=== PATIENT | male | born 1975 | race Caucasian/White ===

== ENCOUNTER 2019-12-22 14:35 | Emergency (ER) | payer OTHER, SELFPAY ==
--- NOTE | ~2019-12-22 | CT_ITS ---
EXAMINATION: CT soft tissue neck w con DATE: 12/22/2019 15:49 INDICATION: Neck pain and swelling. TECHNIQUE: Computed tomography (CT) of the neck was performed with 75 mL Omnipaque-350 intravenous co ntrast. Automated exposure control and iterative reconstruction technique were employed. The dose-tino gth product was 633.90 mGy-cm. COMPARISON: None FINDINGS: The orbits are normal. There is fat stranding in the right submandibular space and overlyin g subcutaneous fat. There is edema of the right submandibular gland. There is mild right high interna l jugular chain lymphadenopathy. There is a carious lesion of tooth 31 with periapical lucencies and breech of the lingual cortex of the alveolar ridge. There is edema of the right floor of mouth. No ab scess. There is moderate cervical spondylosis. IMPRESSION: 1. Carious lesion and periapical lucencies involving tooth #31 with right neck cellulitis. No abscess . 2. Mild high right internal jugular chain lymphadenopathy, likely reactive. Reviewed, dictated and finalized at location A. S REVIEW CLERK IMPRESSION: 1. Carious lesion and periapical lucencies involving tooth #31 with right neck cellulitis. No abscess. 2. Mild high right internal jugular chain lymphadenopathy, likely reactive.
[2019-12-22 14:40] VITALS: BP 170/100; PULSE 105; RESP 20; TEMP 36.6; O2SAT 98
[2019-12-22 15:12] LABS: Basophils Percent Auto 0.1 % (0.2-1.2); Eosinophils Absolute Auto 0.3 K/mm3 (0-0.3); Eosinophils Percent Auto 1.7 % (0-4.4); Hematocrit 50.4 % (42.0-52.0); Hemoglobin 17.1 g/dL (14.0-18.0); Immature Granulocyte Absolute 0.07 K/mm3 (0.00-0.031); Immature Granulocyte Percent A 0.5 % (0-0.5); Lymphocytes Absolute Auto 1.61 K/mm3 (0.9-3.2); Lymphocytes Percent Auto 10.7 % (18.3-44.2); Mean Corpuscular HGB Conc 33.9 g/dl (32-36); Mean Corpuscular Hemoglobin 30.1 pg (26-34); Mean Corpuscular Volume 88.7 fl (80-100); Monocytes Absolute Auto 1.1 K/mm3 (0.1-0.6); Monocytes Percent Auto 7.2 % (2.6-8.5); Neutrophils Absolute Auto 12.1 K/mm3 (1.3-6.7); Neutrophils Percent Auto 79.8 % (45.5-73.1); Platelet Count Result 212 k/mm3 (150-375); Red Blood Count 5.68 M/mm3 (4.6-6.20); Red Cell Distribution Width 13.2 % (11.5-14.5); White Blood Count 15.1 K/mm3 (4.5-10.0)
[2019-12-22 15:16] LABS: Blood Urea Nitrogen 6 mg/dL (9-20); Calcium 9.3 mg/dL (8.4-10.2); Carbon Dioxide 27 mmol/L (22-30); Chloride 105 mmol/L (98-107); Estimated CRCL calculation 125 ml/min; Estimated Glomerular Filt Rate > 60; Glucose 99 mg/dL (75-110); Potassium 3.2 mmol/L (3.4-5.0); Sodium 139 mmol/L (137-145)
[2019-12-22] MEDS: CLINDAMYCIN 900 MG/NS 50 ML 900 MG/50 ML PIGGYBACK 50 MG IVPB (15:16)
[2019-12-22] MEDS: KETOROLAC 30 MG/ML VIAL (*BKC) IV PUSH (15:16)
[2019-12-22] MEDS: SODIUM CHLORIDE 0.9% IV 1,000 ML 999 ML IV CONT (15:16)
--- NOTE | 2019-12-22 15:29 | ED.GENADULT ---
HPI - General Adult General Chief complaint: Dental/Oral <MARCUS Carpenter Last Filed: 12/22/19 17:01> Stated complaint: Facial Swelling/Abscess Tooth <MARCUS Carpenter Last Filed: 12/22/19 17:01> Time Seen by Provider: 12/22/19 14:37 <MARCUS Carpenter Last Filed: 12/22/19 17:01> Source: patient <MARCUS Carpenter Last Filed: 12/22/19 17:01> Mode of arrival: ambulatory <MARCUS Carpenter Last Filed: 12/22/19 17:01> Limitations: no limitations <MARCUS Carpenter Last Filed: 12/22/19 17:01> History of Present Illness HPI narrative: Patient is a 44-year-old male who presents to emergency department for evaluation of pain and swelling to the right side of the face was seen by dentistry today sent to emergency department notes history of decay notes for the last 2 days he has been having dental pain on arrival to emergency department patient is in the room in no distress resting comfortably patient denies any fever vomiting diarrhea or immunocompromise <MARCUS Carpenter Last Filed: 12/22/19 17:01> Related Data Home medications: Home Medications Medication Instructions Recorded Confirmed Brilinta 90 mg PO DAILY 11/09/19 11/09/19 Enbrel 50 mg SUBCUT DAILY 11/09/19 11/09/19 bupropion HCl 150 mg PO DAILY 11/09/19 11/09/19 cyanocobalamin (vitamin B-12) 2,500 mcg PO DAILY 11/09/19 11/09/19 escitalopram oxalate 10 mg PO DAILY 11/09/19 11/09/19 hydrocodone-acetaminophen 1 tablet PO Q6H PRN 11/09/19 11/09/19 lisinopril 40 mg PO DAILY 11/09/19 11/09/19 metoprolol succinate 25 mg PO DAILY 11/09/19 11/09/19 ranolazine 500 mg PO BID 11/09/19 11/09/19 sucralfate [Carafate] 10 ml PO QID 11/09/19 11/09/19 <MARCUS Carpenter Last Filed: 12/22/19 17:01> Allergies/adverse reactions: Allergies Allergy/AdvReac Type Severity Reaction Status Date / Time colchicine AdvReac Unknown nausea and Verified 12/22/19 14:43 abdominal pain with one dose <Armando Duke PA-C - Last Filed: 12/22/19 17:01> Review of Systems Review of Systems: All systems reviewed & are unremarkable except as noted in HPI and below <Armando Duke PA-C - Last Filed: 12/22/19 17:01> PMFSH Past Medical History Medical History: Medical History Anxiety Arthritis Behcets syndrome CAD (coronary artery disease) Dental cavities Gout History of angina HLD (hyperlipidemia) HTN (hypertension) Kidney stone Left wrist fracture Myocardial infarction x2, with stent Psoriasis Wrist fracture <Armando Duke PA-C - Last Filed: 12/22/19 17:01> Surgical History Surgical History: Surgical History H/O arthroscopy of left knee History of renal stent History of surgery on arm left forearm <Armando Duke PA-C - Last Filed: 12/22/19 17:01> Family History Family History: Family History Other Family history of malignant neoplasm Family history of psoriasis Hypertension <Armando Duke PA-C - Last Filed: 12/22/19 17:01> Social History Social History: Social History 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 Smoking cigarettes per day: 40.0 Years smoked: 30 Smoking pack-years: 60.00 Smoking status: Current every day smoker Tobacco type: cigarettes Second hand tobacco smoke exposure: Yes Smoking end date: 10/21/12 Alcohol intake: current Drinks per week: 1 Substance use: never Gender identity (if verbalized by the patient): Male Spiritual care concerns: No Agree to blood products: Yes <Armando Duke PA-C - Last Filed: 12/22/19 17:01> Exam Narrative: Exam Narrative: GENERAL: Well-appearing, well-nourished, and in no acute distress. HEAD: Normocephalic, atraumatic.
[2019-12-22 16:07] VITALS: BP 159/89; PULSE 89; RESP 18; O2SAT 100
[2019-12-22 17:19] VITALS: BP 168/89; PULSE 89; RESP 16; TEMP 37.3; O2SAT 98
== END 2019-12-22 17:19 | disposition home or self-care (01) ==
PROVIDERS: Emergency Medicine Emergency Medical Services; Emergency Provider Emergency Medicine; PCP Chiropractor
DX: K04.7 Periapical abscess without sinus (principal); L03.221 Cellulitis of neck; F41.9 Anxiety disorder, unspecified; M19.90 Unspecified osteoarthritis, unspecified site; I25.10 Atherosclerotic heart disease of native coronary artery without angina pectoris; M10.9 Gout, unspecified; E78.5 Hyperlipidemia, unspecified; I10 Essential (primary) hypertension; Z87.442 Personal history of urinary calculi; I25.2 Old myocardial infarction; Z95.5 Presence of coronary angioplasty implant and graft; M35.2 Behcet's disease; F17.210 Nicotine dependence, cigarettes, uncomplicated
CPT/HCPCS: 36415; 70491; 80048; 85025; 96365; 96367; 96375; 99284; J0131; J1100; J1885; J7030; Q9967

== ENCOUNTER 2019-12-24 07:04 | Emergency (ER) | payer OTHER, SELFPAY ==
--- NOTE | ~2019-12-24 | CT_ITS ---
EXAMINATION: CT soft tissue neck w con DATE: 12/24/2019 09:24 INDICATION: Face and neck pain and swelling. TECHNIQUE: Computed tomography (CT) of the neck was performed with 75 mL Omnipaque-350 intravenous co ntrast. Automated exposure control and iterative reconstruction technique were employed. The dose-tino gth product was 609.28 mGy-cm. COMPARISON: CT neck 12/22/2019 FINDINGS: The lung apices demonstrate mild atelectasis. The orbits are normal. There is fat stranding in the right submandibular space and overlying subcutaneous fat. There is edema of the right submand ibular gland. There is mild right high internal jugular chain lymphadenopathy. There is a carious les ion of tooth 31 with periapical lucencies and breech of the lingual cortex of the alveolar ridge. The re is edema of the right floor of mouth. No abscess. There is moderate cervical spondylosis. IMPRESSION: 1. Carious lesion and periapical lucencies involving tooth #31 with stable right neck cellulitis. No abscess. 2. Mild high right internal jugular chain lymphadenopathy, likely reactive. Reviewed, dictated and finalized at location A. OLO MECHANIC IMPRESSION: 1. Carious lesion and periapical lucencies involving tooth #31 with stable righ t neck cellulitis. No abscess. 2. Mild high right internal jugular chain lymphadenopathy, likely reactive.
[2019-12-24 07:27] VITALS: BP 156/90; PULSE 87; RESP 18; TEMP 37.1; O2SAT 97
--- NOTE | 2019-12-24 07:49 | ED.DENTAL ---
HPI - Dental/Oral General Chief complaint: Dental/Oral Stated complaint: right lower dental issue; bodyaches Time Seen by Provider: 12/24/19 07:33 Source: patient Mode of arrival: ambulatory Limitations: no limitations History of Present Illness HPI Narrative: Patient is a 44-year-old male presents to the emergency department with complaints of dental pain with jaw and neck pain and swelling. Patient reports onset of symptoms a few days ago. Patient saw a dentist 3 days ago and was seen in the emergency department 2 days ago for evaluation. Patient had soft tissue CT of the neck completed which showed evidence of carious lesion and periapical lucencies involving tooth #31 with right neck cellulitis. No abscess was noted. Patient was given IV clindamycin and Decadron. Patient was prescribed clindamycin to take at home. Patient reports worsening swelling which is now involving the floor of the mouth and he reports some increased swelling in the neck and difficulty swallowing this morning. MD Complaint: tooth pain Location: Tooth # (31 decay, tender) Onset (ago): day(s) Duration: constant Context: history of dental caries Associated symptoms: pain with swallowing Related Data Home Medications Medication Instructions Recorded Confirmed Brilinta 90 mg PO DAILY 11/09/19 11/09/19 Enbrel 50 mg SUBCUT DAILY 11/09/19 11/09/19 bupropion HCl 150 mg PO DAILY 11/09/19 11/09/19 cyanocobalamin (vitamin B-12) 2,500 mcg PO DAILY 11/09/19 11/09/19 escitalopram oxalate 10 mg PO DAILY 11/09/19 11/09/19 hydrocodone-acetaminophen 1 tablet PO Q6H PRN 11/09/19 11/09/19 lisinopril 40 mg PO DAILY 11/09/19 11/09/19 metoprolol succinate 25 mg PO DAILY 11/09/19 11/09/19 ranolazine 500 mg PO BID 11/09/19 11/09/19 sucralfate [Carafate] 10 ml PO QID 11/09/19 11/09/19 Allergies Allergy/AdvReac Type Severity Reaction Status Date / Time colchicine AdvReac Unknown nausea and Verified 12/24/19 07:31 abdominal pain with one dose Review of Systems Review of Systems: All systems reviewed & are unremarkable except as noted in HPI and below Constitutional: Constitutional: Reports fever(s) (subjective) ENT: Reports dental pain and Reports dysphagia PMFSH Past Medical History Medical History Anxiety Arthritis Behcets syndrome CAD (coronary artery disease) Dental cavities Gout History of angina HLD (hyperlipidemia) HTN (hypertension) Kidney stone Left wrist fracture Myocardial infarction x2, with stent Psoriasis Wrist fracture Surgical History Surgical History H/O arthroscopy of left knee History of renal stent History of surgery on arm left forearm Social History Social History 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 Smoking cigarettes per day: 40.0 Years smoked: 30 Smoking pack-years: 60.00 Smoking status: Current every day smoker Tobacco type: cigarettes Second hand tobacco smoke exposure: Yes Smoking end date: 10/21/12 Alcohol intake: current Drinks per week: 1 Substance use: never Gender identity (if verbalized by the patient): Male Spiritual care concerns: No Agree to blood products: Yes Exam Const: General: cooperative, no acute distress and alert Nutritional Appearance: well nourished Orientation/consciousness: patient oriented x3 Limitations: no limitations HENMT: Mouth: Yes lip normal, Yes moist mucous membranes, Yes Abnormal oral and palatal mucosa present, Yes tongue abnormal and Yes other (Swelling to the right floor of mouth, no tongue elevation) Teeth and gingiva: caries (#31), gingiva abnormal edematous, diffusely erythematous and tender and other (No fluctuance to suggest abscess) Throat: posterior oropharynx normal Resp: Effort & Inspection: normal respiratory effort Auscultation: clear to auscultation bilateral
[2019-12-24] MEDS: CLINDAMYCIN 900 MG/NS 50 ML 900 MG/50 ML PIGGYBACK 50 MG IVPB (08:33)
[2019-12-24] MEDS: KETOROLAC 30 MG/ML VIAL (*BKC) IV PUSH (08:35)
[2019-12-24 08:46] LABS: Basophils Percent Auto 0.1 % (0.2-1.2); Eosinophils Absolute Auto 0.1 K/mm3 (0-0.3); Eosinophils Percent Auto 0.6 % (0-4.4); Hematocrit 50.1 % (42.0-52.0); Hemoglobin 16.8 g/dL (14.0-18.0); Immature Granulocyte Absolute 0.05 K/mm3 (0.00-0.031); Immature Granulocyte Percent A 0.4 % (0-0.5); Lymphocytes Absolute Auto 1.58 K/mm3 (0.9-3.2); Lymphocytes Percent Auto 11.4 % (18.3-44.2); Mean Corpuscular HGB Conc 33.5 g/dl (32-36); Mean Corpuscular Hemoglobin 29.9 pg (26-34); Mean Corpuscular Volume 89.3 fl (80-100); Mean Platelet Volume 10.4 fl (7.4-10.4); Neutrophils Absolute Auto 11.2 K/mm3 (1.3-6.7); Neutrophils Percent Auto 80.5 % (45.5-73.1); Platelet Count Result 220 k/mm3 (150-375); Red Blood Count 5.61 M/mm3 (4.6-6.20); Red Cell Distribution Width 13.3 % (11.5-14.5); White Blood Count 13.9 K/mm3 (4.5-10.0)
[2019-12-24 08:58] LABS: Alanine Aminotransferase 21 U/L (4-50); Albumin Level 4.2 g/dL (3.5-5.1); Alkaline Phosphatase 52 U/L (38-126); Aspartate Amino Transferase 24 U/L (17-59); Bilirubin,Total 0.9 mg/dL (0.2-1.3); Blood Urea Nitrogen 6 mg/dL (9-20); Calcium 9.1 mg/dL (8.4-10.2); Carbon Dioxide 29 mmol/L (22-30); Chloride 106 mmol/L (98-107); Estimated Glomerular Filt Rate > 60; Glucose 105 mg/dL (75-110); Potassium 3.1 mmol/L (3.4-5.0); Sodium 139 mmol/L (137-145)
[2019-12-24] MEDS: AMPICILLIN SULB 3 GM/NS 100 ML 3 GM/100 ML VIAL IVPB (10:54)
[2019-12-24] MEDS: LACTATED RINGERS 1,000 ML 999 ML IV CONT (10:54)
[2019-12-24 11:03] VITALS: BP 149/85; PULSE 81; RESP 18; O2SAT 95
== END 2019-12-24 11:26 | disposition short-term general hospital (02) ==
PROVIDERS: Emergency Provider Emergency Medicine; PCP Chiropractor
DX: K12.2 Cellulitis and abscess of mouth (principal); F41.9 Anxiety disorder, unspecified; M19.90 Unspecified osteoarthritis, unspecified site; M35.2 Behcet's disease; I25.10 Atherosclerotic heart disease of native coronary artery without angina pectoris; M10.9 Gout, unspecified; E78.5 Hyperlipidemia, unspecified; I10 Essential (primary) hypertension; Z87.442 Personal history of urinary calculi; I25.2 Old myocardial infarction; F17.210 Nicotine dependence, cigarettes, uncomplicated
CPT/HCPCS: 36415; 70491; 80053; 85025; 96365; 96367; 96375; 96376; 99285; J0131; J0295; J1100; J1885; J3010; J7120; Q9967

== ENCOUNTER 2020-04-25 13:34 | Observation (INO) | payer OTHER, SELFPAY ==
[2020-04-25] VITALS (13 sets, daily range): BP systolic 129–158; BP diastolic 74–95; PULSE 65–95; RESP 15–20; TEMP 36.2–36.8; O2SAT 95–99; BMI 32.5; BMI 31.9
--- NOTE | ~2020-04-25 | XR_ITS ---
EXAMINATION: XR chest 1V portable DATE: 04/25/2020 14:22 INDICATION: Shortness of breath. Chest pain. TECHNIQUE: A single frontal view of the chest was obtained. COMPARISON: Chest 2 views 11/09/2019, chest CT 07/29/2017 FINDINGS: The chest demonstrates clear lungs without pneumonia, pleural effusion, or pneumothorax. Th e heart size is normal. IMPRESSION: 1. No acute cardiopulmonary disease. Reviewed, dictated and finalized at location A.
--- NOTE | ~2020-04-25 | US_ITS ---
EXAMINATION: US right upper quadrant DATE: 04/26/2020 09:34 INDICATION: Right upper quadrant abdominal pain. TECHNIQUE: Multiple grayscale and Doppler ultrasound images of the abdomen were obtained. COMPARISON: CT abdomen and pelvis 08/25/2014 FINDINGS: The visualized portions of the head, body, and tail of the pancreas are normal. The liver i s normal without focal lesion. There is normal flow in main portal vein. The gallbladder is normal in size and contains 2 polyps with the larger measuring 6 mm, likely benign cholesterol polyps that nee d no follow-up. No gallstones or gallbladder wall thickening. There was no sonographic Boyer sign. T he common duct is normal and measures 4 mm. IMPRESSION: 1. No etiology for the patient's symptoms. Reviewed, dictated and finalized at location A.
--- NOTE | 2020-04-25 14:00 | ECG_ITS ---
Measurements Intervals [place] Rate: 83 P: 17 SC: 150 QRS: -37 QRSD: 95 T: 0 QT: 365 QTc: 429 Interpretive Statements SINUS RHYTHM WITH SINUS ARRHYTHMIA LEFT AXIS DEVIATION DELAYED PRECORDIAL R/S TRANSITION LEFT VENTRICULAR HYPERTROPHY AND ST-T CHANGE BORDERLINE T WAVE ABNORMALITY- INF/LAT LEADS BORDERLINE ECG Electronically Signed On 04-25-2020 15:09:40 CDT by Ethan Gutierrez D.O.
[2020-04-25] MEDS: ASPIRIN 81 MG CHEWABLE TABLET 324 MG PO (14:08)
--- NOTE | 2020-04-25 14:08 | ED.CHESTPAIN ---
HPI - Chest Pain General Chief Complaint: Chest Pain Stated Complaint: CP, SOB, BODY ACHES Time Seen by Provider: 04/25/20 13:59 History of Present Illness HPI narrative: Patient presents with chest pain 8 out of 10. It started an hour and a half ago. Associated with sweats but not shortness of breath or nausea. He points to his left lower chest, says it radiates to the right neck. He has recently had a cath and stents. He has had non-STEMI's. He is followed by Dr. Pace. He started smoking in September when he got the divorce. He does drink some beer. He has a little bit of a cough. He also had some diarrhea today His appetite is fine. He denies depression. MD complaint: chest pain Pertinent past history: coronary artery disease and prior AL Onset (ago): hour(s) Timing of current episode: episodic Prior episodes: Yes Onset: during rest Pain location: left chest Pain radiation: neck Severity: moderate Related Data Home Medications Medication Instructions Recorded Confirmed Brilinta 90 mg PO DAILY 11/09/19 11/09/19 Enbrel 50 mg SUBCUT DAILY 11/09/19 11/09/19 bupropion HCl 150 mg PO DAILY 11/09/19 11/09/19 cyanocobalamin (vitamin B-12) 2,500 mcg PO DAILY 11/09/19 11/09/19 escitalopram oxalate 10 mg PO DAILY 11/09/19 11/09/19 hydrocodone-acetaminophen 1 tablet PO Q6H PRN 11/09/19 11/09/19 lisinopril 40 mg PO DAILY 11/09/19 11/09/19 metoprolol succinate 25 mg PO DAILY 11/09/19 11/09/19 ranolazine 500 mg PO BID 11/09/19 11/09/19 sucralfate [Carafate] 10 ml PO QID 11/09/19 11/09/19 Allergies Allergy/AdvReac Type Severity Reaction Status Date / Time colchicine AdvReac Unknown nausea and Verified 04/25/20 13:36 abdominal pain with one dose Review of Systems Review of Systems: Narrative: CONSTITUTIONAL: Denies fever, chills, or sweats. EYES: Denies visual changes, redness, or discharge. ENT: Denies rhinorrhea, congestion, sore throat, or otalgia. CARDIOVASCULAR: He has chest pain, but not palpitations, or edema. RESPIRATORY: Denies cough or dyspnea. GASTROINTESTINAL: Denies abdominal pain, nausea, vomiting, but has had some diarrhea. GENITOURINARY: Denies dysuria or hematuria. SKIN: Denies rash or itching. MUSCULOSKELETAL: Denies back pain, joint pain, or myalgia. NEUROLOGIC: Denies headache, numbness, or weakness. PSYCHIATRIC: Denies anxiety or depression. [facility] Past Medical History Medical History Anxiety Arthritis Behcets syndrome CAD (coronary artery disease) Dental cavities Gout History of angina HLD (hyperlipidemia) HTN (hypertension) Kidney stone Left wrist fracture Myocardial infarction x2, with stent Psoriasis Wrist fracture Surgical History Surgical History H/O arthroscopy of left knee History of renal stent History of surgery on arm left forearm Social History Social History 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 Smoking cigarettes per day: 40.0 Years smoked: 30 Smoking pack-years: 60.00 Smoking status: Current every day smoker Tobacco type: cigarettes Second hand tobacco smoke exposure: Yes Smoking end date: 10/21/12 Alcohol intake: current Drinks per week: 1 Substance use: never Gender identity (if verbalized by the patient): Male Spiritual care concerns: No Agree to blood products: Yes Exam Narrative: Exam Narrative: GENERAL: Well-appearing, well-nourished, and in no acute distress. Very suntanned. HEAD: Normocephalic, atraumatic. EYES: PERRLA and EOMI. ENT: Nares clear, no rhinorrhea or epistaxis. Mucous membranes moist. NECK: Supple. CHEST: Clear to auscultation. No respiratory distress. HEART: Regular rate and rhythm. No murmur heard. Normal peripheral pulses. ABDOMEN: Soft, nontender, nondistended, normal active bowel sounds. EXTREMITIES: Normal range of motion. No edema. SKIN: Warm
[2020-04-25] MEDS: NITROGLYCERIN OINTMENT 1 INCH DOSE TRANSDERM (14:16)
[2020-04-25] MEDS: MORPHINE SULFATE 4 MG/ML INJ IV PUSH ×4 (14:16→23:55)
[2020-04-25 14:19] LABS: Basophils Percent Auto 0.2 % (0.2-1.2); Eosinophils Absolute Auto 0.3 K/mm3 (0-0.3); Hematocrit 49.1 % (42.0-52.0); Hemoglobin 16.6 g/dL (14.0-18.0); Immature Granulocyte Absolute 0.03 K/mm3 (0.00-0.031); Immature Granulocyte Percent A 0.3 % (0-0.5); Lymphocytes Absolute Auto 1.48 K/mm3 (0.9-3.2); Lymphocytes Percent Auto 14.1 % (18.3-44.2); Mean Corpuscular HGB Conc 33.8 g/dl (32-36); Mean Corpuscular Hemoglobin 31.4 pg (26-34); Mean Corpuscular Volume 92.8 fl (80-100); Mean Platelet Volume 10.2 fl (7.4-10.4); Monocytes Absolute Auto 0.7 K/mm3 (0.1-0.6); Monocytes Percent Auto 6.9 % (2.6-8.5); Neutrophils Absolute Auto 7.9 K/mm3 (1.3-6.7); Neutrophils Percent Auto 75.5 % (45.5-73.1); Platelet Count Result 210 k/mm3 (150-375); Red Blood Count 5.29 M/mm3 (4.6-6.20); White Blood Count 10.5 K/mm3 (4.5-10.0)
[2020-04-25 14:34] LABS: INR 0.9; Prothrombin Time 12.3 Seconds (11.1-14.7)
[2020-04-25 14:37] LABS: Blood Urea Nitrogen 8 mg/dL (9-20); Carbon Dioxide 28 mmol/L (22-30); Chloride 104 mmol/L (98-107); Estimated CRCL calculation 140 ml/min; Estimated Glomerular Filt Rate > 60; Glucose 104 mg/dL (75-110); Potassium 3.3 mmol/L (3.4-5.0); Sodium 140 mmol/L (137-145)
[2020-04-25 14:48] LABS: Troponin I 0.014 ng/mL (0.000-0.034)
--- NOTE | 2020-04-25 14:48 | PC.NURSE ---
Pt called out and stated that his pain was dull but not gone . Informed Dr. Restrepo of this and she states ok, I am looking at him tropin now .
[2020-04-25] MEDS: ONDANSETRON INJ 4 MG/2 ML VIAL IV PUSH (17:17)
[2020-04-25 17:36] LABS: Troponin I 0.019 ng/mL (0.000-0.034)
--- NOTE | 2020-04-25 18:12 | ADMGEN ---
This patient, Zander Cain, was admitted to IMU Room 207-01 at 1812. Patient/family oriented to hospital policies and general routines including ID bracelet, bed and alarms, visiting hours, pain management, procedures, bathroom and other care routines, personal items, smoking policy, room service/diet, and visiting hours. Valuables list has been completed. Information on how to activate the Rapid Response Team has been discussed. Patient/Family are encouraged to report perceived risks to care and to ask questions if they do not understand what they are told or what they should do.
--- NOTE | 2020-04-25 19:16 | PM.IMHP ---
H&P: HPI History of Present Illness Chief complaint: unstable angina Narrative: Zander Cain is a 44 year old male who has a history of coronary artery disease. The patient has 2 cardiac stents. His last cardiac catheterization was on 11/09/2019 The patient had 1 stent to the RCA that was totally occluded. The patient was to continue with aspirin Brilinta lisinopril metoprolol. Patient admits that he is not always taking his medications as prescribed. The patient continues to smoke up to 3 packs of cigarettes a day. The patient is complaining of midsternal discomfort. Radiates the right side of his neck. The patient stated that he does occasionally cough and is nonproductive. He is having some rib pain from coughing. Cardiology has been called and agreed to consult. He is followed by Dr. womack. The patient stated that his discomfort came an hour and half prior to coming to the emergency room. Nothing makes it worse and nothing makes it better. Resting does not make him feel any better. Has no fever chills. Does not radiate down his arm but does radiate up the right side of his neck. Patient was given multiple doses of morphine for total of 16 mg. The patient continues to complain chest wall discomfort. He was also given nitropaste. EKG was read as sinus rhythm with sinus arrhythmia. Left ventricular hypertrophy in ST T-wave changes. Date of service 04/25/2020. Review of Systems Review of Systems: All systems reviewed & are unremarkable except as noted in HPI and below Constitutional: Constitutional: Reports as per HPI and Reports no additional constitutional complaints Eyes: Eyes: Reports as per HPI and Reports no additional eye complaints ENT: Reports system reviewed and no additional complaints, except as documented and Reports Normal hearing present Cardiovascular: Cardiovascular: Reports no additional cardiovascular complaints Respiratory: Respiratory: Reports no additional respiratory complaints and Reports no additional respiratory complaints Gastrointestinal: Gastrointestinal: Reports as per HPI and Reports no additional gastrointestinal complaints Musculoskeletal: Musculoskeletal: Reports no additional musculoskeletal complaints Integumentary/Breasts: Skin/Breast: Reports system reviewed and no additional complaints, except as docu and Reports as per HPI Neurologic: Reports system reviewed and no additional complaints, except as documented, Reports as per HPI and Reports Normal hearing present Psychiatric: Psychiatric: Reports no additional psychiatric complaints and Reports as per HPI Endocrine: Endocrine: Reports no additional endocrine complaints Hematologic/Lymphatic: Hematologic/Lymphatic: Reports no additional hematologic/lymphatic complaints Allergic/Immunologic: Allergic/Immunologic: Reports no additional allergic/immunologic complaints [facility] Past Medical History Medical History (Updated 04/25/20 @ 19:37 by Dana Cee NP) Anxiety Arthritis Behcets syndrome CAD (coronary artery disease) Chronic back pain Dental cavities Gout History of angina HLD (hyperlipidemia) HTN (hypertension) Kidney stone Left wrist fracture Myocardial infarction x2, with stent Psoriasis Wrist fracture Surgical History Surgical History (Updated 04/25/20 @ 19:27 by Dana Cee NP) H/O arthroscopy of left knee H/O cardiac catheterization History of heart artery stent X2 History of renal stent History of surgery on arm left forearm Family History Family History Daughter Cancer Father Hypertension Other Family history of malignant neoplasm Family history of psoriasis Social History Social History (Updated 04/25/20 @ 19:32 by Dana Cee NP) Social History: The patient tells me that he now smokes 3 packs of cigarettes a day. He is in the middle of the worse. He has 3 children. He drinks 3-4 beers every other day.
[2020-04-25 20:15] LABS: Troponin I 0.015 ng/mL (0.000-0.034)
[2020-04-25] MEDS: BELLADONNA ALK/PHENOB ELIX 10 ML, MAG HYDROX/ALUMINUM HYD/SIMETH 30 ML, LIDOCAINE HCL 2... PO (20:28)
[2020-04-25] MEDS: METOPROLOL SUCCINATE EXT REL 25 MG TABCR PO (20:29)
[2020-04-25] MEDS: TICAGRELOR 90 MG TABLET PO (21:23)
[2020-04-25] MEDS: FAMOTIDINE 20 MG/2 ML VIAL IV PUSH (21:23)
[2020-04-26] VITALS (8 sets, daily range): BP systolic 117–125; BP diastolic 57–75; PULSE 58–76; RESP 18–20; TEMP 36.3–36.4; O2SAT 96–97
--- NOTE | 2020-04-26 00:26 | ECG_ITS ---
Measurements Intervals [place] Rate: 58 P: 3 MT: 144 QRS: -23 QRSD: 127 T: 0 QT: 421 QTc: 415 Interpretive Statements SINUS BRADYCARDIA DELAYED PRECORDIAL R/S TRANSITION LEFT VENTRICULAR HYPERTROPHY AND ST-T CHANGE BORDERLINE T WAVE ABNORMALITY- INF/LAT LEADS BASELINE ARTIFACT- II, III, AVF BORDERLINE ECG Electronically Signed On 04-26-2020 7:07:24 CDT by Ethan Gutierrez D.O.
[2020-04-26] MEDS: KETOROLAC 30 MG/ML VIAL (*BKC) IV PUSH (03:24)
[2020-04-26 04:43] LABS: Basophils Percent Auto 0.3 % (0.2-1.2); Eosinophils Absolute Auto 0.2 K/mm3 (0-0.3); Eosinophils Percent Auto 2.4 % (0-4.4); Hematocrit 44.5 % (42.0-52.0); Hemoglobin 14.8 g/dL (14.0-18.0); Immature Granulocyte Absolute 0.04 K/mm3 (0.00-0.031); Immature Granulocyte Percent A 0.4 % (0-0.5); Lymphocytes Absolute Auto 1.23 K/mm3 (0.9-3.2); Lymphocytes Percent Auto 12.7 % (18.3-44.2); Mean Corpuscular HGB Conc 33.3 g/dl (32-36); Mean Corpuscular Hemoglobin 30.8 pg (26-34); Mean Corpuscular Volume 92.7 fl (80-100); Mean Platelet Volume 10.1 fl (7.4-10.4); Monocytes Absolute Auto 0.8 K/mm3 (0.1-0.6); Monocytes Percent Auto 8.5 % (2.6-8.5); Neutrophils Absolute Auto 7.3 K/mm3 (1.3-6.7); Neutrophils Percent Auto 75.7 % (45.5-73.1); Platelet Count Result 191 k/mm3 (150-375); Red Cell Distribution Width 13.9 % (11.5-14.5); White Blood Count 9.7 K/mm3 (4.5-10.0)
[2020-04-26 05:06] LABS: Alanine Aminotransferase 25 U/L (4-50); Alkaline Phosphatase 58 U/L (38-126); Aspartate Amino Transferase 26 U/L (17-59); Bilirubin,Total 0.7 mg/dL (0.2-1.3); Blood Urea Nitrogen 12 mg/dL (9-20); CRP 1.7 mg/dL (<1.0); Calcium 8.7 mg/dL (8.4-10.2); Carbon Dioxide 29 mmol/L (22-30); Chloride 103 mmol/L (98-107); Estimated CRCL calculation 99 ml/min; Estimated Glomerular Filt Rate > 60; Glucose 95 mg/dL (75-110); Magnesium 2.1 mg/dL (1.6-2.3); Potassium 3.8 mmol/L (3.4-5.0); Sodium 138 mmol/L (137-145)
--- NOTE | 2020-04-26 08:45 | PC.NURSE ---
Patient to ultrasound via wheelchair.
--- NOTE | 2020-04-26 08:45 | PM.CNCAR ---
Assessment and Plan Assessment and plan (1) CAD (coronary artery disease): Code(s): I25.10 - Atherosclerotic heart disease of [place] coronary artery without angina pectoris Status: Chronic Assessment and Plan: Patient ruled out for MD. Advised to be compliant with meds including DAPT with ASA and Ticagrelor. Pt advised to follow up with Cardiology after discharge. Any additional cardiac testing as an out patient. Patient left AMA based on the review of the nursing notes. History of Present Illness History of Present Illness Consult date/time: 04/26/20 08:45 Date of consult-04/26/2020 Reason for consult: Chest pain Requesting physician:Re Restrepo MD Chief complaint: Chest pain HPI: 44-year-old male with known CAD; history of stenting of OM branch in 2013; recent inferior MD status post PTCA/3.0 x 23 mm drug-eluting stent placement of proximal RCA on 11/09/2019; hypertension, dyslipidemia, tobacco abuse, noncompliance. Patient was admitted to [facility] on 04/25/2020 with complaints of chest discomfort. He recently had PCI/stenting of proximal RCA on 11/09/2019 in the setting of inferior MD. Apparently, patient has not been compliant with his medical regimen including dual antiplatelet therapy. EKG on presentation which I personally evaluated shows sinus arrhythmia, LVH, nonspecific T-wave abnormalities. Serial troponins are negative. Chest x-ray is unremarkable. Reason For Visit: unstable angina Review of Systems Constitutional: Constitutional: Denies chills, Denies fatigue, Denies fever(s) and Denies headache(s) Eyes: Eyes: Reports as per HPI, Denies change in vision, Denies loss of vision and Denies eye pain ENT: Reports as per HPI, Reports Normal hearing present, Denies headache(s), Denies lip swelling, Denies epistaxis and Denies sore throat Cardiovascular: Cardiovascular: Reports as per HPI, Reports chest pain, Denies syncope, Denies irregular heart rhythm, Denies lightheadedness and Denies dyspnea Respiratory: Respiratory: Reports as per HPI, Denies cough, Denies dyspnea and Denies wheezing Gastrointestinal: Gastrointestinal: Reports as per HPI, Denies abdominal pain, Denies melena, Denies nausea and Denies vomiting Genitourinary: Genitourinary: Reports as per HPI Musculoskeletal: Musculoskeletal: Reports as per HPI, Denies myalgias, Denies muscle cramps and Denies muscle weakness Integumentary/Breasts: Skin/Breast: Reports as per HPI, Denies pruritus and Denies rash Neurologic: Reports as per HPI, Reports Normal hearing present, Denies behavioral changes, Denies syncope, Denies headache(s) and Denies loss of vision Psychiatric: Psychiatric: Reports as per HPI, Denies anxiety, Denies behavioral changes and Denies depression Endocrine: Endocrine: Reports as per HPI, Denies fatigue, Denies polydipsia and Denies polyuria Hematologic/Lymphatic: Hematologic/Lymphatic: Reports as per HPI, Denies easy bleeding and Denies easy bruising Allergic/Immunologic: Allergic/Immunologic: Reports as per HPI, Denies lip swelling and Denies wheezing PMFSH Past Medical History Medical History Anxiety Arthritis Behcets syndrome CAD (coronary artery disease) Chronic back pain Dental cavities Gout History of angina HLD (hyperlipidemia) HTN (hypertension) Kidney stone Left wrist fracture Myocardial infarction x2, with stent Psoriasis Wrist fracture Surgical History Surgical History H/O arthroscopy of left knee H/O cardiac catheterization History of heart artery stent X2 History of renal stent History of surgery on arm left forearm Family History Family History Daughter Cancer Father Hypertension Other Family history of malignant neoplasm Family history of psoriasis Social History Social History (Reviewed 04/26/20 @ 08:46 by Prabhjot
--- NOTE | 2020-04-26 09:27 | PC.NURSE ---
Patient returned to room following ultrasound.
[2020-04-26] MEDS: ESCITALOPRAM OXALATE 10 MG TABLET PO (09:34)
[2020-04-26] MEDS: ATORVASTATIN 40 MG TABLET PO (09:34)
[2020-04-26] MEDS: ASPIRIN 81 MG ENTERIC TABLET PO (09:34)
[2020-04-26] MEDS: TICAGRELOR 90 MG TABLET PO (09:34)
[2020-04-26] MEDS: FAMOTIDINE 20 MG/2 ML VIAL IV PUSH (09:35)
[2020-04-26] MEDS: lisinopriL 20 MG TABLET 40 MG PO (09:35)
[2020-04-26] MEDS: buPROPion HCL XL (24 HR) 150 MG TABCR PO (09:36)
[2020-04-26] MEDS: METOPROLOL SUCCINATE EXT REL 25 MG TABCR PO (09:36)
--- NOTE | 2020-04-26 11:23 | PC.NURSE ---
Patient stated, I'm tired of waiting and ready to go. Get this IV out. Patient signed AMA paper. Dr. Elder and Sanjuanita Corrales made aware of AMA.
--- NOTE | 2020-05-18 15:23 | P.DS_ITS ---
DS: Admitting Diagnosis Admitting Diagnosis Admitting Diagnosis: Chest pain, unspecified Paient left AMA and was not seen by me. DS: Summary Time Spent with Patient Time attestation: Total time spent providing and/or coordinating discharge services: Discharge Plan Discharge Consulting providers: Dana Cee ; Ethan Gutierrez ; Prabhjot Coffman ; Lamberto Brandt V. Patient Disposition: Left Against Medical Advice Patient Instructions: How to Stop Smoking (DC) Discharge Medications: No Action lisinopril 40 mg tablet 40 mg PO DAILY RF: 0 escitalopram oxalate 10 mg tablet 10 mg PO DAILY RF: 0 bupropion HCl 150 mg tablet extended release 24 hr 150 mg PO DAILY RF: 0 Brilinta 90 mg tablet 90 mg PO DAILY RF: 0 aspirin 81 mg tablet,delayed release (DR/EC) 81 mg PO DAILY Qty: 30 RF: 11 atorvastatin 40 mg tablet 40 mg PO DAILY Qty: 30 RF: 3 nitroglycerin 0.4 mg tablet, sublingual 0.4 mg SUBLINGUAL DIRECTED PRN (Reason: chest pain) Qty: 25 RF: 3 hydrocodone-acetaminophen 7.5-325 mg tablet 1 tablet PO BID PRN (Reason: Pain) RF: 0 Date of admission: 04/25/20 16:45 Primary Care Provider: Alex,Isauro Palma Admitting Provider: Teofilo Elder Discharge Date/Time: 04/26/20 11:23 Attending physician on admission: Teofilo Elder Condition: Improved Quality VTE Prophylaxis VTE prophylaxis: pharmacologic ordered
== END 2020-04-26 11:23 | disposition left against medical advice (07) ==
LOC: ANHED 16:01 → ANHIMU 17:11
PROVIDERS: Nurse Practitioner; Admitting Provider Family Medicine; Emergency Provider Emergency Medicine; PCP Chiropractor; Visit Provider Family Medicine
DX: I25.110 Atherosclerotic heart disease of native coronary artery with unstable angina pectoris (principal); R07.9 Chest pain, unspecified; R06.02 Shortness of breath; I25.2 Old myocardial infarction; I10 Essential (primary) hypertension; M10.9 Gout, unspecified; F41.9 Anxiety disorder, unspecified; L40.9 Psoriasis, unspecified; M54.9 Dorsalgia, unspecified; G89.29 Other chronic pain; Z79.82 Long term (current) use of aspirin; Z95.5 Presence of coronary angioplasty implant and graft; Z79.01 Long term (current) use of anticoagulants; F17.210 Nicotine dependence, cigarettes, uncomplicated; Z91.14 Patient's other noncompliance with medication regimen
CPT/HCPCS: 36415; 71045; 76705; 80048; 80053; 83605; 83735; 84443; 84484; 85025; 85610; 85730; 86140; 93005; 96374; 96375; 96376; 99285; A9270; G0378; J1885; J2060; J2270; J2405

== ENCOUNTER 2020-06-09 22:10 | Observation (INO) | payer SELFPAY ==
--- NOTE | ~2020-06-09 | XR_ITS ---
EXAMINATION: XR chest 2V DATE: 06/09/2020 22:43 INDICATION: Shortness of breath and left-sided chest pain. TECHNIQUE: PA and lateral views of the chest were obtained. COMPARISON: Chest radiograph dated 04/25/2020 FINDINGS: The lungs remain clear with no focal airspace opacities, pulmonary edema, pleural effusion or pneumot horax. The cardiomediastinal silhouette is normal. Visualized bones and soft tissues are unremarkable . IMPRESSION: 1. Normal chest radiograph. Reviewed, dictated and finalized at location A. IMPRESSION: 1. Normal chest radiograph.
[2020-06-09 22:13] VITALS: BP 173/105; PULSE 87; RESP 19; TEMP 36.8; O2SAT 94
[2020-06-09 22:16] VITALS: PULSE 93
--- NOTE | 2020-06-09 22:17 | ECG_ITS ---
Measurements Intervals [place] Rate: 87 P: 16 [place]: 149 QRS: -33 QRSD: 100 T: -26 QT: 371 QTc: 448 Interpretive Statements SINUS RHYTHM LEFT AXIS DEVIATION INCOMPLETE RIGHT BUNDLE BRANCH BLOCK BORDERLINE R WAVE PROGRESSION, ANTERIOR LEADS BORDERLINE T WAVE ABNORMALITY- INFERIOR LEADS BASELINE ARTIFACT- I, II, III BORDERLINE ECG Electronically Signed On 06-10-2020 6:57:13 CDT by Ethan Gutierrez D.O.
[2020-06-09] MEDS: ASPIRIN 81 MG CHEWABLE TABLET 324 MG PO (22:21)
[2020-06-09 22:28] LABS: Basophils Percent Auto 0.3 % (0.2-1.2); Eosinophils Absolute Auto 0.5 K/mm3 (0-0.3); Eosinophils Percent Auto 3.6 % (0-4.4); Hematocrit 49.3 % (42.0-52.0); Hemoglobin 17.3 g/dL (14.0-18.0); Immature Granulocyte Absolute 0.06 K/mm3 (0.00-0.031); Immature Granulocyte Percent A 0.4 % (0-0.5); Lymphocytes Percent Auto 16.6 % (18.3-44.2); Mean Corpuscular HGB Conc 35.1 g/dl (32-36); Mean Corpuscular Hemoglobin 32.2 pg (26-34); Mean Corpuscular Volume 91.6 fl (80-100); Mean Platelet Volume 9.9 fl (7.4-10.4); Monocytes Absolute Auto 0.6 K/mm3 (0.1-0.6); Monocytes Percent Auto 4.5 % (2.6-8.5); Neutrophils Absolute Auto 10.4 K/mm3 (1.3-6.7); Neutrophils Percent Auto 74.6 % (45.5-73.1); Platelet Count Result 254 k/mm3 (150-375); Red Blood Count 5.38 M/mm3 (4.6-6.20); White Blood Count 13.9 K/mm3 (4.5-10.0)
--- NOTE | 2020-06-09 22:30 | ED.CHESTPAIN ---
HPI - Chest Pain General Chief Complaint: Chest Pain Stated Complaint: im having a heart attack Time Seen by Provider: 06/09/20 22:12 Source: RN notes reviewed History of Present Illness HPI narrative: Patient presents emergency department from home for chest pain. Patient states symptoms began 2 hours ago. Pain over the left side of the chest radiates into the back. Associated with shortness of breath. Patient states he has a previous history of stent placed earlier this year. He denies any fevers or chills abdominal pain nausea vomiting diarrhea or any other symptoms. States he took no previous medication for symptoms. Related Data Home Medications Medication Instructions Recorded Confirmed Brilinta 90 mg PO DAILY 11/09/19 04/25/20 bupropion HCl 150 mg PO DAILY 11/09/19 04/25/20 escitalopram oxalate 10 mg PO DAILY 11/09/19 04/25/20 lisinopril 40 mg PO DAILY 11/09/19 04/25/20 hydrocodone-acetaminophen 1 tablet PO BID PRN 04/25/20 04/25/20 Allergies Allergy/AdvReac Type Severity Reaction Status Date / Time colchicine AdvReac Unknown nausea and Verified 04/25/20 13:36 abdominal pain with one dose Review of Systems Review of Systems: Narrative: Gen.: Denies fevers or chills ENT: Denies congestion Respiratory: Denies shortness of breath or cough CV: See HPI GI: Denies abdominal pain nausea, emesis or diarrhea Musculoskeletal: Denies back pain or muscle pain Neuro: Denies numbness, tingling, weakness or focal weakness Skin: Denies rash Except as documented, all other systems reviewed and negative PMF Past Medical History Medical History Anxiety Arthritis Behcets syndrome CAD (coronary artery disease) Chronic back pain Dental cavities Gout History of angina HLD (hyperlipidemia) HTN (hypertension) Kidney stone Left wrist fracture Myocardial infarction x2, with stent Psoriasis Wrist fracture Social History Social History Social History: The patient tells me that he now smokes 3 packs of cigarettes a day. He is in the middle of the worse. He has 3 children. He drinks 3-4 beers every other day. He does not have any durable power assistant city attorney for healthcare he is a full code. 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 Smoking cigarettes per day: 40.0 Years smoked: 30 Smoking pack-years: 60.00 Smoking status: Current every day smoker Tobacco type: cigarettes Second hand tobacco smoke exposure: Yes Smoking end date: 10/21/12 Alcohol intake: unknown Drinks per week: 1 Substance use: unknown Gender identity (if verbalized by the patient): Male Spiritual care concerns: No Agree to blood products: Yes Exam Narrative: Exam Narrative: APPEARANCE: No acute distress, nontoxic, resting in bed EYES: EOMI HEENT: Normocephalic, atraumatic, OMM RESPIRATORY: No respiratory distress Clear to auscultation bilaterally with no rhonchi wheezing or rales. CARDIOVASCULAR: Regular rate and rhythm without murmurs rubs or gallops. ABDOMINAL: Soft, nontender, nondistended, no rebound or guarding MUSCULOSKELETAl: Moves all extremities. No clubbing, cyanosis or edema. NEURO: Awake and alert. Following commands, speech normal, no focal deficits SKIN:: Warm, dry. No rashes lesions or abrasions PSYCHIATRIC: Normal affect/mood, Course Course Emergency Course: Reviewed old records Called discussed Dr. Armenta presentation work-up. Agrees with consult this time. Request patient receive 1 dose of Lovenox at this time Discussed with Dr. Mason presentation work-up. Agrees with admission at this time Discussed with patient and family results of workup and diagnosis. Discussed need for admission. Patient and family understand and agree to current treatment plan Vital Signs Vital signs: Vital Signs Temperature 98.2 F 06/09/20 22:13 Pulse Rate 87 06/09/20 22
[2020-06-09] MEDS: NITROGLYCERIN OINTMENT 1 INCH DOSE TRANSDERM (22:35)
[2020-06-09 22:36] LABS: INR 0.9; Prothrombin Time 12.3 Seconds (11.1-14.7)
[2020-06-09 22:37] LABS: Partial Thromboplastin Time 26.4 SECONDS (22.3-36.8)
[2020-06-09 22:38] LABS: Anion Gap 8 mmol/L (8-16); Blood Urea Nitrogen 11 mg/dL (9-20); Calcium 9.1 mg/dL (8.4-10.2); Carbon Dioxide 29 mmol/L (22-30); Chloride 103 mmol/L (98-107); Estimated CRCL calculation 85 ml/min; Estimated Glomerular Filt Rate > 60; Glucose 146 mg/dL (75-110); Potassium 3.2 mmol/L (3.4-5.0); Sodium 140 mmol/L (137-145)
[2020-06-09 22:50] LABS: Troponin I 0.026 ng/mL (0.000-0.034)
--- NOTE | 2020-06-09 23:04 | ECG_ITS ---
Measurements Intervals [place] Rate: 73 P: 23 SD: 134 QRS: -37 QRSD: 104 T: -37 QT: 379 QTc: 419 Interpretive Statements SINUS RHYTHM LEFT AXIS DEVIATION VOLTAGE CRITERIA FOR LVH NONSPECIFIC T-WAVE ABNORMALITY- INFERIOR LEADS BASELINE ARTIFACT- I, II, AVR, V1 BORDERLINE ECG Electronically Signed On 06-10-2020 6:58:40 CDT by Ethan Gutierrez D.O.
[2020-06-09] MEDS: MORPHINE SULFATE 4 MG/ML INJ IV PUSH (23:09)
--- NOTE | 2020-06-09 23:10 | PC.NURSE ---
pt states pain is persistent after Nitro paste. Morphine ordered and administered as stated per MAR. pt remains hooked up to monitor, will continue to monitor pt for baseline status changes. call light in reach-encouraged to use.
[2020-06-09 23:28] VITALS: BP 156/104; PULSE 86; RESP 17; O2SAT 94
[2020-06-10] VITALS (11 sets, daily range): BP systolic 145–158; BP diastolic 79–95; PULSE 58–89; RESP 12–18; TEMP 35.8–36.3; O2SAT 96–99; BMI 31.8
--- NOTE | 2020-06-10 00:59 | ADMGEN ---
This patient, Zander Cain, was admitted to IMU Room 210-01. Patient/family oriented to hospital policies and general routines including ID bracelet, bed and alarms, visiting hours, pain management, procedures, bathroom and other care routines, personal items, smoking policy, room service/diet, and visiting hours. Valuables list has been completed. Information on how to activate the Rapid Response Team has been discussed. Patient/Family are encouraged to report perceived risks to care and to ask questions if they do not understand what they are told or what they should do.
[2020-06-10] MEDS: POTASSIUM CHLORIDE 20 MEQ TABLET PO (01:17)
[2020-06-10] MEDS: ENOXAPARIN 80 MG/0.8 ML SYRINGE SUB-Q (01:17)
[2020-06-10] MEDS: MORPHINE SULFATE 4 MG/ML INJ IV PUSH ×3 (01:18→08:15)
[2020-06-10] MEDS: ACETAMINOPHEN 325 MG TABLET 650 MG PO (01:51)
[2020-06-10 02:18] LABS: Troponin I 0.023 ng/mL (0.000-0.034)
[2020-06-10 04:50] LABS: Troponin I 0.025 ng/mL (0.000-0.034)
--- NOTE | 2020-06-10 09:34 | PM.CNCAR ---
Assessment and Plan Assessment and plan (1) Chest pain: Code(s): R07.9 - Chest pain, unspecified Status: Acute Assessment and Plan: constant, no change with activity somewhat atypical ruled out for myocardial infarction with negative serial cardiac enzymes. However, while symptoms are similar to prior anginal symptoms much less severe without radiation or aggravating or relieving factors. No improvement with nitroglycerin. Twelve lead EKG T-wave abnormality inferiorly concerning for ischemic change although improved compared to prior ECG October 2019 slightly more prominent compared to April 2020. Fundamentally, given persistence of chest pain, patient's admission of noncompliance of medications, and recent stent implantation coronary angiography would be recommended to delineate coronary anatomy and stent patency. However, given his noncompliance is not a good candidate for further intervention. Furthermore, patient as he is uninsured does not agree to further workup including cardiac catheterization or stress test. He admits he feels much better when he is compliant with his medications and would like to resume them observe how he feels. Wishes to be discharged home today. I explained the risk for myocardial infarction, and her progressive symptoms as I believe his symptoms are cardiac in nature. 0 patient verbalizes understanding he states his chest discomfort is quite mild, is undergoing a great deal of stress with the divorce, noncompliance of medications smoking and drinking alcohol. He knows he needs to make several changes in states he has dedicated to do so and will be compliant with medications. He cannot tolerate nitrates due to severe headache. - Toprol XL 12.5 mg daily for antianginal benefit. As he is uninsured Ranexa is not a good option. - Resume lisinopril, aspirin, Brilinta 90 mg twice daily, atorvastatin 40 mg daily, and lisinopril 40 mg daily. - Provided patient is improving and symptoms abated he wishes to be discharged home to follow-up with Dr. Armenta as an outpatient. (2) CAD (coronary artery disease): Code(s): I25.10 - Atherosclerotic heart disease of [place] coronary artery without angina pectoris Status: Chronic Assessment and Plan: As above. He is noncompliant medications having undergone drug-eluting stent to proximal RCA in setting of an NSTEMI October 2019. The enzymes negative thus far. (3) Noncompliance: Code(s): Z91.19 - Patient's noncompliance with other medical treatment and regimen Status: Acute Assessment and Plan: Extensively discussed this issue in the fact he has placed himself at risk for further complications myocardial infarction, , stroke, and hospitalization. Patient is keenly aware of this and agrees that he must remain compliant and admits he feels much better on his medications. He knows what he needs to do in states he is now dedicated in doing so. (4) HTN (hypertension): Code(s): I10 - Essential (primary) hypertension Status: Acute Assessment and Plan: Uncontrolled on presentation. Resume home medical therapy. Observe response. (5) HLD (hyperlipidemia): Code(s): E78.5 - Hyperlipidemia, unspecified Status: Chronic Assessment and Plan: Resume atorvastatin 40 mg at bedtime. LDL goal less than 70. (6) Tobacco abuse: Code(s): Z72.0 - Tobacco use Status: Acute Assessment and Plan: discussed at length. Smoking cessation counseled performed. Patient verbalized understanding and knows he needs to quit and did so previously successful until recently during his divorce. He is not smoking 3 packs daily unfortunately. (7) Alcohol abuse: Code(s): F10.10 - Alcohol abuse, uncomplicated Status: Acute Assessment and Plan: As above, he understands the risks this poses to him in general health and has been advised to avoid alcohol. History of Pr
[2020-06-10 09:56] LABS: Hematocrit 46.4 % (42.0-52.0); Hemoglobin 15.9 g/dL (14.0-18.0); Mean Corpuscular HGB Conc 34.3 g/dl (32-36); Mean Corpuscular Hemoglobin 31.2 pg (26-34); Platelet Count Result 211 k/mm3 (150-375); White Blood Count 9.6 K/mm3 (4.5-10.0)
[2020-06-10 10:13] LABS: Anion Gap 7 mmol/L (8-16); Blood Urea Nitrogen 10 mg/dL (9-20); Calcium 8.9 mg/dL (8.4-10.2); Carbon Dioxide 28 mmol/L (22-30); Chloride 105 mmol/L (98-107); Estimated CRCL calculation 124 ml/min; Estimated Glomerular Filt Rate > 60; Glucose 92 mg/dL (75-110); Magnesium 2.1 mg/dL (1.6-2.3); Potassium 3.7 mmol/L (3.4-5.0); Sodium 140 mmol/L (137-145)
[2020-06-10] MEDS: METOPROLOL SUCCINATE EXT REL 12.5 MG TABCR PO (10:59)
[2020-06-10] MEDS: TICAGRELOR 90 MG TABLET PO (10:59)
[2020-06-10] MEDS: lisinopriL 20 MG TABLET 40 MG PO (10:59)
[2020-06-10] MEDS: ATORVASTATIN 40 MG TABLET PO (10:59)
--- NOTE | 2020-06-10 12:17 | PM.SD ---
Same Day Admit/Disch: HPI History of Present Illness Chief complaint: chest pain Narrative: Zander Cain is a 44 year old male with history of coronary artery disease presented emergency department with a complaint of chest radiating to the back 2 hours prior to coming to emergency, patient states is in the under stress due to divorce and working too many hours and not taking his medications, patient was evaluated in emergency depart and admitted for further workup, patient had EKG which did not show any acute change, 3 sets of cardiac enzymes are negative, he seen by arbor press operator, patient does not want stress test or cardiac catheterization as he does not have a medical insurance, he states that he will take his medication and monitor his health, he wants to be discharged home does not want to remain in the hospital for any workup, currently patient is clinically stable and denies any chest pain, patient and Cardiology have agreed with plan and will discharge the patient home today. [facility] Past Medical History Medical History Anxiety Arthritis Behcets syndrome CAD (coronary artery disease) Chronic back pain Dental cavities Gout History of angina HLD (hyperlipidemia) HTN (hypertension) Kidney stone Left wrist fracture Myocardial infarction x2, with stent Psoriasis Wrist fracture Surgical History Surgical History H/O arthroscopy of left knee H/O cardiac catheterization History of heart artery stent X2 History of renal stent History of surgery on arm left forearm Family History Family History Daughter Cancer Father Hypertension Other Family history of malignant neoplasm Family history of psoriasis Social History Social History Social History: The patient tells me that he now smokes 3 packs of cigarettes a day. He is in the middle of the worse. He has 3 children. He drinks 3-4 beers every other day. He does not have any durable power stripper and opaquer apprentice for healthcare he is a full code. 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 Smoking cigarettes per day: 40.0 Years smoked: 30 Smoking pack-years: 60.00 Smoking status: Current every day smoker Tobacco type: cigarettes Second hand tobacco smoke exposure: Yes Smoking end date: 10/21/12 Alcohol intake: current Drinks per week: 28 Substance use: never Gender identity (if verbalized by the patient): Male Spiritual care concerns: No Agree to blood products: Yes Same Day Admit/Disch: Med Pre-admit Medications Home Medications Medication Instructions Recorded Confirmed Type Brilinta 90 mg PO BID 11/09/19 06/10/20 History bupropion HCl 150 mg PO DAILY 11/09/19 06/10/20 History escitalopram oxalate 10 mg PO DAILY 11/09/19 06/10/20 History lisinopril 40 mg PO DAILY 11/09/19 06/10/20 History aspirin 81 mg PO DAILY #30 tablet 11/10/19 06/10/20 Rx atorvastatin 40 mg PO DAILY #30 tablet 11/10/19 06/10/20 Rx nitroglycerin 0.4 mg SUBLINGUAL DIRECTED PRN 11/10/19 06/10/20 Rx #25 tablet hydrocodone-acetaminophen 1 tablet PO QID PRN 04/25/20 06/10/20 History metoprolol succinate 12.5 mg PO QAM #30 tablet 06/10/20 Rx Exam Narrative: Exam Narrative: moderately obese Const: General: comfortable and no acute distress HENMT: General nose exam: Normal nares present Eyes: General: appearance normal, both eyes and all related structures Sclera: sclerae normal Neck: Neck: supple Resp: Effort & Inspection: normal respiratory effort Auscultation: clear to auscultation bilaterally Cardio: Rate: regular rate Rhythm: regular rhythm GI: Auscultation: normal bowel sounds Skin: General skin exam: normal color Neuro: Speech: normal speech Sensory Exam: normal sensation Extrem: General: normal
== END 2020-06-10 13:15 | disposition home or self-care (01) ==
LOC: ANHED 23:56 → ANHIMU 06-10 00:38
PROVIDERS: Admitting Provider Internal Medicine; Emergency Provider Emergency Medicine; PCP Chiropractor; Visit Provider Family Medicine
DX: R07.89 Other chest pain (principal); I25.10 Atherosclerotic heart disease of native coronary artery without angina pectoris; I25.2 Old myocardial infarction; I10 Essential (primary) hypertension; E78.5 Hyperlipidemia, unspecified; F10.10 Alcohol abuse, uncomplicated; F17.210 Nicotine dependence, cigarettes, uncomplicated; Z91.19 Patient's noncompliance with other medical treatment and regimen; Z95.5 Presence of coronary angioplasty implant and graft
CPT/HCPCS: 36415; 71046; 80048; 83735; 84484; 85025; 85027; 85610; 85730; 93005; 96372; 96374; 96376; 99285; A9270; G0378; G0379; J1650; J2270

== ENCOUNTER 2020-11-28 00:13 | Emergency (ER) | payer SELFPAY ==
[2020-11-28] VITALS (29 sets, daily range): BP systolic 146–188; BP diastolic 86–115; PULSE 59–84; RESP 14–24; TEMP 36.7; O2SAT 96–100
--- NOTE | ~2020-11-28 | XR_ITS ---
EXAMINATION: XR chest 2V DATE: 11/28/2020 00:39 INDICATION: Left chest pain. Shortness of breath. TECHNIQUE: Frontal and lateral views of the chest were obtained. COMPARISON: Chest 2 views 06/09/2020, chest CT 07/29/2017 FINDINGS: The chest demonstrates clear lungs without pneumonia, pleural effusion, or pneumothorax. Th e heart size is normal. IMPRESSION: 1. No acute cardiopulmonary disease. Reviewed, dictated and finalized at location A. LOPER SUPPORT ENGINEER
--- NOTE | 2020-11-28 00:24 | ECG_ITS ---
Measurements Intervals [place] Rate: 67 P: 23 [place]: 164 QRS: -35 QRSD: 109 T: -17 QT: 380 QTc: 404 Interpretive Statements SINUS RHYTHM WITH SINUS ARRHYTHMIA LEFT AXIS DEVIATION DELAYED PRECORDIAL R/S TRANSITION BORDERLINE ST-T WAVE ABNORMALITY- INFERIOR LEADS BORDERLINE ECG Electronically Signed On 11-28-2020 7:05:03 SPINNING FRAME TENDER by Ethan Gutierrez D.O.
--- NOTE | 2020-11-28 00:34 | PC.NURSE ---
Patient taken to xray.
[2020-11-28] MEDS: ASPIRIN 81 MG CHEWABLE TABLET 324 MG PO (00:44)
[2020-11-28 00:54] LABS: Basophils Percent Auto 0.3 % (0.2-1.2); Eosinophils Absolute Auto 0.4 K/mm3 (0-0.3); Eosinophils Percent Auto 3.7 % (0-4.4); Hematocrit 45.9 % (42.0-52.0); Immature Granulocyte Absolute 0.04 K/mm3 (0.00-0.031); Immature Granulocyte Percent A 0.3 % (0-0.5); Lymphocytes Absolute Auto 2.92 K/mm3 (0.9-3.2); Lymphocytes Percent Auto 24.8 % (18.3-44.2); Mean Corpuscular HGB Conc 34.9 g/dl (32-36); Mean Corpuscular Hemoglobin 31.3 pg (26-34); Mean Corpuscular Volume 89.8 fl (80-100); Mean Platelet Volume 9.8 fl (7.4-10.4); Monocytes Absolute Auto 0.8 K/mm3 (0.1-0.6); Monocytes Percent Auto 6.8 % (2.6-8.5); Neutrophils Absolute Auto 7.5 K/mm3 (1.3-6.7); Neutrophils Percent Auto 64.1 % (45.5-73.1); Platelet Count Result 269 k/mm3 (150-375); Red Blood Count 5.11 M/mm3 (4.6-6.20); Red Cell Distribution Width 12.4 % (11.5-14.5); White Blood Count 11.8 K/mm3 (4.5-10.0)
[2020-11-28 01:07] LABS: Anion Gap 8 mmol/L (8-16); Blood Urea Nitrogen 16 mg/dL (9-20); Carbon Dioxide 25 mmol/L (22-30); Chloride 106 mmol/L (98-107); Estimated CRCL calculation 118 ml/min; Estimated Glomerular Filt Rate > 60; Glucose 92 mg/dL (75-110); Potassium 3.9 mmol/L (3.4-5.0); Sodium 139 mmol/L (137-145)
[2020-11-28 01:14] LABS: INR 0.9; Prothrombin Time 12.2 Seconds (11.1-14.7)
[2020-11-28 01:15] LABS: Partial Thromboplastin Time 27.6 SECONDS (22.3-36.8)
[2020-11-28 01:18] LABS: Troponin I < 0.012 ng/mL (0.000-0.034)
[2020-11-28] MEDS: MORPHINE SULFATE (*CRX) 4 MG/ML INJ IV PUSH (01:42)
[2020-11-28] MEDS: KETOROLAC 15 MG/ML VIAL (*BKC) IV PUSH (03:32)
[2020-11-28 04:04] LABS: Troponin I < 0.012 ng/mL (0.000-0.034)
--- NOTE | 2020-11-28 04:24 | ED.CHESTPAIN ---
HPI - Chest Pain General Chief Complaint: Chest Pain Stated Complaint: chest pain Time Seen by Provider: 11/28/20 00:15 History of Present Illness HPI narrative: Patient is a 45-year-old male with history of previous IA and stenting who presents ER with left-sided chest pain. Pressure in the upper chest. Had some radiation towards the neck. Reports earlier today he had some mild numbness in his arm. Cannot describe any aggravating alleviating factors. Reports compliance with his lisinopril and Brilinta. Denies taking any other antihypertensives. Blood pressure is elevated here. Declining nitroglycerin due to headache that typically causes. No shortness of breath/cough. Related Data Home Medications Medication Instructions Recorded Confirmed Brilinta 90 mg PO BID 11/09/19 06/10/20 bupropion HCl 150 mg PO DAILY 11/09/19 06/10/20 escitalopram oxalate 10 mg PO DAILY 11/09/19 06/10/20 lisinopril 40 mg PO DAILY 11/09/19 06/10/20 hydrocodone-acetaminophen 1 tablet PO QID PRN 04/25/20 06/10/20 Allergies Allergy/AdvReac Type Severity Reaction Status Date / Time colchicine AdvReac Unknown nausea and Verified 11/28/20 00:24 abdominal pain with one dose Review of Systems Review of Systems: All systems reviewed & are unremarkable except as noted in HPI and below Constitutional: Constitutional: Denies chills, Denies fever(s) and Denies weakness ENT: Denies nasal congestion and Denies sore throat Cardiovascular: Cardiovascular: Reports chest pain, Denies rapid heart rate and Reports radiating jaw, neck or arm pain Respiratory: Respiratory: Denies cough, Denies dyspnea and Denies wheezing Gastrointestinal: Gastrointestinal: Denies abdominal pain, Denies nausea and Denies vomiting Musculoskeletal: Musculoskeletal: Denies back pain and Denies muscle cramps PMFSH Past Medical History Medical History (Updated 11/28/20 @ 04:31 by Quincy Pisano MD) Anxiety Arthritis Behcets syndrome CAD (coronary artery disease) Chronic back pain Dental cavities Gout History of angina HLD (hyperlipidemia) HTN (hypertension) Kidney stone Left wrist fracture Myocardial infarction x2, with stent Psoriasis Wrist fracture Surgical History Surgical History H/O arthroscopy of left knee H/O cardiac catheterization History of heart artery stent X2 History of renal stent History of surgery on arm left forearm Family History Family History Daughter Cancer Father Hypertension Other Family history of malignant neoplasm Family history of psoriasis Social History Social History Social History: The patient tells me that he now smokes 3 packs of cigarettes a day. He is in the middle of the worse. He has 3 children. He drinks 3-4 beers every other day. He does not have any durable power criminal attorney for healthcare he is a full code. 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 HEAD: Normocephalic, atraumatic. CHEST: Clear to auscultation. No respiratory distress. HEART: Regular rate and rhythm. Normal peripheral pulses. ABDOMEN: Soft, nontender, nondistended. EXTREMITIES: Normal range of motion. No edema. SKIN: Warm, dry, no rash. NEURO: Alert and oriented x3. PSYCH: Normal mood and affect. Course Course Emergency
== END 2020-11-28 04:42 | disposition home or self-care (01) ==
PROVIDERS: Emergency Provider Emergency Medicine; PCP Chiropractor
DX: R07.9 Chest pain, unspecified (principal); I25.2 Old myocardial infarction; I25.10 Atherosclerotic heart disease of native coronary artery without angina pectoris; M35.2 Behcet's disease; E78.5 Hyperlipidemia, unspecified; I10 Essential (primary) hypertension; M10.9 Gout, unspecified; M19.90 Unspecified osteoarthritis, unspecified site; F41.9 Anxiety disorder, unspecified; Z95.5 Presence of coronary angioplasty implant and graft; Z87.442 Personal history of urinary calculi; F17.210 Nicotine dependence, cigarettes, uncomplicated; R94.31 Abnormal electrocardiogram [ECG] [EKG]
CPT/HCPCS: 36415; 71046; 80048; 84484; 85025; 85610; 85730; 93005; 96374; 96375; 99284; A9270; J1885; J2270

== ENCOUNTER 2020-12-17 02:22 | Emergency (ER) | payer SELFPAY ==
--- NOTE | ~2020-12-17 | CT_ITS ---
EXAMINATION: CT facial bones wo con DATE: 12/17/2020 03:18 INDICATION: Facial pain TECHNIQUE: Computed tomography (CT) of the facial bones and maxillofacial region was performed withou t intravenous contrast. Automated exposure control and iterative reconstruction technique were employ ed. Exam dose: 459.05 mGy-cm total exam DLP. COMPARISON: None. FINDINGS: There is skin thickening of the face. No abscess or subcutaneous emphysema is identified. There is a periapical abscess with bone destruction involving upper right tooth #6. No facial fracture or bone destruction is detected. The paranasal sinuses and included paranasal sinu ses are normally developed and aerated. No fracture or bone destruction of the mandible is noted othe rwise. Normal alignment at the temporomandibular joints. IMPRESSION: . Focal abscess at right upper tooth #6 Nonspecific facial soft tissue thickening Reviewed, dictated and finalized at [facility]. Reviewed, dictated and finalized at [facility]. ERY ANALYST
[2020-12-17 02:24] VITALS: BP 152/96; PULSE 89; RESP 18; TEMP 36.2; O2SAT 98
[2020-12-17] MEDS: HYDROcodone/acetaminophen (*CRX) 5-325 MG TABLET 1 TAB PO (02:48)
[2020-12-17 03:20] LABS: Basophils Percent Auto 0.3 % (0.2-1.2); Eosinophils Absolute Auto 0.3 K/mm3 (0-0.3); Eosinophils Percent Auto 3.2 % (0-4.4); Hemoglobin 14.7 g/dL (14.0-18.0); Immature Granulocyte Absolute 0.04 K/mm3 (0.00-0.031); Immature Granulocyte Percent A 0.4 % (0-0.5); Lymphocytes Absolute Auto 2.09 K/mm3 (0.9-3.2); Lymphocytes Percent Auto 19.4 % (18.3-44.2); Mean Corpuscular Hemoglobin 31.9 pg (26-34); Mean Corpuscular Volume 91.1 fl (80-100); Mean Platelet Volume 9.5 fl (7.4-10.4); Monocytes Absolute Auto 0.8 K/mm3 (0.1-0.6); Monocytes Percent Auto 7.4 % (2.6-8.5); Neutrophils Absolute Auto 7.5 K/mm3 (1.3-6.7); Neutrophils Percent Auto 69.3 % (45.5-73.1); Platelet Count Result 226 k/mm3 (150-375); Red Blood Count 4.61 M/mm3 (4.6-6.20); White Blood Count 10.8 K/mm3 (4.5-10.0)
[2020-12-17 03:41] LABS: Alanine Aminotransferase 32 U/L (4-50); Albumin Level 4.1 g/dL (3.5-5.1); Alkaline Phosphatase 59 U/L (38-126); Anion Gap 5 mmol/L (8-16); Aspartate Amino Transferase 26 U/L (17-59); Bilirubin,Total 0.5 mg/dL (0.2-1.3); Blood Urea Nitrogen 12 mg/dL (9-20); Calcium 8.9 mg/dL (8.4-10.2); Carbon Dioxide 28 mmol/L (22-30); Chloride 106 mmol/L (98-107); Estimated CRCL calculation 139 ml/min; Estimated Glomerular Filt Rate > 60; Glucose 94 mg/dL (75-110); Potassium 3.4 mmol/L (3.4-5.0); Sodium 139 mmol/L (137-145)
--- NOTE | 2020-12-17 03:58 | ED.SKABFB ---
HPI - Skin/Abscess/Foreign Bdy General Chief complaint: Skin/Abscess/Foreign Body Stated complaint: facial infection - md told me to come here Time Seen by Provider: 12/17/20 02:30 Source: RN notes reviewed History of Present Illness HPI narrative: Patient presents emergency department from home for redness of his right cheek. Patient states that he began to notice some redness and mild swelling of his right cheek yesterday that got worse today. States that he has a history of having previous cellulitis and June 2020 when she was admitted to the hospital for IV antibiotics for 7 days. He states that he has been on clindamycin there is primary care physician has prescribed a week ago for the symptoms he denies any fevers or chills sore throat painful swallowing inability to swallow shortness of breath or any other symptoms he states that he does have dental pain in this area but that these are all fake teeth that have been pulled in her implants Related Data Home Medications Medication Instructions Recorded Confirmed Brilinta 90 mg PO BID 11/09/19 06/10/20 bupropion HCl 150 mg PO DAILY 11/09/19 06/10/20 escitalopram oxalate 10 mg PO DAILY 11/09/19 06/10/20 lisinopril 40 mg PO DAILY 11/09/19 06/10/20 hydrocodone-acetaminophen 1 tablet PO QID PRN 04/25/20 06/10/20 Allergies Allergy/AdvReac Type Severity Reaction Status Date / Time colchicine AdvReac Unknown nausea and Verified 12/17/20 02:28 abdominal pain with one dose Review of Systems Review of Systems: Narrative: Gen.: Denies fevers or chills Eyes: Denies eye pain or visual change ENT: Reports facial pain Respiratory: Denies shortness of breath or cough CV: Denies chest pain or palpitations GI: Denies abdominal pain nausea, emesis or diarrhea Musculoskeletal: Denies back pain or muscle pain Neuro: Denies numbness, tingling, weakness or focal weakness Skin: Reports facial erythema Except as documented, all other systems reviewed and negative [facility] Past Medical History Medical History (Updated 12/17/20 @ 04:53 by Ronaldo Marsh DO) Anxiety Arthritis Behcets syndrome CAD (coronary artery disease) Chronic back pain Dental cavities Gout History of angina HLD (hyperlipidemia) HTN (hypertension) Kidney stone Left wrist fracture Myocardial infarction x2, with stent Psoriasis Wrist fracture Surgical History Surgical History H/O arthroscopy of left knee H/O cardiac catheterization History of heart artery stent X2 History of renal stent History of surgery on arm left forearm Family History Family History Daughter Cancer Father Hypertension Other Family history of malignant neoplasm Family history of psoriasis Social History Social History Social History: The patient tells me that he now smokes 3 packs of cigarettes a day. He is in the middle of the worse. He has 3 children. He drinks 3-4 beers every other day. He does not have any durable power bi consultant for healthcare he is a full code. 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 Smoking cigarettes per day: 40.0 Years smoked: 30 Smoking pack-years: 60.00 Smoking status: Current every day smoker Tobacco type: cigarettes Second hand tobacco smoke exposure: Yes Smoking end date: 10/21/12 Alcohol intake: current Drinks per week: 28 Substance use: never Gender identity (if verbalized by the patient): Male Sexual Orientation (if Verbalized by the Patient): Straight or Heterosexual Spiritual care concerns: No Agree to blood products: Yes Exam Narrative: Exam Narrative: APPEARANCE: No acute distress, nontoxic, resting in bed EYES: EOMI HEENT: Normocephalic, atraumatic, nares patent right cheek has mild erythema with minimal swelling no fluctuance, the airways
[2020-12-17] MEDS: AMPICILLIN SULB 3 GM/NS 100 ML 3 GM/100 ML VIAL IVPB (04:39)
[2020-12-17] MEDS: MORPHINE SULFATE (*CRX) 2 MG/ML INJ 1 MG IV PUSH (05:08)
[2020-12-17 05:14] VITALS: BP 131/79; PULSE 80; RESP 18; O2SAT 99
== END 2020-12-17 05:14 | disposition home or self-care (01) ==
PROVIDERS: Emergency Provider Emergency Medicine; PCP Chiropractor
DX: L03.211 Cellulitis of face (principal); M19.90 Unspecified osteoarthritis, unspecified site; M35.2 Behcet's disease; I25.10 Atherosclerotic heart disease of native coronary artery without angina pectoris; M10.9 Gout, unspecified; E78.5 Hyperlipidemia, unspecified; I10 Essential (primary) hypertension; F41.9 Anxiety disorder, unspecified; Z87.442 Personal history of urinary calculi; I25.2 Old myocardial infarction; Z95.5 Presence of coronary angioplasty implant and graft; F17.210 Nicotine dependence, cigarettes, uncomplicated
CPT/HCPCS: 36415; 70486; 80053; 85025; 96365; 96375; 99284; A9270; J0295; J2270

== ENCOUNTER 2021-04-03 06:49 | Emergency (ER) | payer SELFPAY ==
[2021-04-03] VITALS (25 sets, daily range): BP systolic 150–178; BP diastolic 78–101; PULSE 57–78; RESP 12–22; TEMP 36.2; O2SAT 97–100
--- NOTE | ~2021-04-03 | CT_ITS ---
EXAMINATION: CTA chest PE protocol DATE: 04/03/2021 08:00 CDT INDICATION: Chest pain and shortness of breath TECHNIQUE: Computed tomographic angiography (CTA) of the chest was performed with 100 mL Omnipaque-35 0 intravenous contrast. The dose-length product was 546.87 mGy-cm. Maximum intensity projection 3D-re constructions of the aorta and other arteries were constructed by the technologist on a separate work station. Automated exposure control and iterative reconstruction technique were employed. COMPARISON: CT dated 07/29/2017. FINDINGS: Study is technically adequate without evidence for pulmonary embolism. No thoracic lymphade nopathy. There is atherosclerosis of the coronary arteries. Cardiomegaly. No evidence for aortic aneu rysm or dissection. Small hiatal hernia. There is thickening of the distal esophagus. No endobronchia l lesions. No focal airspace consolidation. The upper abdomen is unremarkable. IMPRESSION: 1. No acute cardiopulmonary disease. No evidence for pulmonary embolism. Reviewed, dictated and finalized at location [facility].
--- NOTE | 2021-04-03 06:57 | ECG_ITS ---
Measurements Intervals [place] Rate: 69 P: 8 DC: 157 QRS: -34 QRSD: 113 T: -35 QT: 398 QTc: 428 Interpretive Statements SINUS RHYTHM LEFT AXIS DEVIATION INTRAVENTRICULAR CONDUCTION DELAY VOLTAGE CRITERIA FOR LVH DELAYED PRECORDIAL R/S TRANSITION NONSPECIFIC ST & T-WAVE ABNORMALITY- INFERIOR LEADS BASELINE ARTIFACT- II, III, AVF, V3-V6 BORDERLINE ECG Electronically Signed On 04-03-2021 9:58:25 CDT by Ethan Gutierrez D.O.
[2021-04-03 07:19] LABS: Eosinophils Absolute Auto 0.1 K/mm3 (0-0.3); Eosinophils Percent Auto 0.8 % (0-4.4); Hematocrit 47.9 % (42.0-52.0); Hemoglobin 16.2 g/dL (14.0-18.0); Immature Granulocyte Absolute 0.04 K/mm3 (0.00-0.031); Immature Granulocyte Percent A 0.5 % (0-0.5); Lymphocytes Absolute Auto 2.13 K/mm3 (0.9-3.2); Lymphocytes Percent Auto 25.2 % (18.3-44.2); Mean Corpuscular HGB Conc 33.8 g/dl (32-36); Mean Corpuscular Hemoglobin 31.1 pg (26-34); Mean Corpuscular Volume 91.9 fl (80-100); Mean Platelet Volume 9.9 fl (7.4-10.4); Monocytes Absolute Auto 0.6 K/mm3 (0.1-0.6); Monocytes Percent Auto 7.2 % (2.6-8.5); Neutrophils Absolute Auto 5.6 K/mm3 (1.3-6.7); Neutrophils Percent Auto 66.3 % (45.5-73.1); Platelet Count Result 210 k/mm3 (150-375); Red Blood Count 5.21 M/mm3 (4.6-6.20); Red Cell Distribution Width 12.7 % (11.5-14.5); White Blood Count 8.4 K/mm3 (4.5-10.0)
[2021-04-03] MEDS: ASPIRIN 81 MG CHEWABLE TABLET 324 MG PO (07:20)
--- NOTE | 2021-04-03 07:21 | PC.NURSE ---
pt given 234 mg baby asa because pt took home dose of 81 mg prior to arrival
[2021-04-03 07:28] LABS: INR 0.9; Prothrombin Time 12.9 Seconds (11.1-14.7)
[2021-04-03 07:29] LABS: Anion Gap 10 mmol/L (8-16); Blood Urea Nitrogen 12 mg/dL (9-20); Calcium 9.2 mg/dL (8.4-10.2); Carbon Dioxide 25 mmol/L (22-30); Chloride 105 mmol/L (98-107); Estimated CRCL calculation 143 ml/min; Estimated Glomerular Filt Rate > 60; Glucose 125 mg/dL (75-110); Potassium 3.7 mmol/L (3.4-5.0); Sodium 140 mmol/L (137-145)
[2021-04-03 07:29] LABS: Partial Thromboplastin Time 25.6 SECONDS (22.3-36.8)
[2021-04-03 07:41] LABS: Troponin I < 0.012 ng/mL (0.000-0.034)
[2021-04-03] MEDS: KETOROLAC 30 MG/ML VIAL (*BKC) IV PUSH (08:18)
--- NOTE | 2021-04-03 08:39 | ED.CHESTPAIN ---
HPI - Chest Pain General Chief Complaint: Chest Pain Stated Complaint: covid +, chest pain Time Seen by Provider: 04/03/21 07:02 History of Present Illness HPI narrative: Patient is a 45-year-old male who presents ER with central chest pain. Began today. Associate with coughing. Patient began feeling ill about 1 week ago and was diagnosed with Covid about 4 days ago. Still having fatigue and body aches along with this. No hemoptysis. Patient does have history of coronary disease. He is tried no pain medications outside of Vicodin to help with his discomfort. Does not have exertional chest pain. No radiation down the arm or up the neck. Pain is worse with deep breath. Related Data Home Medications Medication Instructions Recorded Confirmed Brilinta 90 mg PO BID 11/09/19 06/10/20 bupropion HCl 150 mg PO DAILY 11/09/19 06/10/20 escitalopram oxalate 10 mg PO DAILY 11/09/19 06/10/20 lisinopril 40 mg PO DAILY 11/09/19 06/10/20 hydrocodone-acetaminophen 1 tablet PO QID PRN 04/25/20 06/10/20 Allergies Allergy/AdvReac Type Severity Reaction Status Date / Time colchicine AdvReac Unknown nausea and Verified 04/03/21 07:01 abdominal pain with one dose Review of Systems Review of Systems: All systems reviewed & are unremarkable except as noted in HPI and below Constitutional: Constitutional: Reports chills, Reports fatigue and Reports fever(s) ENT: Denies nasal congestion and Denies sore throat Cardiovascular: Cardiovascular: Reports chest pain, Denies rapid heart rate and Denies radiating jaw, neck or arm pain Respiratory: Respiratory: Reports cough, Denies dyspnea and Denies wheezing Gastrointestinal: Gastrointestinal: Denies abdominal pain, Denies nausea and Denies vomiting [facility] Past Medical History Medical History (Updated 04/03/21 @ 10:49 by Quincy Pisano MD) Anxiety Arthritis Behcets syndrome CAD (coronary artery disease) Chronic back pain Dental cavities Gout History of angina HLD (hyperlipidemia) HTN (hypertension) Kidney stone Left wrist fracture Myocardial infarction x2, with stent Psoriasis Wrist fracture Surgical History Surgical History H/O arthroscopy of left knee H/O cardiac catheterization History of heart artery stent X2 History of renal stent History of surgery on arm left forearm Family History Family History Daughter Cancer Father Hypertension Other Family history of malignant neoplasm Family history of psoriasis Social History Social History Social History: The patient tells me that he now smokes 3 packs of cigarettes a day. He is in the middle of the worse. He has 3 children. He drinks 3-4 beers every other day. 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 HEAD: Normocephalic, atraumatic. CHEST: Clear to auscultation. No respiratory distress. HEART: Regular rate and rhythm. Normal peripheral pulses. ABDOMEN: Soft, nontender, nondistended. EXTREMITIES: Normal range of motion. No edema. SKIN: Warm, dry, no rash. NEURO: Alert and oriented x3. PSYCH: Normal mood and affect. Course Course Emergency Course: Chest pain-free at after Toradol. Troponin negative x2. No PE or pne
[2021-04-03 10:45] LABS: Troponin I < 0.012 ng/mL (0.000-0.034)
== END 2021-04-03 11:28 | disposition home or self-care (01) ==
PROVIDERS: Emergency Medicine; Emergency Provider Emergency Medicine; PCP Chiropractor
DX: R09.1 Pleurisy (principal); F17.210 Nicotine dependence, cigarettes, uncomplicated; F41.9 Anxiety disorder, unspecified; M19.90 Unspecified osteoarthritis, unspecified site; I25.10 Atherosclerotic heart disease of native coronary artery without angina pectoris; I10 Essential (primary) hypertension; E78.5 Hyperlipidemia, unspecified
CPT/HCPCS: 36415; 71275; 80048; 84484; 85025; 85610; 85730; 93005; 96374; 99284; A9270; J1885; Q9967

== ENCOUNTER 2021-05-27 03:41 | Emergency (ER) | payer SELFPAY ==
--- NOTE | ~2021-05-27 | XR_ITS ---
EXAMINATION: XR chest 2V 05/27/2021 04:18 INDICATION: Chest pain PROCEDURE: PA and lateral views of the chest COMPARISON: Comparison to multiple prior studies sequentially, with oldest reviewed study dated 11/09. FINDINGS: The lungs are clear. The cardiomediastinal silhouette is within normal limits. There are no pleural effusions. There is no pneumothorax suspected. IMPRESSION: 1: NO ACUTE CARDIOPULMONARY DISEASE. Reviewed, dictated and finalized at [facility].
[2021-05-27 03:45] VITALS: BP 180/91; PULSE 73; RESP 20; O2SAT 98
[2021-05-27 03:55] VITALS: PULSE 71
--- NOTE | 2021-05-27 03:55 | ECG_ITS ---
Measurements Intervals [place] Rate: 79 P: 32 [place]: 127 QRS: -36 QRSD: 110 T: -9 QT: 385 QTc: 442 Interpretive Statements SINUS RHYTHM LEFT AXIS DEVIATION INCOMPLETE RIGHT BUNDLE BRANCH BLOCK NONSPECIFIC T-WAVE ABNORMALITY- INF/LAT LEADS BORDERLINE ECG Electronically Signed On 05-27-2021 8:07:48 CDT by Ethan Gutierrez D.O.
--- NOTE | 2021-05-27 04:02 | ED.CHESTPAIN ---
HPI - Chest Pain General Chief Complaint: Chest Pain <Darren Dumont MD - Last Filed: 05/27/21 16:46> Stated Complaint: CP <Darren Dumont MD - Last Filed: 05/27/21 16:46> Time Seen by Provider: 05/27/21 03:47 <Darren Dumont MD - Last Filed: 05/27/21 16:46> History of Present Illness HPI narrative: 45 yo male w/ h/o htn, CAD, [place] presents to the ED for chest pain. Left sided sharp stabbing chest pain since about 1 hour before arrival.Severe. Associated with SOB. Feels similar to heart attack. He has not taken his BP medications for the past week. <Darren Dumont MD - Last Filed: 05/27/21 16:46> Related Data Home Medications: Home Medications Medication Instructions Recorded Confirmed Brilinta 90 mg PO BID 11/09/19 06/10/20 bupropion HCl 150 mg PO DAILY 11/09/19 06/10/20 escitalopram oxalate 10 mg PO DAILY 11/09/19 06/10/20 lisinopril 40 mg PO DAILY 11/09/19 06/10/20 hydrocodone-acetaminophen 1 tablet PO QID PRN 04/25/20 06/10/20 <Darren Dumont MD - Last Filed: 05/27/21 16:46> Allergies/Adverse Reactions: Allergies Allergy/AdvReac Type Severity Reaction Status Date / Time colchicine AdvReac Unknown nausea and Verified 05/27/21 06:45 abdominal pain with one dose <Darren Dumont MD - Last Filed: 05/27/21 16:46> Review of Systems Review of Systems: All systems reviewed & are unremarkable except as noted in HPI and below <Darren Dumont MD - Last Filed: 05/27/21 16:46> Constitutional: Constitutional: Denies fever(s) <Darren Dumont MD - Last Filed: 05/27/21 16:46> ENT: Denies dizziness <Darren Dumont MD - Last Filed: 05/27/21 16:46> Cardiovascular: Cardiovascular: Reports as per HPI <Darren Dumont MD - Last Filed: 05/27/21 16:46> Respiratory: Respiratory: Reports as per HPI <Darren Dumont MD - Last Filed: 05/27/21 16:46> Gastrointestinal: Gastrointestinal: Denies abdominal pain, Denies nausea and Denies vomiting <Darren Dumont MD - Last Filed: 05/27/21 16:46> Musculoskeletal: Musculoskeletal: Denies back pain <Darren Dumont MD - Last Filed: 05/27/21 16:46> Neurologic: Denies numbness and Denies weakness <Darren Dumont MD - Last Filed: 05/27/21 16:46> [facility] Past Medical History Medical History: Medical History Anxiety Arthritis Behcets syndrome CAD (coronary artery disease) Chronic back pain Dental cavities Gout History of angina HLD (hyperlipidemia) HTN (hypertension) Kidney stone Left wrist fracture Myocardial infarction x2, with stent Psoriasis Wrist fracture <Darren Dumont MD - Last Filed: 05/27/21 16:46> Surgical History Surgical History: Surgical History H/O arthroscopy of left knee H/O cardiac catheterization History of heart artery stent X2 History of renal stent History of surgery on arm left forearm <Darren Dumont MD - Last Filed: 05/27/21 16:46> Family History Family History: Family History Daughter Cancer Father Hypertension Other Family history of malignant neoplasm Family history of psoriasis <Darren Dumont MD - Last Filed: 05/27/21 16:46> Social History Social History: Social History Social History: The patient tells me that he now smokes 3 packs of cigarettes a day. He is in the middle of the worse. He has 3 children. He drinks 3-4 beers every other day. He does not have any durable power research attorney for healthcare he is a full code. 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 Smoking cigarettes per day: 40.0 Years smoked: 30 Smoking pack-years: 60.00 Smoking status: Current every day smoker Tobacco type: cigarettes Second hand tobacco s
[2021-05-27 04:05] LABS: Basophils Percent Auto 0.2 % (0.2-1.2); Eosinophils Absolute Auto 0.4 K/mm3 (0-0.3); Eosinophils Percent Auto 3.9 % (0-4.4); Hematocrit 43.8 % (42.0-52.0); Hemoglobin 15.1 g/dL (14.0-18.0); Immature Granulocyte Absolute 0.03 K/mm3 (0.00-0.031); Immature Granulocyte Percent A 0.3 % (0-0.5); Lymphocytes Absolute Auto 2.46 K/mm3 (0.9-3.2); Lymphocytes Percent Auto 27.4 % (18.3-44.2); Mean Corpuscular HGB Conc 34.5 g/dl (32-36); Mean Corpuscular Hemoglobin 31.8 pg (26-34); Mean Corpuscular Volume 92.2 fl (80-100); Mean Platelet Volume 9.7 fl (7.4-10.4); Monocytes Absolute Auto 0.5 K/mm3 (0.1-0.6); Monocytes Percent Auto 5.6 % (2.6-8.5); Neutrophils Absolute Auto 5.6 K/mm3 (1.3-6.7); Neutrophils Percent Auto 62.6 % (45.5-73.1); Platelet Count Result 229 k/mm3 (150-375); Red Blood Count 4.75 M/mm3 (4.6-6.20); Red Cell Distribution Width 12.7 % (11.5-14.5)
[2021-05-27] MEDS: ASPIRIN 81 MG CHEWABLE TABLET 324 MG PO (04:11)
--- NOTE | 2021-05-27 04:12 | PC.NURSE ---
pt already took 1 baby asa 81mg tug captain.
[2021-05-27 04:22] LABS: INR 0.8; Partial Thromboplastin Time 25.8 SECONDS (22.3-36.8); Prothrombin Time 11.4 Seconds (11.1-14.7)
[2021-05-27 04:24] LABS: Anion Gap 7 mmol/L (8-16); Blood Urea Nitrogen 11 mg/dL (9-20); Calcium 9.4 mg/dL (8.4-10.2); Carbon Dioxide 25 mmol/L (22-30); Chloride 108 mmol/L (98-107); Estimated CRCL calculation 139 ml/min; Estimated Glomerular Filt Rate > 60; Glucose 144 mg/dL (65-110); Potassium 3.5 mmol/L (3.4-5.0); Sodium 140 mmol/L (137-145)
[2021-05-27] MEDS: LABETALOL HCL INJ 100 MG/20 ML VIAL 20 MG IV PUSH (04:25)
--- NOTE | 2021-05-27 04:33 | PC.NURSE ---
Pt refused nitroglycerin for chest pain. stated I would rather than take that. I'm about ready to rip all of this shit off me and walk out. no new orders. will continue to monitor.
[2021-05-27 04:36] LABS: Troponin I < 0.012 ng/mL (0.000-0.034)
[2021-05-27 05:21] VITALS: BP 155/95; PULSE 70; RESP 20; O2SAT 96
[2021-05-27 06:43] VITALS: BP 163/89; PULSE 66; RESP 16; O2SAT 97
[2021-05-27 07:26] VITALS: BP 166/102; PULSE 64; RESP 16; O2SAT 98
[2021-05-27 07:44] LABS: Troponin I < 0.012 ng/mL (0.000-0.034)
[2021-05-27 08:51] VITALS: BP 166/95; PULSE 67; RESP 16; O2SAT 97
== END 2021-05-27 09:27 | disposition home or self-care (01) ==
PROVIDERS: Emergency Provider Emergency Medicine; PCP Chiropractor
DX: R07.9 Chest pain, unspecified (principal); I10 Essential (primary) hypertension; I25.10 Atherosclerotic heart disease of native coronary artery without angina pectoris; I25.2 Old myocardial infarction; M35.2 Behcet's disease; M10.9 Gout, unspecified; M19.90 Unspecified osteoarthritis, unspecified site; E78.5 Hyperlipidemia, unspecified; F41.9 Anxiety disorder, unspecified; Z87.442 Personal history of urinary calculi; Z95.5 Presence of coronary angioplasty implant and graft; F17.210 Nicotine dependence, cigarettes, uncomplicated; I45.10 Unspecified right bundle-branch block; R94.31 Abnormal electrocardiogram [ECG] [EKG]
CPT/HCPCS: 36415; 71046; 80048; 84484; 85025; 85610; 85730; 93005; 96374; 99284; A9270

== ENCOUNTER 2022-10-25 20:06 | Emergency (ER) | payer OTHER, SELFPAY ==
--- NOTE | ~2022-10-25 | XR_ITS ---
EXAMINATION: XR chest 2V 10/25/2022 20:32 INDICATION: Chest pain PROCEDURE: 2 view chest COMPARISON: 05/27/2021 FINDINGS: The lungs are clear. The cardiomediastinal silhouette is within normal limits. There are no pleural effusions. There is no pneumothorax suspected. IMPRESSION: 1: NO ACUTE CARDIOPULMONARY DISEASE. Reviewed, dictated and finalized at location [facility]. ET SETTER
--- NOTE | 2022-10-25 20:09 | ECG_ITS ---
Measurements Intervals [place] Rate: 91 P: 30 [place]: 129 QRS: -26 QRSD: 97 T: -2 QT: 343 QTc: 424 Interpretive Statements SINUS RHYTHM DELAYED PRECORDIAL R/S TRANSITION NONSPECIFIC T-WAVE ABNORMALITY- INFERIOR LEADS BORDERLINE ECG COMPARED TO ECG 05/27/2021 03:46:17 NO SIGNIFICANT CHANGES Electronically Signed On 10-26-2022 7:56:15 SPECIAL EDUCATION SECRETARY by Ethan Gutierrez D.O.
[2022-10-25 20:21] VITALS: BP 164/89; PULSE 86; RESP 18; TEMP 36.9; O2SAT 96
[2022-10-25 20:33] LABS: Basophils Percent Auto 0.3 % (0.2-1.2); Eosinophils Absolute Auto 0.3 K/mm3 (0-0.3); Eosinophils Percent Auto 2.3 % (0-4.4); Hematocrit 44.9 % (42.0-52.0); Hemoglobin 15.4 g/dL (14.0-18.0); Immature Granulocyte Absolute 0.05 K/mm3 (0.00-0.031); Immature Granulocyte Percent A 0.4 % (0-0.5); Lymphocytes Percent Auto 21.7 % (18.3-44.2); Mean Corpuscular HGB Conc 34.3 g/dl (32-36); Mean Corpuscular Volume 90.5 fl (80-100); Mean Platelet Volume 9.7 fl (7.4-10.4); Monocytes Absolute Auto 0.7 K/mm3 (0.1-0.6); Monocytes Percent Auto 5.7 % (2.6-8.5); Neutrophils Absolute Auto 8.4 K/mm3 (1.3-6.7); Neutrophils Percent Auto 69.6 % (45.5-73.1); Platelet Count Result 266 k/mm3 (150-375); Red Blood Count 4.96 M/mm3 (4.6-6.20); Red Cell Distribution Width 12.6 % (11.5-14.5)
[2022-10-25] MEDS: ASPIRIN 81 MG CHEWABLE TABLET 324 MG PO (20:34)
[2022-10-25 20:44] LABS: Alanine Aminotransferase 25 U/L (6-50); Albumin Level 4.7 g/dL (3.5-5.1); Alkaline Phosphatase 67 U/L (38-126); Anion Gap 8 mmol/L (8-16); Aspartate Amino Transferase 29 U/L (17-59); Bilirubin,Total 0.3 mg/dL (0.2-1.3); Blood Urea Nitrogen 10 mg/dL (9-20); Calcium 8.9 mg/dL (8.4-10.2); Carbon Dioxide 27 mmol/L (22-30); Chloride 103 mmol/L (98-107); Estimated CRCL calculation 103 ml/min; Estimated Glomerular Filt Rate > 60; Glucose 117 mg/dL (65-110); Lipase 109 U/L (23-300); Potassium 3.6 mmol/L (3.4-5.0); Prothrombin Time 12.6 Seconds (11.1-14.7); Sodium 138 mmol/L (137-145)
[2022-10-25 20:45] LABS: Partial Thromboplastin Time 27.4 SECONDS (22.3-36.8)
[2022-10-25 20:54] LABS: Troponin I < 0.012 ng/mL (0.000-0.034)
--- NOTE | 2022-10-25 21:24 | PC.NURSE ---
Pt reports chest pain relief after aspirin.
--- NOTE | 2022-10-26 00:33 | PC.NURSE ---
patient noted to be sleeping at this time
[2022-10-26 00:34] LABS: Troponin I < 0.012 ng/mL (0.000-0.034)
[2022-10-26 00:42] VITALS: O2SAT 96
[2022-10-26 00:43] VITALS: BP 150/104; PULSE 65; RESP 20; O2SAT 97
--- NOTE | 2022-10-26 01:10 | ED.CHESTPAIN ---
HPI - Chest Pain General Chief Complaint: Chest Pain Stated Complaint: chest pain Time Seen by Provider: 10/26/22 00:42 History of Present Illness HPI narrative: This 47 year old male patient with significant PMH of CAD s/p stenting x2, HTN, HLD, nicotine abuse, and anxiety who is managed by Systems Integration Manager Dr. Barney at [facility] who presents to the ER with complaints of developing chest pain today that is in the center of his chest and radiates to the back. He endorses pain and some tingling in the left arm and describes the pain as a pressure. He has no N/V/D, headache or dizziness associated with it. He stateshis pain was somewhat relieved by the ASA that he received upon arrival, and it has now ramped back up to a 6. He has not been taking his BP meds for the past week because he has been out of them. They are now at the pharmacy waiting on him to pick them up according to the patient. He did endorse dyspnea with his pain when it first started. He denies any now. He has not seen Dr. Reina in over a year. Risk Factors Coronary artery disease risk factors: smoking history, hyperlipidemia and hypertension Thoracic aortic dissection risk factors: none Related Data Home Medications Medication Instructions Recorded Confirmed bupropion HCl 150 mg 24 hr tablet, 150 mg PO DAILY 11/09/19 06/10/20 extended release escitalopram oxalate 10 mg tablet 10 mg PO DAILY 11/09/19 06/10/20 lisinopril 40 mg tablet 40 mg PO DAILY 11/09/19 06/10/20 ticagrelor 90 mg tablet (Brilinta) 90 mg PO BID 11/09/19 06/10/20 hydrocodone 7.5 mg-acetaminophen 1 tablet PO QID PRN Pain 04/25/20 06/10/20 325 mg tablet Allergies Allergy/AdvReac Type Severity Reaction Status Date / Time colchicine AdvReac Unknown nausea and Verified 05/27/21 06:45 abdominal pain with one dose Review of Systems Review of Systems: All systems reviewed & are unremarkable except as noted in HPI and below PMFSH Past Medical History Medical History (Updated 10/26/22 @ 02:04 by Paula Del Real, YOLY-Nichole) Anxiety Arthritis Behcets syndrome CAD (coronary artery disease) Chronic back pain Dental cavities Gout History of angina HLD (hyperlipidemia) HTN (hypertension) Kidney stone Left wrist fracture Myocardial infarction x2, with stent Psoriasis Wrist fracture Surgical History Surgical History H/O arthroscopy of left knee H/O cardiac catheterization History of heart artery stent X2 History of renal stent History of surgery on arm left forearm Family History Family History Daughter Cancer Father Hypertension Other Family history of malignant neoplasm Family history of psoriasis Social History Social History Social History: The patient tells me that he now smokes 3 packs of cigarettes a day. He is in the middle of the worse. He has 3 children. He drinks 3-4 beers every other day. He does not have any durable power flatwork tier for healthcare he is a full code. 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 Smoking cigarettes per day: 40.0 Years smoked: 30 Smoking pack-years: 60.00 Smoking status: Current every day smoker Tobacco type: cigarettes Second hand tobacco smoke exposure: Yes Smoking end date: 10/21/12 Alcohol intake: current Drinks per week: 28 Substance use: never Gender identity (if verbalized by the patient): Male Sexual Orientation (if Verbalized by the Patient): Straight or Heterosexual Spiritual care concerns: No Agree to blood products: Yes Exam Const: General: no acute distress and alert Nutritional Appearance: well nourished Orientation/consciousness: patient oriented x3 Limitations: no limitations HENMT: Head: normal to inspection Ears: external ears normal Face/Nose/Sinus: Normal exte
[2022-10-26] MEDS: hydrALAZINE HCL 20 MG/ML VIAL 10 MG IV PUSH (01:15)
[2022-10-26] MEDS: MORPHINE SULFATE (*CRX) 2 MG/ML INJ IV PUSH (01:22)
[2022-10-26 01:56] LABS: D Dimer < 0.27 ug/mL (<0.48)
[2022-10-26 02:31] LABS: Troponin I < 0.012 ng/mL (0.000-0.034)
[2022-10-26 02:46] LABS: Influenza A QL RT-PCR Negative (Negative); Influenza B QL RT-PCR Negative (Negative); RSV RNA, RT-PCR Negative (Negative); SARS-CoV-2 RNA PCR Negative
[2022-10-26 03:01] VITALS: BP 141/75; PULSE 71; RESP 14; O2SAT 96
== END 2022-10-26 03:04 | disposition home or self-care (01) ==
PROVIDERS: Emergency Medicine; Emergency Provider Nurse Practitioner Adult Health; PCP Chiropractor
DX: R07.9 Chest pain, unspecified (principal); I10 Essential (primary) hypertension; T46.5X6A Underdosing of other antihypertensive drugs, initial encounter; F17.210 Nicotine dependence, cigarettes, uncomplicated; Z20.822 Contact with and (suspected) exposure to COVID-19; I25.10 Atherosclerotic heart disease of native coronary artery without angina pectoris; E78.5 Hyperlipidemia, unspecified; M19.90 Unspecified osteoarthritis, unspecified site; M10.9 Gout, unspecified; M35.2 Behcet's disease; I25.2 Old myocardial infarction; F41.9 Anxiety disorder, unspecified; Z95.5 Presence of coronary angioplasty implant and graft; Z87.442 Personal history of urinary calculi
CPT/HCPCS: 36415; 71046; 80053; 83690; 84484; 85025; 85380; 85610; 85730; 87637; 93005; 96374; 96375; 99284; A9270; J0360; J2270

== ENCOUNTER 2022-12-30 00:50 | Observation (INO) | payer OTHER, SELFPAY ==
[2022-12-30] VITALS (22 sets, daily range): BP systolic 149–178; BP diastolic 84–107; PULSE 57–95; RESP 12–25; TEMP 36–36.6; O2SAT 95–99; BMI 29.9
--- NOTE | ~2022-12-30 | XR_ITS ---
EXAMINATION: XR chest 1V portable DATE: 12/30/2022 01:44 INDICATION: Mid chest pain radiating to the left back. TECHNIQUE: frontal view of the chest was obtained. COMPARISON: Chest radiograph dated 10/25/2022 FINDINGS: The lungs remain clear with no focal airspace opacities, pulmonary edema, pleural effusion or pneumot horax. The cardiomediastinal silhouette is normal. Visualized bones and soft tissues are unremarkable . IMPRESSION: 1. No acute cardiopulmonary disease. Reviewed, dictated and finalized at location A.
--- NOTE | 2022-12-30 01:01 | ECG_ITS ---
Measurements Intervals [place] Rate: 74 P: 16 [place]: 161 QRS: -32 QRSD: 105 T: -11 QT: 378 QTc: 420 Interpretive Statements SINUS RHYTHM LEFT AXIS DEVIATION DELAYED PRECORDIAL R/S TRANSITION BORDERLINE T WAVE ABNORMALITY- INFERIOR LEADS BASELINE ARTIFACT- III, V1 BORDERLINE ECG COMPARED TO ECG 10/25/2022 20:13:57 LEFT-AXIS DEVIATION NOW PRESENT Electronically Signed On 12-30-2022 7:57:42 CDT by Ethan Gutierrez D.O.
[2022-12-30] MEDS: ASPIRIN 81 MG CHEWABLE TABLET 324 MG PO (01:24)
--- NOTE | 2022-12-30 01:24 | ED.GENADULT ---
HPI - General Adult General Chief complaint: Neck Pain/Injury Stated complaint: L neck, arm, and back pain Time Seen by Provider: 12/30/22 01:14 History of Present Illness HPI narrative: Patient is a 47-year-old gentleman who presents the emergency department with chief complaint of chest discomfort. The patient reports that before noon today he started having pain in the central portion of his chest the patient reports it radiates to his left arm and his left arm gets tingly with this. Patient states that this has been ongoing throughout the day and has been getting worse the patient states this feels similar to whenever he had an [place] several years ago reports that he has been compliant with his antiplatelet therapy patient states that he has not gotten short of breath and denies diaphoresis. Related Data Home Medications Medication Instructions Recorded Confirmed bupropion HCl 150 mg 24 hr tablet, 150 mg PO DAILY 11/09/19 06/10/20 extended release escitalopram oxalate 10 mg tablet 10 mg PO DAILY 11/09/19 06/10/20 lisinopril 40 mg tablet 40 mg PO DAILY 11/09/19 06/10/20 ticagrelor 90 mg tablet (Brilinta) 90 mg PO BID 11/09/19 06/10/20 hydrocodone 7.5 mg-acetaminophen 1 tablet PO QID PRN Pain 04/25/20 06/10/20 325 mg tablet Allergies Allergy/AdvReac Type Severity Reaction Status Date / Time colchicine AdvReac Unknown nausea and Verified 12/30/22 01:35 abdominal pain with one dose Review of Systems Review of Systems: A 10 system review of systems was completed on the patient and is negative except for what is stated in the HPI. Nursing and ancillary documentation was reviewed. [facility] Past Medical History Medical History (Updated 12/30/22 @ 05:17 by Jewel Kahn MD) Anxiety Arthritis Behcets syndrome CAD (coronary artery disease) Chronic back pain Dental cavities Gout History of angina HLD (hyperlipidemia) HTN (hypertension) Kidney stone Left wrist fracture Myocardial infarction x2, with stent Psoriasis Wrist fracture Surgical History Surgical History H/O arthroscopy of left knee H/O cardiac catheterization History of heart artery stent X2 History of renal stent History of surgery on arm left forearm Family History Family History Daughter Cancer Father Hypertension Other Family history of malignant neoplasm Family history of psoriasis Social History Social History Social History: The patient tells me that he now smokes 3 packs of cigarettes a day. He is in the middle of the worse. He has 3 children. He drinks 3-4 beers every other day. 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 HEAD: Normocephalic, atraumatic. EYES: PERRLA and EOMI. ENT: Nares clear, no rhinorrhea or epistaxis. Mucous membranes moist. NECK: Supple. CHEST: Clear to auscultation. No respiratory distress. HEART: Regular rate and rhythm. No murmur heard. Normal peripheral pulses. ABDOMEN: Soft, nontender, nondistended, normal active bowel sounds. EXTREMITIES: Normal range of motion. No edema. SKIN: Warm, dry, no rash. NEURO: No focal deficits.
[2022-12-30] MEDS: ONDANSETRON INJ 4 MG/2 ML VIAL IV PUSH (01:25)
[2022-12-30] MEDS: NITROGLYCERIN SL 0.4 MG TABLET SUBLINGUAL ×2 (01:26→07:53)
--- NOTE | 2022-12-30 01:26 | PC.NURSE ---
0126 1st nitro tab given
[2022-12-30] MEDS: MORPHINE SULFATE (*CRX) 4 MG/ML INJ IV PUSH ×5 (01:30→08:18)
--- NOTE | 2022-12-30 01:32 | PC.NURSE ---
0131 2nd nitro tab given.
[2022-12-30 01:34] LABS: Basophils Percent Auto 0.3 % (0.2-1.2); Eosinophils Absolute Auto 0.3 K/mm3 (0-0.3); Eosinophils Percent Auto 2.8 % (0-4.4); Hematocrit 44.7 % (42.0-52.0); Hemoglobin 15.6 g/dL (14.0-18.0); Immature Granulocyte Absolute 0.03 K/mm3 (0.00-0.031); Immature Granulocyte Percent A 0.3 % (0-0.5); Lymphocytes Absolute Auto 2.58 K/mm3 (0.9-3.2); Lymphocytes Percent Auto 27.9 % (18.3-44.2); Mean Corpuscular HGB Conc 34.9 g/dl (32-36); Mean Corpuscular Hemoglobin 31.2 pg (26-34); Mean Corpuscular Volume 89.4 fl (80-100); Mean Platelet Volume 9.7 fl (7.4-10.4); Monocytes Absolute Auto 0.6 K/mm3 (0.1-0.6); Monocytes Percent Auto 6.8 % (2.6-8.5); Neutrophils Absolute Auto 5.7 K/mm3 (1.3-6.7); Neutrophils Percent Auto 61.9 % (45.5-73.1); Platelet Count Result 241 k/mm3 (150-375); White Blood Count 9.3 K/mm3 (4.5-10.0)
--- NOTE | 2022-12-30 01:38 | PC.NURSE ---
Patient states my eyes are going blurry again. ERP notified,no new orders.
--- NOTE | 2022-12-30 01:38 | PC.NURSE ---
Patient states his pain is starting to subside, states no more nitro.
[2022-12-30 01:47] LABS: Alanine Aminotransferase 25 U/L (6-50); Albumin Level 4.8 g/dL (3.5-5.1); Alkaline Phosphatase 63 U/L (38-126); Anion Gap 6 mmol/L (8-16); Aspartate Amino Transferase 24 U/L (17-59); Bilirubin,Total 0.6 mg/dL (0.2-1.3); Blood Urea Nitrogen 10 mg/dL (9-20); Calcium 9.2 mg/dL (8.4-10.2); Carbon Dioxide 27 mmol/L (22-30); Chloride 104 mmol/L (98-107); Estimated CRCL calculation 160 ml/min; Estimated Glomerular Filt Rate > 60; Glucose 100 mg/dL (65-110); Lipase 106 U/L (23-300); Magnesium 1.8 mg/dL (1.6-2.3); Potassium 3.7 mmol/L (3.4-5.0); Sodium 137 mmol/L (137-145)
[2022-12-30 01:48] LABS: Ethanol < 10 mg/dL (<10)
[2022-12-30 01:55] LABS: Partial Thromboplastin Time 29.7 SECONDS (22.3-36.8)
[2022-12-30 01:55] LABS: NT Pro B Type Natriuretic Pept 440 pg/mL (19.9-100)
[2022-12-30 01:59] LABS: Troponin I < 0.012 ng/mL (0.000-0.034)
--- NOTE | 2022-12-30 05:29 | PM.IMHP ---
H&P: HPI History of Present Illness Date/Time: 12/30/22 05:29 Chief Complaint: Retrosternal chest pain Narrative: This is a 47-year-old male with past medical history significant for coronary artery disease status post stent placement, hypertension, tobacco dependence, patient smokes 1 pack of cigarettes daily. Presents to the emergency room due to retrosternal chest pain with radiation to the back in between his shoulder blades is been present all day it got worst hours DN of the day which prompted him to present to the emergency room patient also felt lightheaded and had blurry vision, patient denies any nausea, vomiting, fevers, rigors, chills, cough, sputum production. In emergency room patient had a blood pressure systolic in the 170's diastolic blood pressure in the 90s to 100s. Rates his pain at 10/10 in intensity only relieved by pain medication. Preliminary workup has been essentially nonrevealing. Patient is been placed in observation for further evaluation management and treatment. Review of Systems Review of Systems: Retrosternal chest pain with radiation to the back in between shoulder blades, blurry vision, lightheadedness Constitutional: Constitutional: Denies chills, Denies fever(s), Denies malaise, Denies night sweats and Denies weakness Eyes: Eyes: Reports blurry vision ENT: Denies dysphagia and Denies odynophagia Cardiovascular: Cardiovascular: Reports chest pain, Denies leg edema, Reports lightheadedness, Denies radiating jaw, neck or arm pain and Denies palpitations Respiratory: Respiratory: Denies chest congestion, Denies cough, Denies excessive phlegm production, Denies pain on inspiration, Denies dyspnea, Denies dyspnea on exertion and Denies wheezing Gastrointestinal: Gastrointestinal: Denies abdominal pain, Denies dyspepsia, Denies heartburn, Denies diarrhea, Denies nausea and Denies vomiting Genitourinary: Genitourinary: Denies dysuria Musculoskeletal: Musculoskeletal: Denies back pain, Denies joint swelling, Denies muscle weakness and Denies neck pain Integumentary/Breasts: Skin/Breast: Denies rash Neurologic: Denies focal weakness and Denies Sensory deficit (Neuro) Psychiatric: Psychiatric: Reports no additional psychiatric complaints and Reports as per HPI Endocrine: Endocrine: Denies cold intolerance, Denies flushing, Denies heat intolerance, Denies polyphagia, Denies polydipsia and Denies palpitations Hematologic/Lymphatic: Hematologic/Lymphatic: Reports no additional hematologic/lymphatic complaints and Reports as per HPI Allergic/Immunologic: Allergic/Immunologic: Reports no additional allergic/immunologic complaints and Reports as per HPI PMF Past Medical History Medical History (Updated 12/30/22 @ 05:17 by Jewel Kahn MD) Anxiety Arthritis Behcets syndrome CAD (coronary artery disease) Chronic back pain Dental cavities Gout History of angina HLD (hyperlipidemia) HTN (hypertension) Kidney stone Left wrist fracture Myocardial infarction x2, with stent Psoriasis Wrist fracture Surgical History Surgical History H/O arthroscopy of left knee H/O cardiac catheterization History of heart artery stent X2 History of renal stent History of surgery on arm left forearm Family History Family History Daughter Cancer Father Hypertension Other Family history of malignant neoplasm Family history of psoriasis Social History Social History Social History: The patient tells me that he now smokes 3 packs of cigarettes a day. He is in the middle of the worse. He has 3 children. He drinks 3-4 beers every other day. He does not have any durable power employment law attorney for healthcare he is a full code. 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 Smoking cigarettes per day: 40.0 Y
[2022-12-30] MEDS: HYDROmorphone HCL INJ (*CRX) 1 MG/ML SYR IV PUSH (06:01)
--- NOTE | 2022-12-30 06:21 | ADMGEN ---
This patient, Zander Cain, was admitted to IMU Room 209-01. Patient/family oriented to hospital policies and general routines including ID bracelet, bed and alarms, visiting hours, pain management, procedures, bathroom and other care routines, personal items, smoking policy, room service/diet, and visiting hours. Information on how to activate the Rapid Response Team has been discussed. Patient/Family are encouraged to report perceived risks to care and to ask questions if they do not understand what they are told or what they should do.
[2022-12-30] MEDS: ASPIRIN 81 MG CHEWABLE TABLET PO (07:53)
[2022-12-30 08:56] LABS: Troponin I < 0.012 ng/mL (0.000-0.034)
--- NOTE | 2022-12-30 09:39 | PM.CNCAR ---
Assessment and Plan Assessment and plan (1) Chest pain: Code(s): R07.9 - Chest pain, unspecified Status: Acute Assessment and Plan: EKG without ischemic changes. Troponins negative x 3. Does have some chest wall reproducibility on exam. Given his history, I did offer inpatient stress testing, which would be done on Saturday, however patient states he prefers outpatient testing. Okay to discharge home with outpatient follow up. (2) CAD (coronary artery disease): Code(s): I25.10 - Atherosclerotic heart disease of [place] coronary artery without angina pectoris Status: Chronic Assessment and Plan: Continue ASA, Brilinta, statin. Has history of medication noncompliance. (3) HLD (hyperlipidemia): Code(s): E78.5 - Hyperlipidemia, unspecified Status: Chronic Assessment and Plan: Continue statin. (4) HTN (hypertension): Qualifiers: Hypertension type: primary hypertension Qualified Code(s): I10 - Essential (primary) hypertension Code(s): I10 - Essential (primary) hypertension Status: Acute Assessment and Plan: Blood pressure elevated. Continue home Lisinopril. Will need outpatient follow up for his blood pressure. (5) Tobacco abuse: Code(s): Z72.0 - Tobacco use Status: Acute Assessment and Plan: Encouraged cessation. History of Present Illness History of Present Illness Consult date/time: 12/30/22 09:39 Requesting physician: Jewel Kahn MD Consult reason: chest pain Reason For Visit: chest pain Narrative: We are consulted for chest pain. This is a 47-year-old male with a history of coronary artery disease s/p PCI, hypertension, ongoing tobacco dependence, history of alcohol abuse who presented to [place] [facility] with chest pain. Patient's last PCI was done in 10/2019 for NSTEMI. He has a history of SAIRA to OM1 in 2013. In 2019, he underwent PCI with 1 SAIRA to the proximal RCA. Cath at that time showed patent stent. Patient has been on ASA and Brilinta since then. He tells me that he thinks he has been compliant with his medications, and he cannot recall if he missed any doses or not. Patient reports chest pain that began yesterday morning and has been constant. In left upper chest that radiates to the back. Improved with Morphine. EKG without ischemic changes. Troponins negative x 3. Review of Systems Review of Systems: All systems reviewed & are unremarkable except as noted in HPI and below (HPI) [facility] Past Medical History Medical History Anxiety Arthritis Behcets syndrome CAD (coronary artery disease) Chronic back pain Dental cavities Gout History of angina HLD (hyperlipidemia) HTN (hypertension) Kidney stone Left wrist fracture Myocardial infarction x2, with stent Psoriasis Wrist fracture Surgical History Surgical History H/O arthroscopy of left knee H/O cardiac catheterization History of heart artery stent X2 History of renal stent History of surgery on arm left forearm Family History Family History Daughter Cancer Father Hypertension Other Family history of malignant neoplasm Family history of psoriasis Social History Social History Social History: The patient tells me that he now smokes 3 packs of cigarettes a day. He is in the middle of the worse. He has 3 children. He drinks 3-4 beers every other day. He does not have any durable power [place] attorney for healthcare he is a full code. 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.5 Smoking cigarettes per day: 50.0 Years smoked: 30 Smoking pack-years: 75.00 Smoking status: Current every day smoker Tobacco type: cigarettes Second hand tobacco smoke exposure: Yes Smoking end date: 10/21/12 Alcohol
--- NOTE | 2022-12-30 11:25 | PM.DS ---
DS: Admitting Diagnosis Discharge Date December 30, 2022 Admitting Diagnosis Chest pain DS: Discharge Diagnosis Discharge Diagnosis (1) Unstable angina: Code(s): I20.0 - Unstable angina Status: Acute Assessment and Plan: Admit to IMU Serial troponins Restart home meds Cardiology consult Supportive care Continue to monitor (2) Alcohol abuse: Code(s): F10.10 - Alcohol abuse, uncomplicated Status: Acute Assessment and Plan: CIWA as needed (3) Tobacco abuse: Code(s): Z72.0 - Tobacco use Status: Acute Assessment and Plan: Nicotine patch as needed (4) CAD (coronary artery disease): Code(s): I25.10 - Atherosclerotic heart disease of [place] coronary artery without angina pectoris Status: Chronic Assessment and Plan: Patient with angina Restart home meds Supportive care Cardiology consult (5) Anxiety: Code(s): F41.9 - Anxiety disorder, unspecified Status: Chronic Assessment and Plan: Continue Lexapro (6) Chronic back pain: Code(s): M54.9 - Dorsalgia, unspecified; G89.29 - Other chronic pain Status: Chronic Assessment and Plan: Tylenol as needed DS: Summary Hospital Course Hospital Course: Admitted for chest pain. Workup unrevealing. Follow up with his occupational health physician. Time Spent with Patient Time attestation: Total time spent providing and/or coordinating discharge services: Exam Narrative: Sitting by the edge of the stretcher Const: General: comfortable, no acute distress, well developed, alert, awake and average body habitus Nutritional Appearance: average body habitus Orientation/consciousness: patient oriented x3 HENMT: Head: normal to inspection, normocephalic and atraumatic Ears: hearing grossly normal bilaterally Face/Nose/Sinus: normal facial exam Face and sinus: normal facial exam Eyes: General: appearance normal, both eyes and all related structures Pupils: Equal, round and reactive pupils present EOM: EOMs intact bilaterally Neck: Neck: full ROM, no lymphadenopathy and no JVD Thyroid: thyroid normal Lymphatic: no lymphadenopathy noted Resp: Effort & Inspection: normal respiratory effort and able to speak in complete sentences Auscultation: clear to auscultation bilaterally Cardio: Jugular venous distension: no JVD Rate: regular rate Rhythm: regular rhythm Heart sounds: S1 normal heart sound present and S2 normal heart sound present : General: Yes deferred Skin: Rashes: no rashes Wounds: no wounds Neuro: General: patient oriented x3 and CN's II-XI intact bilaterally Cranial nerves: Yes CN's II-XII intact bilaterally and Yes Equal, round and reactive pupils present Cognition (Neuro): normal cognition Speech: normal speech Gait exam (Neuro): Normal gait present Motor exam (neuro): 5/5 motor strength present throughout Sensory Exam: No Sensory deficit (Neuro) Extrem: General: normal to inspection, full ROM, no joint enlargement and no pedal edema DS: Data Data Completed and Pending Labs on day of discharge: Labs from last 24 hours 12/30/22 12/30/22 12/30/22 08:25 04:36 01:28 WBC RBC Hgb Hct MCV MCH MCHC RDW Plt Count MPV Immature Gran % (Auto) Neut % (Auto) Lymph % (Auto) [place] % (Auto) Eos % (Auto) Baso % (Auto) Lymph # (Auto) [place] # (Auto) Eos # (Auto) Baso # (Auto) Abs Immat Gran (auto) Absolute Neuts (auto) Absolute Nucleated RBC Nucleated RBC % PT 13.0 INR 1.0 APTT Sodium Potassium Chloride Carbon Dioxide Anion Gap BUN Creatinine Estim Creat Clear Calc Estimated GFR Glucose Calcium Magnesium Total Bilirubin AST ALT Alkaline Phosphatase Troponin I < 0.012 D 0.020 D NT-Pro-B Natriuret Pep Total Protein Albumin Lipase Ethyl Alcohol 12/30/22 12/30/22 12/30/22 01:28 01:27 01
== END 2022-12-30 11:25 | disposition home or self-care (01) ==
LOC: ANHED 05:17 → ANHIMU 06:08
PROVIDERS: Admitting Provider Internal Medicine; Emergency Provider Emergency Medicine; PCP Chiropractor; Visit Provider Chiropractor
DX: I25.110 Atherosclerotic heart disease of native coronary artery with unstable angina pectoris (principal); Y90.0 Blood alcohol level of less than 20 mg/100 ml; F10.10 Alcohol abuse, uncomplicated; Z95.5 Presence of coronary angioplasty implant and graft; F41.9 Anxiety disorder, unspecified; G89.29 Other chronic pain; M54.9 Dorsalgia, unspecified; H53.8 Other visual disturbances; R42 Dizziness and giddiness; M19.90 Unspecified osteoarthritis, unspecified site; M35.2 Behcet's disease; I10 Essential (primary) hypertension; I25.2 Old myocardial infarction; M10.9 Gout, unspecified; E78.5 Hyperlipidemia, unspecified; F17.210 Nicotine dependence, cigarettes, uncomplicated; Z79.82 Long term (current) use of aspirin; Z79.02 Long term (current) use of antithrombotics/antiplatelets; Z79.891 Long term (current) use of opiate analgesic; Z79.899 Other long term (current) drug therapy; Z82.49 Family history of ischemic heart disease and other diseases of the circulatory system
CPT/HCPCS: 36415; 71045; 80053; 80307; 83690; 83735; 83880; 84484; 85025; 85610; 85730; 93005; 96374; 96375; 96376; 99285; A9270; G0378; G0379; J1170; J2270; J2405

== ENCOUNTER 2023-01-01 05:26 | Emergency (ER) | payer OTHER, SELFPAY ==
[2023-01-01] VITALS (14 sets, daily range): BP systolic 182–199; BP diastolic 96–111; PULSE 58–86; RESP 14–18; TEMP 36.6; O2SAT 95–100
--- NOTE | ~2023-01-01 | XR_ITS ---
Clinical Indication: Chest pain PA and lateral views of the chest: Comparison: 12/30/2022 Findings: The lungs are clear, without evidence of focal consolidation or pleural effusion. Cardiome diastinal silhouette is within normal limits. Bones and soft tissues are unremarkable. Impression: Normal chest. Reviewed, dictated and finalized at location . Impression: Normal chest.
--- NOTE | ~2023-01-01 | CT_ITS ---
Clinical Indication: Chest pain CT Scan of the Chest with Contrast: Technique: Contiguous sections were acquired throughout the chest after intravenous administration of 100 cc of Omnipaque 350. Dose reduction technique was used on this scan by utilizing automated expos ure control and iterative reconstruction technique. The dose-length product (DLP) was 657.55 mGy-cm. COMPARISON: 04/03/2021 Findings: There is no evidence of any significant mediastinal, hilar or axillary lymphadenopathy. There is no f illing defect in the pulmonary arterial tree to suggest pulmonary embolus. There is no evidence of ao rtic dissection or aneurysm. There is no evidence of pleural or pericardial effusion. There are several subtle, scattered, minimal groundglass opacities in the right lung. Left lung clear . Images through the upper abdomen reveal no abnormalities. Impression: No evidence of pulmonary embolus, aortic dissection, or aortic aneurysm. Several minimal subtle groundglass opacities in the right lung. Findings are compatible with mild inf ectious/inflammatory process. Reviewed, dictated and finalized at [facility]. Impression: No evidence of pulmonary embolus, aortic dissection, or aortic aneurysm. Several minimal subtle groundglass opacities in the right lung. Findings are co mpatible with mild infectious/inflammatory process.
--- NOTE | 2023-01-01 05:34 | ECG_ITS ---
Measurements Intervals [place] Rate: 72 P: 12 SD: 160 QRS: -36 QRSD: 98 T: -21 QT: 391 QTc: 429 Interpretive Statements SINUS RHYTHM LEFT AXIS DEVIATION DELAYED PRECORDIAL R/S TRANSITION VOLTAGE CRITERIA FOR LVH NONSPECIFIC T-WAVE ABNORMALITY- INFERIOR LEADS BORDERLINE ECG COMPARED TO ECG 12/30/2022 01:05:36 NO SIGNIFICANT CHANGES Electronically Signed On 01-01-2023 6:41:57 CDT by Ethan Gutierrez D.O.
--- NOTE | 2023-01-01 05:45 | PC.NURSE ---
pt c/o upper back pain and neck pain that radiates down l arm. states l hand is numb. states pain is worse with palpation and movement. states he was admitted yesterday for cp and discharged at 1100 because his cardiac workup was normal. denies any cp at this time. didn't take anything for pain.
[2023-01-01 06:08] LABS: Basophils Percent Auto 0.2 % (0.2-1.2); Eosinophils Absolute Auto 0.3 K/mm3 (0-0.3); Eosinophils Percent Auto 3.5 % (0-4.4); Hemoglobin 15.4 g/dL (14.0-18.0); Immature Granulocyte Absolute 0.02 K/mm3 (0.00-0.031); Immature Granulocyte Percent A 0.2 % (0-0.5); Lymphocytes Absolute Auto 2.53 K/mm3 (0.9-3.2); Lymphocytes Percent Auto 30.7 % (18.3-44.2); Mean Corpuscular Hemoglobin 30.6 pg (26-34); Mean Corpuscular Volume 87.5 fl (80-100); Mean Platelet Volume 9.8 fl (7.4-10.4); Monocytes Absolute Auto 0.6 K/mm3 (0.1-0.6); Monocytes Percent Auto 6.8 % (2.6-8.5); Neutrophils Absolute Auto 4.8 K/mm3 (1.3-6.7); Neutrophils Percent Auto 58.6 % (45.5-73.1); Platelet Count Result 249 k/mm3 (150-375); Red Blood Count 5.03 M/mm3 (4.6-6.20); Red Cell Distribution Width 12.6 % (11.5-14.5); White Blood Count 8.3 K/mm3 (4.5-10.0)
[2023-01-01 06:18] LABS: Alanine Aminotransferase 23 U/L (6-50); Albumin Level 4.5 g/dL (3.5-5.1); Alkaline Phosphatase 64 U/L (38-126); Anion Gap 6 mmol/L (8-16); Aspartate Amino Transferase 21 U/L (17-59); Bilirubin,Total 0.4 mg/dL (0.2-1.3); Blood Urea Nitrogen 9 mg/dL (9-20); Carbon Dioxide 27 mmol/L (22-30); Chloride 107 mmol/L (98-107); Estimated CRCL calculation 119 ml/min; Estimated Glomerular Filt Rate > 60; Glucose 117 mg/dL (65-110); Lipase 86 U/L (23-300); Potassium 3.5 mmol/L (3.4-5.0); Sodium 140 mmol/L (137-145)
[2023-01-01 06:23] LABS: INR 0.9; Prothrombin Time 12.2 Seconds (11.1-14.7)
[2023-01-01 06:24] LABS: Partial Thromboplastin Time 28.2 SECONDS (22.3-36.8)
[2023-01-01 06:28] LABS: Troponin I < 0.012 ng/mL (0.000-0.034)
--- NOTE | 2023-01-01 06:45 | ED.GENADULT ---
HPI - General Adult General Chief complaint: Chest Pain <Jewel Kahn MD - Last Filed: 01/01/23 06:49> Stated complaint: chest, back, and arm pain <Jewel Kahn MD - Last Filed: 01/01/23 06:49> Time Seen by Provider: 01/01/23 05:49 <Jewel Kahn MD - Last Filed: 01/01/23 06:49> History of Present Illness HPI narrative: Patient is a 47-year-old gentleman who presents the emergency department with chief complaint of backslash chest pain. The patient reports that he was seen in the emergency department yesterday kept in the hospital overnight and had serial cardiac markers that were negative. Patient states that he was seen by cardiology and then discharged home patient states that he went home was doing okay and then in the middle the night woke up and had pain just medial to his scapula on the left side the patient states the pain is a pressure and sharp pain patient states it is worse with movement and then radiates to the chest. The patient states that he is unable to get comfortable with the pain <Jewel Kahn MD - Last Filed: 01/01/23 06:49> Related Data Home medications: Home Medications Medication Instructions Recorded Confirmed bupropion HCl 150 mg 24 hr tablet, 150 mg PO DAILY 11/09/19 12/30/22 extended release lisinopril 40 mg tablet 40 mg PO DAILY 11/09/19 12/30/22 ticagrelor 90 mg tablet (Brilinta) 90 mg PO BID 11/09/19 12/30/22 hydrocodone 7.5 mg-acetaminophen 1 tablet PO QID PRN Pain 04/25/20 12/30/22 325 mg tablet <Jewel Kahn MD - Last Filed: 01/01/23 06:49> Allergies/adverse reactions: Allergies Allergy/AdvReac Type Severity Reaction Status Date / Time colchicine AdvReac Unknown nausea and Verified 01/01/23 05:26 abdominal pain with one dose <Jewel Kahn MD - Last Filed: 01/01/23 06:49> Review of Systems Review of Systems: A 10 system review of systems was completed on the patient and is negative except for what is stated in the HPI. Nursing and ancillary documentation was reviewed. <Jewel Kahn MD - Last Filed: 01/01/23 06:49> PENDING SALE TO [facility] Past Medical History Medical History: Medical History (Updated 01/01/23 @ 18:26 by Dong Rainey MD) Anxiety Arthritis Behcets syndrome CAD (coronary artery disease) Chronic back pain Dental cavities Gout History of angina HLD (hyperlipidemia) HTN (hypertension) Kidney stone Left wrist fracture Myocardial infarction x2, with stent Psoriasis Wrist fracture <Jewel Kahn MD - Last Filed: 01/01/23 06:49> Surgical History Surgical History: Surgical History H/O arthroscopy of left knee H/O cardiac catheterization History of heart artery stent X2 History of renal stent History of surgery on arm left forearm <Jewel Kahn MD - Last Filed: 01/01/23 06:49> Family History Family History: Family History Daughter Cancer Father Hypertension Other Family history of malignant neoplasm Family history of psoriasis <Jewel Kahn MD - Last Filed: 01/01/23 06:49> Social History Social History: Social History Social History: The patient tells me that he now smokes 3 packs of cigarettes a day. He is in the middle of the worse. He has 3 children. He drinks 3-4 beers every other day. He does not have any durable power divorce attorney for healthcare he is a full code. 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.5 Smoking cigarettes per day: 50.0 Years smoked: 30 Smoking pack-years: 75.00 Smoking status: Current every day smoker Tobacco type: cigarettes Second hand tobacco smoke exposure: Yes Smoking end date: 10/21/12 Alcohol intake: current Drink
--- NOTE | 2023-01-01 07:06 | PC.NURSE ---
pt. refusing ct until pain meds have been given.
[2023-01-01] MEDS: KETOROLAC 15 MG/ML VIAL (*BKC) IV PUSH (07:14)
[2023-01-01] MEDS: ORPHENADRINE CITRATE 100 MG TABLET.ER PO (07:14)
[2023-01-01 09:59] LABS: Troponin I < 0.012 ng/mL (0.000-0.034)
[2023-01-01] MEDS: AZITHROMYCIN 250 MG TABLET 500 MG PO (10:37)
[2023-01-01] MEDS: AMOXICILLIN/CLAVULANATE K 875-125 MG TAB 1 TABLET PO (10:37)
== END 2023-01-01 10:59 | disposition home or self-care (01) ==
PROVIDERS: Emergency Provider Emergency Medicine; PCP Chiropractor
DX: J18.9 Pneumonia, unspecified organism (principal); M54.6 Pain in thoracic spine; R07.89 Other chest pain; I25.10 Atherosclerotic heart disease of native coronary artery without angina pectoris; I10 Essential (primary) hypertension; E78.5 Hyperlipidemia, unspecified; I25.2 Old myocardial infarction; M35.2 Behcet's disease; M10.9 Gout, unspecified; M19.90 Unspecified osteoarthritis, unspecified site; F41.9 Anxiety disorder, unspecified; Z95.5 Presence of coronary angioplasty implant and graft; Z87.442 Personal history of urinary calculi; Z87.891 Personal history of nicotine dependence
CPT/HCPCS: 36415; 71046; 71275; 80053; 83690; 84484; 85025; 85610; 85730; 93005; 96365; 96375; 99284; A9270; J0131; J1885; Q9967

== ENCOUNTER 2023-04-30 18:39 | Observation (INO) | payer OTHER, SELFPAY ==
[2023-04-30] VITALS (7 sets, daily range): BP systolic 147–164; BP diastolic 62–87; PULSE 74–84; RESP 13–22; TEMP 36.4–37; O2SAT 96–100
--- NOTE | ~2023-04-30 | US_ITS ---
EXAMINATION: US renal BI DATE: 05/01/2023 09:20 INDICATION: Acute renal insufficiency TECHNIQUE: Multiple ultrasound grayscale images of the kidneys were obtained. COMPARISON: None. FINDINGS: The right kidney measures 13.0 x 6.1 x 6.2 cm. The left kidney measures 12.2 x 6.0 x 6.0 cm. The kidn eys demonstrate normal echogenicity. 1.6 cm shadowing stone at the upper pole of the left kidney. The re is no hydronephrosis in either kidney. No stones identified. The bladder is decompressed which li mits evaluation. IMPRESSION: 1. Nonobstructing left renal stone. Otherwise normal kidneys with no hydronephrosis. Reviewed, dictated and finalized at location A. IMPRESSION: 1. Nonobstructing left renal stone. Otherwise normal kidneys with no hydroneph rosis.
--- NOTE | ~2023-04-30 | XR_ITS ---
EXAMINATION: XR chest 2V DATE: 04/30/2023 19:12 INDICATION: Chest pain. Weakness. TECHNIQUE: Frontal and lateral views of the chest were obtained. COMPARISON: Chest 2 views 01/01/2023 FINDINGS: There is no pneumonia, pleural effusion, or pneumothorax. The heart size is normal. IMPRESSION: 1. No acute cardiopulmonary disease. Reviewed, dictated and finalized at location E.
--- NOTE | 2023-04-30 18:44 | ECG_ITS ---
Measurements Intervals [place] Rate: 95 P: 8 OR: 137 QRS: -29 QRSD: 102 T: 11 QT: 334 QTc: 421 Interpretive Statements SINUS RHYTHM POOR R WAVE PROGRESSION, ANTERIOR LEADS BORDERLINE T WAVE ABNORMALITY- INFERIOR LEADS BASELINE ARTIFACT- I, III, AVR, AVL, AVF BORDERLINE ECG COMPARED TO ECG 01/01/2023 05:38:52 NO SIGNIFICANT CHANGES Electronically Signed On 04-30-2023 20:24:12 CDT by Ethan Gutierrez D.O.
[2023-04-30 19:08] LABS: Basophils Percent Auto 0.2 % (0.2-1.2); Eosinophils Absolute Auto 0.2 K/mm3 (0-0.3); Eosinophils Percent Auto 1.1 % (0-4.4); Hematocrit 47.9 % (42.0-52.0); Hemoglobin 16.3 g/dL (14.0-18.0); Immature Granulocyte Absolute 0.13 K/mm3 (0.00-0.031); Immature Granulocyte Percent A 0.7 % (0-0.5); Lymphocytes Absolute Auto 2.21 K/mm3 (0.9-3.2); Lymphocytes Percent Auto 11.5 % (18.3-44.2); Mean Corpuscular Hemoglobin 30.9 pg (26-34); Mean Corpuscular Volume 90.7 fl (80-100); Monocytes Absolute Auto 1.9 K/mm3 (0.1-0.6); Monocytes Percent Auto 9.9 % (2.6-8.5); Neutrophils Absolute Auto 14.8 K/mm3 (1.3-6.7); Neutrophils Percent Auto 76.6 % (45.5-73.1); Platelet Count Result 321 k/mm3 (150-375); Red Blood Count 5.28 M/mm3 (4.6-6.20); Red Cell Distribution Width 12.6 % (11.5-14.5); White Blood Count 19.3 K/mm3 (4.5-10.0)
[2023-04-30 19:11] LABS: Alanine Aminotransferase 46 U/L (6-50); Albumin Level 5.4 g/dL (3.5-5.1); Alkaline Phosphatase 75 U/L (38-126); Anion Gap 10 mmol/L (8-16); Aspartate Amino Transferase 35 U/L (17-59); Blood Urea Nitrogen 18 mg/dL (9-20); Calcium 10.8 mg/dL (8.4-10.2); Carbon Dioxide 29 mmol/L (22-30); Chloride 102 mmol/L (98-107); Estimated CRCL calculation 36 ml/min; Estimated Glomerular Filt Rate 29; Glucose 88 mg/dL (65-110); Lipase 119 U/L (23-300); Potassium 4.4 mmol/L (3.4-5.0); Sodium 141 mmol/L (137-145)
[2023-04-30 19:21] LABS: Troponin I 0.018 ng/mL (0.000-0.034)
[2023-04-30 19:42] LABS: Partial Thromboplastin Time 26.3 SECONDS (22.3-36.8); Prothrombin Time 13.2 Seconds (11.1-14.7)
--- NOTE | 2023-04-30 20:02 | ED.GENADULT ---
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 It is around 95? with high humidity outside. Patient noticed around 545pm that he started to have cramps in his calves lower back. He also had some associated chest pain that he describes a sharp pain in center of his chest that radiates to his back. Chest pain is improving but he was concerned because he does have history of multiple heart attacks. Patient notes he has had several episodes of nausea and vomiting. Related Data Home Medications Medication Instructions Recorded Confirmed bupropion HCl 150 mg 24 hr tablet, 150 mg PO DAILY 11/09/19 12/30/22 extended release lisinopril 40 mg tablet 40 mg PO DAILY 11/09/19 12/30/22 ticagrelor 90 mg tablet (Brilinta) 90 mg PO BID 11/09/19 12/30/22 hydrocodone 7.5 mg-acetaminophen 1 tablet PO QID PRN Pain 04/25/20 12/30/22 325 mg tablet Allergies Allergy/AdvReac Type Severity Reaction Status Date / Time colchicine AdvReac Unknown nausea and Verified 01/01/23 05:26 abdominal pain with one dose PMFSH Past Medical History Medical History (Updated 04/30/23 @ 22:44 by Nitin Nguyen MD) Anxiety Arthritis Behcets syndrome CAD (coronary artery disease) Chronic back pain Dental cavities Gout History of angina HLD (hyperlipidemia) HTN (hypertension) Kidney stone Left wrist fracture Myocardial infarction x2, with stent Psoriasis Wrist fracture Surgical History Surgical History H/O arthroscopy of left knee H/O cardiac catheterization History of heart artery stent X2 History of renal stent History of surgery on arm left forearm Family History Family History Daughter Cancer Father Hypertension Other Family history of malignant neoplasm Family history of psoriasis Social History Social History Social History: The patient tells me that he now smokes 3 packs of cigarettes a day. He is in the middle of the worse. He has 3 children. He drinks 3-4 beers every other day. He does not have any durable power state attorney for healthcare he is a full code. 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.5 Smoking cigarettes per day: 50.0 Years smoked: 30 Smoking pack-years: 75.00 Smoking status: Current every day smoker Tobacco type: cigarettes Second hand tobacco smoke exposure: Yes Smoking end date: 10/21/12 Alcohol intake: current Drinks per week: 28 Substance use: never Lack of Transportation: No Lack of Food: Never True Current Housing: I Do Not Have Housing Concerned About Future Housing: No Difficulty Paying Gas/Electric Bills: No Difficulty Paying for Meds: No Currently Unemployed: YES Education: Don't Know Difficulty w/ Childcare or Family Care: No Gender identity (if verbalized by the patient): Male Sexual Orientation (if Verbalized by the Patient): Straight or Heterosexual Spiritual care concerns: No Agree to blood products: Yes Exam Narrative: APPEARANCE: No apparent distress. Head: atraumatic. dry mucous membranes EYES: EOMI, NOSE: Atraumatic NECK: Trachea midline RESPIRATORY: No increased rate of breathing CTAB CARDIOVASCULAR: RRR, no peripheral edema ABDOMINAL: Non-distended MUSCULOSKELETAl: tenderness to palpation of the calves bilaterally NEURO: Alert. Moving 4/4 extremities SKIN:: Warm, dry. Normal color PSYCHIATRIC: Normal affect Course Vital Signs Vital signs: Vital Signs Respiratory Rate 22 H 04/30/23 18:41 Blood Pressure 147/81 H 04/30/23 18:41 Pulse Oximetry 100 04/30/23 18:41 Oxygen De
[2023-04-30 20:19] LABS: Creatine Kinase 243 U/L (55-170)
[2023-04-30] MEDS: ACETAMINOPHEN 500 MG TABLET 1000 MG PO (20:23)
[2023-04-30] MEDS: SODIUM CHLORIDE 0.9% IV 2,000 ML 999 ML IV CONT (20:23)
[2023-04-30] MEDS: LORazepam INJ (*CRX) 2 MG/ML VIAL 1 MG IV PUSH (20:24)
[2023-04-30] MEDS: SODIUM CHLORIDE 0.9% IV 1,000 ML 999 ML IV CONT (21:48)
[2023-04-30 22:18] LABS: Troponin I < 0.012 ng/mL (0.000-0.034)
--- NOTE | 2023-04-30 22:41 | PM.IMHP ---
H&P: HPI History of Present Illness Date/Time: 04/30/23 22:41 Chief Complaint: Muscle aches Narrative: This is a 47-year-old male with past medical history significant for coronary artery disease, status post stent placement, hypertension, dyslipidemia, bed sheets syndrome, patient smokes 2 packs of cigarettes daily. comes to the emergency room due to muscle aches and pains patient had been out working all day today exposed to the elements, high temperatures. preliminary workup was significant for creatinine of 2.4, BUN 18 CBC with a WBC count of 19,000 a CPK 254. Patient has been in his usual state of health up until this moment. A chest x-ray was reported as: EXAMINATION: XR chest 2V DATE: 04/30/2023 19:12 INDICATION: Chest pain. Weakness. TECHNIQUE: Frontal and lateral views of the chest were obtained. COMPARISON: Chest 2 views 01/01/2023 FINDINGS: There is no pneumonia, pleural effusion, or pneumothorax. The heart size is normal. IMPRESSION: 1. No acute cardiopulmonary disease. patient has been placed in observation for further evaluation management and treatment Review of Systems Review of Systems: muscle aches and pains Constitutional: Constitutional: Reports fatigue and Reports weakness Eyes: Eyes: Denies change in vision ENT: Denies dysphagia and Denies odynophagia Cardiovascular: Cardiovascular: Denies chest pain, Denies radiating jaw, neck or arm pain and Denies palpitations Respiratory: Respiratory: Denies chest congestion, Denies cough and Denies excessive phlegm production Gastrointestinal: Gastrointestinal: Denies abdominal pain, Denies dyspepsia, Denies diarrhea, Denies nausea and Denies vomiting Genitourinary: Genitourinary: Reports no additional male genitourinary complaints and Reports as per HPI Musculoskeletal: Musculoskeletal: Reports myalgias and Reports muscle cramps Integumentary/Breasts: Skin/Breast: Denies rash Neurologic: Denies focal weakness and Denies Sensory deficit (Neuro) Psychiatric: Psychiatric: Reports no additional psychiatric complaints and Reports as per HPI Endocrine: Endocrine: Denies cold intolerance, Denies flushing, Denies heat intolerance, Denies polyphagia, Denies polydipsia and Denies palpitations Hematologic/Lymphatic: Hematologic/Lymphatic: Reports no additional hematologic/lymphatic complaints and Reports as per HPI Allergic/Immunologic: Allergic/Immunologic: Reports no additional allergic/immunologic complaints, Reports as per HPI and Denies wheezing [facility] Past Medical History Medical History (Updated 05/01/23 @ 04:35 by Igor Sarkar MD) Anxiety Arthritis Behcets syndrome CAD (coronary artery disease) Chronic back pain Dental cavities Gout History of angina HLD (hyperlipidemia) HTN (hypertension) Kidney stone Left wrist fracture Myocardial infarction x2, with stent Psoriasis Wrist fracture Surgical History Surgical History H/O arthroscopy of left knee H/O cardiac catheterization History of heart artery stent X2 History of renal stent History of surgery on arm left forearm Family History Family History Daughter Cancer Father Hypertension Other Family history of malignant neoplasm Family history of psoriasis Social History Social History Social History: The patient tells me that he now smokes 3 packs of cigarettes a day. He is in the middle of the worse. He has 3 children. He drinks 3-4 beers every other day. 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 Smoking cigarettes per day: 40.0 Years smoked: 30 Smoking pack-years: 60.00 Smoking status: Current every day smoker Tobacco type: cigarettes Second hand tobacco smoke exposure: Yes Smoking en
--- NOTE | 2023-05-01 00:03 | ADMGEN ---
This patient, Zander Cain, was admitted to 3 Med Surg Room 307-02. Patient/family oriented to hospital policies and general routines including ID bracelet, bed and alarms, visiting hours, pain management, procedures, bathroom and other care routines, personal items, smoking policy, room service/diet, and visiting hours. Information on how to activate the Rapid Response Team has been discussed. Patient/Family are encouraged to report perceived risks to care and to ask questions if they do not understand what they are told or what they should do.
[2023-05-01] MEDS: HYDROcodone/acetaminophen (*CRX) 7.5-325 MG TABLET 1 TAB PO ×2 (01:17→09:28)
[2023-05-01 01:38] LABS: Troponin I 0.012 ng/mL (0.000-0.034)
[2023-05-01] MEDS: SODIUM CHLORIDE 0.9% IV 2,000 ML 999 ML IV CONT (01:43)
[2023-05-01 04:19] VITALS: BMI 30.7
[2023-05-01 05:32] VITALS: BP 132/79; PULSE 68; RESP 16; TEMP 36.6; O2SAT 97
[2023-05-01 06:44] LABS: Anion Gap 5 mmol/L (8-16); Blood Urea Nitrogen 16 mg/dL (9-20); Calcium 8.2 mg/dL (8.4-10.2); Carbon Dioxide 23 mmol/L (22-30); Chloride 111 mmol/L (98-107); Creatine Kinase 327 U/L (55-170); Estimated CRCL calculation 94 ml/min; Estimated Glomerular Filt Rate > 60; Glucose 116 mg/dL (65-110); Potassium 3.8 mmol/L (3.4-5.0); Sodium 139 mmol/L (137-145)
[2023-05-01 07:55] LABS: Basophils Percent Auto 0.2 % (0.2-1.2); Eosinophils Absolute Auto 0.2 K/mm3 (0-0.3); Eosinophils Percent Auto 1.6 % (0-4.4); Hemoglobin 12.8 g/dL (14.0-18.0); Immature Granulocyte Absolute 0.02 K/mm3 (0.00-0.031); Immature Granulocyte Percent A 0.2 % (0-0.5); Lymphocytes Absolute Auto 2.02 K/mm3 (0.9-3.2); Lymphocytes Percent Auto 21.8 % (18.3-44.2); Mean Corpuscular HGB Conc 33.7 g/dl (32-36); Mean Corpuscular Hemoglobin 31.4 pg (26-34); Mean Corpuscular Volume 93.4 fl (80-100); Mean Platelet Volume 9.5 fl (7.4-10.4); Monocytes Absolute Auto 0.9 K/mm3 (0.1-0.6); Monocytes Percent Auto 9.5 % (2.6-8.5); Neutrophils Absolute Auto 6.2 K/mm3 (1.3-6.7); Neutrophils Percent Auto 66.7 % (45.5-73.1); Platelet Count Result 196 k/mm3 (150-375); Red Blood Count 4.07 M/mm3 (4.6-6.20); White Blood Count 9.3 K/mm3 (4.5-10.0)
--- NOTE | 2023-05-01 08:53 | PM.IMPN ---
Progress Note: A&P Assessment and Plan (1) Heat exhaustion: Code(s): T67.5XXA - Heat exhaustion, unspecified, initial encounter Status: Acute Assessment and Plan: place in observation IV fluids supportive care serial BMP (2) Acute dehydration: Code(s): E86.0 - Dehydration Status: Acute Assessment and Plan: fluid resuscitation encourage per orally (3) Cramp, heat: Code(s): T67.2XXA - Heat cramp, initial encounter Status: Acute Assessment and Plan: holding statin supportive care (4) Acute kidney injury: Code(s): N17.9 - Acute kidney failure, unspecified Status: Acute Assessment and Plan: renal ultrasound in a.m. no prior values for comparison will hold lisinopril (5) Chronic back pain: Code(s): M54.9 - Dorsalgia, unspecified; G89.29 - Other chronic pain Status: Chronic Assessment and Plan: Tylenol as needed (6) Tobacco dependence: Code(s): F17.200 - Nicotine dependence, unspecified, uncomplicated Status: Acute Assessment and Plan: nicotine patch as needed Subjective Date/time seen: 05/01/23 08:53 Objective Data Vital Signs Vital Signs: Vital Signs - 24 hr 04/30/23 18:41 04/30/23 20:28 04/30/23 20:30 Temperature 98.6 F Pulse Rate 82 82 Respiratory Rate 22 H 20 Blood Pressure 147/81 H 164/87 H Pulse Oximetry 100 96 Oxygen Delivery Room Air 04/30/23 22:56 04/30/23 23:32 04/30/23 23:51 Temperature 97.6 F Pulse Rate 84 80 74 Respiratory Rate 13 13 16 Blood Pressure 158/81 H 162/80 H 159/62 H Pulse Oximetry 97 100 99 Oxygen Delivery 05/01/23 05:32 04/30/23 23:56 Temperature 97.9 F 97.6 F Pulse Rate 68 74 Respiratory Rate 16 16 Blood Pressure 132/79 159/62 H Pulse Oximetry 97 99 Oxygen Delivery Intake/Output Intake/Output: Intake & Output 04/28/23 04/29/23 04/30/23 05/01/23 23:59 23:59 23:59 23:59 Intake Total 3000 2720 Output Total 350 Balance 3000 2370 Meds/Results Medications: Active Medications Generic Name Dose Route Start Last Admin Trade Name Freq PRN Reason Stop Dose Admin Hydrocodone Bitart/Acetaminophen 1 tab 05/01/23 01:00 05/01/23 01:17 Hydrocodone/Acetaminophen (*Crx) 7.5-325 Mg Tablet PO 1 tab QID PRN Administration Pain Albuterol 2.5 mg 05/01/23 01:03 Albuterol Sulfate Neb 2.5 Mg/3 Ml Inh INHALATION Q6HRT PRN Shortness Of Breath Aspirin 81 mg 05/01/23 09:00 Aspirin 81 Mg Enteric Tablet PO DAILY [facility] Bupropion HCl 150 mg 05/01/23 09:00 Bupropion Hcl Xl (24 Hr) 150 Mg Tabcr PO DAILY [facility] Nicotine 1 patch 05/01/23 09:00 Nicotine (*Pbkc) 21 Mg Patch TRANSDERM QAM [facility] Nitroglycerin 0.4 mg 05/01/23 01:00 Nitroglycerin Sl 0.4 Mg Tablet SUBLINGUAL DIRECTED PRN chest pain Ticagrelor 90 mg 05/01/23 09:00 Ticagrelor 90 Mg Tablet PO Q12HR [facility] Radiology Results: ITS Impressions Chest X-Ray 04/30/23 19:33 IMPRESSION: 1. No acute cardiopulmonary disease. Labs Labs: Laboratory Results - last 24 hr 04/30/23 04/30/23 05/01/23 18:51 21:47 01:04 WBC 19.3 H RBC 5.28 Hgb 16.3 Hct 47.9 MCV 90.7 MCH 30.9 MCHC 34.0 RDW 12.6 Plt Count 321 MPV 10.0 Immature Gran % (Auto) 0.7 H Neut % (Auto) 76.6 H Lymph % (Auto) 11.5 L [place] % (Auto) 9.9 H Eos % (Auto) 1.1 Baso % (Auto) 0.2 Lymph # (Auto) 2.21 [place] # (Auto) 1.9 H Eos # (Auto) 0.2 Baso # (Auto) 0.0 Abs Immat Gran (auto) 0.13 H Absolute Neuts (auto) 14.8 H Absolute Nucleated RBC 0.0 Nucleated RBC % 0.0 PT 13.2 INR 1.0 APTT 26.3 Sodium 141 Potassium 4.4 Chloride 102 Carbon Dioxide 29 Anion Gap 10 BUN 18 Creatinine 2.40 H Estim Creat Clear Calc 36 Estimated GFR 29 L Glucose 88 Calcium 10.8 H Total Bilirubin 1.0 AST
[2023-05-01] MEDS: buPROPion HCL XL (24 HR) 150 MG TABCR PO (09:20)
[2023-05-01] MEDS: NICOTINE (*PBKC) 21 MG PATCH 1 PATCH TRANSDERM (09:21)
[2023-05-01] MEDS: TICAGRELOR 90 MG TABLET PO (09:21)
[2023-05-01] MEDS: ASPIRIN 81 MG ENTERIC TABLET PO (09:21)
[2023-05-01] MEDS: ENOXAPARIN 40 MG/0.4 ML SYRINGE SUB-Q (09:30)
--- NOTE | 2023-05-01 12:28 | PM.DS ---
DS: Admitting Diagnosis Discharge Date SaturdayMay 01 Admitting Diagnosis Dehydration DS: Discharge Diagnosis Discharge Diagnosis (1) Heat exhaustion: Code(s): T67.5XXA - Heat exhaustion, unspecified, initial encounter Status: Acute (2) Acute kidney injury: Code(s): N17.9 - Acute kidney failure, unspecified Status: Acute Plan Assessment and plan (1) Heat exhaustion: ?Code(s): T67.5XXA - Heat exhaustion, unspecified, initial encounter ?Status:?Acute ?Assessment and Plan: ?place in observation ?IV fluids ?supportive care ?serial BMP (2) Acute dehydration: ?Code(s): E86.0 - Dehydration ?Status:?Acute ?Assessment and Plan: ?fluid resuscitation ?encourage per orally (3) Cramp, heat: ?Code(s): T67.2XXA - Heat cramp, initial encounter ?Status:?Acute ?Assessment and Plan: ?holding statin ?supportive care (4) Acute kidney injury: ?Code(s): N17.9 - Acute kidney failure, unspecified ?Status:?Acute ?Assessment and Plan: ?renal ultrasound in a.m. ?no prior values for comparison ?will hold lisinopril (5) Chronic back pain: ?Code(s): M54.9 - Dorsalgia, unspecified; G89.29 - Other chronic pain ?Status:?Chronic ?Assessment and Plan: ?Tylenol as needed (6) Tobacco dependence: ?Code(s): F17.200 - Nicotine dependence, unspecified, uncomplicated ?Status:?Acute ?Assessment and Plan: ?nicotine patch as needed DS: Summary Hospital Course Reason for hospitalization: Acute dehydration Hospital Course: Your admitted on 04/30 after presenting to the ER with signs and symptoms of severe dehydration after working in the heat all day. Your lab work showed that you were dehydrated, had an acute kidney injury, and your creatinine kinase was mildly elevated. We hydrated do with multiple L of IV fluids and your lab work has improved back to baseline, with the exception of your CK. It initially was 243 and today it is 327. This usually takes a couple of days to peak and then it will fall back to normal. Now they are able to tolerate oral fluids you should be fine to go home with the understanding that he will be drinking plenty of water and/or electrolyte solutions like Gatorade to keep herself hydrated. You need to stay out of the heat for the next few days. While your CK remains elevated I am going to have you hold your atorvastatin. I wanted to get lab work done in 5 days so we can assess your CK level. I will cc your primary care provider on this lab and I expect you to follow up with them within 1 week. They will then directed on when to restart your atorvastatin. We also did a renal ultrasound which just showed a nonobstructing left kidney stone. There is nothing we need to do for this unless it were obstructing and causing pain. Otherwise your kidneys appear normal. Discharge disposition: Take medications as prescribed Monitor blood pressures Return to the emergency department if he developed sudden shortness of breath, chest pain, nausea, vomiting, upset stomach or intractable diarrhea Return to the emergency department if you develop fever greater than 101.5 Follow-up with the primary care physician within 1-2 weeks Thank you for [facility] for your healthcare needs Status at Discharge Cognitive/behavioral status at discharge: Independent, functional Time Spent with Patient Time attestation: Total time spent providing and/or coordinating discharge services: 41 Exam Narrative: General: well-nou rished, well-appea ring 47-year-old m marty, sitting up i n bed, comfortable , NARD Neuro: awak e, alert and orien ramone x4, speech valdez ar, no focal neuro deficits noted HE ENMT: normocephal ic, atraumatic, EO [place], sclerae anicte marline, moist oral mu cosa Respiratory: Clear to ausculta tion bilaterally w ithout crackles, r honchi or wheezes, nonlabored breath ing Cardio: regula
[2023-05-01 13:59] VITALS: BP 177/86; PULSE 80; RESP 16; TEMP 37.5; O2SAT 98
== END 2023-05-01 14:09 | disposition home or self-care (01) ==
LOC: ANHED 22:44 → ANH3MEDSUR 05-01 00:11
PROVIDERS: Emergency Medicine; Admitting Provider Internal Medicine; Emergency Provider Emergency Medicine; PCP Chiropractor; Visit Provider Nurse Practitioner Acute Care
DX: T67.5XXA Heat exhaustion, unspecified, initial encounter (principal); N17.9 Acute kidney failure, unspecified; N20.0 Calculus of kidney; I25.2 Old myocardial infarction; F41.9 Anxiety disorder, unspecified; M19.90 Unspecified osteoarthritis, unspecified site; M35.2 Behcet's disease; I25.10 Atherosclerotic heart disease of native coronary artery without angina pectoris; Z95.5 Presence of coronary angioplasty implant and graft; I10 Essential (primary) hypertension; D72.829 Elevated white blood cell count, unspecified; R79.89 Other specified abnormal findings of blood chemistry; M10.9 Gout, unspecified; L40.9 Psoriasis, unspecified; E78.5 Hyperlipidemia, unspecified; Z86.79 Personal history of other diseases of the circulatory system; F17.210 Nicotine dependence, cigarettes, uncomplicated; F10.90 Alcohol use, unspecified, uncomplicated; Z79.891 Long term (current) use of opiate analgesic; Z79.899 Other long term (current) drug therapy; Z84.0 Family history of diseases of the skin and subcutaneous tissue
CPT/HCPCS: 36415; 71046; 76775; 80048; 80053; 82550; 83690; 84484; 85025; 85610; 85730; 93005; 96361; 96372; 96374; 99285; A9270; G0378; G0379; J1650; J2060; J7030

== ENCOUNTER 2023-10-07 14:00 | Emergency (ER) | payer OTHER, SELFPAY ==
--- NOTE | ~2023-10-07 | CT_ITS ---
EXAMINATION: CTA chest PE protocol DATE: 10/07/2023 23:46 NURSE RESEARCHER INDICATION: Chest pain radiating to the back. TECHNIQUE: Computed tomographic angiography (CTA) of the chest was performed with 100 mL Omnipaque-35 0 intravenous contrast. The dose-length product was 691.57 mGy-cm. Maximum intensity projection 3D-re constructions of the aorta and other arteries were constructed by the technologist on a separate work station. Automated exposure control and iterative reconstruction technique were employed. COMPARISON: CT dated 01/01/2023 FINDINGS: Study technically limited for evaluation of lower lobe subsegmental arteries on the left du e to motion artifact. No central pulmonary embolism. Heart size normal. No significant mediastinal ly mphadenopathy. No pleural or pericardial effusion. No evidence for aortic aneurysm or dissection. No endobronchial lesions. No pneumothorax. There is dependent atelectasis. No acute osseous abnormality. IMPRESSION: 1. No acute cardiopulmonary disease. No central pulmonary embolism. Reviewed, dictated and finalized at location A. E RESEARCHER
--- NOTE | ~2023-10-07 | XR_ITS ---
EXAMINATION: XR chest 2V DATE: 10/07/2023 14:51 INDICATION: Midsternal chest pain TECHNIQUE: PA and lateral views of the chest were obtained. COMPARISON: Chest radiograph dated 04/30/2023 FINDINGS: The lungs remain clear with no focal airspace opacities, pulmonary edema, pleural effusion or pneumot horax. The cardiomediastinal silhouette is normal. Visualized bones and soft tissues are unremarkable . IMPRESSION: 1. No acute cardiopulmonary disease. Reviewed, dictated and finalized at location A. Y JUMP MASTER
--- NOTE | ~2023-10-07 | XR_ITS ---
XR hand RT min 3V 10/07/2023 22:47 Indication: Right hand pain after fall Procedure: 3 views right hand Comparison: 05/27/2015 Findings: There is an oblique minimally displaced fracture proximal aspect of the fourth metacarpal. There is a healed fifth metacarpal neck fracture. Mild soft tissue swelling. No foreign bodies. Impression: 1: Oblique minimally displaced fracture proximal aspect of the right fourth metacarpal. Reviewed, dictated and finalized at location A. CTOR DECISION SUPPORT Impression: 1: Oblique minimally displaced fracture proximal aspect of the right fourth met acarpal.
--- NOTE | 2023-10-07 14:02 | ECG_ITS ---
Measurements Intervals [place] Rate: 89 P: 8 MD: 128 QRS: -40 QRSD: 91 T: 8 QT: 345 QTc: 420 Interpretive Statements SINUS RHYTHM POSSIBLE LEFT ATRIAL ENLARGEMENT [-0.1mV P WAVE IN V1/V2] MARKED LEFT AXIS DEVIATION [QRS AXIS < -30] NONSPECIFIC T-WAVE ABNORMALITY BORDERLINE ECG COMPARED TO ECG 04/30/2023 18:49:53 LEFT-AXIS DEVIATION NOW PRESENT T-WAVE ABNORMALITY NOW PRESENT Electronically Signed On 10-07-2023 17:23:[address] DESIGN ENGINEER by Nakul Pace M.D.
[2023-10-07 14:10] VITALS: BP 183/93; PULSE 95; RESP 18; TEMP 37.2; O2SAT 95
[2023-10-07 14:18] LABS: Basophils Percent Auto 0.2 % (0.2-1.2); Eosinophils Absolute Auto 0.1 K/mm3 (0-0.3); Eosinophils Percent Auto 0.6 % (0-4.4); Hematocrit 47.8 % (42.0-52.0); Hemoglobin 16.2 g/dL (14.0-18.0); Immature Granulocyte Absolute 0.03 K/mm3 (0.00-0.031); Immature Granulocyte Percent A 0.2 % (0-0.5); Lymphocytes Absolute Auto 1.93 K/mm3 (0.9-3.2); Lymphocytes Percent Auto 15.5 % (18.3-44.2); Mean Corpuscular HGB Conc 33.9 g/dl (32-36); Mean Corpuscular Volume 91.4 fl (80-100); Mean Platelet Volume 9.4 fl (7.4-10.4); Monocytes Absolute Auto 0.7 K/mm3 (0.1-0.6); Neutrophils Absolute Auto 9.6 K/mm3 (1.3-6.7); Neutrophils Percent Auto 77.5 % (45.5-73.1); Platelet Count Result 269 k/mm3 (150-375); Red Blood Count 5.23 M/mm3 (4.6-6.20); Red Cell Distribution Width 12.7 % (11.5-14.5); White Blood Count 12.4 K/mm3 (4.5-10.0)
[2023-10-07 14:27] LABS: INR 0.9; Partial Thromboplastin Time 26.5 SECONDS (22.3-36.8); Prothrombin Time 12.8 Seconds (11.1-14.7)
[2023-10-07 14:48] LABS: Alanine Aminotransferase 28 U/L (6-50); Albumin Level 4.7 g/dL (3.5-5.1); Alkaline Phosphatase 76 U/L (38-126); Anion Gap 8 mmol/L (8-16); Aspartate Amino Transferase 30 U/L (17-59); Bilirubin,Total 0.6 mg/dL (0.2-1.3); Blood Urea Nitrogen 8 mg/dL (9-20); Calcium 9.6 mg/dL (8.4-10.2); Carbon Dioxide 25 mmol/L (22-30); Chloride 106 mmol/L (98-107); Estimated CRCL calculation 160 ml/min; Estimated Glomerular Filt Rate > 60; Glucose 99 mg/dL (65-110); Lipase 219 U/L (23-300); Potassium 3.5 mmol/L (3.4-5.0); Sodium 139 mmol/L (137-145)
[2023-10-07 15:00] LABS: Troponin I < 0.012 ng/mL (0.000-0.034)
[2023-10-07 15:23] VITALS: BP 195/89; PULSE 78; RESP 18; TEMP 36.9; O2SAT 97
[2023-10-07 16:37] VITALS: BP 174/97; PULSE 85; RESP 17; TEMP 36.7; O2SAT 98
--- NOTE | 2023-10-07 16:40 | ED.CHESTPAIN ---
HPI - Chest Pain General Chief Complaint: Chest Pain <MARCUS Greene Last Filed: 10/07/23 16:52> Stated Complaint: CP <MARCUS Greene Last Filed: 10/07/23 16:52> Time Seen by Provider: 10/07/23 21:53 <MARCUS Greene Last Filed: 10/07/23 16:52> Source: patient <MARCUS Greene Last Filed: 10/07/23 16:52> Mode of arrival: ambulatory <MARCUS Greene Last Filed: 10/07/23 16:52> Limitations: no limitations <MARCUS Greene Last Filed: 10/07/23 16:52> History of Present Illness HPI narrative: Patient is a 47 y/o male, with PMH of CAD s/p 2 coronary stents, who presents to the ED with c/o CP. Patient reports pain in his left sided chest, radiating down his LLE, that began 1 hour prior to arrival. States it was a pressure at first, like someone standing on his chest. He tried laying down and states pain began to radiate through to back, which prompted him to come to the ED. He states pain felt similar to his previous heart attacks. He had nausea and 1 episode of emesis associated with the CP. Denied SOB. Denies recent fevers, cough, cold sx's. He does not currently have a demi chef, states his previous demi chef recently. States last stress test 2-3 years ago. He mentions he has not been taking his medications, including his Brilinta, atorvastatin, lisinopril, for the past 3 weeks. <MARCUS Greene Last Filed: 10/07/23 16:52> Related Data Home Medications: Home Medications Medication Instructions Recorded Confirmed bupropion HCl 150 mg 24 hr tablet, 150 mg PO DAILY 11/09/19 04/30/23 extended release lisinopril 40 mg tablet 40 mg PO DAILY 11/09/19 04/30/23 ticagrelor 90 mg tablet (Brilinta) 90 mg PO BID 11/09/19 04/30/23 hydrocodone 7.5 mg-acetaminophen 1 tablet PO QID PRN Pain 04/25/20 04/30/23 325 mg tablet <Patricia Abbasi PA-C - Last Filed: 10/07/23 16:52> Allergies/Adverse Reactions: Allergies Allergy/AdvReac Type Severity Reaction Status Date / Time colchicine AdvReac Unknown nausea and Verified 01/01/23 05:26 abdominal pain with one dose <Patricia Abbasi PA-C - Last Filed: 10/07/23 16:52> Review of Systems Review of Systems: CONSTITUTIONAL: Denies fever, chills, or sweats. ENT: Denies rhinorrhea, congestion, sore throat. CARDIOVASCULAR: See HPI. RESPIRATORY: Denies cough or dyspnea. GASTROINTESTINAL: Denies abdominal pain, nausea, vomiting, or diarrhea. <Patricia Abbasi PA-C - Last Filed: 10/07/23 16:52> All systems reviewed & are unremarkable except as noted in HPI and below <Patricia Abbasi PA-C - Last Filed: 10/07/23 16:52> [facility] Past Medical History Medical History: Medical History (Updated 10/08/23 @ 00:12 by Ashley Norton PA-C) Anxiety Arthritis Behcets syndrome CAD (coronary artery disease) Chronic back pain Dental cavities Gout History of angina HLD (hyperlipidemia) HTN (hypertension) Kidney stone Left wrist fracture Myocardial infarction x2, with stent Psoriasis Wrist fracture <Patricia Abbasi PA-C - Last Filed: 10/07/23 16:52> Surgical History Surgical History: Surgical History H/O arthroscopy of left knee H/O cardiac catheterization History of heart artery stent X2 History of renal stent History of surgery on arm left forearm <Patricia Abbasi PA-C - Last Filed: 10/07/23 16:52> Family History Family History: Family History Daughter Cancer Father Hypertension Other Family history of malignant neoplasm Family history of psoriasis <Patricia Abbasi PA-C - Last Filed: 10/07/23 16:52> Social History Social History: Social History Social History:
--- NOTE | 2023-10-07 17:10 | ECG_ITS ---
Measurements Intervals [place] Rate: 72 P: 12 [place]: 154 QRS: -38 QRSD: 93 T: -5 QT: 375 QTc: 412 Interpretive Statements SINUS RHYTHM MARKED LEFT AXIS DEVIATION [QRS AXIS < -30] MINIMAL VOLTAGE CRITERIA FOR LVH, CONSIDER NORMAL VARIANT [MEETS CRITERIA IN ONE OF: R(aVL), S(V1), R(V5), R(V5/V6)+S(V1)] COMPARED TO ECG 10/07/2023 14:07:13 NO SIGNIFICANT CHANGES Electronically Signed On 10-08-2023 13:27:12 TEACHER ASSISTANT by Floridalma Grider M.D.
[2023-10-07 19:43] VITALS: BP 200/99; PULSE 79; RESP 16; O2SAT 98
[2023-10-07 19:51] LABS: Troponin I < 0.012 ng/mL (0.000-0.034)
[2023-10-07 22:03] VITALS: BP 189/94; PULSE 67; PULSE 71; RESP 19; O2SAT 98
[2023-10-07 22:26] LABS: Ethanol < 10 mg/dL (<10)
[2023-10-07 22:28] LABS: Troponin I < 0.012 ng/mL (0.000-0.034)
--- NOTE | 2023-10-07 22:38 | ED.CHESTPAIN ---
HPI - Chest Pain General Chief Complaint: Chest Pain Stated Complaint: CP Time Seen by Provider: 10/07/23 21:53 Source: patient Mode of arrival: ambulatory Limitations: no limitations Related Data Home Medications Medication Instructions Recorded Confirmed bupropion HCl 150 mg 24 hr tablet, 150 mg PO DAILY 11/09/19 04/30/23 extended release lisinopril 40 mg tablet 40 mg PO DAILY 11/09/19 04/30/23 ticagrelor 90 mg tablet (Brilinta) 90 mg PO BID 11/09/19 04/30/23 hydrocodone 7.5 mg-acetaminophen 1 tablet PO QID PRN Pain 04/25/20 04/30/23 325 mg tablet Allergies Allergy/AdvReac Type Severity Reaction Status Date / Time colchicine AdvReac Unknown nausea and Verified 01/01/23 05:26 abdominal pain with one dose PMFSH Past Medical History Medical History Anxiety Arthritis Behcets syndrome CAD (coronary artery disease) Chronic back pain Dental cavities Gout History of angina HLD (hyperlipidemia) HTN (hypertension) Kidney stone Left wrist fracture Myocardial infarction x2, with stent Psoriasis Wrist fracture Surgical History Surgical History H/O arthroscopy of left knee H/O cardiac catheterization History of heart artery stent X2 History of renal stent History of surgery on arm left forearm Family History Family History Daughter Cancer Father Hypertension Other Family history of malignant neoplasm Family history of psoriasis Social History Social History Social History: The patient tells me that he now smokes 3 packs of cigarettes a day. He is in the middle of the worse. He has 3 children. He drinks 3-4 beers every other day. 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 Smoking cigarettes per day: 40.0 Years smoked: 30 Smoking pack-years: 60.00 Smoking status: Current every day smoker Tobacco type: cigarettes Second hand tobacco smoke exposure: Yes Smoking end date: 10/21/12 Alcohol intake: never Drinks per week: 28 Substance use: never Substance use type: does not use Lack of Transportation: No Lack of Food: Never True Current Housing: I Have Housing Concerned About Future Housing: No Difficulty Paying Gas/Electric Bills: YES Difficulty Paying for Meds: No Currently Unemployed: YES Education: High School Diploma/GED Difficulty w/ Childcare or Family Care: No Gender identity (if verbalized by the patient): Male Sexual Orientation (if Verbalized by the Patient): Straight or Heterosexual Spiritual care concerns: No Agree to blood products: Yes Exam Narrative: CONSTITUTIONAL: Denies fever, chills, or sweats. EYES: Denies visual changes, redness, or discharge. ENT: Denies rhinorrhea, congestion, sore throat, or otalgia. CARDIOVASCULAR: Denies chest pain, palpitations, or edema. No tenderness to chest wall. RESPIRATORY: Denies cough or dyspnea. GASTROINTESTINAL: Denies abdominal pain, nausea, vomiting, or diarrhea. GENITOURINARY: Denies dysuria or hematuria. SKIN: Denies rash or itching. MUSCULOSKELETAL: RUE: Tenderness and edema overlying the 4-5th metacarpals. Compartments soft. No overlying ecchymosis, abrasions or lacerations. Patient able to move fingers and wrist without difficulty. No tenderness to wrist the remainder of right upper extremity. Radial pulse 2 +. Sensation intact. NEUROLOGIC: Denies headache, numbness, or weakness. PSYCHIATRIC: Denies anxiety or depression. Course Vital Signs Vital signs: Vital Signs Temperature 98.9 F 10/07/23 14:10 Pulse Rate 95 10/07/23 14:10 Respiratory Rate 18 10/07/23 14:10 Blood Pressure 183/93 H 10/07/23 14:10 Pulse Oximetry 95
[2023-10-07] MEDS: MORPHINE SULFATE (*CRX) 4 MG/ML INJ IV PUSH (22:56)
[2023-10-07] MEDS: lisinopriL 20 MG TABLET 40 MG PO (22:57)
[2023-10-07] MEDS: ONDANSETRON INJ 4 MG/2 ML VIAL IV PUSH (23:03)
[2023-10-07 23:14] LABS: NT Pro B Type Natriuretic Pept 502 pg/mL (19.9-100)
[2023-10-08 00:17] VITALS: BP 164/75; PULSE 64; RESP 18; O2SAT 98
[2023-10-08 00:42] VITALS: BP 161/99; PULSE 87; RESP 18; O2SAT 99
[2023-10-08] MEDS: KETOROLAC 30 MG/ML VIAL (*BKC) IV PUSH (00:43)
--- NOTE | 2023-10-31 13:49 | PC.NURSE ---
LATE ENTRY This note is being entered to document information to the patient's record. The following information was omitted on [10/07/23], by [Nelda Rosales RN]. R hand ulnar gutter splint applied.
== END 2023-10-08 00:58 | disposition home or self-care (01) ==
PROVIDERS: Emergency Medicine; Emergency Provider Physician Assistant; PCP Chiropractor
DX: R07.89 Other chest pain (principal); S62.314A Displaced fracture of base of fourth metacarpal bone, right hand, initial encounter for closed fracture; T46.6X6A Underdosing of antihyperlipidemic and antiarteriosclerotic drugs, initial encounter; T46.4X6A Underdosing of angiotensin-converting-enzyme inhibitors, initial encounter; T45.526A Underdosing of antithrombotic drugs, initial encounter; I25.10 Atherosclerotic heart disease of native coronary artery without angina pectoris; I10 Essential (primary) hypertension; I25.2 Old myocardial infarction; E78.5 Hyperlipidemia, unspecified; L40.9 Psoriasis, unspecified; F17.210 Nicotine dependence, cigarettes, uncomplicated; F41.9 Anxiety disorder, unspecified; Z95.5 Presence of coronary angioplasty implant and graft; Z87.442 Personal history of urinary calculi; R94.31 Abnormal electrocardiogram [ECG] [EKG]; W19.XXXA Unspecified fall, initial encounter
CPT/HCPCS: 29125; 36415; 71046; 71275; 73130; 80053; 80307; 83690; 83880; 84484; 85025; 85610; 85730; 93005; 96374; 96375; 99284; A9270; J1885; J2270; J2405; Q9967

== ENCOUNTER 2025-02-09 16:55 | Emergency (ER) | payer OTHER, MEDICAID, SELFPAY ==
[2025-02-09] VITALS (19 sets, daily range): BP systolic 125–148; BP diastolic 75–88; PULSE 61–64; RESP 16–17; TEMP 36.5–36.7; O2SAT 96–100
--- NOTE | ~2025-02-09 | CT_ITS ---
CLINICAL INDICATION: Left flank and testicular pain COMPARISON: None TECHNIQUE: Multiple contiguous axial images of the abdomen and pelvis were performed following the ad ministration of with 100 mL Omnipaque-350 intravenous contrast The dose-length product (DLP) was 908.59 mGy-cm. Automated exposure control and iterative reconstruction technique were employed. FINDINGS/OBSERVATIONS: Visualized lower thorax: The bilateral lung bases are clear. The heart is of normal size, without pericardial effusion. Small hiatal hernia is present. Liver: The liver demonstrates homogeneous enhancement and is not enlarged. Gallbladder and biliary system: The gallbladder is distended, and otherwise unremarkable. Pancreas: The pancreas enhances homogeneously without ductal dilatation. Spleen: The spleen enhances homogeneously and is not enlarged. Kidneys: Mild left-sided hydronephrosis secondary to multiple renal calculi within the left renal pelvis/proxi mal right ureter spanning a length of 11 mm. Nonobstructing 3 and 4 mm calculi are identified within the bilateral kidneys. The right kidney and ureter are unremarkable. Adrenal glands: Unremarkable. Gastrointestinal tract: Colonic diverticulosis without surrounding inflammatory change. Appendix: The air-filled appendix is of normal caliber (axial series, images 77 through 92) Vasculature: Calcified atherosclerotic disease within the abdominal aorta and proximal mesenteric vasculature. Thi s is far advanced for patient of this age. Lymph nodes: No pathologically enlarged or morphologically suspicious lymph nodes within the retroperitoneum or at the root of the mesentery. Pelvic structures: The bladder is decompressed, and otherwise unremarkable. The prostate gland is not enlarged. Body wall and musculoskeletal: Fat-containing umbilical hernia. Fat-containing left inguinal hernia. Age-appropriate degenerative disease within the lumbosacral spine. Sternal wires are identified. IMPRESSION: Mild left-sided hydronephrosis secondary to multiple renal calculi spanning a length of 11 mm in the left renal pelvis. Bilateral nonobstructing renal calculi. Reviewed, dictated and finalized at location A. IMPRESSION: Mild left-sided hydronephrosis secondary to multiple renal calculi spanning a l ength of 11 mm in the left renal pelvis. Bilateral nonobstructing renal calculi.
[2025-02-09 17:13] LABS: Basophils Percent Auto 0.3 % (0.2-1.2); Eosinophils Absolute Auto 0.2 K/mm3 (0-0.3); Eosinophils Percent Auto 3.5 % (0-4.4); Hematocrit 46.4 % (42.0-52.0); Hemoglobin 15.4 g/dL (14.0-18.0); Immature Granulocyte Absolute 0.01 K/mm3 (0.00-0.031); Immature Granulocyte Percent A 0.2 % (0-0.5); Lymphocytes Absolute Auto 1.78 K/mm3 (0.9-3.2); Lymphocytes Percent Auto 26.9 % (18.3-44.2); Mean Corpuscular HGB Conc 33.2 g/dl (32-36); Mean Corpuscular Hemoglobin 29.2 pg (26-34); Mean Platelet Volume 9.4 fl (7.4-10.4); Monocytes Absolute Auto 0.4 K/mm3 (0.1-0.6); Monocytes Percent Auto 6.4 % (2.6-8.5); Neutrophils Absolute Auto 4.2 K/mm3 (1.3-6.7); Neutrophils Percent Auto 62.7 % (45.5-73.1); Platelet Count Result 250 k/mm3 (150-375); Red Blood Count 5.27 M/mm3 (4.6-6.20); Red Cell Distribution Width 12.2 % (11.5-14.5); White Blood Count 6.6 K/mm3 (4.5-10.0)
--- NOTE | 2025-02-09 17:21 | ED_ITS ---
HPI - Abdominal Pain General Chief Complaint: Abdominal Pain Stated Complaint: left flank pain Time Seen by Provider: 02/09/25 16:58 Source: patient Mode of arrival: ambulatory Limitations: no limitations History of Present Illness HPI narrative: This is a 49-year-old male who presents to the ED for chief complaint of left flank pain beginning yesterday and worsening today. Reports history of ureteral stones and today feels the same. Reports the pain is radiating into the left side of the groin. Endorses 2 episodes of nausea today and denies any diarrhea. Denies fevers, chills, abdominal distension or issues with bowel movements. Related Data Home Medications ?Medication ?Instructions ?Recorded ?Confirmed ?Last Taken ?Type bupropion HCl 150 mg 24 hr tablet, 150 mg PO DAILY 11/09/19 04/30/23 04/30/23 09:00 History extended release lisinopril 40 mg tablet 40 mg PO DAILY 11/09/19 04/30/23 04/30/23 09:00 History ticagrelor 90 mg tablet (Brilinta) 90 mg PO BID 11/09/19 04/30/23 04/30/23 09:00 History hydrocodone 7.5 mg-acetaminophen 1 tablet PO QID PRN Pain 04/25/20 04/30/23 04/30/23 12:00 History 325 mg tablet Allergies Allergy/AdvReac Type Severity Reaction Status Date / Time colchicine AdvReac Unknown nausea and Verified 02/09/25 17:02 abdominal pain with one dose Review of Systems 2 Review of Systems: All systems as dictated in HPI [facility] Past Medical History Medical History (Updated 02/09/25 @ 19:52 by Vipul Brito PA-C) Chronic back pain Behcets syndrome Psoriasis Anxiety Left wrist fracture Wrist fracture Gout Arthritis Kidney stone History of angina HLD (hyperlipidemia) HTN (hypertension) Myocardial infarction x2, with stent CAD (coronary artery disease) Dental cavities Surgical History Surgical History History of heart artery stent X2 H/O cardiac catheterization History of surgery on arm left forearm H/O arthroscopy of left knee History of renal stent Family History Family History Daughter Cancer Father Hypertension Other Family history of malignant neoplasm Family history of psoriasis Social History Social History Social History: The patient tells me that he now smokes 3 packs of cigarettes a day. He is in the middle of the worse. He has 3 children. He drinks 3-4 beers every other day. He does not have any durable power personal injury attorney for healthcare he is a full code. 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 Smoking cigarettes per day: 40.0 Years smoked: 30 Smoking pack-years: 60.00 Smoking status: Current every day smoker Tobacco type: cigarettes Second hand tobacco smoke exposure: Yes Smoking end date: 10/21/12 Alcohol intake: never Drinks per week: 28 Substance use: never Substance use type: does not use Lack of Transportation: No Lack of Food: Never True Current Housing: I Have Housing Concerned About Future Housing: No Difficulty Paying Gas/Electric Bills: YES Difficulty Paying for Meds: No Currently Unemployed: YES Education: High School Diploma/GED Difficulty w/ Childcare or Family Care: No Gender identity (if verbalized by the patient): Male Sexual Orientation (if Verbalized by the Patient): Straight or Heterosexual Spiritual care concerns: No Agree to blood products: Yes Exam 2 Narrative: GENERAL: Well-appearing, well-nourished, and in no acute distress. HEAD: Normocephalic, atraumatic. EYES: PERRLA and EOMI. ENT: Nares clear, no rhinorrhea or epistaxis. Mucous membranes moist. Oropharynx without tonsillar hypertrophy exudate or other lesions. NECK: Supple. No adenopathy or masses. CHEST: No respiratory distress. Clear to auscultation. No wheezes rales or rhonchi HEART: Regular rate and rhythm. No murmur heard. Normal peripheral pulses. ABDOMEN: Left flank tenderness present. Soft, otherwise nontender, nondistended, normal active bowel sounds. MSK: Normal range of motion. No edema. SKIN: Warm, dry, no rash. NEURO: Alert and oriented x4. No focal deficits. PSYCH: Normal mood and affect. Course Vital Signs Vital signs: Vital Signs Temperature 98.0 F 02/09/25 16:55 Pulse Rate 63 02/09/25 16:55 Respiratory Rate 17 02/09/25 16:55 Blood Pressure 148/77 H 02/09/25 16:55 Pulse Oximetry 98 02/09/25 16:55 Oxygen Delivery Room Air 02/09/25 16:55 Temperature 97.7 F 02/09/25 20:31 Pulse Rate 64 02/09/25 20:31 Respiratory Rate 16 02/09/25 20:31 Blood Pressure 144/88 H 02/09/25 20:31 Pulse Oximetry 100 02/09/25 20:31 Oxygen Delivery Room Air 02/09/25 16:55 MDM - Abdominal Pain MDM Narrative Medical decision making narrative: This is a 49-year-old male who presents to the ED for chief complaint of left flank pain and groin pain, feels similar to previous history of kidney stones. Vitals are normal. Exam remarkable for the above. Lab work shows gross hematuria on urinalysis but no infection. White count is normal CBC. CMP unremarkable. CT abdomen pelvis with IV contrast: IMPRESSION: Mild left-sided hydronephrosis secondary to multiple renal calculi spanning a length of 11 mm in the left renal pelvis. Bilateral nonobstructing renal calculi. Patient was given Dilaudid x3 here in the ED with good relief symptoms. He was also given Toradol. Shared decision making regarding his position and patient would prefer to go home this evening. He has hydrocodone prescription at home that he will use for pain control. Will prescribe Rx for Flomax and Zofran. Urology referral given. Patient will be discharged in stable condition. Supportive measures discussed and strict return precautions given. Patient is understanding and agreeable with plan for discharge with urology follow-up. Differential Diagnosis Differential diagnosis: Likely abdominal pain, acute appendicitis, calculus of kidney, diverticulitis, gastroenteritis and small bowel obstruction Lab Data 02/09/25 17:08 02/09/25 17:08 Labs: Lab Results 02/09/25 Range/Units 17:08 WBC 6.6 (4.5-10.0) K/mm3 RBC 5.27 (4.6-6.20) M/mm3 Hgb 15.4 (14.0-18.0) g/dL Hct 46.4 (42.0-52.0) % MCV 88.0 (80-100) fl MCH 29.2 (26-34) pg MCHC 33.2 (32-36) g/dl RDW 12.2 (11.5-14.5) % Plt Count 250 (150-375) k/mm3 MPV 9.4 (7.4-10.4) fl Immature Gran % (Auto) 0.2 (0-0.5) % Neut % (Auto) 62.7 (45.5-73.1) % Lymph % (Auto) 26.9 (18.3-44.2) % [place] % (Auto) 6.4 (2.6-8.5) % Eos % (Auto) 3.5 (0-4.4) % Baso % (Auto) 0.3 (0.2-1.2) % Lymph # (Auto) 1.78 (0.9-3.2) K/mm3 [place] # (Auto) 0.4 (0.1-0.6) K/mm3 Eos # (Auto) 0.2 (0-0.3) K/mm3 Baso # (Auto) 0.0 (0.0-0.1) K/mm3 Abs Immat Gran (auto) 0.01 (0.00-0.031) K/mm3 Absolute Neuts (auto) 4.2 (1.3-6.7) K/mm3 Absolute Nucleated RBC 0.000 (0.0-0.012) K/mm3 Nucleated RBC % 0.0 (0.0-0.2) % Sodium 138 (137-145) mmol/L Potassium 4.4 (3.4-5.0) mmol/L Chloride 102 (98-107) mmol/L Carbon Dioxide 22 (22-30) mmol/L Anion Gap 14 H (4-12) mmol/L BUN 19 D (9-20) mg/dL Creatinine 0.85 (0.7-1.3) mg/dL Estim Creat Clear Calc 98 ml/min Estimated GFR > 60 (59 - ) Glucose 139 H (65-110) mg/dL Calcium 9.1 (8.4-10.2) mg/dL Total Bilirubin 0.7 (0.2-1.3) mg/dL AST 47 (17-59) U/L ALT 52 H (6-50) U/L Alkaline Phosphatase 75 (38-126) U/L Total Protein 8.0 (6.3-8.2) g/dL Albumin 5.0 (3.5-5.1) g/dL Urine Color Dark yellow (Yellow) Urine Appearance Turbid H (Clear) Urine pH 5.0 (5.0-9.0) Ur Specific [place] 1.033 (1.001-1.035) Urine Protein 2+ H (Negative) mg/dL Urine Glucose (UA) Negative (Negative) mg/dL Urine Ketones Trace H (Negative) mg/dL Ur Blood (Man) 3+ H (Negative) Urine Nitrate Negative (Negative) Urine Bilirubin Negative (Negative) Urine Urobilinogen 1.0 (<2.0) mg/dL Add Ur Microanalysis Reviewed Leukocyte Esterase Rfl Trace H (Negative) NAMRATA/UL Urine RBC >100 H (0-2) /hpf Urine WBC 0-5 (0-3) /hpf Ur Squamous Epith Cells None seen (Few) /hpf Urine Bacteria None seen /hpf Urine Casts 3-5 Imaging Data Radiologist's impression: ITS Impressions Abdomen/Pelvis CT 02/09/25 17:49 IMPRESSION: Mild left-sided hydronephrosis secondary to multiple renal calculi spanning a length of 11 mm in the left renal pelvis. Bilateral nonobstructing renal calculi. Discharge Plan Discharge Clinical Impression: Calculus of proximal left ureter Patient Disposition: Home Condition: Stable Instructions: Antibiotic Form Additional Instructions: Exam today shows left sided stone that is approximately 11 mm. Please Flomax as prescribed as well as Zofran as needed for nausea. Continue with your home Vicodin for pain control. Follow-up with urology closely on this issue. If you have any new or worsening symptoms please return to the ER for further evaluation. Patient Language: Filipino Prescriptions: New tamsulosin [Flomax] 0.4 mg capsule 0.4 mg PO DAILY Qty: 10 0RF ondansetron 4 mg tablet,disintegrating 4 mg PO Q8H PRN (Reason: nausea and vomiting) Qty: 10 0RF No Action lisinopril 40 mg tablet 40 mg PO DAILY bupropion HCl 150 mg tablet extended release 24 hr 150 mg PO DAILY Brilinta 90 mg tablet 90 mg PO BID Patient Comments: pt believes there has been a change to this medication-daughter to bring in med list this morning aspirin 81 mg tablet,delayed release (DR/EC) 81 mg PO DAILY Qty: 30 11RF atorvastatin 40 mg tablet 40 mg PO DAILY Qty: 30 3RF nitroglycerin 0.4 mg tablet, sublingual 0.4 mg SUBLINGUAL DIRECTED PRN (Reason: chest pain) Qty: 25 3RF Rx Instructions: One tablet sublingual Q 5 minutes x3 doses p.r.n. chest pain If no relief call 911 pantoprazole 20 mg tablet,delayed release (DR/EC) 20 mg PO HS 28 Days Qty: 28 0RF hydrocodone-acetaminophen 7.5-325 mg tablet 1 tablet PO QID PRN (Reason: Pain) Follow-up/Referrals: Isauro Johnson MD [Primary Care Provider] - Jernoimo Franco MD [Physician] - Time of Disposition: 19:54
[2025-02-09 17:22] LABS: Alanine Aminotransferase 52 U/L (6-50); Alkaline Phosphatase 75 U/L (38-126); Anion Gap 14 mmol/L (4-12); Aspartate Amino Transferase 47 U/L (17-59); Bilirubin,Total 0.7 mg/dL (0.2-1.3); Blood Urea Nitrogen 19 mg/dL (9-20); Calcium 9.1 mg/dL (8.4-10.2); Carbon Dioxide 22 mmol/L (22-30); Chloride 102 mmol/L (98-107); Estimated CRCL calculation 98 ml/min; Estimated Glomerular Filt Rate > 60; Glucose 139 mg/dL (65-110); Potassium 4.4 mmol/L (3.4-5.0); Sodium 138 mmol/L (137-145)
[2025-02-09 17:28] LABS: Add Urine Microscopic? YES; Appearance Urine Turbid (Clear); Bacteria Urine None Seen /hpf; Bilirubin Urine Negative (Negative); Blood Urine 3+ (Negative); Color Urine Dark Yellow (Yellow); Glucose Urine UA Negative (Negative); Ketones Urine Trace mg/dL (Negative); Leukocyte Esterase Ur Trace LEU/UL (Negative); Need Manual Microscopic Reviewed; Nitrate Urine Negative (Negative); Protein Urine 2+ mg/dL (Negative); RBC Urine >100 /hpf (0-2); Specific Grav Ur 1.033 (1.001-1.035); Squamous Epithelial Cell Urine None Seen /hpf (Few); WBC Urine 0-5 /hpf (0-3)
[2025-02-09] MEDS: HYDROmorphone HCL INJ (*CRX) 2 MG/ML VIAL 0.5 MG IV PUSH ×3 (17:57→19:57)
[2025-02-09] MEDS: ONDANSETRON INJ 4 MG/2 ML VIAL IV PUSH (17:57)
[2025-02-09] MEDS: SODIUM CHLORIDE 0.9% IV 1,000 ML 999 ML IV CONT (17:57)
--- OUTSIDE RECORDS SUMMARY | 2025-02-09 18:21 | XMS_ITS | Encounter Summary ---
Author Organization [facility] Facility Care Team Providers Care Jet Wiper Name Role Phone Isauro Johnson MD Primary Care Provider Cody Andrew MD Unavailable [phone] Miscellaneous, Not In File Unavailable Unava ilable Isauro Johnson MD Primary Care Provider Encounter Details Date Type Department Care Team (Latest Contact Info) Description 08/13/2016 Orders Only [facility] CLINCONV ProviderHilary MD [address] [place] [id number] Social History Tobacco Use Types Packs/Day Years Used Date Smoking Tobacco: Never Assessed Sex and Gender Information Value Date Recorded Sex Assigned at Not on file 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 us Historical Provider Final Res ult * CARDIOLOGY REPORT (08/14/2016 12:00 AM CDT) Anatomical Region Laterality Modality Other Narrative 08/14/2016 12:00 AM CDT Ordered by an unspecified provider. Historical Provider [facility] PROCE DURES Final Result * CARDIOLOGY REPORT (08/14/2016 12:00 AM CDT) Anatomical Region Laterality Modality Other Narrative 08/14/2016 12:00 AM CDT Ordered by an unspecified provider. 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
--- OUTSIDE RECORDS SUMMARY | 2025-02-09 18:21 | XMS_ITS | Continuity of Care Document ---
Author Organization [facility] Address [address] [facility] [address] [facility] [address] [place] [address] Phone Care Team Providers Care Stroke Belt Sander Operator Name Role Phone Nitin Gorman MD Unavailable Unavailable Allergies, Adverse Reactions, Alerts Substance Reaction Status Criticality No Known Allergies Active No Inform ation Medications Medication Instructions Dosage Effective Dates (start - stop) Status Comments Robaxin-750 750 mg tablet take 1 (750MG) by oral route every 12 hours - Active Soma 350 mg tablet take 1 (350MG) by oral route every day AT - Active Naprosyn 500 mg tablet take 1 tablet by oral route 2 times every day with food 500 MG - Active BRILINTA 90 mg tablet take 1 tablet by oral route 2 times every day 90 MG - Active bupropion HCl XL 150 mg 24 hr tablet, extended release take 1 tablet by oral route every day 150 MG - Active Lexapro 10 mg tablet take 1 tablet by oral route every day 10 MG - Active atorvastatin 20 mg tablet take 1 tablet by oral route every day 20 MG - Active fenofibrate 150 mg capsule take 1 capsule by oral route every day with food 150 MG - Active Robaxin-750 750 mg tablet take 1 (750MG) by oral route every 12 hours - No Longer Active Advance Directives Directive Yes / No Effective Date File Name No Information Encounters Encounter Description Practice Location Reason(s) For Visit Diagnoses Date Provider Providers Copied on Encounter [facility] , [address], [place], [address], [place] tel:[phone] [facility] [place] No Information [address]. [address] [facility], [place], [id number] . tel:[phone] [facility] , [address], [place], [address], [place] tel:[phone] [facility] [place] Carpal tunnel syndrome of left wristCervical spinal stenosis [address] [place], [place], [id number] . tel:[phone] [facility] , [address], [place], [address], [place] tel:[phone] [facility] [place] Pain in left wrist [address]. [address] [place], [place], [id number] . tel:[phone] Family History Family Member Type Diagnosis Age At Onset No Information Payers Payer name Insurance type Covered democrat ID Authorronya titulio(s) No Information Social History Type Description Quantity Date Captured Comments Sex Male Smoking Status No Information Chief Complaint And Reason For Visit No Information Reason For Referral Reason For Referral No Information History Of Present Illness Encounter Date Complaint History Of Prese nt Illness No Information Functional Status Date Functional Assessmen t No Information Instructions Date Instruction Additional Infor mation No Information Assessments Type Assessment Date No Information Patient Care Teams Name Effective Dates (start - stop) Status Members No Information
--- OUTSIDE RECORDS SUMMARY | 2025-02-09 18:21 | XMS_ITS | Clinical Summary ---
Author Organization [facility] Address [address] [place] [address] Phone Care Team Providers Care Aeronautical Drafter Name Role Phone Nomfc, External Provider Primary Care Provider U navailable Allergies No known active allergies Medications ATORVASTATIN CALCIUM (ATORVASTATIN ORAL) Take by mouth. Active escitalopram (LEXAPRO) 20 mg Oral tablet Take 20 mg by mouth daily. Active oxyCODONE-acetam inophen (PERCOCET) 5-325 mg Oral tablet Take 1-2 Tabs by mouth every 4 hours as needed for Pain, Severe. 20 Tab 0 07/29/2013 Active docusate sodium (COLACE) 100 mg Oral capsule Take 1 Cap by mouth 2 times daily. 60 Cap 0 07/29/2013 Active polyethylene glycol (MIRALAX) 17 gram Oral PwPk Take 1 Packet by mouth daily. 30 Packet 0 07/29/2013 Active ibuprofen (MOTRIN) 600 mg Oral tablet Take 1 Tab by mouth every 6 hours as needed for Pain, Mild. 30 Tab 0 07/29/2013 Active Active Problems Problem Noted Date Diagnosed Date Facial cellulitis 07/27/2013 Overview (07/29/2013): 07/28/2013 2/2 dental abscess. Failed outpatient oral antibiotics. No evidence of head/neck abscess on CT. No airway compromise. Treated with IV Clindamycin and Vancomycin. [facility] evaluated patient and he underwent tooth extraction on 07/29. Pain control with IV Morphine, percocet and Toradol while admitted. Discharged with 10 day course of augmentin, peridex swish and spit x10 days and percocet for pain. Dental abscess 07/27/2013 HLD (hyperlipidemia) 07/27/2013 Overview (07/28/2013): 07/28/2013 Continued home lipitor 10mg daily. Depression 07/27/2013 Tobacco abuse 07/27/2013 Immunizations Immunization Administration Dates Next Due Influenza Vaccine Split PF ID 07/29/2013 Social History Tobacco Use Types Packs/Day Years Used Date Smoking Tobacco: Every Day Cigarettes Alcohol Use Standard Drinks/Week Comments No 0 (1 standard drink = 0.6 oz pur e alcohol) Sex and Gender Information Value Date Recorded Sex Assigned at Not on file Legal Sex Male 11:09 AM CDT Gender Identity Not on file Sexual Orientation Not on file Last Filed Vital Signs Vital Sign Reading Time Taken Comments Blood Pressure 130/88 07/29/2013 7:12 AM CDT Pulse 50 07/29/2013 7:12 AM CDT Temperature 36.5 C (97.7 F) 07/29/2013 7:12 AM CDT Respiratory Rate 18 07/29/2013 7:12 AM CDT Oxygen Saturation 97% 07/29/2013 7:12 AM CDT Inhaled Oxygen Concentration - - Weight 89.4 kg (197 lb) 07/29/2013 5:00 AM CDT Height 170.2 cm (5' 7 ) 07/27/2013 5:40 PM CDT Body Mass Index 30.85 07/27/2013 5:40 PM CDT Plan of Treatment Health Maintenance Due Date Last Done Comments DTAP/TDAP/TD VACCINES (1 - Tdap) 1996 HEPATITIS B VACCINES (1 of 3 - 19+ 3-dose series) 09/21 COLORECTAL SCREENING 2022 Colorectal Cancer Screening 2022 FIT-DNA Q 3 years 2022 FIT/FOBT Q 1 year 2022 Flex Sig/CT Colonography Q 5 years 2022 INFLUENZA VACCINE (#1) 2024 07/29/[id number] [id number] Advance Directives For more information, please contact: [phone] * Full Code (Latest Code Status on File) Date Activated Date Inactivated Comments 07/27/2013 5:37 PM 07/29/2013 11:55 AM Care Teams Aeronautical Drafter Relationship Specialty Start Date End Date Nomfc, External Provider PCP - General 07/27/13
--- OUTSIDE RECORDS SUMMARY | 2025-02-09 18:21 | XMS_ITS | Encounter Summary ---
Author Organization [facility] Facility Care Team Providers Care Filler Shaker Name Role Phone Isauro Johnson MD Primary Care Provider Cody Andrew MD Unavailable [phone] Miscellaneous, Not In File Unavailable Unava ilable Isauro Johnson MD Primary Care Provider Encounter Details Date Type Department Care Team (Latest Contact Info) Description 08/24/2016 Orders Only [facility] CLINCONV ProviderHilary MD [address] [place] [id number] Social History Tobacco Use Types Packs/Day Years Used Date Smoking Tobacco: Never Assessed Sex and Gender Information Value Date Recorded Sex Assigned at Not on file 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 us Historical Provider [facility] CASSY MORIN Final Result documented in this encounter Visit [...] CDT MRSA 03/08/2024 04/09/2024 10/06/2024 3:05 AM PIECE GOODS CLERK documented as of this encounter Care Teams Filler Shaker Relationship Specialty Start Date End Date Isauro Johnson MD PCP - General Fly Fishing Guide 05/21/17 07/25/22 Isauro Johnson MD PCP - General Fly Fishing Guide 07/26/22 Cody Andrwe MD Consulting Physician Infectious Diseases 10/09/21 Miscellaneous, Not In File 10/09/21 documented as of this encounter
--- OUTSIDE RECORDS SUMMARY | 2025-02-09 18:21 | XMS_ITS | Continuity of Care Document ---
Author Organization [facility] [place] Address [address] [place] [phone] Phone Care Team Providers Care Valet Runner Name Role Phone Katie MS, OTR/L, CHT, [place] Unavailable Unavailable Procedures Procedure Date THERAPEUTIC EXERCISES NEUROMUSCULAR RE-ED MANUAL THERAPY FUNC ACTIVITY THERAPEUTIC EXERCISES NEUROMUSCULAR RE-ED MANUAL THERAPY FUNC ACTIVITY HOT/COLD PACK ELECTRIC STIMULATION UNATT THERAPEUTIC EXERCISES NEUROMUSCULAR RE-ED MANUAL THERAPY FUNC ACTIVITY HOT/COLD PACK ELECTRIC STIMULATION UNATT THERAPEUTIC EXERCISES NEUROMUSCULAR RE-ED MANUAL THERAPY FUNC ACTIVITY HOT/COLD PACK THERAPEUTIC EXERCISES NEUROMUSCULAR RE-ED MANUAL THERAPY FUNC ACTIVITY OT RE-EVALUATION THERAPEUTIC EXERCISES NEUROMUSCULAR RE-ED FUNC ACTIVITY HOT/COLD PACK ELECTRIC STIMULATION UNATT THERAPEUTIC EXERCISES NEUROMUSCULAR RE-ED MANUAL THERAPY FUNC ACTIVITY HOT/COLD PACK THERAPEUTIC EXERCISES NEUROMUSCULAR RE-ED MANUAL THERAPY FUNC ACTIVITY HOT/COLD PACK THERAPEUTIC EXERCISES MANUAL THERAPY FUNC ACTIVITY HOT/COLD PACK OT RE-EVALUATION THERAPEUTIC EXERCISES MANUAL THERAPY FUNC ACTIVITY HOT/COLD PACK THERAPEUTIC EXERCISES MANUAL THERAPY FUNC ACTIVITY HOT/COLD PACK THERAPEUTIC EXERCISES MANUAL THERAPY FUNC ACTIVITY HOT/COLD PACK ELECTRIC STIMULATION UNATT THERAPEUTIC EXERCISES MANUAL THERAPY FUNC ACTIVITY HOT/COLD PACK THERAPEUTIC EXERCISES NEUROMUSCULAR RE-ED MANUAL THERAPY FUNC ACTIVITY HOT/COLD PACK ELECTRIC STIMULATION UNATT THERAPEUTIC EXERCISES NEUROMUSCULAR RE-ED MANUAL THERAPY FUNC ACTIVITY HOT/COLD PACK THERAPEUTIC EXERCISES MANUAL THERAPY FUNC ACTIVITY HOT/COLD PACK THERAPEUTIC EXERCISES NEUROMUSCULAR RE-ED MANUAL THERAPY FUNC ACTIVITY HOT/COLD PACK ELECTRIC STIMULATION UNATT PT EVALUATION THERAPEUTIC EXERCISES Advance Directives Directive Yes / No Effective Date File Name No Information Encounters Encounter Description Practice Location Reason(s) For Visit Diagnoses Date Provider Providers Copied on Encounter [facility] [place], [address] [facility] [address] [place] [address], [id number], tel:[phone] [place] No Information Roman-1 8-201 6 Hauschild [place]. [address] [place] [address], [address], [place], [address], [place]. tel:[phone], [place], [place], [id number], tel:[phone] [place] No Information May-2 3-201 6 Hauschild [place]. [address] [place] [address], [address], [place], [address], [place]. tel:[phone] Referring Provider: Yusuf Liang, [address] [facility] [address], [place], [address]. tel:[phone], [id number], tel:[phone] [place] No Information February-1 6-201 6 Hauschild [place]. [address] [place] [address], [address], [place], [address], [place]. tel:[phone] Referring Provider: Yusuf Liang, [address] [facility] [address], [place], [address]. tel:[phone], [id number], tel:[phone] [place] No Information May-0 4-201 6 Hauschild [place]. [address] [place] [address], [address], [place], [address], [place]. tel:[phone] Referring Provider: Yusuf Liang, [address] [facility] [address], [place], [address]. tel:[phone], [id number], tel:[phone] [place] No Information May-0 2-201 6 Hauschild [place]. [address] [place] [address], [address], [place], [place], [facility], [place]. tel:[phone] Referring Provider: Yusuf Liang, [address] [facility] [address], [place], [address]. tel:[phone] [facility] [address] [place] [address] [address], [place], [place], [id number], [place] tel:[phone] [place] No Information 6 Hauschild [place]. [address] [place] [address], [address], [place], [address], [place]. tel:[phone] Referring Provider: Yusuf Liang, [address] [facility] [address], [place], [address]. tel:[phone] [facility] [address] [place] [address], [place], [id number], [place] tel:[phone] [place] Unsp fx the low end left rad, subs for clos fx w routn heal 6 Hauschild [place]. [address] [place] [address], [address], [place], [address], [place]. tel:[phone] Referring Provider: Yusuf Liang, [address] [facility] [address], [place], [address]. tel:[phone], [id number], [place] tel:[phone] [place] No Information 6 Hauschild [place]. [address] [place] [address], [address], [place], [address], [place]. tel:[phone] Referring Provider: Yusuf Liang, [address] [facility] [address], [place], [address]. tel:[phone] [facility] [address] [facility] [address], [place], [id number], tel:[phone] [place] No Information 6 Hauschild [place]. [address] [place] [address], [address], [place], [address], [place]. tel:[phone] Referring Provider: Yusuf Liang, [address] [facility] [address], [place], [address]. tel:[phone] [address], [place], [place], [id number], [place] tel:[phone] [place] No Information Spencer-0 6-201 6 Hauschild [place]. [address] [place] [address], [address], [place], [address], [place]. tel:[phone] Referring Provider: Yusuf Liang, [address] [facility] [address], [place], [address]. tel:[phone] [address] [address], [place], [place], [id number], [place] tel:[phone] [place] [facility] Muscle weakness (generalized) Oct-0 4-201 6 Hauschild [place]. [address] [place] [address], [address], [place], [address], [place]. tel:[phone] Referring Provider: Yusuf Liang, [address] [facility] [address], [place], [address]. tel:[phone] [address] [address], [place], [place], [id number], [place] tel:[phone] [place] No Information Dec-3 0-201 5 Hauschild [place]. [address] [place] [address], [address], [place], [address], [place]. tel:[phone] Referring Provider: Yusuf Liang, [address] [facility] [address], [place], [address]. tel:[phone] [address] [address], [place], [id number], [place] tel:[phone] [place] No Information Dec-2 3-201 5 Hauschild [place]. [address] [place] [address], [address], [place], [place], [facility], [place]. tel:[phone] Referring Provider: Yusuf Liang, [address] [facility] [address], [place], [address]. tel:[phone] [facility], [address] [place] [address] [address], [place], [place], [id number], tel:[phone] [place] No Information Dec-2 2-201 5 Hauschild [place]. [address] [place] [address], [address], [place], [address], [place]. tel:[phone] Referring Provider: Yusuf Liang, [address] [facility] [address], [place], [address]. tel:[phone], [id number], tel:[phone] [place] No Information Dec-2 1-201 5 Hauschild [place]. [address] [place] [address], [address], [place], [facility], [place]. tel:[phone] Referring Provider: Yusuf Liang, [address] [facility] [address], [place], [address]. tel:[phone], [id number], tel:[phone] [place] No Information Dec-1 6-201 5 Hauschild [place]. [address] [place] [address], [address], [place], [facility], [place]. tel:[phone] Referring Provider: Yusuf Liang, [address] [facility] [address], [place], [address]. tel:[phone], [id number], tel:[phone] [place] No Information Dec-1 4-201 5 Hauschild [place]. [address] [place] [address], [address], [place], [address], [place]. tel:[phone] Referring Provider: Yusuf Liang, [address] [facility] [address], [place], [address]. tel:[phone] [facility], [address], [id number], tel:[phone] [place] No Information Dec-0 5 Amandastuarternestina Arias. [address] [facility] [address], [place], [address], [place]. tel:[phone] Referring Provider: Yusuf Liang, [address] [facility] [address], [place], [address]. tel:[phone] [facility], [address] [address], [place], [id number], tel:[phone] [place] Pain in left wristStiffness of left wrist, not elsewhere classifiedLocal ized edemaOther specified postprocedural statesPersonal history of (healed) traumatic fracture Dec-0 5 Tessyjonny Field. [address] [facility], [facility] [address], [place], [address], [place]. tel:[phone] Referring Provider: Yusuf Liang, [address] [facility] [address], [place], [address]. tel:[phone] Family History Family Member Type Diagnosis Age At Onset No Information Payers Payer name Insurance type Covered constitution party ID Benedict botello(s) [facility] CI [id number] Social History Type Description Quantity Date Captured [...]
--- OUTSIDE RECORDS SUMMARY | 2025-02-09 18:21 | XMS_ITS | Clinical Summary ---
Author Organization [facility] [employer] Address [address] [place] [address] Care Team Providers Care Keyboard Operator Name Role Phone Isauro Johnson MD Primary Care Provider Source Comments [facility] [employer],non-owned Affiliates and Associated Physician Practices is amultiple site organization consisting of ambulatory clinics and hospital sitesin [place], [place], [place] and [place]. This disclosure is being madepursuant to the Care Everywhere program and may not contain all information available regarding this patient. Last updated 18.[facility] [employer] Allergies No known active allergies Medications * Be aware that medications may not be up to date on this document. Alwaysverify current medications with the patient. ticagrelor (BRILINTA) 90 MG tablet Take 90 mg by mouth 2 times daily Active buPROPion SR 12hr (WELLBUTRIN-SR ) 150 MG tablet Take 150 mg by mouth once daily Active lisinopril (PRINIVIL; ZESTRIL) 20 MG tablet Take 20 mg by mouth once daily Active ATORVASTATIN CALCIUM PO Take 40 mg by mouth once daily Active aspirin (ASPIRIN) 81 MG chew tablet Take 81 mg by mouth once daily Active sildenafil (REVATIO) 20 MG tablet Take 20 mg by mouth as needed Active Testosterone Cypionate 200 MG/ML SOLN 0.75 mL by Injection route every 7 days Active escitalopram (LEXAPRO) 10 MG tablet Take 10 mg by mouth once daily Active etanercept (ENBREL) 50 MG/ML prefilled syringe Inject 50 mg subcutaneously every 7 days 0 Active oxyCODONE-acet aminophen (PERCOCET) 10-325 MG tabletIndicati ons:Pain Take 1 tablet by mouth every 6 hours as needed Reasons: Pain 12 tablet 0 Active fenofibrate (TRICOR) 145 MG tablet Take 1 tablet by mouth once daily 0 Active metoprolol succinate XL 24hr (TOPROL XL) 25 MG tablet Take 1 tablet by mouth once daily 30 tablet 0 Active Active Problems Problem Noted Date Diagnosed Date Facial cellulitis 07/10/2020 Social History Tobacco Use Types Packs/Day Years Used Date Smoking Tobacco: Every Day Cigarettes Smokeless Tobacco: Never Alcohol Use Standard Drinks/Week Comments Yes 0 (1 standard drink = 0.6 oz pur e alcohol) occasional Sex and Gender Information Value Date Recorded Sex Assigned at Not on file 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 Gender Identity Not on file Sexual Orientation Not on file Last Filed Vital Signs Vital Sign Reading Time Taken Comments Blood Pressure 134/90 07/12/2020 3:42 PM CDT Pulse 73 07/12/2020 3:42 PM CDT Temperature 36.8 C (98.2 F) 07/12/2020 3:42 PM CDT Respiratory Rate 18 07/12/2020 3:42 PM CDT Oxygen Saturation 98% 07/12/2020 3:42 PM CDT Inhaled Oxygen Concentration - - Weight 87 kg (191 lb 12.8 oz) 07/10/2020 9:17 PM CDT Height 167.6 cm (5' 6 ) 07/10/2020 9:17 PM CDT Body Mass Index 30.96 07/10/2020 9:17 PM CDT Plan of Treatment Health Maintenance Due Date Last Done Comments COLOGUARD (AGES 45-75) - COL ON CA SCREENING [address] COLONOGRAPHY - COLON CA SCREENING 1977 FIT - COLON CA SCREENING 1977 FLEX SIG - COLON CA SCREENING 1977 HIV SCREENING 1992 HEPATITIS C SCREENING 10/09/1995 DTAP/TDAP/TD VACCINES (1 - Tdap) 1996 HEPATITIS B VACCINE (1 of 3 - 19+ 3-dose series) 1996 PNEUMOCOCCAL VACCINE (1 of 2 - PCV) 1996 COVID-19 VACCINE (1 - 2023-2 5 season) 2024 DEPRESSION SCREENING 10/21/2024 INFLUENZA VACCINE (Season Ended) 2025 07/21/2019, 07/29/2013 ZOSTER VACCINE (1 of 2) 2027 COLONOSCOPY - COLON CA SCREENING 05/01/2029 05/01/2019 Colorectal Cancer Screening 05/01/2029 HIB VACCINE Aged Out No longer eligi ble based on patient's age to complete this topic HPV VACCINE Aged Out No longer eligi ble based on patient's age to complete this topic MENINGOCOCCAL (Group B) VACCINE SHARED DECISION-MAKING Aged Out No longer eligible based on patient's age to complete this topic MENINGOCOCCAL GROUPS A/C/Y/W VACCINE Aged Out No longer eligible b ased on patient's age to complete this topic Insurance [facility] Advance Directives * Full Code (Latest Code Status on File) Date Activated Date Inactivated Comments 07/10/2020 9:17 PM 07/12/2020 5:20 PM Care Teams Keyboard Operator Relationship Specialty Start Date End Date Isauro Johnson MD PCP - General Internal Medicine 09/24/17
--- OUTSIDE RECORDS SUMMARY | 2025-02-09 18:21 | XMS_ITS | Encounter Summary ---
Author Organization [facility] Facility Care Team Providers Care Electrical Construction Project Manager Name Role Phone Isauro Johnson MD Primary Care Provider Cody Andrew MD Unavailable [phone] Miscellaneous, Not In File Unavailable Unava ilable Isauro Johnson MD Primary Care Provider Encounter Details Date Type Department Care Team (Latest Contact Info) Description 07/07/2018 Orders Only [facility] CLINCONV ProviderHilary MD [address] [place] [id number] Social History Tobacco Use Types Packs/Day Years Used Date Smoking Tobacco: Former Smokeless Tobacco: Former Alcohol Use Standard Drinks/Week Comments Yes 0 (1 standard drink = 0.6 oz pur e alcohol) rarely Sex and Gender Information Value Date Recorded Sex Assigned at Not on file 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 us Historical Provider Final Res ult * CARDIOLOGY REPORT (07/07/2018 12:00 AM CDT) Anatomical Region Laterality Modality Other Narrative 07/07/2018 12:00 AM CDT Ordered by an unspecified provider. 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
--- OUTSIDE RECORDS SUMMARY | 2025-02-09 18:21 | XMS_ITS | Encounter Summary ---
Author Organization [facility] Facility Care Team Providers Care Radiology Rn Name Role Phone Isauro Johnson MD Primary Care Provider Cody Andrew MD Unavailable [phone] Miscellaneous, Not In File Unavailable Unava ilable Isauro Johnson MD Primary Care Provider Encounter Details Date Type Department Care Team (Latest Contact Info) Description 04/13/2016 Orders Only [facility] CLINCONV ProviderHilary MD [address] [place] [address] Social History Tobacco Use Types Packs/Day Years Used Date Smoking Tobacco: Never Assessed Sex and Gender Information Value Date Recorded Sex Assigned at Not on file 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 Gender Identity Not on file Sexual Orientation Not on file documented as of this encounter Plan of Treatment Not on file documented as of this encounter Procedures Procedure Name Priority Date/Time Associated Diagnosis Comments CARDIOLOGY REPORT 04/13/2016 12: 00 AM CDT documented in this encounter Results * CARDIOLOGY REPORT (04/13/2016 12:00 AM CDT) Anatomical Region Laterality Modality Other Narrative 04/13/2016 12:00 AM CDT Ordered by an unspecified [...] CDT MRSA 03/08/2024 04/09/2024 10/06/2024 3:05 AM HITCHER documented as of this encounter Care Teams Radiology Rn Relationship Specialty Start Date End Date Isauro Johnson MD PCP - General Supervisor Logging 05/21/17 07/25/22 Isauro Johnson MD PCP - General Supervisor Logging 07/26/22 Cody Andrew MD Consulting Physician Infectious Diseases 10/09/21 Miscellaneous, Not In File 10/09/21 documented as of this encounter
--- OUTSIDE RECORDS SUMMARY | 2025-02-09 18:21 | XMS_ITS | Referral Summary ---
Author Organization [facility] [place] [address] Address [address] [place] [address] Care Team Providers Care Button Spindler Name Role Phone Cody Andrew MD Unavailable [phone] Miscellaneous, Not In File Unavailable Unava ilable Isauro Johnson MD Primary Care Provider Allergies Active Allergy Reactions Criticality Noted Date Comments Ceftriaxone Rash Medium 10/07/2021 Patient had pruritic rash after administration of ceftriaxone x 2 Colchicine Vomiting Low 12/24/2019 Medications escitalopram (LEXAPRO) 10 mg tablet Take 1 tablet (10 mg total) by mouth daily 2 8 Active buPROPion XL (WELLBUTRIN XL) 150 mg 24 hr tablet Take 1 tablet (150 mg total) by mouth daily 6 Active sucralfate (CARAFATE) suspension 1 gram/10 mL 9 Active HYDROcodone-aceta minophen (NORCO) 7.5-325 mg per tablet Take 1 tablet by mouth 3 (three) times a day Active varenicline tartrate (CHANTIX AMY) 0.5 mg (11)- 1 mg (42) tablet Take 1 tablet by mouth as directed Active gabapentin (NEURONTIN) 300 mg capsule Take 1 capsule (300 mg total) by mouth 3 (three) times a day 90 capsule 2 4 03/17/20 25 Active al & mag hydroxide with simethicone-diphe nhydramine-lidoca ine (MAGIC MOUTHWASH) suspension 1-1-1 Swish and swallow 5 mL every 4 (four) hours as needed (Mouth and throat pain) 300 mL 4 Active predniSONE (DELTASONE) 10 mg tablet Take 5 tablets oral daily for 2 days then 4 tablets daily for 2 days then 3 tablets daily for 2 days then 2 tablets daily for 2 days then 1 tablet daily for 2 days then stop. 32 tablet 4 Active cetirizine (ZyrTEC) 10 mg tablet Take 1 tablet (10 mg total) by mouth 2 (two) times a day as needed for allergies 60 tablet 4 Active atorvastatin (LIPITOR) 80 mg tabletIndications :Dyslipidemia,Cor onary artery disease involving ewiiaapaayp coronary artery of ewiiaapaayp heart without angina pectoris Take 1 tablet (80 mg total) by mouth nightly 90 tablet 3 4 04/29/20 25 Active amLODIPine (NORVASC) 10 mg tabletIndications :Uncontrolled hypertension Take 1 tablet (10 mg total) by mouth daily 90 tablet 3 4 04/29/20 25 Active clopidogreL (PLAVIX) 75 mg tabletIndications :Coronary artery disease involving ewiiaapaayp coronary artery of ewiiaapaayp heart without angina pectoris Take 1 tablet (75 mg total) by mouth daily 90 tablet 3 4 04/29/20 25 Active aspirin 81 mg enteric coated tabletIndications :Coronary artery disease involving ewiiaapaayp coronary artery of ewiiaapaayp heart without angina pectoris Take 1 tablet (81 mg total) by mouth daily 90 tablet 3 4 04/29/20 25 Active ezetimibe (ZETIA) 10 mg tabletIndications :Coronary artery disease involving ewiiaapaayp coronary artery of ewiiaapaayp heart without angina pectoris Take 1 tablet (10 mg total) by mouth nightly 90 tablet 3 4 04/29/20 25 Active metoprolol tartrate (LOPRESSOR) 25 mg immediate release tabletIndications :Coronary artery disease involving ewiiaapaayp coronary artery of ewiiaapaayp heart without angina pectoris,Essentia l hypertension Take 1 tablet (25 mg total) by mouth 2 (two) times a day 180 tablet 3 4 04/29/20 25 Active Active Problems Problem Noted Date Diagnosed Date Wound infection after surgery 04/08/2024 Acute hypoxemic respiratory failure 03/11/2024 Acute pulmonary edema 03/11/2024 Tobacco use disorder 03/07/2024 Mass of lingula of lung 03/07/2024 Fatty (change of) liver, not elsewhere classifie d 03/07/2024 Cobalamin deficiency 03/07/2024 Class 2 obesity 03/07/2024 Acute tubular necrosis 03/07/2024 Acute bronchitis and bronchiolitis 03/07/2024 Numbness 03/07/2024 Vascular claudication 03/07/2024 Well child examination 03/07/2024 NSTEMI (non-ST elevated myocardial infarction) 0 03/06/2024 Acute chest pain 03/06/2024 Dental infection 07/20/2022 Assessment & Plan (07/26/2022 4:09 PM CDT): -Pt is now s/p extraction of tooth #6 and 18 - oxy, toradol and tylenol for pain (Takes norco chronically at home so has some opiate tolerance). - needs to continue to follow-up with dentist. Assessment & Plan (07/23/2022 1:55 PM CDT): Plan for OMFS evaluation and possible dental extraction on 07/25. Panorex and CT scan completed - oxy, toradol and tylenol for pain (Takes norco chronically at home so has some opiate tolerance) Assessment & Plan (07/22/2022 3:58 PM CDT): Plan for OMFS evaluation and possible dental extraction. Panorex and CT scan completed Osteomyelitis of maxilla 07/15/2022 Fever 11/30/2021 Maxillary pain 11/29/2021 Class 1 obesity due to exces s calories without serious comorbidity with body mass index (BMI) of 30.0 to 30.9 in adult 10/11/2021 Acute osteomyelitis of maxilla 10/03/2021 Assessment & Plan (07/26/2022 4:09 PM CDT): Pt w/ recurrent periapical tooth OM since 09/2021. Has had multiple admissions and rounds of abx since. Returned to OSH with face/periorbital swelling again. S/p van/unasyn at OSH w/ improvement -continue vanc/unasyn -OMFS eval on 07/25. Pt w/o dental insurance so could not address in OP setting. - He underwent dental extraction on 07/25 but still has residual bridge in place. - He will be going home with 6wks of Augmentin and Doxy; he will need a f/u CT prior to finishing the abx course. - He wishes to f/u with Dr. Andrew in [place] - chat message sent to him. Assessment & Plan (07/23/2022 1:54 PM CDT): Pt w/ recurrent periapical tooth OM since 09/2021. Has had multiple admissions and rounds of abx since. Returned to OSH with face/periorbital swelling again. S/p van/unasyn at OSH w/ improvement -continue vanc/unasyn -OMFS eval on 07/25. Pt w/o dental insurance so could not address in OP setting. - ID anticipates transition to oral abx as long as source control can be attained Assessment & Plan (07/22/2022 4:01 PM CDT): Pt w/ recurrent periapical tooth OM. 07/15 showing likely recurrence. S/p van/unasyn at OSH w/ improvement -continue vanc/unasyn -OMFS c/s Saturday for source control. Pt w/o dental insurance so could not address in OP. - ID anticipates transition to oral abx as long as source control can be attained Assessment & Plan (07/20/2022 8:50 PM CDT): Pt w/ recurrent periapical tooth OM. 07/15 showing likely recurrence. S/p van/unasyn at OSH w/ improvement -inflammatory markers -continue vanc/unasyn -ID consult and OMFS c/s Saturday for source control. Pt w/o dental insurance so could not address in OP. Cellulitis of face 10/03/2021 Uncontrolled hypertension 10/03/2021 Tobacco dependence 10/03/2021 Assessment & Plan (07/26/2022 4:10 PM CDT): Pt was smoking 3ppd prior to being admitted and now is determined to quit. He has been wearing a nicotine patch in the hospital and plans on having his PMD rx the patches for him. Depression 10/03/2021 Acute periapical abscess 12/24/2019 Assessment & Plan (12/25/2019 1:27 PM WORLD TRAVEL COUNSELOR): #Spontaneous dental abscess, symptomatic since Saturday (12/21), with failed outpatient management with oral clindamycin. He is now status post attempted I&D without any purulent drainage. Patient reports symptomatic improvement since I&D and intravenous antibiotic therapy. ENT performed nasal laryngoscopy, without concern for airway obstruction. CT face, as above. - ENT consulted, performed I&D and laryngoscopy, recommend OMFS consult. - OMFS consulted, planning tooth extraction today. - Continue Unasyn 3 gram IV Q6 for now. - Started dexamethasone 10 mg Q8, per ENT recommendations. - Tylenol 650 mg Q4 PRN first line. - Oxycodone 5 mg Q4 PRN second line. - NPO for now. Psoriasis 05/02/2019 Assessment & Plan (05/02/2019 11:34 AM CDT): Skin manifestations with arthritis. Currently on Enbrel. Previously failed Xeljanz, Remicade --Hold Enbrel in case of possible aspiration pneumonia --Continue home clobetasol for skin lesions Coronary artery disease invo lving ewiiaapaayp coronary artery of ewiiaapaayp heart without angina pectoris 05/02/2019 Assessment & Plan (07/24/2022 5:44 PM CDT): S/p PCI 2012 and 2016 -continue asa, statin, lisinopril. Pt no longer on brillinta. Got one dose 9/30pm Assessment & Plan (07/23/2022 1:54 PM CDT): S/p PCI 2012 and 2016 -continue asa, statin, lisinopril. Pt no longer on brillinta. Got one dose 9/30pm Assessment & Plan (07/22/2022 3:57 PM CDT): S/p PCI 2012 and 2016 -continue asa, statin, lisinopril. Pt no longer on brillinta. Got one dose 07/20pm Assessment & Plan (07/20/2022 8:53 PM CDT): S/p PCI 2012 and 2016 -continue asa, statin, lisinopril. Pt no longer on brillinta. Got one dose 07/20pm Assessment & Plan (12/25/2019 1:25 PM WORLD TRAVEL COUNSELOR): #History of NSTEMI in 10/2019. LHC at [place] (10/2019) revealed a totally occluded proximal RCA, which was stented with a 30% residual stenosis. Left ventriculogram revealed EF 50% with basal and mid inferior wall hypokinesis. - Continue aspirin 81 mg daily and Brilinta 90 mg BID. - Continue lisinopril 40 mg daily. - Continue metoprolol XL 25 mg daily. - Continue atorvastatin 10 mg daily. Assessment & Plan (05/02/2019 8:22 AM CDT): History of KS in 2013 and 2015 s/p stent placement. --Continue home aspirin, ticagrelor, atorvastatin. Hyperlipidemia 05/02/2019 Assessment & Plan (07/24/2022 5:44 PM CDT): Cont statin Assessment & Plan (07/23/2022 1:55 PM CDT): Cont statin Assessment & Plan (07/22/2022 3:57 PM CDT): Cont statin Assessment & Plan (12/24/2019 8:48 PM WORLD TRAVEL COUNSELOR): #Chronic with history of CAD. - Continue atorvastatin 10 mg daily. Assessment & Plan (05/02/2019 11:16 AM CDT): On atorvastatin 80 mg PO at bedtime at home. Lipid panel with triglycerides 483, cholesterol 284, HDL 42, Chol/HDL 6.8 --Continue home atorvastatin Essential hypertension 05/02/2019 Assessment & Plan (07/24/2022 5:45 PM CDT): Continue amlodipine, lisinopril Assessment & Plan (07/23/2022 1:55 PM CDT): Continue amlodipine, lisinopril Assessment & Plan (07/22/2022 3:57 PM CDT): Continue amlodipine, lisinopril Assessment & Plan (07/20/2022 8:54 PM CDT): Continue amlodipine, lisinopril Assessment & Plan (12/24/2019 8:49 PM WORLD TRAVEL COUNSELOR): #Chronic. - Continue home lisinopril, metoprolol as documented elsewhere. Assessment & Plan (05/02/2019 8:20 AM CDT): On amlodipine 2.5 mg PO daily. BP well controlled here. --Continue home amlodipine GERD (gastroesophageal reflux disease) 9 Assessment & Plan (05/03/2019 9:29 AM CDT): EGD 05/01 with LA Grade B erosive esophagitis. On famotidine and pantoprazole at home --Continue home pantoprazole and famotidine. IBD (inflammatory bowel disease) 03/20/2019 Overview (03/20/2019): Added automatically from request for surgery [id number] High risk medication use 12/12/2018 Psoriatic arthritis 03/27/2018 Assessment & Plan (12/24/2019 8:40 PM WORLD TRAVEL COUNSELOR): #Follows with Rheumatology, last seen 06/2019, managed with Enbrel 50 mg weekly. - Continue to monitor. Uveitis 03/27/2018 Behcet's syndrome ([facility]) 03/26/2018 Assessment & Plan (12/24/2019 8:39 PM WORLD TRAVEL COUNSELOR): #Follows with Rheumatology, last seen 06/2019. He has a history of neuro Behcet's, though per their note this diagnosis is not firm. - Continue to monitor. Mitral regurgitation 11/29/2016 Overview (03/07/2024): Trace to mild Dyslipidemia 08/24/2016 Overview (03/07/2024): Last lipids Lipids were poorly controlled due to noncompliance with his atorvastatin. Currently on atorvastatin, Lovaza, fenofibrate and Zetia Elevated AST (SGOT) 08/24/2016 Dental abscess 07/27/2013 Allergic drug rash due to anti-infective agent Hx of osteomyelitis Resolved Problems Problem Noted Date Diagnosed Date Resolved Date Acute kidney injury (CMS/HCC) 05/02/2019 10/03/2021 Assessment & Plan (05/03/2019 7:44 AM CDT): Cr elevated to 1.7 from baseline of ~0.8. BUN/Cr ratio 12.35. CT A/P with diffuse striated nephrograms bilaterally raising suspicion of ATN. UA bland. Concern for ATN given BUN/Cr and CT findings. Could be 2/2 to hypotension during procedure, although no documented episodes, or from being NPO and vomiting. Could also be prerenal 2/2 to volume depletion from being NPO prior to procedure and vomiting. Patient states he has continued to have normal urination since procedure w/ no changes. --s/p 2 L NS at OSH --Cr downtrending from 1.7 -->1.5 --FeNa calculated at 0.5%, suggestive of pre-renal etiology. Cr improving s/p fluids --Strict I&Os --BMPs Abdominal pain 05/02/2019 10/03/2021 Assessment & Plan (05/04/2019 8:31 AM CDT): Acute onset of abdominal pain in lower abdomen radiating to bilateral sides. Had EGD/colonoscopy on 05/[address] A/P with findings concerning for ATN but no other acute intra-abdominal pathology. On abdominal exam, had TTP in lower abdomen, L>R, that has improved since presentation to OSH. In setting of recent procedure, most major concern would be for bowel perforation, but he has no acute abdomen signs and unconcerning on CT. Pain/N/V could also be from use of air during EGD/colonoscopy. Patient also has suspicious findings for ATN on CT and MAGI, but this would not typically cause abdominal pain. Sudden onset of abdominal pain could be suggestive of embolus causing infarction, but unlikely given improvement already. Patient's pain continues to be improved from admission. No signs of acute abdomen. --Consult to GI given recent procedure; unconcerned for bowel perforation --CTM --Treatment of MAGI as above. Aspiration pneumonia ([facility]) 05/02/2019 10/03/2021 Assessment & Plan (05/04/2019 8:31 AM CDT): Concern for aspiration pneumonia given EGD/colonoscopy and CTA chest showing no PE but scattered hazy opacities in the mid and left upper lung appear infectious/inflammatory. WBC 16.6 but afebrile, no SOB, no chest pain. He received cefepime 1 g IV at OSH. VSS, no SOB. --WBC 16.6 --> 8.2 --> 6.1 --CXR: Minimal left mid lung atelectasis. No evidence of aspiration --Began PO augmentin 875 BID x 5 days for empiric treatment given recent procedure with N/V Immunizations Immunization Administration Dates Next Due Influenza, Quadrivalent, Spl it, Preservative Free, Intramuscular 11/30/2021 Influenza, Unspecified 07/21/2019 Social History Tobacco Use Types Packs/Day Years Used Date Smoking Tobacco: Former Cigarettes 2 8 Smokeless Tobacco: Former Tobacco Cessation:Counseling Given: Not Answered Alcohol Use Standard Drinks/Week Comments Yes 0 (1 standard drink = 0.6 oz pur e alcohol) Rarely [facility] Utilities Answer Date Recorded In the past 12 months has [place], gas, oil, or water [employer] threatened to shut off services in your home? Yes 04/09/2024 Social Connection and Isolat ion Panel [NHANES] Answer Date Recorded In a typical week, how many times do you talk on the phone with family, friends, or neighbors? More than three times a week 04/09/2024 How often do you get togethe r with friends or relatives? More than three times a week 04/09/2024 How often do you attend [facility] or roman catholic services? Never 04/09/2024 Do you belong to any clubs o r organizations such as latter day groups, unions, fraternal or athletic groups, or school groups? No 04/09/2024 How often do you attend meet ings of the clubs or organizations you belong to? Never 04/09/2024 Are you , , di vorced, , never , or living with a partner? 04/09/2024 AUDIT-C Answer Date Recorded Q1: How often do you have a drink containing alcohol? Never 07/16/2022 Q2: How many drinks containi ng alcohol do you have on a typical day when you are drinking? Patient does not drink Q3: How often do you have si x or more drinks on one occasion? Never 07/16/2022 Overall Financial Resource Strain (CARDIA) Answe r Date Recorded How hard is it for you to pa y for the very basics like food, housing, medical care, and heating? Hard 04/09/2024 Hunger Vital Sign Answer Date Recorded Within the past 12 months, y ou worried that your food would run out before you got the money to buy more. Sometimes true Within the past 12 months, t he food you bought just didn't last and you didn't have money to get more. Sometimes true PRAPARE - Transportation Answer Date Re corded In the past 12 months, has l ack of transportation kept you from medical appointments or from getting medications? No 03/22 In the past 12 months, has l ack of transportation kept you from meetings, work, or from getting things needed for daily living? No 04/09/2024 Housing Stability Vital Sign Answer Axel e Recorded In the last 12 months, was t here a time when you were not able to pay the mortgage or rent on time? Yes 04/09/2024 In the past 12 months, how m any times have you moved where you were living? 0 04/09/2024 At any time in the past 12 m [facility], were you homeless or living in a half-way (including now)? No 04/09/2024 Personal Safety Answer Date Recorded Have you ever been in or are you currently in a harmful physical or emotional relationship or is someone making you feel afraid or unsafe? 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 Male 11:32 AM WORLD TRAVEL COUNSELOR Gender Identity Not on file Sexual Orientation Not on file Occupation Industry Job Start Date Job End Date [employer] Not on file Not on file Not on file Last Filed Vital Signs Vital Sign Reading Time Taken Comments Blood Pressure 139/97 07/30/2024 10:10 PM CDT Pulse 66 07/30/2024 10:10 PM CDT Temperature 36.9 C (98.5 F) 07/30/2024 5:36 PM CDT Respiratory Rate 18 07/30/2024 10:10 PM CDT Oxygen Saturation 98% 07/30/2024 10:10 PM CDT Inhaled Oxygen Concentration - - Weight 91 kg (200 lb 9.9 oz) 07/30/2024 5:36 PM CDT Height 167.6 cm (5' 6 ) 07/30/2024 5:36 PM CDT Body Mass Index 32.38 07/30/2024 5:36 PM CDT Plan of Treatment Not on file Medical Devices Implanted Type Area Electronics Teacher Device Identifier Shelf Expiration Date Model / Serial / Lot Cardiac Stent Implanted:10/21 (Quantity not on file) Stent Heart [employer] Escobar Distal Marker Radiology Stainless Steel Sterile Am-D - [id number] Implanted:Qty: 1 on 03/10/2024 by Yinka Palmer MD at [facility] N/A: Heart [employer]ical [id number] 09/20/2026 AMGM-D / / [id number] Procedures Procedure Name Priority Date/Time Associated Diagnosis Comments EGFR STAT 07/30/2024 5:42 PM CDT HEMOGLOBIN A1C Routine 03/07/2024 4:01 AM CDT LIPID PANEL Timed 03/06/2024 6:33 PM CDT COLONOSCOPY 05/01/2019 3:34 PM CDT HEPATITIS PANEL, ACUTE Routine 08/20/2018 6:13 AM CDT from Last 3 Months or Most Recently Relevant to Health Maintenance Results * eGFR (07/30/2024 5:42 PM CDT) eGFR >90 >=60 mL/min/1. 73 m2 Comment: Interpretive Data Reference Interval Normal >/= 90 mL/min/1.73m2 Mildly decreased* 60 - 89 mL/min/1.73m2 Mildly to moderately decreased 45 - 59 mL/min/1.73m2 Moderately to severely decreased 30 - 44 mL/min/1.73m2 Severely decreased 15 - 29 mL/min/1.73m2 Kidney Failure < 15 mL/min/1.73m2 *Relative to young adult level Estimated glomerular filtration rate is determined by the 2020 CKD-EPI equation recommended by the National Kidney Foundation (A Unifying Approach to GFR Estimation: Recommendations of the NKF-ASK Task Force on Reassessing the Inclusion of Race in Diagnosing Kidney Disease, JASN 2020). The CKD-EPI equation should not be used for patients with unstable renal function and has not been validated in children and those over 70. Current interpretive data was last reviewed 2021. Testing performed by: [facility], [address] [place] [address]., [address] Blood 07/30/2024 5:42 PM CDT 07/30/2024 5:58 PM CDT us Brittaney Coffman MD LAB BLOOD ORDERABLES Fin al Result [facility] [address] [facility] Department [place] [address] * Hemoglobin A1c (03/07/2024 4:01 AM CDT) Hgb A1C 5.5 4.0 - 5.6 % Comment:Testing performed by : [address] [address] Estimated Average Glucose 111 mg/dL TYLER Comment: The ADA recommends reporting an estimated Average Glucose (eAG) with all Hemoglobin A1c results using the equation derived from a study of 507 normal and diabetic adults. Minority populations were underrepresented and children were not included. (Diabetes Care 31:9589-3633, 2008). The eAG is not equivalent to a fasting glucose. Testing performed by: [address] [address] Blood 03/07/2024 4:01 AM CDT 03/07/2024 4:10 AM CDT Ricardo Mendoza MD LAB BLOOD ORDERABLES Final Result [facility] [address] [facility] Department [place] [address] * (ABNORMAL) Lipid panel (03/06/2024 6:33 PM CDT) Cholesterol 177 30 - 199 mg/dL Comment: Interpretive Data Ages < or = 19 years Acceptable: <170 mg/dL Borderline high: 170-199 mg/dL High: >or= 200 mg/dL Ages > or = 20 years Desirable: <200 mg/dL Borderline high: 200-239 mg/dL High: >or= 240 mg/dL Literature References: 1. Expert Panel on Integrated Guidelines for Cardiovascular Health and Risk Reduction in Children and Adolescents. Pediatrics 2011;128:S213 2. NCEP Expert Panel. Circulation 2004;110:227 Current Interpretive Data was last revised on 2018. Testing performed by: [address] [address] Triglycerides 146 <=149 mg/dL TYLER Comment: Interpretive Data Ages < or = 9 years Acceptable: <75 mg/dL Borderline high: 75-99 mg/dL High: >or= 100 mg/dL Ages 10 to 20 years Acceptable: <90 mg/dL Borderline high: 90-129 mg/dL High: >or= 130 mg/dL Ages > or = 20 years Desirable: <150 mg/dL Borderline high: 150-199 mg/dL High: 200-499 mg/dL Very high: >or= 499 mg/dL Literature References: 1. Expert Panel on Integrated Guidelines for Cardiovascular Health and Risk Reduction in Children and Adolescents. Pediatrics 2011;128:S213 2. NCEP Expert Panel. Circulation 2004;110:227 Current Interpretive Data was last revised on 2018. Testing performed by: [address] [place] [address] HDL 38(L) >=40 mg/dL TYLER Comment: Interpretive Data Ages < or = 19 years Acceptable: >45 mg/dL Borderline low: 40-45 mg/dL Low: <40 mg/dL Ages > or = 20 years Desirable: >or= 60 mg/dL Low: <40 mg/dL Literature References: 1. Expert Panel on Integrated Guidelines for Cardiovascular Health and Risk Reduction in Children and Adolescents. Pediatrics 2011;128:S213 2. NCEP Expert Panel. Circulation 2004;110:227 Current Interpretive Data was last revised on 2018. Testing performed by: [address] [address] LDL, calculated 110 <=129 mg/dL TYLER Comment: Interpretive Data Ages < or = 19 years Acceptable: <110 mg/dL Borderline high: 110-129 mg/dL High: >or= 130 mg/dL Ages > or = 20 years Optimal: <100 mg/dL Near optimal: 100-129 mg/dL Borderline high: 130-159 mg/dL High: >160 mg/dL Literature References: 1. Expert Panel on Integrated Guidelines for Cardiovascular Health and Risk Reduction in Children and Adolescents. Pediatrics 2011;128:S213 2. NCEP Expert Panel. Circulation 2004;110:227 Current Interpretive Data was last revised on 2018. Testing performed by: [address] [address] Non-HDL Cholesterol 139 mg/dL TYLER Comment: Interpretive Data Ages < or = 19 years Acceptable: <120 mg/dL Borderline high: 120-144 mg/dL High: >145 mg/dL Ages > or = 20 years When triglycerides are >200 mg/dL, Non-HDL cholesterol is a secondary target of therapy with treatment goals that are 30 mg/dL greater than the LDL cholesterol target. Literature References: 1. Expert Panel on Integrated Guidelines for Cardiovascular Health and Risk Reduction in Children and Adolescents. Pediatrics 2011;128:S213 2. NCEP Expert Panel. Circulation 2004;110:227 Current Interpretive Data was last revised on 2018. Testing performed by: [address] [address] Chol/HDL ratio 5 TYLER Comment:Testing performed by : [facility], [address] [place] [address]., [address] Blood 03/06/2024 6:33 PM CDT 03/06/2024 6:44 PM CDT Narrative TYLER LÓPEZ - 03/06/2024 7:29 PM CDT This lipid panel was automatically ordered due to a significant change in Troponin. The dietary status of the patient at the collection time should be correlated with the lipid results. us Oleg Pierce DO LAB BLOOD ORDERABLES Final Res ult [facility] [address] [facility] Department [place] [address] * COLONOSCOPY (05/01/2019 3:34 PM CDT) Anatomical Region Laterality Modality Other Narrative Procedure Note Juan Manuel Rick MD - 05/01/2019 3:34 PM CDT [facility] Patient Name: Zander Cain Procedure Date: 05/01/2019 3:34 PM Date of : 1975 Admit Type: Outpatient Age: 43 Gender: Male Attending MD: Juan Manuel Rick M.D. Room: [facility] ENDOSCOPY ROOM 5 Note Status: Finalized Procedure: Colonoscopy Indications: Suspected Crohn's disease of the colon Referring MD: Providers: Juan Manuel Rick M.D. Medicines: Monitored Anesthesia Care Complications: No immediate complications. Estimated blood loss: Minimal. Estimated Blood Loss: Estimated blood loss was minimal. Procedure: Pre-Anesthesia Assessment: - Immediately prior to administration ofmedications, the patient was re-assessed for adequacy to receive sedatives. - The risks and benefits of the procedure and the sedation options and risks were discussed with the patient. All questions were answered and informed consent was obtained. The benefits, risks and alternatives of theprocedure and sedation were discussed and informed consent was obtained. All questions were answered. Please referto the signed informed consent document in the medical record. The scope was passed under direct vision.The [id number] endoscope was introduced throughthe anus and advanced to the cecum, identified by appendiceal orifice and ileocecal valve. The colonoscopy was performed without difficulty. The patient tolerated the procedure well. The quality of the bowel preparation was excellent. The bowel preparation used was MoviPrep. Bowel prep was administered using a split dose. Findings: The perianal and digital rectal examinations were normal. Normal mucosa was found in the entire colon. Biopsies were taken witha cold forceps for histology. The retroflexed view of the distal rectum and anal verge was normaland showed no anal or rectal abnormalities. Impression: - Normal mucosa in the entire examined colon.Biopsied. - The distal rectum and anal verge are normal on retroflexion view. Recommendation: - Await pathology results. Electronically signed by Juan Manuel Rick MD Juan Manuel Rick M.D. 05/01/2019 4:25:22 PM . Number of Addenda: 0 Note Initiated On: 05/01/2019 3:34 PM Recognized by the [place] [employer] for promoting quality in endoscopy us Juan Manuel Rick MD ENDOSCOPY PROCEDURES Final Re sult * Hepatitis panel, acute (08/20/2018 6:13 AM CDT) HepBsAg NONREACT NONREACTIVE Comment: Siemens CentaurXP using NEETA (chemiluminescent immunoassay) technology. NONREACTIVE: IgM antibodies to Hepatitis B Surface antigen not detected. REACTIVE: IgM antibodies to Hepatitis B Surface antigen detected. Reactive results will be confirmed by neutralization testing. HBsAb qn < 3.10 mIU/mL Comment: Siemens CentaurXP using NEETA (chemiluminescent immunoassay) technology. 9.99 IU/L or less.....NONREACTIVE: IgM antibodies to Hepatitis B Surface antibody are not detected. 10.00 IU/L or greater..REACTIVE: IgM antibodies to Hepatitis B Surface antibody are detected. Hep B core IgM NONREACT NONREACTIVE 8 12:52 PM [facility] HISTORICAL RESULTS Comment: Siemens CentaurXP using NEETA (chemiluminescent immunoassay) technology. NONREACTIVE: IgM antibodies to Hepatitis B Core antigen not detected. EQUIVOCAL: IgM antibodies to Hepatitis B Core antigen may or may not be present. Obtain a new specimen and retest. REACTIVE: IgM antibodies to Hepatitis B Core antigen detected. Hep A IgM NONREACT NONREACTIVE Comment: Siemens CentaurXP using NEETA (chemiluminescent immunoassay) technology. NONREACTIVE: IgM antibodies to Hepatitis A not detected. This does not exclude possibility of exposure to Hepatitis A or early acute infection. EQUIVOCAL:IgM antibodies to Hepatitis A may or may not be present. Suggest recollection and retest. REACTIVE: Antibodies to Hepatitis A detected. Hep C Ab NONREACT NONREACTIVE Comment: Siemens CentaurXP using NEETA (chemiluminescent immunoassay) technology. NONREACTIVE: Antibodies to Hepatitis C not detected. This does not exclude early acute Hepatitis C infection, possibility of exposure to Hepatitis C, antibodies below detection limit, or to lack of antibody reactivity to the antigen used in this assay. EQUIVOCAL: Antibodies to Hepatitis C may or may not be present. Sample to be confirmed by real-time PCR method. REACTIVE: Antibodies to Hepatitis C detected.Sample to be confirmed by real-time PCR method. 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 * Full Code (Latest Code Status on File) Date Activated Date Inactivated Comments 04/08/2024 5:59 PM 04/10/2024 8:44 PM * Full Code Date Activated Date Inactivated Comments 03/10/2024 2:08 PM 03/17/2024 4:30 PM * Full Code Date Activated Date Inactivated Comments 03/06/2024 11:31 PM 03/10/2024 2:08 PM * Full Code Date Activated Date Inactivated Comments 07/20/2022 6:32 PM 07/26/2022 8:40 PM * Full Code Date Activated Date Inactivated Comments 07/20/2022 6:32 PM 07/20/2022 6:32 PM Care Teams Button Spindler Relationship Specialty Start Date End Date Isauro Johnson MD PCP - General Strand And Binder Controller 07/26/22 Cody Andrew MD Consulting Physician Infectious Diseases 10/09/21 Miscellaneous, Not In File 10/09/21
--- OUTSIDE RECORDS SUMMARY | 2025-02-09 18:21 | XMS_ITS | Clinical Summary ---
Author Organization [facility] Address [address] [place] [address] Care Team Providers Care Working Foreman Name Role Phone Unavailable Primary Care Provider Unavailabl e Allergies No known active allergies Medications doxycycline hyclate (VIBRAMYCIN) 100 MG capsule Take 1 capsule (100 mg total) by mouth 2 (two) times daily. 04/06/2024 Active clopidogrel (PLAVIX) 75 MG tablet Take 1 tablet (75 mg total) by mouth daily. 03/18/2024 Active escitalopram (LEXAPRO) 10 MG tablet Take 1 tablet (10 mg total) by mouth daily. Active ezetimibe (ZETIA) 10 MG tablet Take 1 tablet (10 mg total) by mouth daily. 03/17/2024 Active gabapentin (NEURONTIN) 300 MG capsule Take 1 capsule (300 mg total) by mouth 3 (three) times daily as needed. 03/17/2024 Active HYDROcodone-renetta taminophen (NORCO) 7.5-325 MG tablet Take 1 tablet by mouth 4 (four) times daily as needed for Pain. Active metoprolol tartrate (LOPRESSOR) 25 MG tablet Take 1 tablet (25 mg total) by mouth 2 (two) times daily. 03/17/2024 Active lisinopril (PRINIVIL) 20 MG tablet Take 1 tablet (20 mg total) by mouth daily. Active amLODIPine (NORVASC) 10 MG tablet Take 1 tablet (10 mg total) by mouth daily. 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 Gender Identity Not on file Sexual Orientation Not on file Last Filed Vital Signs Vital Sign Reading Time Taken Comments Blood Pressure 172/105 04/08/2024 9:07 AM CDT Pulse 86 04/08/2024 9:07 AM CDT Temperature 36.5 C (97.7 F) 04/08/2024 9:07 AM CDT Respiratory Rate 12 04/08/2024 9:07 AM CDT Oxygen Saturation 98% 04/08/2024 9:07 AM CDT Inhaled Oxygen Concentration - - Weight 86.2 kg (190 lb) 04/08/2024 9:07 AM CDT Height 167.6 cm (5' 6 ) 04/08/2024 9:07 AM CDT Body Mass Index 30.67 04/08/2024 9:07 AM CDT Plan of Treatment Health Maintenance Due Date Last Done Comments Colorectal Cancer Screening Colonoscopy (10 Years) 1975 Annual Physical 1980 Hepatitis C 1995 DTaP, Tdap and Td Vaccines ( 1 - Tdap) 1996 Hepatitis B Vaccines (1 of 3 - 19+ 3-dose series) 1996 COVID-19 Vaccine ( - 2023-2 5 season) 2024 Meningococcal B Vaccine Aged Out No l onger eligible based on patient's age to complete this topic Meningococcal Vaccine Aged Out No ulices robert eligible based on patient's age to complete this topic Pneumococcal Vaccine: Pediat rics (0 to 5 Years) and At-Risk Patients (6 to 49 Years) Aged Out No longer eligible b ased on patient's age to complete this topic RSV Immunizations Under 20 Months Aged Out No longer eligible based on patient's age to complete this topic Additional Health Concerns Infection Onset Date Last Indicated MRSA Comment:04/08/24 right wrist ([place]) 04/08/2024 04/08/2024 [facility]
--- OUTSIDE RECORDS SUMMARY | 2025-02-09 18:21 | XMS_ITS | Clinical Summary ---
Author Organization [facility] [address] Address [address] [place] [address] Care Team Providers Care Band Director Name Role Phone Cody Andrew MD Unavailable [phone] Miscellaneous, Not In File Unavailable Unava ilable [...] mg tabletIndications :Dyslipidemia,Cor onary artery disease involving menominee coronary artery of menominee heart without angina pectoris Take 1 tablet (80 mg total) by mouth nightly 90 tablet 3 4 04/29/20 25 Active amLODIPine (NORVASC) 10 mg tabletIndications :Uncontrolled hypertension Take 1 tablet (10 mg total) by mouth daily 90 tablet 3 4 04/29/20 25 Active clopidogreL (PLAVIX) 75 mg tabletIndications :Coronary artery disease involving menominee coronary artery of menominee heart without angina pectoris Take 1 tablet (75 mg total) by mouth daily 90 tablet 3 4 04/29/20 25 Active aspirin 81 mg enteric coated tabletIndications :Coronary artery disease involving menominee coronary artery of menominee heart without angina pectoris Take 1 tablet (81 mg total) by mouth daily 90 tablet 3 4 04/29/20 25 Active ezetimibe (ZETIA) 10 mg tabletIndications :Coronary artery disease involving menominee coronary artery of menominee heart without angina pectoris Take 1 tablet (10 mg total) by mouth nightly 90 tablet 3 4 04/29/20 25 Active metoprolol tartrate (LOPRESSOR) 25 mg immediate release tabletIndications :Coronary artery disease involving menominee coronary artery of menominee heart without angina pectoris,Essentia l hypertension Take [...] wishes to f/u with Dr. Andrew in [place] - chat message sent to him. Assessment [...] 12/24/2019 Assessment & Plan (12/25/2019 1:27 PM COPPER MINER): #Spontaneous dental abscess, symptomatic since Saturday (12/21), [...] skin lesions Coronary artery disease invo lving menominee coronary artery of menominee heart without angina pectoris 05/02/2019 Assessment & [...] 07/20pm Assessment & Plan (12/25/2019 1:25 PM COPPER MINER): #History of NSTEMI in 10/2019. LHC at [place] (10/2019) revealed a totally occluded proximal RCA, [...] Plan (05/02/2019 8:22 AM CDT): History of AR in 2013 and 2015 s/p stent placement. --Continue home aspirin, ticagrelor, atorvastatin. Hyperlipidemia 05/02/2019 Assessment & Plan (07/24/2022 5:44 PM CDT): Cont statin Assessment & Plan (07/23/2022 1:55 PM CDT): Cont statin Assessment & Plan (07/22/2022 3:57 PM CDT): Cont statin Assessment & Plan (12/24/2019 8:48 PM COPPER MINER): #Chronic with history of CAD. - Continue [...] lisinopril Assessment & Plan (12/24/2019 8:49 PM COPPER MINER): #Chronic. - Continue home lisinopril, metoprolol as [...] (03/20/2019): Added automatically from request for surgery [id number] High risk medication use 12/12/2018 Psoriatic arthritis 03/27/2018 Assessment & Plan (12/24/2019 8:40 PM COPPER MINER): #Follows with Rheumatology, last seen 06/2019, managed with Enbrel 50 mg weekly. - Continue to monitor. Uveitis 03/27/2018 Behcet's syndrome ([facility]) 03/26/2018 Assessment & Plan (12/24/2019 8:39 PM COPPER MINER): #Follows with Rheumatology, last seen 06/2019. He [...] --Treatment of MAGI as above. Aspiration pneumonia ([facility]) 05/02/2019 10/03/2021 Assessment & Plan (05/04/2019 8:31 [...] Preservative Free, Intramuscular 11/30/2021 Influenza, Unspecified 07/21/2019 Surgical History Surgery Date Site/Laterality Comments FRACTURE SURGERY left wrist CARDIAC CATHETERIZATION CARDIAC STENT PLACEMENT 10/21/2013 - 10/20/2014 KNEE ARTHROSCOPY Left VASCULAR SURGERY CORONARY ARTERY BYPASS GRAFT 03/10/2024 CABG x 3-BIMA, right radial artery Medical History Medical History Date Comments Coronary artery disease Hypertension Kidney stones HLD (hyperlipidemia) AR, old Behcet's syndrome (HCC) Psoriasis Anxiety Gout Arthritis Family History Medical History Relation Name Comments Heart attack Father No Known Problems Mother Colon cancer Neg Hx Relation Name Status Comments Father Mother Social History Tobacco Use Types Packs/Day Years Used Date Smoking Tobacco: Former Cigarettes 2 8 Smokeless Tobacco: Former Tobacco Cessation:Counseling Given: Not Answered Alcohol Use Standard Drinks/Week Comments Yes 0 (1 standard drink = 0.6 oz pur e alcohol) Rarely [employer] Utilities Answer Date Recorded In the past 12 months has th e electric, gas, oil, or water company threatened to shut off services in your [...] week 04/09/2024 How often do you attend chur ch or taoism services? Never 04/09/2024 Do you belong to any clubs o r organizations such as jew groups, unions, fraternal or athletic groups, or [...] any time in the past 12 m [facility], were you homeless or living in a nursing home (including now)? No 04/09/2024 Personal Safety Answer Date Recorded Have you ever been in or are you currently in a harmful physical or emotional relationship or is someone making you feel afraid or unsafe? 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 Male 11:32 AM COPPER MINER Gender Identity Not on file Sexual Orientation Not on file Occupation Industry Job Start Date Job End Date [employer] Not on file Not on file Not on file Obstetrics History Last Filed Vital Signs Vital Sign Reading [...] 07/30/2024 5:36 PM CDT Plan of Treatment Health Maintenance Due Date Last Done Comments Albumin Creatinine Ratio, Urine 1975 Depression Screening 1975 Dilated Eye Exam 1975 Foot Exam 1975 DTaP/Tdap/Td Vaccine (1 - Tdap) 1988 Hepatitis B Screening 1995 Regular Well Visit/Exam 18-64 1995 Pneumococcal vaccine <65 (1 of 2 - PCV) 1996 Influenza Vaccine (#1) 2024 , 07/21/2019, 08/20/2018, Additional history exists Hemoglobin A1C 09/07/2024 03/07/2024, 09/20, 09/21/2019, Additional history exists Lipid Panel 03/06/2025 03/06/2024, 09/20, 09/20/2019, Additional history exists eGFR 07/30/2025 07/30/2024, 03/22, 04/10/2024, Additional history exists Colon Cancer Screening-Colonoscopy 05/01/20292018 Hepatitis C Screening Completed 08/20/2018 Medical Devices Implanted Type Area Robot Technician Device Identifier Shelf Expiration Date Model / Serial / Lot Cardiac Stent Implanted:10/21 (Quantity not on file) Stent Heart Hy-Drive Escobar Distal Marker Radiology Stainless Steel Sterile Amgm-D - [id number] Implanted:Qty: 1 on 03/10/2024 by Yinka Palmer MD at [facility] N/A: Heart [employer] [id number] 09/20/2026 AMGM-D / / [id number] Procedures Procedure Name Priority Date/Time Associated Diagnosis [...] was last reviewed 2021. Testing performed by: [address] [address] Blood 07/30/2024 5:42 PM CDT 07/30/2024 5:58 PM CDT Brittaney Coffman MD LAB BLOOD ORDERABLES Fin al Result Performing Organization Address [facility] Co de Phone Number [place] [id number] [facility] [place] [address] * Hemoglobin A1c (03/07/2024 4:01 AM CDT) [facility] Hgb A1C 5.5 4.0 - 5.6 % Comment:Testing performed by : [address] [address] Estimated Average Glucose 111 mg/dL TYLER Comment: The ADA recommends reporting an estimated Average Glucose (eAG) with all Hemoglobin A1c results using the equation derived from a study of 507 normal and diabetic adults. Minority populations were underrepresented and children were not included. (Diabetes Care 31:2703-4589, 2008). The eAG is not equivalent to a fasting glucose. Testing performed by: [address] [address] Blood 03/07/2024 4:0 1 AM CDT 03/07/2024 4:10 AM CDT us Ricardo Mendoza MD LAB BLOOD ORDERABLES Final Result Performing Organization Address [facility] Co de Phone Number [facility] [address] [facility] [place] [address] * (ABNORMAL) Lipid panel (03/06/2024 6:33 PM [...] last revised on 2018. Testing performed by: [address] [address] Triglycerides 146 <=149 mg/dL TYLER Comment: Interpretive [...] last revised on 2018. Testing performed by: [address] [address] HDL 38(L) >=40 mg/dL TYLER Comment: Interpretive [...] last revised on 2018. Testing performed by: [address] [address] LDL, calculated 110 <=129 mg/dL TYLER Comment: [...] last revised on 2018. Testing performed by: [address] [address] Non-HDL Cholesterol 139 mg/dL TYLER Comment: Interpretive [...] last revised on 2018. Testing performed by: [address] [address] Chol/HDL ratio 5 TYLER Comment:Testing performed by : [address] [address] Blood 03/06/2024 6:33 PM CDT 03/06/2024 6:44 PM CDT Narrative TYLER LÓPEZ - 03/06/2024 7:29 PM CDT This lipid panel was automatically ordered due to a significant change in Troponin. The dietary status of the patient at the collection time should be correlated with the lipid results. us Oleg Pierce DO LAB BLOOD ORDERABLES Final Res ult [facility] [address] [place] [address] * COLONOSCOPY (05/01/2019 3:34 PM CDT) Anatomical Region Laterality Modality Other Narrative Procedure Note Juan Manuel Rick MD - 05/01/2019 3:34 PM CDT [facility] Patient Name: Zander Cain Procedure Date: 05/01/2019 3:34 PM Date of : 1975 Admit Type: Outpatient Age: 43 Gender: Male Attending MD: Juan Manuel Rick M.D. Room: [facility] ENDOSCOPY ROOM 5 Note Status: Finalized Procedure: [...] The scope was passed under direct vision.The CF [id number] endoscope was introduced throughthe anus and [...] On: 05/01/2019 3:34 PM Recognized by the [place] [employer] for promoting quality in endoscopy us Juan Manuel Rick MD ENDOSCOPY PROCEDURES Final Re sult * Hepatitis panel, acute (08/20/2018 6:13 AM CDT) HepBsAg NONREACT NONREACTIVE 08/20/2018 12:27 PM [facility] [employer] HISTORICAL RESULTS Comment: Siemens ParkplatzkingaurXP using NEETA (chemiluminescent immunoassay) technology. NONREACTIVE: IgM antibodies to Hepatitis B Surface antigen not detected. REACTIVE: IgM antibodies to Hepatitis B Surface antigen detected. Reactive results will be confirmed by neutralization testing. HBsAb qn < 3.10 mIU/mL 08/20/2018 12:17 PM [facility] HISTORICAL RESULTS Comment: Siemens CentaurXP using NEETA (chemiluminescent immunoassay) technology. 9.99 IU/L or less.....NONREACTIVE: IgM antibodies to Hepatitis B Surface antibody are not detected. 10.00 IU/L or greater..REACTIVE: IgM antibodies to Hepatitis B Surface antibody are detected. Hep B core IgM NONREACT NONREACTIVE 8 12:52 PM CDT [facility] HISTORICAL RESULTS Comment: Siemens CentaurXP using NEETA (chemiluminescent immunoassay) technology. NONREACTIVE: IgM antibodies to Hepatitis B Core antigen not detected. EQUIVOCAL: IgM antibodies to Hepatitis B Core antigen may or may not be present. Obtain a new specimen and retest. REACTIVE: IgM antibodies to Hepatitis B Core antigen detected. Hep A IgM NONREACT NONREACTIVE 08/20/2018 12:54 PM T [facility] HISTORICAL RESULTS Comment: Siemens CentaurXP using NEETA (chemiluminescent immunoassay) technology. NONREACTIVE: IgM antibodies to Hepatitis A not detected. This does not exclude possibility of exposure to Hepatitis A or early acute infection. EQUIVOCAL:IgM antibodies to Hepatitis A may or may not be present. Suggest recollection and retest. REACTIVE: Antibodies to Hepatitis A detected. Hep C Ab NONREACT NONREACTIVE 08/20/2018 12:51 PM T [facility] HISTORICAL RESULTS Comment: Siemens CentaurXP using NEETA [...] MICROBIOLOGY - GENERAL OR DERABLES Final Result [facility] HISTORICAL RESULTS from Last 3 Months or Most Recently Relevant to Health Maintenance Insurance [facility] Advance Directives For more information, please contact: [phone] Documents on File Type Date Recorded Patient Mail List Librarian Expl anation ADVANCE DIRECTIVE 03/09/2024 12:26 PM 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
--- OUTSIDE RECORDS SUMMARY | 2025-02-09 18:21 | XMS_ITS | Clinical Summary ---
Author Organization [facility] Address [address] [place] [address] Phone Care Team Providers Care Golf Ball Winder Name Role Phone Isauro Johnson MD Primary Care Provider Allergies No known active allergies Medications buPROPion (WELLBUTRIN) 150 MG XL tablet Take 150 mg by mouth. 12/25/2019 Active escitalopram (LEXAPRO) 20 MG Tablet Take 20 mg by mouth. Active HYDROcodone-acet aminophen (NORCO) 7.5-325 MG Tablet TAKE 1 TABLET BY MOUTH THREE TIMES A DAY 05/19/2020 Active lisinopril (PRINIVIL, ZESTRIL) 40 MG Tablet 05/19/2020 Active Ticagrelor (BRILINTA PO) Take by mouth. Active Etanercept (ENBREL) 50 MG/ML Solution Prefilled Syringe INJECT 50 MG (1 ML) UNDER THE SKIN ONCE A WEEK 02/22/2020 Active aspirin 81 MG Chewable Tablet Take 81 mg by mouth. Active atorvastatin (LIPITOR) 40 MG Tablet Take 40 mg by mouth daily. 03/18/2020 Active amoxicillin-clav ulanate (AUGMENTIN) 875-125 MG TabletIndication s:Strep throat Take 1 Tab by mouth 2 times daily. 20 Tab 05/27/2020 Active Active Problems Problem Noted Date Diagnosed Date Coronary artery disease 05/27/2020 Social History Tobacco Use Types Packs/Day Years Used Date Smoking Tobacco: Every Day Cigarettes Smokeless Tobacco: Never Sex and Gender Information Value Date Recorded Sex Assigned at Not on file Legal Sex Male 7:34 AM CDT Gender Identity Not on file Sexual Orientation Not on file Last Filed Vital Signs Vital Sign Reading Time Taken Comments Blood Pressure 144/80 05/27/2020 10:27 AM CDT Pulse 97 05/27/2020 10:27 AM CDT Temperature 37.1 C (98.8 F) 05/27/2020 10:27 AM CDT Respiratory Rate 20 05/27/2020 10:27 AM CDT Oxygen Saturation 97% 05/27/2020 10:27 AM CDT Inhaled Oxygen Concentration - - Weight 86.2 kg (190 lb) 05/27/2020 10:27 AM CDT Height - - Body Mass Index - - Plan of Treatment Health Maintenance Due Date Last Done Comments Hepatitis C Virus (HCV) Screening 1975 TdaP Immunization 1977 SARS-COV-2 Immunization (#1) 1982 Hepatitis B Immunization (1 of 3 - 19+ 3-dose series) 1996 Colonoscopy 2022 Colorectal Cancer Screening 2022 Influenza Immunization (#1) 2024 Respiratory Syncytial Virus (RSV) Immunization (Adult) (1 - 1-dose 75+ series) 2052 Meningococcal Immunization (ACWY) Aged Out No longer eligible based on patient's age to complete this topic Pneumococcal Immunization Combined Aged Out No longer eligible based on patient's age to complete this topic Rotavirus Immunization Aged Out No lo nger eligible based on patient's age to complete this topic Care Teams Golf Ball Winder Relationship Specialty Start Date End Date Isauro Johnson MD [address] [facility] [address] [place] [address] PCP - General Internal Medicine 05/27/20
--- OUTSIDE RECORDS SUMMARY | 2025-02-09 18:21 | XMS_ITS | Encounter Summary ---
Author Organization [facility] Care Team Providers Care Mincing Machine Operator Name Role Phone Isauro Johnson MD Primary Care Provider Cody Andrew MD Unavailable [phone] Miscellaneous, Not In File Unavailable Unava ilable Isauro Johnson MD Primary Care Provider Encounter Details Date Type Department Care Team (Latest Contact Info) Description 04/12/2016 Orders Only [facility]INCON[facility] ProviderHilary MD [address] [place] [id number] Social History Tobacco Use Types Packs/Day Years Used Date Smoking Tobacco: Never Assessed Sex and Gender Information Value Date Recorded Sex Assigned at Not on file Legal Sex Male 11:32 AM [employer] Gender Identity Not on file Sexual Orientation Not on file documented as of this encounter Plan of Treatment Not on file documented as of this encounter Procedures Procedure Name Priority Date/Time Associated Diagnosis Comments CARDIOLOGY REPORT 04/13/2016 12: 00 AM CDT CARDIOLOGY REPORT 04/13/2016 12: 00 AM CDT documented in this encounter Results * CARDIOLOGY REPORT (04/13/2016 12:00 AM CDT) Anatomical Region Laterality Modality Other Narrative 04/13/2016 12:00 AM CDT Ordered by an unspecified provider. Historical Provider [facility] CASSY MORIN Final Result * CARDIOLOGY REPORT (04/13/2016 12:00 AM CDT) Anatomical Region Laterality Modality Other Narrative 04/13/2016 12:00 AM CDT Ordered by an unspecified provider. us Historical Provider [facility] PROCE PATIENCE Final Result documented in this encounter Visit [...] CDT MRSA 03/08/2024 04/09/2024 10/06/2024 3:05 AM [employer] documented as of this encounter Care Teams Mincing Machine Operator Relationship Specialty Start Date End Date Isauro Johnson MD PCP - General Care Transitions Manager 05/21/17 07/25/22 Isauro Johnson MD PCP - General Care Transitions Manager 07/26/22 Cody Andrew MD Consulting Physician Infectious Diseases 10/09/21 Miscellaneous, Not In File 10/09/21 documented as of this encounter
--- OUTSIDE RECORDS SUMMARY | 2025-02-09 18:26 | XMS_ITS | Continuity of Care Document ---
Author Organization [facility] Address [address] [facility] [address] [facility] [address] [place] [address] Phone Care Team Providers Care General Service Officer Name Role Phone Nitin Gorman MD Unavailable [...] Providers Copied on Encounter [facility] , [address] [facility], [place], [address], [place] tel:[phone] [facility] [place] No Information 7 Sherif Taveras. [address] [facility], [facility], [place], [id number] . tel:[phone] [facility] , [address], [place], [address], [place] tel:[phone] [facility] O Erika Carpal tunnel syndrome of left wristCervical spinal stenosis 7 Sherif Taveras. [address] [place], [place], [id number] . tel:[phone] [facility] , [address], [place], [address], [place] tel:[phone] [facility] [place] Pain in left wrist 6 Sherif Nitin. [address] [place], [place], [id number] . tel:[phone] Family History Family Member Type Diagnosis Age [...]
--- OUTSIDE RECORDS SUMMARY | 2025-02-09 18:26 | XMS_ITS | Continuity of Care Document ---
Author Organization [facility] Address [address] [place] [id number] Phone Care Team Providers Care Telecommunications Line Installer Name Role Phone Katie MS, OTR/L, CHT, [...] Date Provider Providers Copied on Encounter [facility], [address] [facility] [address] [place] [address], [id number], tel:[phone] [facility] No Information Roman-1 8-201 6 [place]. [address] [place] [address], [address], [place], [address], [place]. tel:[phone], [place], [place], [id number], tel:[phone] [place] No Information May-2 3-201 6 [place]. [address] [place] [address], [address], [place], [address], [place]. tel:[phone] Referring Provider: Yusuf Liang, [address] [facility] [address], [place], [address]. tel:[phone], [id number], tel:[phone] [place] No Information February-1 6-201 6 [place]. [address] [place] [address], [address], [place], [address], [place]. tel:[phone] Referring Provider: Yusuf Liang, [address] [facility] [address], [place], [address]. tel:[phone], [id number], tel:[phone] [place] No Information May-0 4-201 6 [place]. [address] [place] [address], [address], [place], [address], [place]. tel:[phone] Referring Provider: Yusuf Liang, [address] [facility] [address], [place], [address]. tel:[phone], [id number], tel:[phone] [place] No Information May-0 2-201 6 [place]child [place]. [address] [place] [address], [address], [place], [place], [facility], [place]. tel:[phone] Referring Provider: Yusuf Liang, [address] [facility] [address], [place], [address]. tel:[phone] [facility] [address] [place] [address] [address], [place], [place], [id number], [place] tel:[phone] [place] No Information 6 [place]. [address] [place] [address], [address], [place], [address], [place]. tel:[phone] Referring Provider: Yusuf Liang, [address] [facility] [address], [place], [address]. tel:[phone] [facility] [address] [place] [address], [place], [place], [id number], [place] tel:[phone] [place] Unsp fx the low end left rad, subs for clos fx w routn heal 6 Hauschild [place]. [address] [place] [address], [address], [place], [address], [place]. tel:[phone] Referring Provider: Yusuf Liang, [address] [facility] [address], [place], [address]. tel:[phone], [id number], [place] tel:[phone] [place] No Information 6 [place]. [address] [place] [address], [address], [place], [address], [place]. tel:[phone] Referring Provider: Yusuf Liang, [address] [facility] [address], [place], [address]. tel:[phone] [facility] [address] [facility] [address], [place], [place], [id number], tel:[phone] [facility] No Information 6 [place]. [address] [place] [address], [address], [place], [address], [place]. tel:[phone] Referring Provider: Yusuf Liang, [address] [facility] [address], [place], [address]. tel:[phone] [address], [place], [place], [id number], [place] tel:[phone] [place] No Information Spencer-0 6-201 6 [place]child [place]. [address] [place] [address], [address], [place], [address], [place]. tel:[phone] Referring Provider: Yusuf Liang, [address] [facility] [address], [place], [address]. tel:[phone] [address] [address], [place], [place], [id number], [place] tel:[phone] [place] Muscle weakness (generalized) Oct-0 4-201 6 [place]. [address] [place] [address], [address], [place], [address], [place]. tel:[phone] Referring Provider: Yusuf Liang, [address] [facility] [address], [place], [address]. tel:[phone] [address] [address], [place], [place], [id number], [place] tel:[phone] [place] No Information Dec-3 0-201 5 [place]. [address] [place] [address], [address], [place], [address], [place]. tel:[phone] Referring Provider: Yusuf Liang, [address] [facility] [address], [place], [address]. tel:[phone] [address], [place], [place], [id number], [place] tel:[phone] [place] No Information Dec-2 3-201 5 [place]. [address] [place] [address], [address], [place], [place], [facility], [place]. tel:[phone] Referring Provider: Yusuf Liang, [address] [facility] [address], [place], [address]. tel:[phone] [facility], [address] [place] [address] [address], [place], [place], [id number], tel:[phone] [place] No Information Dec-2 2-201 5 Hauschild [place]. [address] [place] [address], [address], [place], [address], [place]. tel:[phone] Referring Provider: Yusuf Liang, [address] [facility] [address], [place], [address]. tel:[phone], [id number], tel:[phone] [place] No Information Dec-2 1-201 5 [place]. [address] [place] [address], [address], [place], [facility], [place]. tel:[phone] Referring Provider: Yusuf Liang, [address] [facility] [address], [place], [address]. tel:[phone], [id number], tel:[phone] [place] No Information Dec-1 6-201 5 [place]. [address] [place] [address], [address], [place], [facility], [place]. tel:[phone] Referring Provider: Yusuf Liang, [address] [facility] [address], [place], [address]. tel:[phone], [id number], tel:[phone] [place] No Information Dec-1 4-201 5 [place]. [address] [place] [address], [address], [place], [address], [place]. tel:[phone] Referring Provider: Yusuf Liang, [address] [facility] [address], [place], [address]. tel:[phone] [facility], [address], [id number], tel:[phone] [place] No Information Dec-0 5 Amandastuarternestina Arias. [address] [facility] [address], [address], [place]. tel:[phone] Referring Provider: Yusuf Liang, [address] [facility] [address], [place], [address]. tel:[phone] [facility], [address] [address], [place], [place], [id number], tel:[phone] [place] Pain in left wristStiffness of left wrist, not elsewhere classifiedLocal ized edemaOther specified postprocedural statesPersonal history of (healed) traumatic fracture Dec-0 5 Tessyjonny Field. [address] [facility], [facility] [address], [place], [address], [place]. tel:[phone] Referring Provider: Yusuf Liang, [address] [facility] [address], [place], [address]. tel:[phone] Family History Family Member Type Diagnosis Age At Onset No Information Payers Payer name Insurance type Covered alliance party ID Benedict botello(s) [facility] CI [id number] Social History Type Description Quantity Date Captured [...]
[2025-02-09] MEDS: KETOROLAC 15 MG/ML VIAL (*BKC) IV PUSH (18:44)
== END 2025-02-09 20:33 | disposition home or self-care (01) ==
PROVIDERS: Emergency Provider Physician Assistant; PCP Chiropractor
DX: N13.2 Hydronephrosis with renal and ureteral calculous obstruction (principal); F17.210 Nicotine dependence, cigarettes, uncomplicated; F41.9 Anxiety disorder, unspecified; M19.90 Unspecified osteoarthritis, unspecified site; Z87.442 Personal history of urinary calculi; E78.5 Hyperlipidemia, unspecified; I10 Essential (primary) hypertension; I25.2 Old myocardial infarction; I25.10 Atherosclerotic heart disease of native coronary artery without angina pectoris
CPT/HCPCS: 36415; 74177; 80053; 81001; 85025; 96361; 96374; 96375; 96376; 99284; J1171; J1885; J2405; J7030; Q9967

== ENCOUNTER 2025-02-15 17:56 | Observation (INO) | payer OTHER, MEDICAID, SELFPAY ==
--- NOTE | ~2025-02-15 | CT_ITS ---
EXAMINATION: CT abdomen pelvis wo con DATE: 02/15/2025 20:29 INDICATION: worsening kidney stone pain TECHNIQUE: Computed tomography (CT) of the abdomen and pelvis was performed without intravenous contr ast. Automated exposure control and iterative reconstruction technique were employed. The dose-length product was 376.06 mGy-cm. COMPARISON: 02/09/2025. FINDINGS: Lower thorax: Unremarkable Liver: Normal. Biliary/Gallbladder: Gallbladder is normal. No bile duct dilation. Pancreas: No mass or duct dilation. Spleen: Normal. Adrenals:No mass. Kidneys: No suspicious mass, obstructing stone, or hydronephrosis. Multiple nonobstructing left mid a nd lower pole calcifications measuring up to 12 mm in the lower pole GI tract: No small or large bowel dilation. Normal appendix. Diverticulosis without diverticulitis. Mesentery/Peritoneum: No ascites, mass, or free air. Retroperitoneum: No mass. Atherosclerotic calcifications of intra-abdominal arterial vessels. Pelvis: Pelvic organs are within normal limits. Soft Tissues: Small fat-containing uncomplicated umbilical and bilateral inguinal hernias. Bones: No acute osseous finding. Multilevel mild degenerative disc disease and facet arthropathy. Bi lateral L5-S1 neural foraminal narrowing secondary to degenerative changes. No severe central canal n arrowing. IMPRESSION: Left nephrolithiasis. The renal pelvic calcifications seen previously have shifted into lower pole ca lyces on the left. No obstructive uropathy. Reviewed, dictated and finalized at location K. IMPRESSION: Left nephrolithiasis. The renal pelvic calcifications seen previously have shif ramone into lower pole calyces on the left. No obstructive uropathy.
--- NOTE | ~2025-02-15 | XR_ITS ---
Exam: Abdomen 1V HISTORY: kidney stone, PAIN TO THE RIGHT FLANK SIDE COMPARISON: Reference is made to a CT examination of the abdomen and pelvis dated 02/09/2025 TECHNIQUE: Supine images of the abdomen FINDINGS: Bowel gas pattern is nonspecific and non-obstructive. There is no free air or deep sulci. Redemonstration of a 10 mm calculus projecting at the level of L3, over the region of the left renal pelvis. No discrete calculi identified projecting over the expected region of the right kidney or along the e xpected course of the right ureter Lung bases are unremarkable. IMPRESSION: Nonspecific, nonobstructive bowel gas pattern. 10 mm calculus projecting over the left renal pelvis, as detailed above. Reviewed, dictated and finalized at location A.
[2025-02-15 18:00] VITALS: BP 150/87; PULSE 98; RESP 17; TEMP 36.7; O2SAT 98
--- NOTE | 2025-02-15 18:33 | ED.BACK ---
HPI - Back Pain/Injury General Chief Complaint: Back Pain/Injury <Caridad Shields PA-C - Last Filed: 02/16/25 11:06> Stated Complaint: kidney stone <Caridad Shields PA-C - Last Filed: 02/16/25 11:06> Time Seen by Provider: 02/15/25 18:33 <Caridad Shields PA-C - Last Filed: 02/16/25 11:06> Focused HPI: This is a 49 year old male that presents to the ER for kidney stones on the left. He was seen in the ER here for this and referred to Urology. Reports he is supposed to be having a procedure, but was not able to be scheduled because he needed cardiology clearance. Reports history of CABG. GENERAL: Well-appearing, well-nourished, and in no acute distress. HEAD: Normocephalic, atraumatic. CHEST: Clear to auscultation. ?No respiratory distress. HEART: Regular rate and rhythm.? NEURO: ?Alert and oriented x3. Patient screened in triage and initial orders placed.? ?Additional care and disposition to be based upon?diagnostic testing and treatment. <Caridad Shields PA-C - Last Filed: 02/16/25 11:06> History of Present Illness HPI Narrative: Agree with the HPI above. Patient tells me he was not able to establish with his urologist yet secondary to needing cardiac clearance. He is not having any chest pain shortness a breath. History of CABG in the past. 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 No dysuria. <Celso Mercer MD - Last Filed: 02/16/25 06:56> Related Data Home Medications: Home Medications ?Medication ?Instructions ?Recorded ?Confirmed ?Last Taken ?Type bupropion HCl 150 mg 24 hr tablet, 150 mg PO DAILY 11/09/19 02/16/25 02/15/25 09:00 History extended release lisinopril 40 mg tablet 40 mg PO DAILY 11/09/19 02/16/25 02/15/25 09:00 History ticagrelor 90 mg tablet (Brilinta) 90 mg PO BID 11/09/19 02/16/25 02/15/25 09:00 History hydrocodone 7.5 mg-acetaminophen 1 tablet PO QID PRN Pain 04/25/20 02/16/25 02/15/25 14:00 History 325 mg tablet clopidogrel 75 mg tablet 75 mg PO DAILY 02/16/25 02/16/25 02/15/25 History <Caridad Shields PA-C - Last Filed: 02/16/25 11:06> Allergies/Adverse Reactions: Allergies Allergy/AdvReac Type Severity Reaction Status Date / Time colchicine AdvReac Unknown nausea and Verified 02/09/25 17:02 abdominal pain with one dose <Caridad Shields PA-C - Last Filed: 02/16/25 11:06> Review of Systems Review of Systems: As reviewed above in HPI <Celso Mercer MD - Last Filed: 02/16/25 06:56> [facility]LY [facility] Past Medical History Medical History: Medical History Obstructive sleep apnea Noncompliant with CPAP Alcohol abuse Chronic back pain Behcets syndrome Psoriasis Anxiety Left wrist fracture Gout Arthritis Kidney stone HLD (hyperlipidemia) HTN (hypertension) Myocardial infarction x2, with stent CAD (coronary artery disease) Dental cavities <MARCUS Burnett Last Filed: 02/16/25 11:06> Surgical History Surgical History: Surgical History History of coronary artery bypass graft Status post cystoscopy with ureteral stent placement History of heart artery stent Cardiac catheterization 2019 performed at this facility demonstrated patent obtuse marginal branch stent without stenosis, right coronary artery large vessel and code dominant totally occluded proximally with stent placement with residual stenosis of 30% ejection fraction of 50% with basal and mid inferior wall hypokinesis History of surgery on arm left forearm H/O arthroscopy of left knee <Caridad Shields PA-C - Last Filed: 02/16/25 11:06> Family History Family History: Family History Daughter Cancer Father Hypertension Other Family history of malignant neoplasm Family history of psoriasis <MARCUS Burnett Last Filed: 02/16/25 11:06> Social History Social History: Social History Social History: He has been since 2019. He has 3 children. 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 He used to smoke up to 3 packs of cigarettes per day. It did previously been documented that the patient had drink up to 28 alcoholic beverages a day. He adamantly denies ever having drink alcohol to excess. He states that he may drink 1 alcoholic on rare occasion. Code status: Full code Surrogate decision maker: Yu (daughter) 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 Smoking cigarettes per day: 40.0 Years smoked: 30 Smoking pack-years: 60.00 Smoking status: Former smoker Tobacco type: cigarettes Second hand tobacco smoke exposure: Yes Smoking end date: 03/03/24 Alcohol intake: former Drinks per week: 28 Substance use: never Substance use type: does not use Do You Feel Safe in your Home?: Yes Lack of Transportation: No Lack of Food: Never True Current Housing: I Have Housing Concerned About Future Housing: No Difficulty Paying Gas/Electric Bills: No Difficulty Paying for Meds: No Currently Unemployed: No Education: High School Diploma/GED Difficulty w/ Childcare or Family Care: No Gender identity (if verbalized by the patient): Male Sexual Orientation (if Verbalized by the Patient): Straight or Heterosexual Spiritual care concerns: No Agree to blood products: Yes <Caridad Shields PA-C - Last Filed: 02/16/25 11:06> Exam Narrative: GENERAL: Uncomfortable appearing but not any acute distress HEAD: [Normocephalic, atraumatic.] EYES: [PERRLA and EOMI.] ENT: Nares clear, no rhinorrhea or epistaxis. Mucous membranes moist. NECK: Supple. CHEST: [Clear to auscultation. No respiratory distress.] HEART: [Regular rate and rhythm]. No murmur heard. [Normal peripheral pulses.] ABDOMEN: [Soft, nondistended], [nontender], [No rigidity or guarding] EXTREMITIES: Normal range of motion. [No edema.] SKIN: Warm, dry, no rash. NEURO: [No focal deficits]. Alert and oriented [x3.] PSYCH: [Normal mood and affect.] <Celso Mercer MD - Last Filed: 02/16/25 06:56> Course Vital Signs Vital signs: Vital Signs Temperature 98.0 F 02/15/25 18:00 Pulse Rate 98 02/15/25 18:00 Respiratory Rate 17 02/15/25 18:00 Blood Pressure 150/87 H 02/15/25 18:00 Pulse Oximetry 98 02/15/25 18:00 Temperature 97.0 F L 02/16/25 05:23 Pulse Rate 58 L 02/16/25 05:23 Respiratory Rate 18 02/16/25 05:23 Blood Pressure 125/85 02/16/25 05:23 Pulse Oximetry 99 02/16/25 05:23 Oxygen Delivery Room Air 02/16/25 08:00 <Caridad Shields PA-C - Last Filed: 02/16/25 11:06> Vital Signs Temperature 98.0 F 02/15/25 18:00 Pulse Rate 98 02/15/25 18:00 Respiratory Rate 17 02/15/25 18:00 Blood Pressure 150/87 H 02/15/25 18:00 Pulse Oximetry 98 02/15/25 18:00 Temperature 97.0 F L 02/16/25 05:23 Pulse Rate 58 L 02/16/25 05:23 Respiratory Rate 18 02/16/25 05:23 Blood Pressure 125/85 02/16/25 05:23 Pulse Oximetry 99 02/16/25 05:23 Oxygen Delivery Room Air 02/16/25 08:00 <Celso Mercer MD - Last Filed: 02/16/25 06:56> MDM - Back Pain/Injury MDM Narrative Medical decision making narrative: 49-year-old male with a history of kidney stones, hypertension, coronary disease with CABG. He presents to the emergency department for evaluation of persistent kidney stone pain. He was evaluated several days ago and encouraged follow-up with Urology on outpatient basis. He states that he called Urology with plans for potential stent outpatient but he needed cardiac clearance with the tactical/mobile watch officer first. He called his tactical/mobile watch officer office and they have since moved business and he needs a new one and he is not sure what to do. He is having worsening pain and passing pieces of kidney stone in ears urine. Denies any dysuria. No fever, chills, upper abdominal pain, chest pain, shortness a breath, back pain. Patient called his primary care provider and was encouraged to go to the emergency department for further care. He is uncomfortable appearing but not any acute distress he has a soft nontender nondistended abdomen no signs of peritonitis. Some hypertension but not severe. No tachycardia, fever, hypoxia. Considerations presently are for renal colic, kidney stone migration, obstruction, hydroureter, urinary infection. Repeat laboratory studies were obtained as well as a CT abdomen pelvis without contrast for further delineation. He was given fentanyl intravenous for pain control and a fluid bolus. Urinalysis ordered. Workup shows no leukocytosis or anemia. Normal platelet count. Electrolytes are unremarkable. Normal renal function. Normal glucose. Normal LFTs. CT scan shows left nephrolithiasis, previously seen stones have have shifted but no obstructive uropathy. Patient re-evaluated and doing better but still required additional doses of pain medicine. At this time will admit him for intractable pain and consult Urology. Spoke to the hospitalist Dr. Btoello who accepted the patient to the hospital at this time. As needed pain control medications were ordered. <Celso Mercer MD - Last Filed: 02/16/25 06:56> Medical Records Attestation: I reviewed the patient's medical records. <Celso Mercer MD - Last Filed: 02/16/25 06:56> Lab Data Attestation: I reviewed the patient's lab results. <Celso Mercer MD - Last Filed: 02/16/25 06:56> Result diagrams: 02/15/25 20:36 02/15/25 20:36 <Caridad Shields PA-C - Last Filed: 02/16/25 11:06> Labs: Lab Results 02/15/25 02/15/25 Range/Units 19:19 20:36 WBC 8.0 (4.5-10.0) K/mm3 RBC 5.59 (4.6-6.20) M/mm3 Hgb 16.8 (14.0-18.0) g/dL Hct 49.0 (42.0-52.0) % MCV 87.7 (80-100) fl MCH 30.1 (26-34) pg MCHC 34.3 (32-36) g/dl RDW 11.9 (11.5-14.5) % Plt Count 297 (150-375) k/mm3 MPV 9.7 (7.4-10.4) fl Immature Gran % (Auto) 0.4 (0-0.5) % Neut % (Auto) 67.9 (45.5-73.1) % Lymph % (Auto) 23.0 (18.3-44.2) % Whitfield % (Auto) 5.9 (2.6-8.5) % Eos % (Auto) 2.4 (0-4.4) % Baso % (Auto) 0.4 (0.2-1.2) % Lymph # (Auto) 1.84 (0.9-3.2) K/mm3 Whitfield # (Auto) 0.5 (0.1-0.6) K/mm3 Eos # (Auto) 0.2 (0-0.3) K/mm3 Baso # (Auto) 0.0 (0.0-0.1) K/mm3 Abs Immat Gran (auto) 0.03 (0.00-0.031) K/mm3 Absolute Neuts (auto) 5.4 (1.3-6.7) K/mm3 Absolute Nucleated RBC 0.000 (0.0-0.012) K/mm3 Nucleated RBC % 0.0 (0.0-0.2) % Sodium 141 (137-145) mmol/L Potassium 4.2 (3.4-5.0) mmol/L Chloride 103 (98-107) mmol/L Carbon Dioxide 25 (22-30) mmol/L Anion Gap 13 H (4-12) mmol/L BUN 17 (9-20) mg/dL Creatinine 0.72 (0.7-1.3) mg/dL Estim Creat Clear Calc Not Reportable Estimated GFR > 60 (59 - ) Glucose 109 (65-110) mg/dL Calcium 9.6 (8.4-10.2) mg/dL Total Bilirubin 0.5 (0.2-1.3) mg/dL AST 39 (17-59) U/L ALT 57 H (6-50) U/L Alkaline Phosphatase 70 (38-126) U/L Total Protein 8.0 (6.3-8.2) g/dL Albumin 5.0 (3.5-5.1) g/dL Lipase 87 (23-300) U/L Urine Color Yellow (Yellow) Urine Appearance Clear (Clear) Urine pH 5.5 (5.0-9.0) Ur Specific Enders 1.029 (1.001-1.035) Urine Protein Trace (Negative) mg/dL Urine Glucose (UA) Negative (Negative) mg/dL Urine Ketones Trace H (Negative) mg/dL Ur Blood (Man) Negative (Negative) Urine Nitrate Negative (Negative) Urine Bilirubin Negative (Negative) Urine Urobilinogen 1.0 (<2.0) mg/dL Leukocyte Esterase Rfl Negative (Negative) NAMRATA/UL Urine RBC 0-2 (0-2) /hpf Urine WBC 0-5 (0-3) /hpf Ur Squamous Epith Cells None seen (Few) /hpf Urine Bacteria None seen /hpf Urine Casts 0-2 <Caridad Shields PA-C - Last Filed: 02/16/25 11:06> Lab Results 02/15/25 02/15/25 Range/Units 19:19 20:36 WBC 8.0 (4.5-10.0) K/mm3 RBC 5.59 (4.6-6.20) M/mm3 Hgb 16.8 (14.0-18.0) g/dL Hct 49.0 (42.0-52.0) % MCV 87.7 (80-100) fl MCH 30.1 (26-34) pg MCHC 34.3 (32-36) g/dl RDW 11.9 (11.5-14.5) % Plt Count 297 (150-375) k/mm3 MPV 9.7 (7.4-10.4) fl Immature Gran % (Auto) 0.4 (0-0.5) % Neut % (Auto) 67.9 (45.5-73.1) % Lymph % (Auto) 23.0 (18.3-44.2) % Whitfield % (Auto) 5.9 (2.6-8.5) % Eos % (Auto) 2.4 (0-4.4) % Baso % (Auto) 0.4 (0.2-1.2) % Lymph # (Auto) 1.84 (0.9-3.2) K/mm3 Whitfield # (Auto) 0.5 (0.1-0.6) K/mm3 Eos # (Auto) 0.2 (0-0.3) K/mm3 Baso # (Auto) 0.0 (0.0-0.1) K/mm3 Abs Immat Gran (auto) 0.03 (0.00-0.031) K/mm3 Absolute Neuts (auto) 5.4 (1.3-6.7) K/mm3 Absolute Nucleated RBC 0.000 (0.0-0.012) K/mm3 Nucleated RBC % 0.0 (0.0-0.2) % Sodium 141 (137-145) mmol/L Potassium 4.2 (3.4-5.0) mmol/L Chloride 103 (98-107) mmol/L Carbon Dioxide 25 (22-30) mmol/L Anion Gap 13 H (4-12) mmol/L BUN 17 (9-20) mg/dL Creatinine 0.72 (0.7-1.3) mg/dL Estim Creat Clear Calc Not Reportable Estimated GFR > 60 (59 - ) Glucose 109 (65-110) mg/dL Calcium 9.6 (8.4-10.2) mg/dL Total Bilirubin 0.5 (0.2-1.3) mg/dL AST 39 (17-59) U/L ALT 57 H (6-50) U/L Alkaline Phosphatase 70 (38-126) U/L Total Protein 8.0 (6.3-8.2) g/dL Albumin 5.0 (3.5-5.1) g/dL Lipase 87 (23-300) U/L Urine Color Yellow (Yellow) Urine Appearance Clear (Clear) Urine pH 5.5 (5.0-9.0) Ur Specific Enders 1.029 (1.001-1.035) Urine Protein Trace (Negative) mg/dL Urine Glucose (UA) Negative (Negative) mg/dL Urine Ketones Trace H (Negative) mg/dL Ur Blood (Man) Negative (Negative) Urine Nitrate Negative (Negative) Urine Bilirubin Negative (Negative) Urine Urobilinogen 1.0 (<2.0) mg/dL Leukocyte Esterase Rfl Negative (Negative) NAMRATA/UL Urine RBC 0-2 (0-2) /hpf Urine WBC 0-5 (0-3) /hpf Ur Squamous Epith Cells None seen (Few) /hpf Urine Bacteria None seen /hpf Urine Casts 0-2 <Celso Mercer MD - Last Filed: 02/16/25 06:56> Imaging Data Attestation: I personally reviewed and interpreted this imaging study as follows: <Celso Mercer MD - Last Filed: 02/16/25 06:56> My impression: Impressions Abdomen X-Ray 02/15/25 19:15 IMPRESSION: Nonspecific, nonobstructive bowel gas pattern. 10 mm calculus projecting over the left renal pelvis, as detailed above. Abdomen/Pelvis CT 02/15/25 20:50 IMPRESSION: Left nephrolithiasis. The renal pelvic calcifications seen previously have shifted into lower pole calyces on the left. No obstructive uropathy. <Celso Mercer MD - Last Filed: 02/16/25 06:56> Critical Care Time Critical Care Time Critical Care Time: No <Caridad Shields PA-C - Last Filed: 02/16/25 11:06> Discharge Plan Discharge Clinical Impression: Kidney stone, Intractable abdominal pain <Caridad Shields PA-C - Last Filed: 02/16/25 11:06> Patient Disposition: Still a Patient <Caridad Shields PA-C - Last Filed: 02/16/25 11:06> Condition: Stable <Caridad Shields PA-C - Last Filed: 02/16/25 11:06>
--- OUTSIDE RECORDS SUMMARY | 2025-02-15 18:38 | XMS_ITS | Clinical Summary ---
Author Organization [facility] Address [address] [place] [address] Care Team Providers Care Ccnp Name Role Phone Isauro Johnson MD Primary Care Provider Source Comments [facility],non-owned Affiliates and Associated Physician Practices is amultiple site organization consisting of ambulatory clinics and hospital sitesin [place], [place], [place] and [place]. This disclosure is being madepursuant to the Care Everywhere program and may not contain all information available regarding this patient. 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
--- OUTSIDE RECORDS SUMMARY | 2025-02-15 18:38 | XMS_ITS | Encounter Summary ---
Author Organization [facility] Care Team Providers Care Hand Bindery Assembly Worker Name Role Phone Isauro Johnson MD Primary Care Provider Cody Andrew MD Unavailable [phone] Miscellaneous, Not In File Unavailable Unava ilable Isauro Johnson MD Primary Care Provider Encounter Details Date Type Department Care Team (Latest Contact Info) Description 04/12/2016 Orders Only [facility]INCON[facility] ProviderHilary MD [address] [place] [id number] Social History Tobacco Use Types Packs/Day Years Used Date Smoking Tobacco: Never Assessed Sex and Gender Information Value Date Recorded Sex Assigned at Not on file 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
--- OUTSIDE RECORDS SUMMARY | 2025-02-15 18:38 | XMS_ITS | Continuity of Care Document ---
Author Organization [facility] [place] Address [address] [place] [id number] Phone Care Team Providers Care Technology Support Analyst Name Role Phone Katie MS, OTR/L, CHT, [...] Date Provider Providers Copied on Encounter [facility] [place], [address] [facility] [address] [place] [address], [id number], tel:[phone] [place] No Information Roman-1 8-201 6 [place]. [address] [place] [address], [address], [place], [address], [place]. tel:[phone], [place], [place], [id number], tel:[phone] [place] No Information May-2 3-201 6 [place]. [address] [place] [address], [address], [place], [address], [place]. tel:[phone] Referring Provider: Yusuf Liang, [address] [facility] [address], [place], [address]. tel:[phone], [id number], tel:[phone] [place] No Information February-1 6-201 6 [place]. [address] [place] [address], [address], [place], [address], [place]. tel:[phone] Referring Provider: Yusuf Liang, [address] [facility] [address], [place], [address]. tel:[phone], [id number], tel:[phone] [place] No Information May-0 4-201 6 [place]. [address] [place] [address], [address], [place], [address], [place]. tel:[phone] Referring Provider: Yusuf Liang, [address] [facility] [address], [place], [address]. tel:[phone], [id number], tel:[phone] [place] No Information May-0 2-201 6 [place]. [address] [place] [address], [address], [place], [place], [place], [place]. tel:[phone] Referring Provider: Yusuf Liang, [address] [facility] [address], [place], [address]. tel:[phone] [facility] [address] [place] [address] [address], [place], [place], [id number], [place] tel:[phone] [place] No Information 6 [place]. [address] [place] [address], [address], [place], [address], [place]. tel:[phone] Referring Provider: Yusuf Liang, [address] [facility] [address], [place], [address]. tel:[phone] [facility] [address] [place] [address], [place], [place], [id number], [place] tel:[phone] [place] Unsp fx the low end left rad, subs for clos fx w routn heal 6 [place]. [address] [place] [address], [address], [place], [address], [place]. tel:[phone] Referring Provider: Yusuf Liang, [address] [facility] [address], [place], [address]. tel:[phone], [id number], [place] tel:[phone] [place] No Information 6 [place]. [address] [place] [address], [address], [place], [address], [place]. tel:[phone] Referring Provider: Yusuf Liang, [address] [facility] [address], [place], [address]. tel:[phone] [facility] [address] [facility] [address], [place], [place], [id number], tel:[phone] [place] No Information 6 [place]. [address] [place] [address], [address], [place], [address], [place]. tel:[phone] Referring Provider: Yusuf Liang, [address] [facility] [address], [place], [address]. tel:[phone] [address] [address], [place], [place], [id number], [place] tel:[phone] [place] No Information Spencer-0 6-201 6 [place]. [address] [place] [address], [address], [place], [address], [place]. tel:[phone] Referring Provider: Yusuf Liang, [address] [facility] [address], [place], [address]. tel:[phone] [address] [address], [place], [place], [id number], [place] tel:[phone] [place] Muscle weakness (generalized) Oct-0 4-201 6 [place]. [address] [place] [address], [address], [place], [address], [place]. tel:[phone] Referring Provider: Yusuf Liang, [address] [facility] [address], [place], [address]. tel:[phone] [address] [address], [place], [place], [id number], [place] tel:[phone] [place] No Information Dec-3 0-201 5 [place]. [address] [place] [address], [address], [place], [address], [place]. tel:[phone] Referring Provider: Yusuf Liang, [address] [facility] [address], [place], [address]. tel:[phone] [address] [address], [place], [place], [id number], [place] tel:[phone] [place] No Information Dec-2 3-201 5 [place]. [address] [place] [address], [address], [place], [place], [place], [place]. tel:[phone] Referring Provider: Yusuf Liang, [address] [facility] [address], [place], [address]. tel:[phone] [facility], [address] [place] [address] [address], [place], [place], [id number], tel:[phone] [place] No Information Dec-2 2-201 5 [place]. [address] [place] [address], [address], [place], [address], [place]. tel:[phone] Referring Provider: Yusuf Liang, [address] [facility] [address], [place], [address]. tel:[phone], [id number], tel:[phone] [place] No Information Dec-2 1-201 5 [place]. [address] [place] [address], [address], [place], [place], [place], [place]. tel:[phone] Referring Provider: Yusuf Liang, [address] [facility] [address], [place], [address]. tel:[phone], [id number], tel:[phone] [place] No Information Dec-1 6-201 5 [place]. [address] [place] [address], [address], [place], [place], [place], [place]. tel:[phone] Referring Provider: Yusuf Liang, [address] [facility] [address], [place], [address]. tel:[phone], [id number], tel:[phone] [place] No Information Dec-1 4-201 5 [place]. [address] [place] [address], [address], [place], [address], [place]. tel:[phone] Referring Provider: Yusuf Liang, [address] [facility] [address], [place], [address]. tel:[phone] [facility], [address], [id number], tel:[phone] [place] No Information Dec-0 5 Amandastuarternestina Arias. [address] [facility] [address], [address], [place]. tel:[phone] Referring Provider: Yusuf Liang, [address] [facility] [address], [place], [address]. tel:[phone] [facility], [address] [address], [place], [place], [id number], tel:[phone] [place] Pain in left wristStiffness of left wrist, not elsewhere classifiedLocal ized edemaOther specified postprocedural statesPersonal history of (healed) traumatic fracture Dec-0 5 Tessyjonny Field. [address] [facility] [address], [place], [address], [place]. tel:[phone] Referring Provider: Yusuf Liang, [address] [facility] [address], [place], [address]. tel:[phone] Family History Family Member Type Diagnosis Age At Onset No Information Payers Payer name Insurance type Covered alliance party ID Benedict botello(s) [facility] CI [id number] Social History Type Description Quantity Date Captured [...]
--- OUTSIDE RECORDS SUMMARY | 2025-02-15 18:38 | XMS_ITS | Clinical Summary ---
Author Organization [facility] [address] Address [address] [place] [address] Care Team Providers Care Commercial Airplane Pilot Name Role Phone Cody Andrew MD Unavailable [phone] Miscellaneous, Not In File Unavailable Unava ilable [...] mg tabletIndications :Dyslipidemia,Cor onary artery disease involving nansemond indian tribe coronary artery of nansemond indian tribe heart without angina pectoris Take 1 tablet (80 mg total) by mouth nightly 90 tablet 3 4 04/29/20 25 Active amLODIPine (NORVASC) 10 mg tabletIndications :Uncontrolled hypertension Take 1 tablet (10 mg total) by mouth daily 90 tablet 3 4 04/29/20 25 Active clopidogreL (PLAVIX) 75 mg tabletIndications :Coronary artery disease involving nansemond indian tribe coronary artery of nansemond indian tribe heart without angina pectoris Take 1 tablet (75 mg total) by mouth daily 90 tablet 3 4 04/29/20 25 Active aspirin 81 mg enteric coated tabletIndications :Coronary artery disease involving nansemond indian tribe coronary artery of nansemond indian tribe heart without angina pectoris Take 1 tablet (81 mg total) by mouth daily 90 tablet 3 4 04/29/20 25 Active ezetimibe (ZETIA) 10 mg tabletIndications :Coronary artery disease involving nansemond indian tribe coronary artery of nansemond indian tribe heart without angina pectoris Take 1 tablet (10 mg total) by mouth nightly 90 tablet 3 4 04/29/20 25 Active metoprolol tartrate (LOPRESSOR) 25 mg immediate release tabletIndications :Coronary artery disease involving nansemond indian tribe coronary artery of nansemond indian tribe heart without angina pectoris,Essentia l hypertension Take [...] wishes to f/u with Dr. Andrew in [place] - chat message sent to him. Assessment [...] 12/24/2019 Assessment & Plan (12/25/2019 1:27 PM SENIOR AIR DIRECTOR): #Spontaneous dental abscess, symptomatic since Saturday (12/21), [...] skin lesions Coronary artery disease invo lving nansemond indian tribe coronary artery of nansemond indian tribe heart without angina pectoris 05/02/2019 Assessment & [...] 07/20pm Assessment & Plan (12/25/2019 1:25 PM SENIOR AIR DIRECTOR): #History of NSTEMI in 10/2019. LHC at [place] (10/2019) revealed a totally occluded proximal RCA, [...] Plan (05/02/2019 8:22 AM CDT): History of DE in 2013 and 2015 s/p stent placement. --Continue home aspirin, ticagrelor, atorvastatin. Hyperlipidemia 05/02/2019 Assessment & Plan (07/24/2022 5:44 PM CDT): Cont statin Assessment & Plan (07/23/2022 1:55 PM CDT): Cont statin Assessment & Plan (07/22/2022 3:57 PM CDT): Cont statin Assessment & Plan (12/24/2019 8:48 PM SENIOR AIR DIRECTOR): #Chronic with history of CAD. - Continue [...] lisinopril Assessment & Plan (12/24/2019 8:49 PM SENIOR AIR DIRECTOR): #Chronic. - Continue home lisinopril, metoprolol as [...] (03/20/2019): Added automatically from request for surgery [id number] High risk medication use 12/12/2018 Psoriatic arthritis 03/27/2018 Assessment & Plan (12/24/2019 8:40 PM SENIOR AIR DIRECTOR): #Follows with Rheumatology, last seen 06/2019, managed with Enbrel 50 mg weekly. - Continue to monitor. 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 He [...] --Treatment of MAGI as above. Aspiration pneumonia ([facility]) 05/02/2019 10/03/2021 Assessment & Plan [...] artery disease Hypertension Kidney stones HLD (hyperlipidemia) DE, old Behcet's syndrome (HCC) Psoriasis Anxiety Gout [...] = 0.6 oz pur e alcohol) Rarely Unii Utilities Answer Date Recorded In the past [...] often do you attend chur ch or islam services? Never 04/09/2024 Do you belong to any clubs o r organizations such as muslim groups, unions, fraternal or athletic groups, or [...] any time in the past 12 [facility], were you homeless or living in a correction (including now)? No 04/09/2024 Personal Safety Answer Date Recorded Have you ever been in or are you currently in a harmful physical or emotional relationship or is someone making you feel afraid or unsafe? 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 Male 11:32 AM SENIOR AIR DIRECTOR Gender Identity Not on file Sexual Orientation [...] <65 (1 of 2 - PCV) 1996 Hemoglobin A1C 09/07/2024 03/07/2024, 09/20, 09/21/2019, Additional history exists Lipid Panel 03/06/2025 03/06/2024, 09/20, 09/20/2019, Additional history exists Influenza Vaccine (Season Ended) 2025 11/30/2021, 07/21/2019, 08/20/2018, Additional history exists eGFR 07/30/2025 07/30/2024, 03/22, 04/10/2024, Additional history exists Colon Cancer Screening-Colonoscopy 05/01/20292018 Hepatitis C Screening Completed 08/20/2018 Medical Devices Implanted Type Area Belt Dresser Device Identifier Shelf Expiration Date Model / Serial / Lot Cardiac Stent Implanted:10/21 (Quantity not on file) Stent Heart SocialPandas Escobar Distal Marker Radiology Stainless Steel Sterile Amgm-D - [id number] Implanted:Qty: 1 on 03/10/2024 by Yinka Palmer MD at [facility] N/A: Heart [employer] [id number] 09/20/2026 AMGM-D / / [id number] Procedures Procedure Name Priority Date/Time Associated Diagnosis [...] was last reviewed 2021. Testing performed by: [address] [address] Blood 07/30/2024 5:42 PM CDT 07/30/2024 5:58 PM CDT Brittaney Coffman MD LAB BLOOD ORDERABLES Fin al Result Performing Organization Address [facility] Co de Phone Number [place] [id number] [facility] [place] [address] * Hemoglobin A1c (03/07/2024 4:01 AM CDT) [facility] Hgb A1C 5.5 4.0 - 5.6 % Comment:Testing performed by : [address] [address] Estimated Average Glucose 111 mg/dL TYLER Comment: The ADA recommends reporting an estimated Average Glucose (eAG) with all Hemoglobin A1c results using the equation derived from a study of 507 normal and diabetic adults. Minority populations were underrepresented and children were not included. (Diabetes Care 31:9692-3389, 2008). The eAG is not equivalent to a fasting glucose. Testing performed by: [address] [address] Blood 03/07/2024 4:01 AM CDT 03/07/2024 4:10 AM CDT us Ricardo Mendoza MD LAB BLOOD ORDERABLES Final Result Performing Organization Address [facility] Co de Phone Number [facility] [address] [facility] [place] [address] * (ABNORMAL) Lipid panel (03/06/2024 6:33 PM [...] last revised on 2018. Testing performed by: [address] [address] Triglycerides 146 <=149 mg/dL TYLER Comment: Interpretive [...] Pediatrics 2011;128:S213 2. NCEP Expert Panel. Circulation 2003;110:227 Current Interpretive Data was last revised on 2018. Testing performed by: [address] [address] HDL 38(L) >=40 mg/dL TYLER Comment: Interpretive [...] last revised on 2018. Testing performed by: [address] [address] LDL, calculated 110 <=129 mg/dL TYLER Comment: [...] last revised on 2018. Testing performed by: [address] [address] Non-HDL Cholesterol 139 mg/dL TYLER Comment: Interpretive [...] last revised on 2018. Testing performed by: [address] [address] Chol/HDL ratio 5 TYLER Comment:Testing performed by : [address] [address] Blood 03/06/2024 6:33 PM CDT 03/06/2024 6:44 PM CDT Narrative TYLER LÓPEZ - 03/06/2024 7:29 PM CDT This lipid panel was automatically ordered due to a significant change in Troponin. The dietary status of the patient at the collection time should be correlated with the lipid results. us Oleg Pierce DO LAB BLOOD ORDERABLES Final Res ult [facility] [address] Department [place] [address] * COLONOSCOPY (05/01/2019 3:34 PM CDT) Anatomical Region Laterality Modality Other Narrative Procedure Note Juan Manuel Rick MD - 05/01/2019 3:34 PM CDT [facility] Patient Name: Zanedr Cain Procedure Date: 05/01/2019 3:34 PM Date of : 1975 Admit Type: Outpatient Age: 43 Gender: Male Attending MD: Juan Manuel Rick M.D. Room: [facility] ENDOSCOPY ROOM 5 Note Status: Finalized Procedure: [...] The scope was passed under direct vision.The [id number] endoscope was introduced throughthe anus and [...] On: 05/01/2019 3:34 PM Recognized by the [employer] for promoting quality in endoscopy us Juan Manuel Rick MD ENDOSCOPY PROCEDURES Final Re sult * Hepatitis panel, acute (08/20/2018 6:13 AM CDT) HepBsAg NONREACT NONREACTIVE 08/20/2018 12:27 PM [facility] [employer] HISTORICAL RESULTS Comment: [employer] using NEETA (chemiluminescent immunoassay) technology. NONREACTIVE: IgM antibodies to Hepatitis B Surface antigen not detected. REACTIVE: IgM antibodies to Hepatitis B Surface antigen detected. Reactive results will be confirmed by neutralization testing. HBsAb qn < 3.10 mIU/mL 08/20/2018 12:17 PM [facility] HISTORICAL RESULTS Comment: [employer] CentaurXP using NEETA (chemiluminescent immunoassay) technology. 9.99 IU/L or less.....NONREACTIVE: IgM antibodies to Hepatitis B Surface antibody are not detected. 10.00 IU/L or greater..REACTIVE: IgM antibodies to Hepatitis B Surface antibody are detected. Hep B core IgM NONREACT NONREACTIVE 8 12:52 PM CDT [facility] HISTORICAL RESULTS Comment: Siemens CentaurXP using [...] MICROBIOLOGY - GENERAL OR DERABLES Final Result [facility] HISTORICAL RESULTS from Last 3 Months or Most Recently Relevant to Health Maintenance Insurance [facility] Member Subscriber Plan / Payer (Ef fective 2022-Present) Name:Zander Cain Relation to Subscriber:Self Name:Zander Cain Payer ID:[id number] (NAIC) Group ID:Not on file Type:MEDICAID RISK OTHER Address: ATTN: CLAIMS DEPT [address] [facility] [place] [phone] [facility] Advance Directives For more information, please contact: [phone] Documents on File Type Date Recorded Patient Clinical Rehabilitation Liaison Expl anation ADVANCE DIRECTIVE 03/09/2024 12:26 PM Chavo r of Blood Bank Laboratory Technologist-Medical * Full Code (Latest Code Status on [...] 6:32 PM 07/20/2022 6:32 PM Care Teams Commercial Airplane Pilot Relationship Specialty Start Date End Date Isauro Johnson MD PCP - General Packaging Line Attendant 07/26/22 Cody Andrew MD Consulting Physician Infectious Diseases 10/09/21 Miscellaneous, Not In File 10/09/21
--- OUTSIDE RECORDS SUMMARY | 2025-02-15 18:38 | XMS_ITS | Clinical Summary ---
Author Organization [facility] Address [address] [place] [address] Phone Care Team Providers Care Wool Dyer Name Role Phone Nomfc, External Provider Primary [...] 2022 INFLUENZA VACCINE (#1) 2024 07/29/2013 Insurance Advance Directives For more information, please contact: [phone] * Full Code (Latest Code Status on File) Date Activated Date Inactivated Comments 07/27/2013 5:37 PM 07/29/2013 11:55 AM Care Teams Wool Dyer Relationship Specialty Start Date End Date Nomfc, External Provider PCP - General 07/27/13
--- OUTSIDE RECORDS SUMMARY | 2025-02-15 18:38 | XMS_ITS | Encounter Summary ---
Author Organization [facility] Care Team Providers Care Environmental Safety Specialist Name Role Phone Isauro Johnson MD Primary Care Provider Cody Andrew MD Unavailable [phone] Miscellaneous, Not In File Unavailable Unava ilable Isauro Johnson MD Primary Care Provider Encounter Details Date Type Department Care Team (Latest Contact Info) Description 08/13/2016 Orders Only [facility] CLINCONV ProviderHilary MD [address] [place] [address] Social History Tobacco Use Types Packs/Day Years Used Date Smoking Tobacco: Never Assessed Sex and Gender Information Value Date Recorded Sex Assigned at Not on file Legal Sex Male 11:32 AM WAVE GUIDE ASSEMBLER Gender Identity Not on file Sexual Orientation [...] CDT MRSA 03/08/2024 04/09/2024 10/06/2024 3:05 AM WAVE GUIDE ASSEMBLER documented as of this encounter Care Teams Environmental Safety Specialist Relationship Specialty Start Date End Date Isauro Johnson MD PCP - General Carpenter Wooden Tank Erecting 05/21/17 07/25/22 Isauro Johnson MD PCP - General Carpenter Wooden Tank Erecting 07/26/22 Cody Andrew MD Consulting Physician Infectious Diseases 10/09/21 Miscellaneous, Not In File 10/09/21 documented as of this encounter
--- OUTSIDE RECORDS SUMMARY | 2025-02-15 18:38 | XMS_ITS | Encounter Summary ---
Author Organization [facility] Facility Care Team Providers Care Brush Cutter Name Role Phone Isauro Johnson MD Primary Care Provider Cody Andrew MD Unavailable [phone] Miscellaneous, Not In File Unavailable Unava ilable Isauro Johnson MD Primary Care Provider Encounter Details Date Type Department Care Team (Latest Contact Info) Description 07/07/2018 Orders Only [facility] CLINCONV ProviderHilary MD [address] [place] [address] Social History Tobacco Use Types Packs/Day Years Used Date Smoking Tobacco: Former Smokeless Tobacco: Former Alcohol Use Standard Drinks/Week Comments Yes 0 (1 standard drink = 0.6 oz pur e alcohol) rarely Sex and Gender Information Value Date Recorded Sex Assigned at Not on file Legal Sex Male 11:32 AM TRANSFORMER TESTER Gender Identity Not on file Sexual Orientation [...] CDT MRSA 03/08/2024 04/09/2024 10/06/2024 3:05 AM TRANSFORMER TESTER documented as of this encounter Care Teams Brush Cutter Relationship Specialty Start Date End Date Isauro Johnson MD PCP - General Marketing Systems Manager 05/21/17 07/25/22 Isauro Johnsno MD PCP - General Marketing Systems Manager 07/26/22 Cody Andrew MD Consulting Physician Infectious Diseases 10/09/21 Miscellaneous, Not In File 10/09/21 documented as of this encounter
--- OUTSIDE RECORDS SUMMARY | 2025-02-15 18:38 | XMS_ITS | Encounter Summary ---
Author Organization [facility] Facility Care Team Providers Care Hr Business Partner Consultant Name Role Phone Isauro Johnson MD Primary Care Provider Cody Andrew MD Unavailable [phone] Miscellaneous, Not In File Unavailable Unava ilable Isauro Johnson MD Primary Care Provider Encounter Details Date Type Department Care Team (Latest Contact Info) Description 04/13/2016 Orders Only [facility] CLINCONV ProviderHilary MD [address] [place] [address] Social History Tobacco Use Types Packs/Day Years Used Date Smoking Tobacco: Never Assessed Sex and Gender Information Value Date Recorded Sex Assigned at Not on file Legal Sex Male 11:32 AM FILLER MACHINE 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
--- OUTSIDE RECORDS SUMMARY | 2025-02-15 18:38 | XMS_ITS | Clinical Summary ---
Author Organization [facility] Address [address] [place] [address] Phone Care Team Providers Care Portfolio Manager Name Role Phone Isauro Johnson MD [...] age to complete this topic Care Teams Portfolio Manager Relationship Specialty Start Date End Date Isauro Johnson MD [address] [facility] [address] [place] [address] PCP - General Internal Medicine 05/27/20
--- OUTSIDE RECORDS SUMMARY | 2025-02-15 18:38 | XMS_ITS | Clinical Summary ---
Author Organization [facility] Address [address] [place] [address] Care Team Providers Care Traffic Line Painter Name Role Phone Unavailable Primary Care Provider [...] on file Legal Sex Male 12:35 PM WEDDING TRANSPORTATION DRIVER Gender Identity Not on file Sexual Orientation [...] wrist ([place]) 04/08/2024 04/08/2024 Insurance [facility]
--- OUTSIDE RECORDS SUMMARY | 2025-02-15 18:38 | XMS_ITS | Continuity of Care Document ---
Author Organization [facility] Address [address] [facility] [address] [facility] [address] [place] [address] Phone Care Team Providers Care Universal Grinder Tool Name Role Phone Nitin Gorman MD Unavailable Unavailable Allergies, Adverse Reactions, Alerts Substance Reaction Status Criticality No Known Allergies Active No Inform ation Medications Medication Instructions Dosage Effective Dates (start - stop) Status Comments Robaxin-750 750 mg tablet take 1 (750MG) by oral route every 12 hours - Active Naprosyn 500 mg tablet take 1 tablet by oral route 2 times every day with food 500 MG - Active Soma 350 mg tablet take 1 (350MG) by oral route every day AT - Active fenofibrate 150 mg capsule take 1 capsule by oral route every day with food 150 MG - Active atorvastatin 20 mg tablet take 1 tablet by oral route every day 20 MG - Active Lexapro 10 mg tablet take 1 tablet by oral route every day 10 MG - Active bupropion HCl XL 150 mg 24 hr tablet, extended release take 1 tablet by oral route every day 150 MG - Active BRILINTA 90 mg tablet take 1 tablet by oral route 2 times every day 90 MG - Active Robaxin-750 750 mg tablet take 1 (750MG) by oral route every 12 hours - No Longer Active Advance Directives Directive Yes / No Effective Date File Name No Information Encounters Encounter Description Practice Location Reason(s) For Visit Diagnoses Date Provider Providers Copied on Encounter [facility] , [address], [place], [address], [place] tel:[phone] [facility] [place] No Information [address]. [address] [facility], [facility], [place], [id number] . tel:[phone] [facility] , [address], [place], [address], [place] tel:[phone] [facility] [place] Carpal tunnel syndrome of left wristCervical spinal stenosis [address]. [address] [place], [place], [id number] . tel:[phone] [facility] , [address], [place], [address], [place] tel:[phone] [facility] [place] Pain in left wrist 6 Sher[address]itin. [address] [place], [place], [id number] . tel:[phone] Family History Family Member Type Diagnosis Age [...]
--- OUTSIDE RECORDS SUMMARY | 2025-02-15 18:38 | XMS_ITS | Encounter Summary ---
Author Organization [facility] Facility Care Team Providers Care Aids Social Worker Name Role Phone Isaruo Johnson MD Primary Care Provider Cody Andrew MD Unavailable [phone] Miscellaneous, Not In File Unavailable Unava ilable Isauro Johnson MD Primary Care Provider Encounter Details Date Type Department Care Team (Latest Contact Info) Description 08/24/2016 Orders Only [facility] CLINCONV ProviderHilary MD [address] [place] [address] Social History Tobacco Use Types Packs/Day Years Used Date Smoking Tobacco: Never Assessed Sex and Gender Information Value Date Recorded Sex Assigned at Not on file Legal Sex Male 11:32 AM PROSTHETIC LAB TECHNICIAN Gender Identity Not on file Sexual Orientation [...] CDT MRSA 03/08/2024 04/09/2024 10/06/2024 3:05 AM PROSTHETIC LAB TECHNICIAN documented as of this encounter Care Teams Aids Social Worker Relationship Specialty Start Date End Date Isauro Johnson MD PCP - General Energy Conservation Director 05/21/17 07/25/22 Isauro Johnson MD PCP - General Energy Conservation Director 07/26/22 Cody Andrew MD Consulting Physician Infectious Diseases 10/09/21 Miscellaneous, Not In File 10/09/21 documented as of this encounter
--- OUTSIDE RECORDS SUMMARY | 2025-02-15 18:38 | XMS_ITS | Referral Summary ---
Author Organization [facility] [address] Address [address] [place] [address] Care Team Providers Care Hand Coke Drawer Name Role Phone Cody Andrew MD Unavailable [phone] Miscellaneous, Not In File Unavailable Unava ilable [...] mg tabletIndications :Dyslipidemia,Cor onary artery disease involving [place] coronary artery of [place] heart without angina pectoris Take 1 tablet (80 mg total) by mouth nightly 90 tablet 3 4 04/29/20 25 Active amLODIPine (NORVASC) 10 mg tabletIndications :Uncontrolled hypertension Take 1 tablet (10 mg total) by mouth daily 90 tablet 3 4 04/29/20 25 Active clopidogreL (PLAVIX) 75 mg tabletIndications :Coronary artery disease involving [place] coronary artery of [place] heart without angina pectoris Take 1 tablet (75 mg total) by mouth daily 90 tablet 3 4 04/29/20 25 Active aspirin 81 mg enteric coated tabletIndications :Coronary artery disease involving [place] coronary artery of [place] heart without angina pectoris Take 1 tablet (81 mg total) by mouth daily 90 tablet 3 4 04/29/20 25 Active ezetimibe (ZETIA) 10 mg tabletIndications :Coronary artery disease involving [place] coronary artery of [place] heart without angina pectoris Take 1 tablet (10 mg total) by mouth nightly 90 tablet 3 4 04/29/20 25 Active metoprolol tartrate (LOPRESSOR) 25 mg immediate release tabletIndications :Coronary artery disease involving [place] coronary artery of [place] heart without angina pectoris,Essentia l hypertension Take [...] wishes to f/u with Dr. Andrew in [place] - chat message sent to him. Assessment [...] 12/24/2019 Assessment & Plan (12/25/2019 1:27 PM CLARK DRIVER): #Spontaneous dental abscess, symptomatic since Saturday (12/21), [...] skin lesions Coronary artery disease invo lving [place] coronary artery of [place] heart without angina pectoris 05/02/2019 Assessment & [...] 07/20pm Assessment & Plan (12/25/2019 1:25 PM CLARK DRIVER): #History of NSTEMI in 10/2019. LHC at [place] (10/2019) revealed a totally occluded proximal RCA, [...] Plan (05/02/2019 8:22 AM CDT): History of [place] in 2013 and 2015 s/p stent placement. --Continue home aspirin, ticagrelor, atorvastatin. Hyperlipidemia 05/02/2019 Assessment & Plan (07/24/2022 5:44 PM CDT): Cont statin Assessment & Plan (07/23/2022 1:55 PM CDT): Cont statin Assessment & Plan (07/22/2022 3:57 PM CDT): Cont statin Assessment & Plan (12/24/2019 8:48 PM CLARK DRIVER): #Chronic with history of CAD. - Continue [...] lisinopril Assessment & Plan (12/24/2019 8:49 PM CLARK DRIVER): #Chronic. - Continue home lisinopril, metoprolol as [...] (03/20/2019): Added automatically from request for surgery [id number] High risk medication use 12/12/2018 Psoriatic arthritis 03/27/2018 Assessment & Plan (12/24/2019 8:40 PM CLARK DRIVER): #Follows with Rheumatology, last seen 06/2019, managed with Enbrel 50 mg weekly. - Continue to monitor. Uveitis 03/27/2018 Behcet's syndrome ([facility]/HCC) 03/26/2018 Assessment & Plan (12/24/2019 8:39 PM CLARK DRIVER): #Follows with Rheumatology, last seen 06/2019. He [...] --Treatment of MAGI as above. Aspiration pneumonia ([facility]) 05/02/2019 10/03/2021 Assessment & Plan (05/04/2019 8:31 [...] = 0.6 oz pur e alcohol) Rarely [facility] Utilities Answer Date Recorded In the past 12 months has [employer], gas, oil, or water [employer] threatened to shut off services in your [...] week 04/09/2024 How often do you attend [facility] or scientologist services? Never 04/09/2024 Do you belong to any clubs o r organizations such as pentecostalism groups, unions, fraternal or athletic groups, or [...] any time in the past 12 m [facility], were you homeless or living [...] on file Legal Sex Male 11:32 AM CLARK DRIVER Gender Identity Not on file Sexual [...] on file Medical Devices Implanted Type Area Compass Operator Device Identifier Shelf Expiration Date Model / Serial / Lot Cardiac Stent Implanted:10/21 (Quantity not on file) Stent Heart [employer] Escobar Distal Marker Radiology Stainless Steel Sterile Am-D - [id number] Implanted:Qty: 1 on 03/10/2024 by Yinka Palmer MD at [facility] N/A: Heart [employer] [id number] 09/20/2026 AMGM-D / / [id number] Procedures Procedure Name Priority Date/Time Associated Diagnosis [...] was last reviewed 2021. Testing performed by: [facility], [address] [place] [address]., [address] Blood 07/30/2024 5:42 PM CDT 07/30/2024 5:58 PM CDT us Brittaney Coffman MD LAB BLOOD ORDERABLES Fin al Result TYLER [address] [facility] Department [place] [address] * Hemoglobin A1c (03/07/2024 4:01 AM CDT) Hgb A1C 5.5 4.0 - 5.6 % Comment:Testing performed by : [address] [address] Estimated Average Glucose 111 mg/dL TYLER Comment: The ADA recommends reporting an estimated Average Glucose (eAG) with all Hemoglobin A1c results using the equation derived from a study of 507 normal and diabetic adults. Minority populations were underrepresented and children were not included. (Diabetes Care 31:6379-5883, 2008). The eAG is not equivalent to a fasting glucose. Testing performed by: [address] [address] Blood 03/07/2024 4:01 AM CDT 03/07/2024 4:10 AM CDT Ricardo Mendoza MD LAB BLOOD ORDERABLES Final Result TYLER [address] [facility] Department [place] [address] * (ABNORMAL) Lipid panel (03/06/2024 6:33 PM [...] last revised on 2018. Testing performed by: [address] [address] Triglycerides 146 <=149 mg/dL TYLER Comment: Interpretive [...] last revised on 2018. Testing performed by: [address] [place]., [address] HDL 38(L) >=40 mg/dL TYLER Comment: Interpretive [...] last revised on 2018. Testing performed by: [address] [address] LDL, calculated 110 <=129 mg/dL TYLER Comment: [...] last revised on 2018. Testing performed by: [address] [address] Non-HDL Cholesterol 139 mg/dL TYLER Comment: Interpretive [...] last revised on 2018. Testing performed by: [address] [address] Chol/HDL ratio 5 TYLER Comment:Testing performed by : [facility], [address] [place] [address]., [address] Blood 03/06/2024 6:33 PM CDT 03/06/2024 6:44 PM CDT Narrative TYLER LÓPEZ - 03/06/2024 7:29 PM CDT This lipid panel was automatically ordered due to a significant change in Troponin. The dietary status of the patient at the collection time should be correlated with the lipid results. us Oleg Pierce DO LAB BLOOD ORDERABLES Final Res ult TYLER [address] [facility] Department [place] [address] * COLONOSCOPY (05/01/2019 3:34 PM CDT) Anatomical Region Laterality Modality Other Narrative Procedure Note Juan Manuel Rick MD - 05/01/2019 3:34 PM CDT GI ENDOSCOPY [facility] Patient Name: Zander Cain Procedure Date: 05/01/2019 3:34 PM Date of : 1975 Admit Type: Outpatient Age: 43 Gender: Male Attending MD: Juan Manuel Rick M.D. Room: [facility] END[facility]COPY [facility] 5 Note Status: Finalized Procedure: [...] The scope was passed under direct vision.The [id number] endoscope was introduced throughthe anus and [...] On: 05/01/2019 3:34 PM Recognized by the [place] [employer] for Gastrointestinal Endoscopy for promoting quality [...] core IgM NONREACT NONREACTIVE 8 12:52 PM [facility] HISTORICAL RESULTS Comment: Siemens CentaurXP using NEETA [...] MICROBIOLOGY - GENERAL OR DERABLES Final Result [facility] HISTORICAL RESULTS from Last 3 Months or Most Recently Relevant to Health Maintenance Insurance [facility] Advance Directives For more information, please contact: [phone] Documents on File Type Date Recorded Patient Aviation Technician Aircraft Expl anation ADVANCE DIRECTIVE 03/09/2024 12:26 PM Chavo r of [employer] S[employer]-Medical * Full Code (Latest Code Status on [...] 6:32 PM 07/20/2022 6:32 PM Care Teams Hand Coke Drawer Relationship Specialty Start Date End Date Isauro Johnson MD PCP - General Wood Grinder Operator 07/26/22 Cody Andrew MD Consulting Physician Infectious Diseases 10/09/21 Miscellaneous, Not In File 10/09/21
--- NOTE | 2025-02-15 19:06 | PC.NURSE ---
patient to bathroom to try to provide a urine sample at this time
--- OUTSIDE RECORDS SUMMARY | 2025-02-15 19:38 | XMS_ITS | Encounter Summary ---
Author Organization [facility] Facility Care Team Providers Care Wireless Development Manager Name Role Phone Isauro Johnson MD Primary Care Provider Cody Andrew MD Unavailable [phone] Miscellaneous, Not In File Unavailable Unava ilable Isauro Johnson MD Primary Care Provider Encounter Details Date Type Department Care Team (Latest Contact Info) Description 07/07/2018 Orders Only [facility] CLINCONV ProviderHilary MD [address] [place] [address] Social History Tobacco Use Types Packs/Day Years Used Date Smoking Tobacco: Former Smokeless Tobacco: Former Alcohol Use Standard Drinks/Week Comments Yes 0 (1 standard drink = 0.6 oz pur e alcohol) rarely Sex and Gender Information Value Date Recorded Sex Assigned at Not on file Legal Sex Male 11:32 AM ELECTRIC METER TESTER Gender Identity Not on file Sexual [...] CDT MRSA 03/08/2024 04/09/2024 10/06/2024 3:05 AM ELECTRIC METER TESTER documented as of this encounter Care Teams Wireless Development Manager Relationship Specialty Start Date End Date Isauro Johnson MD PCP - General Dock Superintendent 05/21/17 07/25/22 Isauro Johnson MD PCP - General Dock Superintendent 07/26/22 Cody Andrew MD Consulting Physician Infectious Diseases 10/09/21 Miscellaneous, Not In File 10/09/21 documented as of this encounter
--- OUTSIDE RECORDS SUMMARY | 2025-02-15 19:38 | XMS_ITS | Continuity of Care Document ---
Author Organization [facility] Address [address] [facility] [address] [facility] [address] [place] [address] Phone Care Team Providers Care All Source Intelligence Name Role Phone Nitin Gormna MD Unavailable Unavailable Allergies, Adverse Reactions, Alerts [...] Providers Copied on Encounter [facility] , [address], [place], [address], [place] tel:[phone] [facility] O Ophelia No Information [address]. [address] [facility], [place], [id number] . tel:[phone] [facility] , [address], [place], [address], [place] tel:[phone] [facility] O Erika Carpal tunnel syndrome of left wristCervical spinal stenosis [address] [place], [place], [id number] . tel:[phone] [facility] , [address], [place], [address], [place] tel:[phone] [facility] O Ophelia Pain in left wrist [address] Nitin. [address], [place], [id number] . tel:[phone] Family History Family Member Type Diagnosis Age At Onset No Information Payers Payer name Insurance type Covered green party ID Authorronya titulio(s) No Information Social History [...]
--- OUTSIDE RECORDS SUMMARY | 2025-02-15 19:38 | XMS_ITS | Clinical Summary ---
Author Organization [facility] Address [address] [place] [address] Care Team Providers Care Oracle Erp Architect Name Role Phone Unavailable Primary Care Provider [...] on file Legal Sex Male 12:35 PM FINANCIAL ENGINEER Gender Identity Not on file Sexual Orientation [...] wrist ([place]) 04/08/2024 04/08/2024 Insurance [facility]
--- OUTSIDE RECORDS SUMMARY | 2025-02-15 19:38 | XMS_ITS | Clinical Summary ---
Author Organization [facility] Address [address] [place] [address] Phone Care Team Providers Care Sweatband Cutting Machine Operator Name Role Phone Nomfc, External Provider Primary [...] Advance Directives For more information, please contact: [phone] * Full Code (Latest Code Status on File) Date Activated Date Inactivated Comments 07/27/2013 5:37 PM 07/29/2013 11:55 AM Care Teams Sweatband Cutting Machine Operator Relationship Specialty Start Date End Date Nomfc, External Provider PCP - General 07/27/13
--- OUTSIDE RECORDS SUMMARY | 2025-02-15 19:38 | XMS_ITS | Referral Summary ---
Author Organization [facility] [place] [place] [address] Address [address] [place] [address] Care Team Providers Care Spout Worker Name Role Phone Cody Andrew MD Unavailable [phone] Miscellaneous, Not In File Unavailable Unava ilable [...] mg tabletIndications :Dyslipidemia,Cor onary artery disease involving [place] coronary artery of citizen [place] heart without angina pectoris Take 1 tablet (80 mg total) by mouth nightly 90 tablet 3 4 04/29/20 25 Active amLODIPine (NORVASC) 10 mg tabletIndications :Uncontrolled hypertension Take 1 tablet (10 mg total) by mouth daily 90 tablet 3 4 04/29/20 25 Active clopidogreL (PLAVIX) 75 mg tabletIndications :Coronary artery disease involving citizen [place] coronary artery of citizen [place] heart without angina pectoris Take 1 tablet (75 mg total) by mouth daily 90 tablet 3 4 04/29/20 25 Active aspirin 81 mg enteric coated tabletIndications :Coronary artery disease involving citizen [place] coronary artery of citizen [place] heart without angina pectoris Take 1 tablet (81 mg total) by mouth daily 90 tablet 3 4 04/29/20 25 Active ezetimibe (ZETIA) 10 mg tabletIndications :Coronary artery disease involving [place] coronary artery of citizen [place] heart without angina pectoris Take 1 tablet (10 mg total) by mouth nightly 90 tablet 3 4 04/29/20 25 Active metoprolol tartrate (LOPRESSOR) 25 mg immediate release tabletIndications :Coronary artery disease involving citizen [place] coronary artery of citizen [place] heart without angina pectoris,Essentia l hypertension Take [...] wishes to f/u with Dr. Andrew in [place] - chat message sent to him. Assessment [...] 12/24/2019 Assessment & Plan (12/25/2019 1:27 PM DENTAL EQUIPMENT TECHNICIAN): #Spontaneous dental abscess, symptomatic since Saturday (12/21), [...] skin lesions Coronary artery disease invo lving [place] coronary artery of citizen [place] heart without angina pectoris 05/02/2019 Assessment & [...] 07/20pm Assessment & Plan (12/25/2019 1:25 PM DENTAL EQUIPMENT TECHNICIAN): #History of NSTEMI in 10/2019. LHC at [place] (10/2019) revealed a totally occluded proximal RCA, [...] Plan (05/02/2019 8:22 AM CDT): History of MD in 2013 and 2015 s/p stent placement. --Continue home aspirin, ticagrelor, atorvastatin. Hyperlipidemia 05/02/2019 Assessment & Plan (07/24/2022 5:44 PM CDT): Cont statin Assessment & Plan (07/23/2022 1:55 PM CDT): Cont statin Assessment & Plan (07/22/2022 3:57 PM CDT): Cont statin Assessment & Plan (12/24/2019 8:48 PM DENTAL EQUIPMENT TECHNICIAN): #Chronic with history of CAD. - Continue [...] lisinopril Assessment & Plan (12/24/2019 8:49 PM DENTAL EQUIPMENT TECHNICIAN): #Chronic. - Continue home lisinopril, metoprolol as [...] (03/20/2019): Added automatically from request for surgery [id number] High risk medication use 12/12/2018 Psoriatic arthritis 03/27/2018 Assessment & Plan (12/24/2019 8:40 PM DENTAL EQUIPMENT TECHNICIAN): #Follows with Rheumatology, last seen 06/2019, managed with Enbrel 50 mg weekly. - Continue to monitor. Uveitis 03/27/2018 Behcet's syndrome ([facility]/HCC) 03/26/2018 Assessment & Plan (12/24/2019 8:39 PM DENTAL EQUIPMENT TECHNICIAN): #Follows with Rheumatology, last seen 06/2019. He [...] --Treatment of MAGI as above. Aspiration pneumonia ([facility]) 05/02/2019 10/03/2021 Assessment & Plan [...] = 0.6 oz pur e alcohol) Rarely [facility] Utilities Answer Date Recorded In the past 12 months has [employer], gas, oil, or water [employer] threatened to shut off services in your [...] week 04/09/2024 How often do you attend [facility] or uatsdin services? Never 04/09/2024 Do you belong to any clubs o r organizations such as advent groups, unions, fraternal or athletic groups, or [...] any time in the past 12 m [facility], were you homeless or living in a residential (including now)? No 04/09/2024 Personal Safety Answer Date Recorded Have you ever been in or are you currently in a harmful physical or emotional relationship or is someone making you feel afraid or unsafe? 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 Male 11:32 AM DENTAL EQUIPMENT TECHNICIAN Gender Identity Not on file Sexual [...] on file Medical Devices Implanted Type Area Sole Leveling Machine Operator Device Identifier Shelf Expiration Date Model / Serial / Lot Cardiac Stent Implanted:10/21 (Quantity not on file) Stent Heart [employer] Escobar Distal Marker Radiology Stainless Steel Sterile Am-D - [id number] Implanted:Qty: 1 on 03/10/2024 by Yinka Palmer MD at [facility] N/A: Heart [employer] [id number] 09/20/2026 AMGM-D / / [id number] Procedures Procedure Name Priority Date/Time Associated Diagnosis [...] was last reviewed 2021. Testing performed by: [facility], [address] [place] [address]., [address] Blood 07/30/2024 5:42 PM CDT 07/30/2024 5:58 PM CDT us Brittaney Coffman MD LAB BLOOD ORDERABLES Fin al Result TYLER [address] [facility] Department [place] [address] * Hemoglobin A1c (03/07/2024 4:01 AM CDT) Hgb A1C 5.5 4.0 - 5.6 % Comment:Testing performed by : [address] [address] Estimated Average Glucose 111 mg/dL TYLER Comment: The ADA recommends reporting an estimated Average Glucose (eAG) with all Hemoglobin A1c results using the equation derived from a study of 507 normal and diabetic adults. Minority populations were underrepresented and children were not included. (Diabetes Care 31:0668-5595, 2008). The eAG is not equivalent to a fasting glucose. Testing performed by: [address] [address] Blood 03/07/2024 4:01 AM CDT 03/07/2024 4:10 AM CDT Ricardo Mendoza MD LAB BLOOD ORDERABLES Final Result TYLER [address] [facility] Department [place] [address] * (ABNORMAL) Lipid panel (03/06/2024 6:33 PM [...] last revised on 2018. Testing performed by: [address] [address] Triglycerides 146 <=149 mg/dL TYLER Comment: Interpretive [...] last revised on 2018. Testing performed by: [address] [place]., [address] HDL 38(L) >=40 mg/dL TYLER Comment: Interpretive [...] last revised on 2018. Testing performed by: [address] [address] LDL, calculated 110 <=129 mg/dL TYLER Comment: [...] last revised on 2018. Testing performed by: [address] [address] Non-HDL Cholesterol 139 mg/dL TYLER Comment: Interpretive [...] last revised on 2018. Testing performed by: [address] [address] Chol/HDL ratio 5 TYLER Comment:Testing performed by : [facility], [address] [place] [address]., [address] Blood 03/06/2024 6:33 PM CDT 03/06/2024 6:44 PM CDT Narrative TYLER LÓPEZ - 03/06/2024 7:29 PM CDT This lipid panel was automatically ordered due to a significant change in Troponin. The dietary status of the patient at the collection time should be correlated with the lipid results. us Oleg Pierce DO LAB BLOOD ORDERABLES Final Res ult TYLER [address] [facility] Department [place] [address] * COLONOSCOPY (05/01/2019 3:34 PM CDT) Anatomical Region Laterality Modality Other Narrative Procedure Note Juan Manuel Rick MD - 05/01/2019 3:34 PM CDT GI ENDOSCOPY [facility] Patient Name: Zander Cain Procedure Date: 05/01/2019 3:34 PM Date of : 1975 Admit Type: Outpatient Age: 43 Gender: Male Attending MD: Juan Manuel Rick M.D. Room: [facility] ENDOSCOPY ROOM 5 Note Status: Finalized Procedure: [...] The scope was passed under direct vision.The [id number] endoscope was introduced throughthe anus and [...] On: 05/01/2019 3:34 PM Recognized by the [place] [employer] Gastrointestinal Endoscopy for promoting quality [...] core IgM NONREACT NONREACTIVE 8 12:52 PM [facility] HISTORICAL RESULTS Comment: Siemens CentaurXP using [...] MICROBIOLOGY - GENERAL OR DERABLES Final Result [facility] HISTORICAL RESULTS from Last 3 Months or Most Recently Relevant to Health Maintenance Insurance [facility] Advance Directives For more information, please contact: [phone] Documents on File Type Date Recorded Patient Infrastructure Security Architect Expl anation ADVANCE DIRECTIVE 03/09/2024 12:26 PM Chavo r of Academic Program Specialist-Medical * Full Code (Latest Code Status on [...] 6:32 PM 07/20/2022 6:32 PM Care Teams Spout Worker Relationship Specialty Start Date End Date Isauro Johnson MD PCP - General Manager Helpdesk 07/26/22 Cody Andrew MD Consulting Physician Infectious Diseases 10/09/21 Miscellaneous, Not In File 10/09/21
--- OUTSIDE RECORDS SUMMARY | 2025-02-15 19:38 | XMS_ITS | Clinical Summary ---
Author Organization [facility] Address [address] [place] [address] Care Team Providers Care System Archive Analyst Name Role Phone Isauro Johnson MD Primary Care Provider Source Comments [facility],non-owned Affiliates and Associated Physician Practices is amultiple site organization consisting of ambulatory clinics and hospital sitesin [place], [place] and [place]. This disclosure is being madepursuant to the Care Everywhere program and may not contain all information available regarding this patient. Last updated 18.[facility] Allergies No known active allergies Medications * [...] on file Legal Sex Male 6:26 PM OPERATIONS RESEARCH GROUP MANAGER Gender Identity Not on file Sexual Orientation [...] patient's age to complete this topic Insurance [facility] Advance Directives * Full Code (Latest Code Status on File) Date Activated Date Inactivated Comments 07/10/2020 9:17 PM 07/12/2020 5:20 PM Care Teams System Archive Analyst Relationship Specialty Start Date End Date Isauro Johnson MD PCP - General Internal Medicine 09/24/17
--- OUTSIDE RECORDS SUMMARY | 2025-02-15 19:38 | XMS_ITS | Encounter Summary ---
Author Organization [facility] Care Team Providers Care Strip Presser Name Role Phone Isauro Johnson MD Primary Care Provider Cody Andrew MD Unavailable [phone] Miscellaneous, Not In File Unavailable Unava ilable Isauro Johnson MD Primary Care Provider Encounter Details Date Type Department Care Team (Latest Contact Info) Description 08/24/2016 Orders Only [facility] CLINCONV ProviderHilary MD [address] [place] [address] Social History Tobacco Use Types Packs/Day Years Used Date Smoking Tobacco: Never Assessed Sex and Gender Information Value Date Recorded Sex Assigned at Not on file Legal Sex Male 11:32 AM EQUIPMENT OILER Gender Identity Not on file Sexual Orientation [...] CDT MRSA 03/08/2024 04/09/2024 10/06/2024 3:05 AM EQUIPMENT OILER documented as of this encounter Care Teams Strip Presser Relationship Specialty Start Date End Date Isauro Johnson MD PCP - General Fuel Oil Truck Driver 05/21/17 07/25/22 Isauro Johnson MD PCP - General Fuel Oil Truck Driver 07/26/22 Cody Andrew MD Consulting Physician Infectious Diseases 10/09/21 Miscellaneous, Not In File 10/09/21 documented as of this encounter
--- OUTSIDE RECORDS SUMMARY | 2025-02-15 19:38 | XMS_ITS | Clinical Summary ---
Author Organization [facility] Address [address] [place] [address] Phone Care Team Providers Care Research Chef Name Role Phone Isauro Johnson MD Primary [...] age to complete this topic Care Teams Research Chef Relationship Specialty Start Date End Date Isauro Johnson MD [address] [place] [address] PCP - General Internal Medicine 05/27/20
--- OUTSIDE RECORDS SUMMARY | 2025-02-15 19:38 | XMS_ITS | Encounter Summary ---
Author Organization [facility] Facility Care Team Providers Care Cardiac Surgeon Name Role Phone Isauro Johnson MD Primary Care Provider Cody Andrew MD Unavailable [phone] Miscellaneous, Not In File Unavailable Unava ilable Isauro Johnson MD Primary Care Provider Encounter Details Date Type Department Care Team (Latest Contact Info) Description 04/13/2016 Orders Only MMG CLINCONV ProviderHilary MD [address] [place] [address] Social History Tobacco Use Types Packs/Day Years Used Date Smoking Tobacco: Never Assessed Sex and Gender Information Value Date Recorded Sex Assigned at Not on file Legal Sex Male 11:32 AM MOTHER BABY RN Gender Identity Not on file Sexual Orientation [...] CDT MRSA 03/08/2024 04/09/2024 10/06/2024 3:05 AM MOTHER BABY RN documented as of this encounter Care Teams Cardiac Surgeon Relationship Specialty Start Date End Date Isauro Johnson MD PCP - General Electrophonic Engineer 05/21/17 07/25/22 Isauro Johnson MD PCP - General Electrophonic Engineer 07/26/22 Cody Andrew MD Consulting Physician Infectious Diseases 10/09/21 Miscellaneous, Not In File 10/09/21 documented as of this encounter
--- OUTSIDE RECORDS SUMMARY | 2025-02-15 19:38 | XMS_ITS | Encounter Summary ---
Author Organization [facility] Facility Care Team Providers Care Agricultural Engineering Teacher Name Role Phone Isauro Johnson MD Primary Care Provider Cody Andrew MD Unavailable [phone] Miscellaneous, Not In File Unavailable Unava ilable Isauro Johnson MD Primary Care Provider Encounter Details Date Type Department Care Team (Latest Contact Info) Description 08/13/2016 Orders Only MMG CLINCONV ProviderHilary MD [address] [place] [address] Social History Tobacco Use Types Packs/Day Years Used Date Smoking Tobacco: Never Assessed Sex and Gender Information Value Date Recorded Sex Assigned at Not on file Legal Sex 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
--- OUTSIDE RECORDS SUMMARY | 2025-02-15 19:38 | XMS_ITS | Clinical Summary ---
Author Organization [facility] [address] Address [address] [place] [address] Care Team Providers Care Picker Name Role Phone Cody Andrew MD Unavailable [phone] Miscellaneous, Not In File Unavailable Unava ilable [...] wishes to f/u with Dr. Andrew in [place] - chat message sent to him. Assessment [...] 12/24/2019 Assessment & Plan (12/25/2019 1:27 PM DOOR TO DOOR FUNDRAISING COLLECTOR): #Spontaneous dental abscess, symptomatic since Saturday (12/21), [...] 07/20pm Assessment & Plan (12/25/2019 1:25 PM DOOR TO DOOR FUNDRAISING COLLECTOR): #History of NSTEMI in 10/2019. LHC at [place] (10/2019) revealed a totally occluded proximal RCA, [...] Plan (05/02/2019 8:22 AM CDT): History of RI in 2013 and 2015 s/p stent placement. --Continue home aspirin, ticagrelor, atorvastatin. Hyperlipidemia 05/02/2019 Assessment & Plan (07/24/2022 5:44 PM CDT): Cont statin Assessment & Plan (07/23/2022 1:55 PM CDT): Cont statin Assessment & Plan (07/22/2022 3:57 PM CDT): Cont statin Assessment & Plan (12/24/2019 8:48 PM DOOR TO DOOR FUNDRAISING COLLECTOR): #Chronic with history of CAD. - Continue [...] lisinopril Assessment & Plan (12/24/2019 8:49 PM DOOR TO DOOR FUNDRAISING COLLECTOR): #Chronic. - Continue home lisinopril, metoprolol as [...] (03/20/2019): Added automatically from request for surgery [id number] High risk medication use 12/12/2018 Psoriatic arthritis 03/27/2018 Assessment & Plan (12/24/2019 8:40 PM DOOR TO DOOR FUNDRAISING COLLECTOR): #Follows with Rheumatology, last seen 06/2019, managed with Enbrel 50 mg weekly. - Continue to monitor. 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 He [...] MAGI as above. Aspiration pneumonia ([facility]) 05/02/2019 10/03/2021 Assessment & Plan [...] artery disease Hypertension Kidney stones HLD (hyperlipidemia) RI, old Behcet's syndrome (HCC) Psoriasis Anxiety Gout [...] = 0.6 oz pur e alcohol) Rarely [employer] Answer Date Recorded In the past [...] often do you attend chur ch or yarsani services? Never 04/09/2024 Do you belong to any clubs o r organizations such as cheondoism groups, unions, fraternal or athletic groups, or [...] any time in the past [address] [facility], were you homeless or living [...] on file Legal Sex Male 11:32 AM DOOR TO DOOR FUNDRAISING COLLECTOR Gender Identity Not on file Sexual Orientation [...] Completed 08/20/2018 Medical Devices Implanted Type Area Bearing Machine Operator Device Identifier Shelf Expiration Date Model / Serial / Lot Cardiac Stent Implanted:10/21 (Quantity not on file) Stent [employer] Escobar Distal Marker Radiology Stainless Steel Sterile Amgm-D - [id number] Implanted:Qty: 1 on 03/10/2024 by Yinka Palmer MD at [facility] N/A: Heart [employer] [id number] 09/20/2026 AMGM-D / / [id number] Procedures Procedure Name Priority Date/Time Associated Diagnosis [...] was last reviewed 2021. Testing performed by: [address] [address] Blood 07/30/2024 5:42 PM CDT 07/30/2024 5:58 PM CDT Brittaney Coffman MD LAB BLOOD ORDERABLES Fin al Result Performing Organization Address [facility] Co de Phone Number [place] [id number] [facility] [place] [place] [address] * Hemoglobin A1c (03/07/2024 4:01 AM CDT) [facility] Hgb A1C 5.5 4.0 - 5.6 % Comment:Testing performed by : [address] [address] Estimated Average Glucose 111 mg/dL TYLER Comment: The ADA recommends reporting an estimated Average Glucose (eAG) with all Hemoglobin A1c results using the equation derived from a study of 507 normal and diabetic adults. Minority populations were underrepresented and children were not included. (Diabetes Care 31:1885-9772, 2008). The eAG is not equivalent to a fasting glucose. Testing performed by: [address] [address] Blood 03/07/2024 4:01 AM CDT 03/07/2024 4:10 AM CDT us Ricardo Mendoza MD LAB BLOOD ORDERABLES Final Result Performing Organization Address [facility] Co de Phone Number [facility] [address] [facility] [place] [place] [address] * (ABNORMAL) Lipid panel (03/06/2024 6:33 PM [...] last revised on 2018. Testing performed by: [address] [address] Triglycerides 146 <=149 mg/dL TYLER Comment: Interpretive [...] last revised on 2018. Testing performed by: [address] [address] HDL 38(L) >=40 mg/dL TYLER Comment: Interpretive [...] last revised on 2018. Testing performed by: [address] [address] LDL, calculated 110 <=129 mg/dL TYLER Comment: [...] last revised on 2018. Testing performed by: [address] [address] Non-HDL Cholesterol 139 mg/dL TYLER Comment: Interpretive [...] last revised on 2018. Testing performed by: [address] [address] Chol/HDL ratio 5 TYLER Comment:Testing performed by : [address] [address] Blood 03/06/2024 6:33 PM CDT 03/06/2024 6:44 PM CDT Narrative TYLER LÓPEZ - 03/06/2024 7:29 PM CDT This lipid panel was automatically ordered due to a significant change in Troponin. The dietary status of the patient at the collection time should be correlated with the lipid results. us Oleg Pierce DO LAB BLOOD ORDERABLES Final Res ult [facility] [address] [place] [address] * COLONOSCOPY (05/01/2019 3:34 PM CDT) Anatomical Region Laterality Modality Other Narrative Procedure Note Juan Manuel Rick MD - 05/01/2019 3:34 PM CDT [facility] Patient Name: Zander Cain Procedure Date: 05/01/2019 3:34 PM Date of : 1975 Admit Type: Outpatient Age: 43 Gender: Male Attending MD: Juan Manuel Rick M.D. Room: [facility] ENDOSCOPY ROOM 5 Note Status: [...] The scope was passed under direct vision.The [id number] endoscope was introduced throughthe anus and [...] On: 05/01/2019 3:34 PM Recognized by the [place] [employer] for promoting quality in endoscopy us Juan Manuel Rick MD ENDOSCOPY PROCEDURES Final Re sult * Hepatitis panel, acute (08/20/2018 6:13 AM CDT) HepBsAg NONREACT NONREACTIVE 08/20/2018 12:27 PM [facility] MyEveTab HISTORICAL RESULTS Comment: OKDJ.fmaurXP using NEETA (chemiluminescent immunoassay) technology. NONREACTIVE: IgM antibodies to Hepatitis B Surface antigen not detected. REACTIVE: IgM antibodies to Hepatitis B Surface antigen detected. Reactive results will be confirmed by neutralization testing. HBsAb qn < 3.10 mIU/mL 08/20/2018 12:17 PM [facility] HISTORICAL RESULTS Comment: Siemens CentaurXP using NEETA (chemiluminescent immunoassay) technology. 9.99 IU/L or less.....NONREACTIVE: IgM antibodies to Hepatitis B Surface antibody are not detected. 10.00 IU/L or greater..REACTIVE: IgM antibodies to Hepatitis B Surface antibody are detected. Hep B core IgM NONREACT NONREACTIVE 8 12:52 PM CDT [facility] HISTORICAL RESULTS Comment: Siemens CentaurXP using NEETA [...] MICROBIOLOGY - GENERAL OR DERABLES Final Result [facility] HISTORICAL RESULTS from Last 3 Months or Most Recently Relevant to Health Maintenance Insurance [facility] Member Subscriber Plan / Payer (Ef fective 2022-Present) Name:Zander Cain Relation to Subscriber:Self Name:Zander Cain Payer ID:[id number] (NAIC) Group ID:Not on file Type:MEDICAID RISK OTHER Address: ATTN: CLAIMS DEPT [address] [facility] [place] [id number] [facility] Advance Directives For more information, please contact: [phone] Documents on File Type Date Recorded Patient Stream Control Officer Expl anation ADVANCE DIRECTIVE 03/09/2024 12:26 PM Chavo r of Electronic Scanner Operator-Medical * Full Code (Latest Code Status [...] 6:32 PM 07/20/2022 6:32 PM Care Teams Picker Relationship Specialty Start Date End Date Isauro Johnson MD PCP - General Wire Coating Operator Metal 07/26/22 Cody Andrew MD Consulting Physician Infectious Diseases 10/09/21 Miscellaneous, Not In File 10/09/21
--- OUTSIDE RECORDS SUMMARY | 2025-02-15 19:38 | XMS_ITS | Continuity of Care Document ---
Author Organization [facility] Address [address] [place] [address] Phone Care Team Providers Care Corn Lab Technician Name Role Phone Katie MS, OTR/L, CHT, [...] Date Provider Providers Copied on Encounter [facility], [address] [facility] [address] [place] [address], [id number], tel:[phone] [place] No Information Roman-1 8-201 6 [place]. [address] [place] [address], [address], [place], [address], [place]. tel:[phone], [place], [place], [id number], tel:[phone] [place] No Information May-2 3-201 6 [place]. [address] [place] [address], [address], [place], [address], [place]. tel:[phone] Referring Provider: Yusuf Liang, [address] [facility] [address], [place], [address]. tel:[phone], [id number], tel:[phone] [place] No Information February-1 6-201 6 [place]. [address] [place] [address], [address], [place], [address], [place]. tel:[phone] Referring Provider: Yusuf Liang, [address] [facility] [address], [place], [address]. tel:[phone], [id number], tel:[phone] [place] No Information May-0 4-201 6 [place]. [address] [place] [address], [address], [place], [address], [place]. tel:[phone] Referring Provider: Yusuf Liang, [address] [facility] [address], [place], [address]. tel:[phone], [id number], tel:[phone] [place] No Information May-0 2-201 6 [place]. [address] [place] [address], [address], [place], [place], [facility], [place]. tel:[phone] Referring Provider: Yusuf Liang, [address] [facility] [address], [place], [address]. tel:[phone] [facility] [address] [place] [address] [address], [place], [place], [id number], [place] tel:[phone] [place] No Information 6 [place]. [address] [place] [address], [address], [place], [address], [place]. tel:[phone] Referring Provider: Yusuf Liang, [address] [facility] [address], [place], [address]. tel:[phone] [facility] [address] [place] [address], [place], [place], [id number], [place] tel:[phone] [place] Unsp fx the low end left rad, subs for clos fx w routn heal 6 [place]. [address] [place] [address], [address], [place], [address], [place]. tel:[phone] Referring Provider: Yusuf Liang, [address] [facility] [address], [place], [address]. tel:[phone], [id number], [place] tel:[phone] [place] No Information 6 [place]. [address] [place] [address], [address], [place], [address], [place]. tel:[phone] Referring Provider: Yusuf Liang, [address] [facility] [address], [place], [address]. tel:[phone] [facility] [address] [facility] [address], [place], [place], [id number], tel:[phone] [place] No Information 6 [place]. [address] [place] [address], [address], [place], [address], [place]. tel:[phone] Referring Provider: Yusuf Liang, [address] [facility] [address], [place], [address]. tel:[phone] [place] [address], [place], [place], [id number], [place] tel:[phone] [place] No Information Spencer-0 6-201 6 [place]. [address] [place] [address], [address], [place], [address], [place]. tel:[phone] Referring Provider: Yusuf Liang, [address] [facility] [address], [place], [address]. tel:[phone] [place] [address], [place], [place], [id number], [place] tel:[phone] [place] Muscle weakness (generalized) Oct-0 4-201 6 [place]. [address] [place] [address], [address], [place], [address], [place]. tel:[phone] Referring Provider: Yusuf Liang, [address] [facility] [address], [place], [address]. tel:[phone] [place] [address], [place], [place], [id number], [place] tel:[phone] [place] No Information Dec-3 0-201 5 [place]. [address] [place] [address], [address], [place], [address], [place]. tel:[phone] Referring Provider: Yusuf Liang, [address] [facility] [address], [place], [address]. tel:[phone] [place] [address], [place], [place], [id number], [place] tel:[phone] [place] No Information Dec-2 3-201 5 [place]. [address] [place] [address], [address], [place], [place], [facility], [place]. tel:[phone] Referring Provider: Yusuf Liang, [address] [facility] [address], [place], [address]. tel:[phone] [facility], [address] [place] [address], [place], [place], [id number], tel:[phone] [place] No Information Dec-2 2-201 5 [place]. [address] [place] [address], [address], [place], [address], [place]. tel:[phone] Referring Provider: Yusuf Liang, [address] [facility] [address], [place], [address]. tel:[phone], [id number], tel:[phone] [place] No Information Dec-2 1-201 5 [place]. [address] [place] [address], [address], [place], [place], [facility], [place]. tel:[phone] Referring Provider: Yusuf Liang, [address] [facility] [address], [place], [address]. tel:[phone], [id number], tel:[phone] [place] No Information Dec-1 6-201 5 [place]. [address] [place] [address], [address], [place], [place], [facility], [place]. tel:[phone] Referring Provider: Yusuf Liang, [address] [facility] [address], [place], [address]. tel:[phone], [id number], tel:[phone] [place] No Information Dec-1 4-201 5 [place]. [address] [place] [address], [address], [place], [address], [place]. tel:[phone] Referring Provider: Yusuf Liang, [address] [facility] [address], [place], [address]. tel:[phone] [facility], [address], [id number], tel:[phone] [place] No Information Dec-0 5 Amadnast[place]estina [place]. [address] [facility] [address], [place], [address], [place]. tel:[phone] Referring Provider: Yusuf Liang, [address] [facility] [address], [place], [address]. tel:[phone] [facility], [address] [place] [address], [place], [place], [id number], tel:[phone] [place] Pain in left wristStiffness of left wrist, not elsewhere classifiedLocal ized edemaOther specified postprocedural statesPersonal history of (healed) traumatic fracture Dec-0 5 [address] [address] [facility] [address], [place], [address], [place]. tel:[phone] Referring Provider: Yusuf Liang, [address] [facility] [address], [place], [address]. tel:[phone] Family History Family Member Type Diagnosis Age At Onset No Information Payers Payer name Insurance type Covered constitution party ID Benedict botello(s) [facility] CI [id number] Social History Type Description Quantity Date Captured [...]
--- OUTSIDE RECORDS SUMMARY | 2025-02-15 19:38 | XMS_ITS | Encounter Summary ---
Author Organization [facility] Facility Care Team Providers Care Pneumatic Tester Mechanic Name Role Phone Isauro Johnson MD Primary Care Provider Cody Andrew MD Unavailable Miscellaneous, Not In File Unavailable Unava ilable Isauro Johnson MD Primary Care Provider Encounter Details Date Type Department Care Team (Latest Contact Info) Description 04/12/2016 Orders Only [facility] CLINCONV ProviderHilary MD [address] [place] [address] Social History Tobacco Use Types Packs/Day Years Used Date Smoking Tobacco: Never Assessed Sex and Gender Information Value Date Recorded Sex Assigned at Not on file Legal Sex Male 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
--- NOTE | 2025-02-15 20:12 | ECG_ITS ---
Test Date: 2025-02-15 21:15:52 Measurements Intervals [place] Rate: 65 P: 22 NH: 137 QRS: -20 QRSD: 101 T: 23 QT: 372 QTc: 387 Interpretive Statements SINUS RHYTHM DELAYED PRECORDIAL R/S TRANSITION VOLTAGE CRITERIA FOR LVH NONSPECIFIC T-WAVE ABNORMALITY- INF/LAT LEADS BASELINE ARTIFACT- I, II, AVR, V1 BORDERLINE ECG No previous ECG available for comparison Electronically Signed On 02-16-2025 06:09:47 CDT by Ethan Gutierrez D.O.
[2025-02-15 20:15] LABS: Add Urine Microscopic? YES; Appearance Urine Clear (Clear); Bacteria Urine None Seen /hpf; Bilirubin Urine Negative (Negative); Blood Urine Negative (Negative); Color Urine Yellow (Yellow); Glucose Urine UA Negative (Negative); Ketones Urine Trace mg/dL (Negative); Leukocyte Esterase Ur Negative LEU/UL (Negative); Nitrate Urine Negative (Negative); Non Pathogenic Casts 0-2; Protein Urine Trace mg/dL (Negative); RBC Urine 0-2 /hpf (0-2); Specific Grav Ur 1.029 (1.001-1.035); Squamous Epithelial Cell Urine None Seen /hpf (Few); WBC Urine 0-5 /hpf (0-3); pH Urine 5.5 (5.0-9.0)
[2025-02-15] MEDS: fentaNYL CITRATE INJ (*CRX) 100 MCG/2 ML VIAL IV PUSH ×2 (20:17→23:37)
[2025-02-15] MEDS: LACTATED RINGERS 1,000 ML 999 ML IV CONT (20:34)
[2025-02-15] MEDS: TAMSULOSIN HCL 0.4 MG CAPSULE PO (20:34)
[2025-02-15 20:50] LABS: Basophils Percent Auto 0.4 % (0.2-1.2); Eosinophils Absolute Auto 0.2 K/mm3 (0-0.3); Eosinophils Percent Auto 2.4 % (0-4.4); Hemoglobin 16.8 g/dL (14.0-18.0); Immature Granulocyte Absolute 0.03 K/mm3 (0.00-0.031); Immature Granulocyte Percent A 0.4 % (0-0.5); Lymphocytes Absolute Auto 1.84 K/mm3 (0.9-3.2); Mean Corpuscular HGB Conc 34.3 g/dl (32-36); Mean Corpuscular Hemoglobin 30.1 pg (26-34); Mean Corpuscular Volume 87.7 fl (80-100); Mean Platelet Volume 9.7 fl (7.4-10.4); Monocytes Absolute Auto 0.5 K/mm3 (0.1-0.6); Monocytes Percent Auto 5.9 % (2.6-8.5); Neutrophils Absolute Auto 5.4 K/mm3 (1.3-6.7); Neutrophils Percent Auto 67.9 % (45.5-73.1); Platelet Count Result 297 k/mm3 (150-375); Red Blood Count 5.59 M/mm3 (4.6-6.20); Red Cell Distribution Width 11.9 % (11.5-14.5)
[2025-02-15 21:09] LABS: Alanine Aminotransferase 57 U/L (6-50); Alkaline Phosphatase 70 U/L (38-126); Anion Gap 13 mmol/L (4-12); Aspartate Amino Transferase 39 U/L (17-59); Bilirubin,Total 0.5 mg/dL (0.2-1.3); Blood Urea Nitrogen 17 mg/dL (9-20); Calcium 9.6 mg/dL (8.4-10.2); Carbon Dioxide 25 mmol/L (22-30); Chloride 103 mmol/L (98-107); Estimated Glomerular Filt Rate > 60; Glucose 109 mg/dL (65-110); Lipase 87 U/L (23-300); Potassium 4.2 mmol/L (3.4-5.0); Sodium 141 mmol/L (137-145)
[2025-02-15] MEDS: KETOROLAC 15 MG/ML VIAL (*BKC) IV PUSH (21:59)
[2025-02-15] MEDS: HYDROmorphone HCL INJ (*CRX) 2 MG/ML VIAL 1 MG IV PUSH (22:00)
[2025-02-15 23:31] VITALS: BMI 33.6
--- NOTE | 2025-02-15 23:42 | ADMGEN ---
This patient, Zander Cain, was admitted to 3 Med Surg Room 309-01. Patient/family oriented to hospital policies and general routines including ID bracelet, bed and alarms, visiting hours, pain management, procedures, bathroom and other care routines, personal items, smoking policy, room service/diet, and visiting hours. Information on how to activate the Rapid Response Team has been discussed. Patient/Family are encouraged to report perceived risks to care and to ask questions if they do not understand what they are told or what they should do.
[2025-02-16 00:02] VITALS: BP 138/90; PULSE 63; RESP 16; TEMP 36.2; O2SAT 98
[2025-02-16] MEDS: LACTATED RINGERS 1,000 ML 125 ML IV CONT ×3 (00:38→18:45)
[2025-02-16] MEDS: fentaNYL CITRATE INJ (*CRX) 100 MCG/2 ML VIAL IV PUSH ×2 (02:28→04:50)
--- NOTE | 2025-02-16 05:04 | PM.IMHP ---
H&P: HPI History of Present Illness Date/Time: 02/16/25 05:04 Chief Complaint: Worsening kidney pain Narrative: 49-year-old male with a past medical history of coronary disease status post stent and CABG, hyperlipidemia, essential hypertension, psoriasis, Behcet's disease who presented to the ER via private vehicle due to left lower abdominal pain. He was evaluated in the ER on the due to right flank pain that radiated down into the right groin. (Although all the notes say that the patient was having left flank pain he denies this). He had his CT scan which demonstrated 11 mm stone He reports that he has been straining his urine at home and did get 1 stone but is still having colicky pain. The pain is severe at times. It is been getting worse in intensity and frequency. He denies any associated fevers or chills. He reports that when he was evaluated in the ER they told him to follow-up with Urology on the . He is doom that that he was following up with Urology to have a cystoscopy and stent perform so he quit taking his Brilinta and Plavix. But he when he went to the urologist they stated that they wanted him to have cardiac clearance prior to a procedure. The patient had a 3 vessel CABG March 03, 2024. He reports that since he has had his CABG he quit smoking and he is being compliant with his medications he realized that he needed to make changes in his life and has been compliant with medical therapy. Unfortunately the patient's staffing program manager had left the practice at [facility] ([facility]). And it was not yet time for him to have appointment with his new staffing program manager. So he was unable to get the form for cardiac clearance signed. The patient denies having any chest pain, shortness of breath, palpitations or lower extremity edema. He denies any dysuria hematuria. He reports that when he does pass the stone pain seems to worsen. He has been taking Flomax and Brandon 7.5/325 without relief in symptoms. He reports that he has a fluttering sensation in the right going when the pain is that is worse. He states that he can feel the flutter. He reports that he gets Brandon from Dr. Johnson due to 3 bulging discs in his back. He states that he was told he needs to get low back surgery for several years but he is reluctant to do so. Review of Systems Review of Systems: 12 systems were reviewed with pertinent positives and negatives per HPI. Except as documented in the HPI, all other systems were reviewed and are negative. [facility] Past Medical History Medical History Obstructive sleep apnea Noncompliant with CPAP Alcohol abuse Chronic back pain Behcets syndrome Psoriasis Anxiety Left wrist fracture Gout Arthritis Kidney stone HLD (hyperlipidemia) HTN (hypertension) Myocardial infarction x2, with stent CAD (coronary artery disease) Dental cavities Surgical History Surgical History History of coronary artery bypass graft Status post cystoscopy with ureteral stent placement History of heart artery stent Cardiac catheterization 2019 performed at this facility demonstrated patent obtuse marginal branch stent without stenosis, right coronary artery large vessel and code dominant totally occluded proximally with stent placement with residual stenosis of 30% ejection fraction of 50% with basal and mid inferior wall hypokinesis History of surgery on arm left forearm H/O arthroscopy of left knee Family History Family History Daughter Cancer Father Hypertension Other Family history of malignant neoplasm Family history of psoriasis Social History Social History (Updated 02/16/25 @ 08:21 by Selene Botello DO) Social History: He has been since 2019. He has 3 children. 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 He used to smoke up to 3 packs of cigarettes per day. It did previously been documented that the patient had drink up to 28 alcoholic beverages a day. He adamantly denies ever having drink alcohol to excess. He states that he may drink 1 alcoholic on rare occasion. Code status: Full code Surrogate decision maker: Yu (daughter) 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 Smoking cigarettes per day: 40.0 Years smoked: 30 Smoking pack-years: 60.00 Smoking status: Former smoker Tobacco type: cigarettes Second hand tobacco smoke exposure: Yes Smoking end date: 03/03/24 Alcohol intake: former Drinks per week: 28 Substance use: never Substance use type: does not use Do You Feel Safe in your Home?: Yes Lack of Transportation: No Lack of Food: Never True Current Housing: I Have Housing Concerned About Future Housing: No Difficulty Paying Gas/Electric Bills: No Difficulty Paying for Meds: No Currently Unemployed: No Education: High School Diploma/GED Difficulty w/ Childcare or Family Care: No Gender identity (if verbalized by the patient): Male Sexual Orientation (if Verbalized by the Patient): Straight or Heterosexual Spiritual care concerns: No Agree to blood products: Yes Meds Home Medications and Allergies Home Medications ?Medication ?Instructions ?Recorded ?Confirmed ?Type bupropion HCl 150 mg 24 hr tablet, 150 mg PO DAILY 11/09/19 02/16/25 History extended release lisinopril 40 mg tablet 40 mg PO DAILY 11/09/19 02/16/25 History ticagrelor 90 mg tablet (Brilinta) 90 mg PO BID 11/09/19 02/16/25 History aspirin 81 mg tablet,delayed 81 mg PO DAILY #30 tabs 11/10/19 02/16/25 Rx release atorvastatin 40 mg tablet 40 mg PO DAILY #30 tabs 11/10/19 02/16/25 Rx nitroglycerin 0.4 mg sublingual 0.4 mg sublingual DIRECTED PRN 11/10/19 02/16/25 Rx tablet chest pain #25 tabs hydrocodone 7.5 mg-acetaminophen 1 tablet PO QID PRN Pain 04/25/20 02/16/25 History 325 mg tablet ondansetron 4 mg disintegrating 4 mg PO Q8H PRN nausea and 02/09/25 02/16/25 Rx tablet vomiting #10 tabs tamsulosin 0.4 mg capsule (Flomax) 0.4 mg PO DAILY #10 caps 02/09/25 02/16/25 Rx clopidogrel 75 mg tablet 75 mg PO DAILY 02/16/25 02/16/25 History Allergies Allergy/AdvReac Type Severity Reaction Status Date / Time colchicine AdvReac Unknown nausea and Verified 02/09/25 17:02 abdominal pain with one dose Vital Signs Vital Signs - 24 hr 02/15/25 18:00 02/16/25 00:02 02/16/25 00:28 Temperature 98.0 F 97.2 F L Pulse Rate 98 63 Respiratory Rate 17 16 Blood Pressure 150/87 H 138/90 Pulse Oximetry 98 98 Oxygen Delivery Room Air Exam Narrative: Weight 94.6 kg BMI 33.7 Const: Other: Obese, no acute distress HENMT: Other: Mucous membranes are dry, crowded posterior oropharynx, no oral pharyngeal erythema, head is normocephalic atraumatic Eyes: Other: Pupils are equal and reactive, no scleral icterus, no conjunctival pallor Neck: Other: Large neck circumference, no JVD, no lymphadenopathy Resp: Other: Clear to auscultation bilaterally, no increased work of breathing Cardio: Other: Sinus bradycardia, no murmurs, 2+ bilateral radial pedal pulses GI: Other: Distended, nontender to palpation, normoactive bowel sounds : Other: Right inguinal hernia noted on exam (CT scan of the abdomen pelvis did confirm incidental findings of bilateral inguinal hernias) but patient denies pain during hernia evaluation/examination Back/Spine/Pelvis: Other: No CVA tenderness Skin: Other: No jaundice, no pallor, extensive tattoos to the chest in bilateral upper arms, psoriatic plaques to bilateral elbows in bilateral knees and the undersurface of his chin as well as inside his ears Neuro: Other: Alert oriented, speech is clear, no facial asymmetry, moves all extremities equally, normal tone Extrem: Other: No clubbing, cyanosis or edema Psych: Other: Appropriate mood and affect, pleasant and cooperative, judgment and insight intact H&P: Results Labs Labs: Laboratory Tests 02/15/25 20:36 02/15/25 20:36 02/15/25 02/15/25 19:19 20:36 WBC 8.0 RBC 5.59 Hgb 16.8 Hct 49.0 MCV 87.7 MCH 30.1 MCHC 34.3 RDW 11.9 Plt Count 297 MPV 9.7 Immature Gran % (Auto) 0.4 Neut % (Auto) 67.9 Lymph % (Auto) 23.0 [place] % (Auto) 5.9 Eos % (Auto) 2.4 Baso % (Auto) 0.4 Lymph # (Auto) 1.84 [place] # (Auto) 0.5 Eos # (Auto) 0.2 Baso # (Auto) 0.0 Abs Immat Gran (auto) 0.03 Absolute Neuts (auto) 5.4 Absolute Nucleated RBC 0.000 Nucleated RBC % 0.0 Sodium 141 Potassium 4.2 Chloride 103 Carbon Dioxide 25 Anion Gap 13 H BUN 17 Creatinine 0.72 Estim Creat Clear Calc Not Reportable Estimated GFR > 60 Glucose 109 Calcium 9.6 Total Bilirubin 0.5 AST 39 ALT 57 H Alkaline Phosphatase 70 Total Protein 8.0 Albumin 5.0 Lipase 87 Urine Color Yellow Urine Appearance Clear Urine pH 5.5 Ur Specific [place] 1.029 Urine Protein Trace Urine Glucose (UA) Negative Urine Ketones Trace H Ur Blood (Man) Negative Urine Nitrate Negative Urine Bilirubin Negative Urine Urobilinogen 1.0 Leukocyte Esterase Rfl Negative Urine RBC 0-2 Urine WBC 0-5 Ur Squamous Epith Cells None seen Urine Bacteria None seen Urine Casts 0-2 Impressions Abdomen X-Ray 02/15/25 19:15 IMPRESSION: Nonspecific, nonobstructive bowel gas pattern. 10 mm calculus projecting over the left renal pelvis, as detailed above. Abdomen/Pelvis CT 02/15/25 20:50 IMPRESSION: Left nephrolithiasis. The renal pelvic calcifications seen previously have shifted into lower pole calyces on the left. No obstructive uropathy. 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 transplanted heart: [place] heart Qualified Code(s): I25.10 - Atherosclerotic heart disease of [place] coronary artery without angina pectoris Code(s): I25.10 - Atherosclerotic heart disease of [place] coronary artery without angina pectoris Status: Chronic (6) HLD (hyperlipidemia): Qualifiers: Hyperlipidemia type: unspecified Qualified Code(s): E78.5 - Hyperlipidemia, unspecified Code(s): E78.5 - Hyperlipidemia, unspecified Status: Chronic (7) HTN (hypertension): Qualifiers: Hypertension type: primary hypertension Qualified Code(s): I10 - Essential (primary) hypertension Code(s): I10 - Essential (primary) hypertension Status: Acute (8) Anxiety: Code(s): F41.9 - Anxiety disorder, unspecified Status: Chronic Plan Patient has large kidney stone on the left with flank pain on the right. The patient reports passing kidney stone at home but is still having pain. Patient's UA on the demonstrated turbid urine with trace ketones 3+ blood esterase and greater than 100 RBCs but is urine from last night only demonstrated trace ketones. His possible the patient may have already passed a stone from the right although no evidence of inflammation on CT. The kidney stone on the left does not provide reason for the patient's pain on the right. He is urinating without difficulty and denies dysuria. He has no evidence of acute infection. Unfortunately patient does have a significant amount of tolerance to narcotic pain medications due to chronic Brandon use. He reports persistent intractable pain despite 200 mcg of fentanyl every 2 hours and Brandon was ordered in the ER. I initially adjusted his pain medications to include Dilaudid and changed him to Percocet as I was under the impression that his pain was in the left flank where he has left kidney stone. Given that this is not the case I am uncertain if the there may be some component of malingering. An order for Urology consult live in place but urologist had not been contacted. I contacted Dr. May this morning and discussed the case. The patient will remain NPO until evaluated.. Although the patient does have history of coronary artery disease with history of CABG he is currently asymptomatic and denies chest pain palpitations shortness of breath lower extremity swelling or orthopnea. He has been off of his Brilinta and Plavix since the . He reports he has been taking the remainder of his medications for anxiety, hypertension and hyperlipidemia. He has also been using a nonprescription nicotine supplement since he quit smoking last February. He reports that he has almost stopped using the nicotine supplement as well. Patient has been admitted as observation status. Quality VTE Prophylaxis VTE prophylaxis: mechanical ordered (SCDs) Hospitalist MIPS Advance Care Plan I have confirmed that the patient's Advanced Care Plan is present, code status is documented, or surrogate decision maker is listed in patient medical record.: Yes Medication Reconciliation I have utilized all available resources to obtain, update and review the patients current medications (includes all prescriptions, OTC, herbals, cannabis, and nutritional supplements).: Yes
[2025-02-16 05:23] VITALS: BP 125/85; PULSE 58; RESP 18; TEMP 36.1; O2SAT 99
[2025-02-16] MEDS: HYDROmorphone HCL INJ (*CRX) 2 MG/ML VIAL 1 MG IV PUSH ×6 (05:41→21:12)
--- NOTE | 2025-02-16 07:54 | P.PNIM_ITS ---
Progress Note: A&P Assessment and Plan (1) Left nephrolithiasis: Code(s): N20.0 - Calculus of kidney Status: Acute Assessment and Plan: * Abd/Pelvis 02/09: Mild left-sided hydronephrosis secondary to multiple renal calculi spanning a length of 11 mm in the left renal pelvis. Bilateral nonobstructing renal calculi. * Abd/Pelvis 02/15: Left nephrolithiasis. The renal pelvic calcifications seen previously have shifted into lower pole calyces on the left. No obstructive uropathy. * UA: Trace ketones, otherwise normal * Does not require emergent treatment at this time * Neurology consulted, likely take the patient for lithotripsy on Saturday * Needs Cardiology clearance given patient has been off blood thinners for 4 days now, consult ordered on 02/16 * If cleared by Cardiology, may be discharged home and follow up with Dr. May outpatient (2) Right groin pain: Code(s): R10.31 - Right lower quadrant pain Status: Acute Assessment and Plan: * Etiology unclear, started same time as left flank pain but physical exam has been inconsistent throughout this visit and previous ER visit. * At time of admission, patient has right groin/inguinal pain * Physical exam does not indicate any protrusion of tissue, discoloration, or pain upon palpation * CT abdomen/pelvis shows bilateral inguinal hernia * General surgery consulted, appreciate recommendations (3) Chronic prescription opiate use: Code(s): Z79.891 - [place] (current) use of opiate analgesic Status: Acute Assessment and Plan: - Chronic Kimberly use due to back pain - Intractable pain in ED despite 200mcg fentanyl q2hrs and Kimberly - Adjusted to Dilaudid and Percocet PRN (4) CAD (coronary artery disease): Qualifiers: Associated angina: without angina Coronary Disease-Associated Artery/Lesion type: [place] artery [place] vs. transplanted heart: [place] heart Qualified Code(s): I25.10 - Atherosclerotic heart disease of [place] coronary artery without angina pectoris Code(s): I25.10 - Atherosclerotic heart disease of [place] coronary artery without angina pectoris Status: Chronic Assessment and Plan: * Pt reports he has not taken Brilinta or Plavix since 02/12 (5) HLD (hyperlipidemia): Qualifiers: Hyperlipidemia type: unspecified Qualified Code(s): E78.5 - Hyperlipidemia, unspecified Code(s): E78.5 - Hyperlipidemia, unspecified Status: Chronic Assessment and Plan: * Continue Atorvastatin 90mg (6) HTN (hypertension): Qualifiers: Hypertension type: primary hypertension Qualified Code(s): I10 - Essential (primary) hypertension Code(s): I10 - Essential (primary) hypertension Status: Acute Assessment and Plan: * Stable, 126/71 * Continue Lisinopril Time Spent With Patient Time: Subjective Date/time seen: 02/16/25 07:54 Interval history: 49-year-old male with a past medical history of coronary disease status post stent and CABG, hyperlipidemia, essential hypertension, psoriasis, Behcet's disease who presented to the ER via private vehicle due to left lower abdominal pain. 02/16/2025 Patient sitting comfortably in bed at time of exam. Denies any CP, SOB, n/v. Still endorsing left flank and right lower abdominal pain at this time. Urology consulted, stone determined to not require emergent treatment at this time. Dr. May to schedule a lithotripsy of left renal stone this Saturday pending cardiology regarding blood thinner management. Will also consult General surgery regarding right lower abdominal pain as physical exam has relatively benign but CT abdomen/pelvis shows bilateral inguinal hernia. Pending surgery and Cardiology consult, patient can be discharged with outpatient follow-up with Dr. May for lithotripsy on Saturday. Review of Systems Review of Systems: 12 systems were reviewed with pertinent positives and negatives per HPI. Except as documented in the HPI, all other systems were reviewed and are negative. All systems reviewed & are unremarkable except as noted in HPI and below Exam Narrative: Gen - well appearing male in no acute respiratory distress who is nontoxic-a ppearing lying semi recumbent in bed HEENT - normocephalic. Atraumatic. Pupils equal round and reactive. Extraocular motions intact. Sclera clear and anicteric. Nares patent. Oropharynx was clear. No oral lesions. Moist mucous membranes. Tongue was midline. Palate royer symmetrically. No facial asymmetry. Neck - neck was supple. No dominant adenopathy, thyromegaly or masses. 2+ carotid upstrokes without bruits. Chest - lungs are clear to auscultation bilaterally. No wheezes or crackles. CV - heart was regular rate and rhythm. S1-S2. No murmurs gallops or rubs. Abd -RLQ pain in inguinal region, no protrusion of tissue. Abdomen was soft. Nontender. Nondistended. Positive bowel sounds. No organomegaly or masses. Left CVA tenderness Ext - no clubbing, cyanosis or edema. 2+ DP pulses bilaterally. Neuro - patient is alert and oriented x4. Strength is 5/5 in both upper and lower extremities. Cranial nerves 2-12 are intact. Speech is clear. Psych - normal mood and affect. Patient is pleasant and cooperative. Skin - warm and dry. No rashes noted. Neuro: Other: Alert oriented, speech is clear, no facial asymmetry, moves all extremities equally, normal tone Psych: Other: Appropriate mood and affect, pleasant and cooperative, judgment and insight intact Objective Data Vital Signs Vital Signs: Vital Signs - 24 hr 02/15/25 18:00 02/16/25 00:02 02/16/25 00:28 Temperature 98.0 F 97.2 F L Pulse Rate 98 63 Respiratory Rate 17 16 Blood Pressure 150/87 H 138/90 Pulse Oximetry 98 98 Oxygen Delivery Room Air 02/16/25 05:23 Temperature 97.0 F L Pulse Rate 58 L Respiratory Rate 18 Blood Pressure 125/85 Pulse Oximetry 99 Oxygen Delivery Intake/Output Intake/Output: Intake & Output 02/13/25 02/14/25 02/15/25 02/16/25 23:59 23:59 23:59 23:59 Intake Total 0 Output Total 300 Balance -300 Meds/Results Medications: Active Medications Generic Name Dose Route Start Last Admin Trade Name Freq PRN Reason Stop Dose Admin Acetaminophen 650 mg 02/15/25 22:08 Acetaminophen 325 Mg Tablet PO Q4H PRN Mild Pain (1-3) or Fever Aspirin 81 mg 02/16/25 09:00 Aspirin 81 Mg Enteric Tablet PO DAILY [facility] Atorvastatin Calcium 40 mg 02/16/25 09:00 Atorvastatin 40 Mg Tablet PO DAILY [facility] Bupropion HCl 150 mg 02/16/25 09:00 Bupropion Hcl Xl (24 Hr) 150 Mg Tabcr PO DAILY [facility] Clopidogrel Bisulfate 75 mg 02/16/25 09:00 Clopidogrel Bisulfate 75 Mg Tablet PO DAILY [facility] Hydromorphone HCl 1 mg 02/16/25 05:21 02/16/25 05:41 Hydromorphone Hcl Inj (*Crx) 2 Mg/Ml Vial IV PUSH 1 mg Q3H PRN Administration Pain Rated 7-10 Lactated Ringer's 1,000 mls @ 125 mls/hr 02/15/25 22:10 02/16/25 00:38 Lr - Lactated Ringers Iv IV CONT 125 mls/hr .Q8H JUSTUS Administration Lisinopril 40 mg 02/16/25 09:00 Lisinopril 20 Mg Tablet PO DAILY [facility] Naloxone HCl 0.1 mg 02/16/25 05:31 Naloxone Hcl 0.4 Mg/Ml Vial IV PUSH Q5MIN PRN Opiate overdose Ondansetron HCl 4 mg 02/15/25 22:08 Ondansetron Inj 4 Mg/2 Ml Vial IV PUSH Q4H PRN Nausea Oxycodone/Acetaminophen 1 tab 02/16/25 05:31 Oxycodone/Acetaminophen (*Crx) 10-325 Mg Tablet PO Q4H PRN Pain Rated 7-10 Tamsulosin HCl 0.4 mg 02/16/25 09:00 Tamsulosin Hcl 0.4 Mg Capsule PO DAILY [facility] Radiology Results: ITS Impressions Abdomen X-Ray 02/15/25 19:15 IMPRESSION: Nonspecific, nonobstructive bowel gas pattern. 10 mm calculus projecting over the left renal pelvis, as detailed above. Abdomen/Pelvis CT 02/15/25 20:50 IMPRESSION: Left nephrolithiasis. The renal pelvic calcifications seen previously have shifted into lower pole calyces on the left. No obstructive uropathy. Labs Labs: Laboratory Results - last 24 hr 02/15/25 02/15/25 19:19 20:36 WBC 8.0 RBC 5.59 Hgb 16.8 Hct 49.0 MCV 87.7 MCH 30.1 MCHC 34.3 RDW 11.9 Plt Count 297 MPV 9.7 Immature Gran % (Auto) 0.4 Neut % (Auto) 67.9 Lymph % (Auto) 23.0 [place] % (Auto) 5.9 Eos % (Auto) 2.4 Baso % (Auto) 0.4 Lymph # (Auto) 1.84 [place] # (Auto) 0.5 Eos # (Auto) 0.2 Baso # (Auto) 0.0 Abs Immat Gran (auto) 0.03 Absolute Neuts (auto) 5.4 Absolute Nucleated RBC 0.000 Nucleated RBC % 0.0 Sodium 141 Potassium 4.2 Chloride 103 Carbon Dioxide 25 Anion Gap 13 H BUN 17 Creatinine 0.72 Estim Creat Clear Calc Not Reportable Estimated GFR > 60 Glucose 109 Calcium 9.6 Total Bilirubin 0.5 AST 39 ALT 57 H Alkaline Phosphatase 70 Total Protein 8.0 Albumin 5.0 Lipase 87 Urine Color Yellow Urine Appearance Clear Urine pH 5.5 Ur Specific [place] 1.029 Urine Protein Trace Urine Glucose (UA) Negative Urine Ketones Trace H Ur Blood (Man) Negative Urine Nitrate Negative Urine Bilirubin Negative Urine Urobilinogen 1.0 Leukocyte Esterase Rfl Negative Urine RBC 0-2 Urine WBC 0-5 Ur Squamous Epith Cells None seen Urine Bacteria None seen Urine Casts 0-2 Quality VTE Prophylaxis VTE prophylaxis: mechanical ordered (SCDs)
[2025-02-16] MEDS: TAMSULOSIN HCL 0.4 MG CAPSULE PO (08:01)
[2025-02-16] MEDS: buPROPion HCL XL (24 HR) 150 MG TABCR PO (08:01)
[2025-02-16] MEDS: ATORVASTATIN 40 MG TABLET PO (08:01)
[2025-02-16] MEDS: lisinopriL 20 MG TABLET 40 MG PO (08:01)
--- NOTE | 2025-02-16 10:23 | P.CONUR_ITS ---
Assessment and Plan Assessment and plan (1) Left nephrolithiasis: Code(s): N20.0 - Calculus of kidney Status: Acute Assessment and Plan: This calculus is nonobstructive in nature and is not require any emergent treatment. If indeed he has truly been off his blood thinners I will see if I can get him on Saturday for a lithotripsy of this left renal stone. Would have Cardiology see him as an inpatient since he had has not been able to find 1 as an outpatient. From my standpoint he can be discharged after that evaluation. May have diet from Urology standpoint (2) Right groin pain: Code(s): R10.31 - Right lower quadrant pain Status: Acute Assessment and Plan: Etiology is unclear. No evidence of stones on CT scan. May benefit from opinion from General surgery to make sure we are not missing a hernia. It may simply be irritation of an inguinal ligament. Patient was instructed that he cannot have any anti-inflammatories prior to lithotripsy of the renal stone. Urology Consult Note HPI Date Seen: 02/16/25 Time Seen: 10:23 Requesting Physician: Ralph Earl PA-C Primary Care Provider: Isauro Johnson MD Consult Narrative Narrative: Zander Cain is a 49 year old male with coronary artery disease who is on Brilinta and Plavix. Patient states he has not taken it for a week however there was discrepancy with what is recorded in the medical records. He actually was seen in the ER over a week ago which at that time he had some left flank pain. CT scan at that time revealed a 1 cm UPJ stone with some mild hydronephrosis. Patient had been unable to get into outpatient follow-up. He then presented again to the ER but now was some right lower quadrant pain. CT scan at this point revealed the left renal/UPJ stone to have fallen back into the lower pole calyx. It is nonobstructive in nature and he is denying any flank pain at this time. His main issue is this pain in the right inguinal area. He was admitted through the emergency room with some right lower quadrant pain. Denies any fevers. White count is normal as is his creatinine function. Urinalysis also is normal. Review of Systems 2 Review of Systems: All systems reviewed & are unremarkable except as noted in HPI and below PMFSH Past Medical History Medical History Obstructive sleep apnea Noncompliant with CPAP Alcohol abuse Chronic back pain Behcets syndrome Psoriasis Anxiety Left wrist fracture Gout Arthritis Kidney stone HLD (hyperlipidemia) HTN (hypertension) Myocardial infarction x2, with stent CAD (coronary artery disease) Dental cavities Surgical History Surgical History History of coronary artery bypass graft Status post cystoscopy with ureteral stent placement History of heart artery stent Cardiac catheterization 2019 performed at this facility demonstrated patent obtuse marginal branch stent without stenosis, right coronary artery large vessel and code dominant totally occluded proximally with stent placement with residual stenosis of 30% ejection fraction of 50% with basal and mid inferior wall hypokinesis History of surgery on arm left forearm H/O arthroscopy of left knee Family History Family History Daughter Cancer Father Hypertension Other Family history of malignant neoplasm Family history of psoriasis Social History Social History Social History: He has been since 2019. He has 3 children. 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 He used to smoke up to 3 packs of cigarettes per day. It did previously been documented that the patient had drink up to 28 alcoholic beverages a day. He adamantly denies ever having drink alcohol to excess. He states that he may drink 1 alcoholic on rare occasion. Code status: Full code Surrogate decision maker: Yu (daughter) 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 Smoking cigarettes per day: 40.0 Years smoked: 30 Smoking pack-years: 60.00 Smoking status: Former smoker Tobacco type: cigarettes Second hand tobacco smoke exposure: Yes Smoking end date: 03/03/24 Alcohol intake: former Drinks per week: 28 Substance use: never Substance use type: does not use Do You Feel Safe in your Home?: Yes Lack of Transportation: No Lack of Food: Never True Current Housing: I Have Housing Concerned About Future Housing: No Difficulty Paying Gas/Electric Bills: No Difficulty Paying for Meds: No Currently Unemployed: No Education: High School Diploma/GED Difficulty w/ Childcare or Family Care: No Gender identity (if verbalized by the patient): Male Sexual Orientation (if Verbalized by the Patient): Straight or Heterosexual Spiritual care concerns: No Agree to blood products: Yes Meds Home Medications and Allergies Home Medications ?Medication ?Instructions ?Recorded ?Confirmed ?Type bupropion HCl 150 mg 24 hr tablet, 150 mg PO DAILY 11/09/19 02/16/25 History extended release lisinopril 40 mg tablet 40 mg PO DAILY 11/09/19 02/16/25 History ticagrelor 90 mg tablet (Brilinta) 90 mg PO BID 11/09/19 02/16/25 History aspirin 81 mg tablet,delayed 81 mg PO DAILY #30 tabs 11/10/19 02/16/25 Rx release atorvastatin 40 mg tablet 40 mg PO DAILY #30 tabs 11/10/19 02/16/25 Rx nitroglycerin 0.4 mg sublingual 0.4 mg sublingual DIRECTED PRN 11/10/19 02/16/25 Rx tablet chest pain #25 tabs hydrocodone 7.5 mg-acetaminophen 1 tablet PO QID PRN Pain 04/25/20 02/16/25 History 325 mg tablet ondansetron 4 mg disintegrating 4 mg PO Q8H PRN nausea and 02/09/25 02/16/25 Rx tablet vomiting #10 tabs tamsulosin 0.4 mg capsule (Flomax) 0.4 mg PO DAILY #10 caps 02/09/25 02/16/25 Rx clopidogrel 75 mg tablet 75 mg PO DAILY 02/16/25 02/16/25 History Allergies Allergy/AdvReac Type Severity Reaction Status Date / Time colchicine AdvReac Unknown nausea and Verified 02/09/25 17:02 abdominal pain with one dose Vital Signs Vital Signs - 24 hr 02/15/25 18:00 02/16/25 00:02 02/16/25 00:28 Temperature 36.7 C 36.2 C L Pulse Rate 98 63 Respiratory Rate 17 16 Blood Pressure 150/87 H 138/90 Pulse Oximetry 98 98 Oxygen Delivery Room Air 02/16/25 05:23 Temperature 36.1 C L Pulse Rate 58 L Respiratory Rate 18 Blood Pressure 125/85 Pulse Oximetry 99 Oxygen Delivery Exam 2 Const: General: cooperative Resp: Effort & Inspection: normal respiratory effort Cardio: Rate: regular rate Rhythm: regular rhythm : Male General Exam: Yes normal external exam Penis: Yes normal penis Testes: Testes normal Other: Had tenderness in the inguinal canal area. Results Labs 02/15/25 20:36 02/15/25 20:36 Labs: Short CBC 02/15/25 Range/Units 20:36 WBC 8.0 (4.5-10.0) K/mm3 Hgb 16.8 (14.0-18.0) g/dL Hct 49.0 (42.0-52.0) % Plt Count 297 (150-375) k/mm3 BMP 02/15/25 20:36 Sodium 141 Potassium 4.2 Chloride 103 Carbon Dioxide 25 BUN 17 Creatinine 0.72 Glucose 109 Calcium 9.6 Liver Function 02/15/25 Range/Units 20:36 Total Bilirubin 0.5 (0.2-1.3) mg/dL AST 39 (17-59) U/L ALT 57 H (6-50) U/L Alkaline Phosphatase 70 (38-126) U/L Albumin 5.0 (3.5-5.1) g/dL Urine 02/15/25 Range/Units 19:19 Urine Color Yellow (Yellow) Urine Appearance Clear (Clear) Urine pH 5.5 (5.0-9.0) Ur Specific [place] 1.029 (1.001-1.035) Urine Protein Trace (Negative) mg/dL Urine Glucose (UA) Negative (Negative) mg/dL
[2025-02-16 13:55] VITALS: BP 126/71; PULSE 60; RESP 16; TEMP 36.5; O2SAT 96
[2025-02-16 20:00] VITALS: PULSE 65; RESP 18; O2SAT 98
[2025-02-16 22:00] VITALS: BP 141/74; PULSE 65; RESP 18; TEMP 36.6; O2SAT 98
--- NOTE | 2025-02-17 | ECHO_ITS ---
Patient Info Name: Zander Cain Age: 49 years : 1975 Gender: Male Ht: 66 in Wt: 208 lbs BSA: 2.13 m2 HR: 63 bpm BP: 141 / 74 mmHg Heart Rhythm: Sinus Rhythm Technical Quality: Good Exam Date: 02/17/2025 11:46 AM Exam Location: Echo Lab Patient Status: Outpatient Admit Date: 02/15/2025 Staff Ordering Physician: Franchesca Katz MD (pialr/susie) Cuff Cutter: Elizabeth Rodriguez RDCS Attending Provider: Ralph Earl PA-C Referring Physician: Sterling HANNON; Exam Type: CA echo doppler color flow Study Info Indications - Echo before surgery Complete two-dimensional, color flow and Doppler transthoracic echocardiogram is performed. Summary 1. Complete two-dimensional, color flow and Doppler transthoracic echocardiogram is performed. 2. Left ventricular systolic function is normal, estimated at 60-65%. 3. Left ventricular chamber dimension is normal. 4. The left ventricular diastolic function is grade II diastolic dysfunction. 5. Left atrial chamber dimension is enlarged. 6. There is mild mitral valve regurgitation. 7. There is mild tricuspid valve regurgitation. 8. No pulmonary hypertension, estimated pulmonary arterial systolic pressure is 36 mmHg. Left Ventricle Left ventricular chamber dimension is normal. Left ventricular systolic function is normal, estimated at 60-65%. There is mildly increased left ventricular wall thickness. Left ventricular septal wall motion is normal. The left ventricular diastolic function is grade II diastolic dysfunction. Right Ventricle Right ventricular chamber dimension is normal. Right ventricular systolic function is normal. Left Atria Left atrial chamber dimension is enlarged. Right Atria Right atrial chamber dimension is normal. Aortic Valve The aortic valve is trileaflet. There is no aortic valve sclerosis. There is no aortic valve stenosis. There is no aortic valve regurgitation. Pulmonic Valve The pulmonic valve is normal. There is no pulmonic valve stenosis. There is mild pulmonic regurgitation. Mitral Valve The mitral valve has normal leaflets. There is no mitral valve stenosis. There is mild mitral valve regurgitation. Tricuspid Valve The tricuspid valve leaflets are normal. There is no significant tricuspid valve stenosis. There is mild tricuspid valve regurgitation. No pulmonary hypertension, estimated pulmonary arterial systolic pressure is 36 mmHg. Pericardium/Pleural The pericardium appears normal. There is no pericardial effusion. Inferior Vena Cava Normal inferior vena cava with >50% collapse upon inspiration consistent with Empty right atrial pressure, Empty. Aorta The aortic root size at the sinus of Valsalva is normal. The prox ascending aorta size is normal. Left Ventricular Outflow Tract Name Value Normal LVOT 2D LVOT Diameter 2.1 cm LVOT Doppler LVOT Peak Gradient 5 mmHg LVOT Mean Gradient 3 mmHg LVOT VTI 24 cm LVOT VTI/AV VTI Ratio 0.8 LVOT Stroke Volume 85 ml LVOT CO 5.3 l/min LVOT CI 2.5 l/min/m2 Pulmonic Valve Name Value Normal RVOT Doppler RVOT Peak Gradient 1 mmHg PV Doppler PV Peak Gradient 5 mmHg PV Regurgitation Doppler FL Peak End Diastolic Velocity 129 cm/s Mitral Valve Name Value Normal MV Doppler MV Decel Barron 366 cm/s2 MV PHT 56 ms MV Area (PHT) 3.9 cm2 4.0-5.0 MV Diastolic Function MV E Peak Velocity 71 cm/s MV A Peak Velocity 63 cm/s MV E/A 1.1 MV Decel Time 194 ms MV Annular TDI MV E/e' (Septal) 12.4 <=8.0 MV E/e' (Lateral) 5.4 <=8.0 MV E/e' (Average) 8.9 Tricuspid Valve Name Value Normal TV Regurgitation Doppler TR Peak Velocity 286 cm/s TR Peak Gradient 33 mmHg Estimated PAP/RSVP PA Systolic Pressure 36 mmHg <36 Aortic Valve Name Value Normal AV Doppler AV Peak Velocity 143 cm/s AV Peak Gradient 8 mmHg AV Mean Gradient 4 mmHg AV VTI 30 cm AV Area (Cont Eq VTI) 2.8 cm2 >=3.0 AV Area (Cont Eq Ernesto) 2.8 cm2 AV Regurgitation 2D LVOT Area 3.6 cm2 Ventricles Name Value Normal LV Dimensions 2D/MM IVS Diastolic Thickness (2D) 1.1 cm 0.6-1.0 LVID Diastole (2D) 5.9 cm 4.2-5.8 LVIW Diastolic Thickness (2D) 1.1 cm 0.6-1.0 LVID Systole (2D) 3.8 cm 2.5-4.0 LVOT Diameter 2.1 cm LV Mass (2D Cubed) 273.68 g 88.00-224.00 LV Mass Index (2D Cubed) 128 g/m2 49-115 Relative Wall Thickness (2D) 0.37 LV Fractional Shortening/Ejection Fraction 2D/MM LV Fractional Shortening (2D) 36 % 25-43 LV EF (2D Teicholz) 65 % 52-72 LV Diastolic Volume (4C MOD) 153 ml LV EF (4C MOD) 66 % LV Diastolic Volume (2C MOD) 128 ml LV EF (2C MOD) 63 % LV Diastolic Volume (BP MOD) 140 ml 62-150 LV Diastolic Volume Index (BP MOD) 66 ml/m2 34-74 LV Systolic Volume (BP MOD) 52 ml 21-61 LV Systolic Volume Index (BP MOD) 24 ml/m2 11-31 LV EF (BP MOD) 63 % 52-72 LV Diastolic Length (4C) 9.1 cm LV Systolic Length (4C) 7.2 cm LV Stroke Volume (4C MOD) 100 ml Atria Name Value Normal LA Dimensions LA Volume (4C A-L) 114 ml LA Volume (BP A-L) 101 ml RA Dimensions RA Area (4C) 22.6 cm2 <=18.0 Report Signatures
[2025-02-17] MEDS: HYDROmorphone HCL INJ (*CRX) 2 MG/ML VIAL 1 MG IV PUSH ×6 (00:31→20:16)
[2025-02-17] MEDS: LACTATED RINGERS 1,000 ML 125 ML IV CONT ×2 (03:34→21:49)
[2025-02-17] MEDS: oxyCODONE/ACETAMINOPHEN (*CRX) 10-325 MG TABLET 1 TAB PO ×4 (05:29→22:02)
[2025-02-17] MEDS: ARTIFICIAL TEARS OPHTH SOLN 15 ML BOTTLE 1 DROP EACH EYE (05:30)
[2025-02-17 06:00] VITALS: BP 130/75; PULSE 63; RESP 20; TEMP 36.8; O2SAT 97
--- NOTE | 2025-02-17 09:49 | P.PNIM_ITS ---
Progress Note: A&P Assessment and Plan (1) Left nephrolithiasis: Code(s): N20.0 - Calculus of kidney Status: Acute Assessment and Plan: * Abd/Pelvis 02/09: Mild left-sided hydronephrosis secondary to multiple renal calculi spanning a length of 11 mm in the left renal pelvis. Bilateral nonobstructing renal calculi. * Abd/Pelvis 02/15: Left nephrolithiasis. The renal pelvic calcifications seen previously have shifted into lower pole calyces on the left. No obstructive uropathy. * UA: Trace ketones, otherwise normal * Does not require emergent treatment at this time * Neurology consulted, likely take the patient for lithotripsy on Saturday * Needs Cardiology clearance given patient has been off blood thinners for 4 days now, consult ordered on 02/16 * Patient restarted on home Plavix on 02/16/25 * Cardiology recommending echo, may be discharged home and follow up with Dr. May outpatient (2) Right groin pain: Code(s): R10.31 - Right lower quadrant pain Status: Acute Assessment and Plan: * Etiology unclear, started same time as left flank pain but physical exam has been inconsistent throughout this visit and previous ER visit. 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 transplanted heart: [place] heart Qualified Code(s): I25.10 - Atherosclerotic heart disease of [place] coronary artery without angina pectoris Code(s): I25.10 - Atherosclerotic heart disease of [place] coronary artery without angina pectoris Status: Chronic Assessment and Plan: * Pt reports he has not taken Brilinta or Plavix since 02/12 * Patient restarted on Plavix on 02/16/2025 (5) HLD (hyperlipidemia): Qualifiers: Hyperlipidemia type: unspecified Qualified Code(s): E78.5 - Hyperlipidemia, unspecified Code(s): E78.5 - Hyperlipidemia, unspecified Status: Chronic Assessment and Plan: * Continue Atorvastatin 90mg (6) HTN (hypertension): Qualifiers: Hypertension type: primary hypertension Qualified Code(s): I10 - Essential (primary) hypertension Code(s): I10 - Essential (primary) hypertension Status: Acute Assessment and Plan: * Stable, 126/71 * Continue Lisinopril Time Spent With Patient Time with patient: Greater than 35 minutes Subjective Date/time seen: 02/17/25 09:49 Interval history: 49-year-old male with a past medical history of coronary disease status post stent and CABG, hyperlipidemia, essential hypertension, psoriasis, Behcet's disease who presented to the ER via private vehicle due to left lower abdominal pain. surgery states the groin pain is not likely due to a surgical problem and Cardiology recommending a echo prior to surgery okay to continue Plavix and aspirin, patient can be discharged with outpatient follow-up with Dr. May for lithotripsy on Saturday. Patient states that he would like better pain control scheduled order an Review of Systems Review of Systems: 12 systems were reviewed with pertinent positives and negatives per HPI. Except as documented in the HPI, all other systems were reviewed and are negative. All systems reviewed & are unremarkable except as noted in HPI and below Exam Narrative: Gen - well appearing male in no acute respiratory distress who is nontoxic- HEENT - normocephalic. Atraumatic. Pupils equal round and reactive. Extraocular motions intact. Sclera clear and anicteric. Nares patent. Oropharynx was clear. No oral lesions. Moist mucous membranes. Tongue was midline. Palate royer symmetrically. No facial asymmetry. Neck - neck was supple. No dominant adenopathy, thyromegaly or masses. 2+ carotid upstrokes without bruits. Chest - lungs are clear to auscultation bilaterally. No wheezes or crackles. CV - heart was regular rate and rhythm. S1-S2. No murmurs gallops or rubs. Abd -RLQ pain in inguinal region, no protrusion of tissue. Abdomen was soft. Nontender. Nondistended. Positive bowel sounds. No organomegaly or masses. Left CVA tenderness Ext - no clubbing, cyanosis or edema. 2+ DP pulses bilaterally. Neuro - patient is alert and oriented x4. Strength is 5/5 in both upper and lower extremities. Cranial nerves 2-12 are intact. Speech is clear. Psych - normal mood and affect. Patient is pleasant and cooperative. Skin - warm and dry. No rashes noted. Objective Data Vital Signs Vital Signs: Vital Signs - 24 hr 02/16/25 13:55 02/16/25 20:00 02/16/25 22:00 Temperature 97.7 F 97.9 F Pulse Rate 60 65 65 Respiratory Rate 16 18 18 Blood Pressure 126/71 141/74 H Pulse Oximetry 96 98 98 Oxygen Delivery Room Air 02/17/25 06:00 Temperature 98.3 F Pulse Rate 63 Respiratory Rate 20 Blood Pressure 130/75 Pulse Oximetry 97 Oxygen Delivery Intake/Output Intake/Output: Intake & Output 02/14/25 02/15/25 02/16/25 02/17/25 23:59 23:59 23:59 23:59 Intake Total 2630.4 1240 Output Total 900 70 Balance 1730.4 1170 Meds/Results Medications: Active Medications Generic Name Dose Route Start Last Admin Trade Name Freq PRN Reason Stop Dose Admin Acetaminophen 650 mg 02/15/25 22:08 Acetaminophen 325 Mg Tablet PO Q4H PRN Mild Pain (1-3) or Fever Artificial Tears 1 drop 02/17/25 04:01 02/17/25 05:30 Artificial Tears Ophth Soln 15 Ml Bottle EACH EYE 1 drop Q4HR PRN Administration Dry Eye(s) Aspirin 81 mg 02/16/25 09:00 02/16/25 08:09 Aspirin 81 Mg Enteric Tablet PO Not Given DAILY JUSTUS Atorvastatin Calcium 40 mg 02/16/25 09:00 02/16/25 08:01 Atorvastatin 40 Mg Tablet PO 40 mg DAILY JUSTUS Administration Bupropion HCl 150 mg 02/16/25 09:00 02/16/25 08:01 Bupropion Hcl Xl (24 Hr) 150 Mg Tabcr PO 150 mg DAILY JUSTUS Administration Clopidogrel Bisulfate 75 mg 02/16/25 09:00 02/16/25 08:10 Clopidogrel Bisulfate 75 Mg Tablet PO Not Given DAILY JUSTUS Hydromorphone HCl 1 mg 02/16/25 05:21 02/17/25 07:43 Hydromorphone Hcl Inj (*Crx) 2 Mg/Ml Vial IV PUSH 1 mg Q3H PRN Administration Pain Rated 7-10 Lactated Ringer's 1,000 mls @ 125 mls/hr 02/15/25 22:10 02/17/25 03:34 Lr - Lactated Ringers Iv IV CONT 125 mls/hr .Q8H JUSTUS Administration Lisinopril 40 mg 02/16/25 09:00 02/16/25 08:01 Lisinopril 20 Mg Tablet PO 40 mg DAILY JUSTUS Administration Naloxone HCl 0.1 mg 02/16/25 05:31 Naloxone Hcl 0.4 Mg/Ml Vial IV PUSH Q5MIN PRN Opiate overdose Ondansetron HCl 4 mg 02/15/25 22:08 Ondansetron Inj 4 Mg/2 Ml Vial IV PUSH Q4H PRN Nausea Oxycodone/Acetaminophen 1 tab 02/16/25 05:31 02/17/25 05:29 Oxycodone/Acetaminophen (*Crx) 10-325 Mg Tablet PO 1 tab Q4H PRN Administration Pain Rated 7-10 Perflutren Lipid Microsphere 0 ml 02/17/25 09:40 Perflutren Lipid Microspheres 1.5 Ml Vial Diluted To 10 Ml Total Volume IV PUSH 02/20/25 09:41 ONCE PRN adequate visualization Protocol Tamsulosin HCl 0.4 mg 02/16/25 09:00 02/16/25 08:01 Tamsulosin Hcl 0.4 Mg Capsule PO 0.4 mg DAILY JUSTUS Administration Radiology Results: ITS Impressions Abdomen X-Ray 02/15/25 19:15 IMPRESSION: Nonspecific, nonobstructive bowel gas pattern. 10 mm calculus projecting over the left renal pelvis, as detailed above. Abdomen/Pelvis CT 02/15/25 20:50 IMPRESSION: Left nephrolithiasis. The renal pelvic calcifications seen previously have shifted into lower pole calyces on the left. No obstructive uropathy. Quality VTE Prophylaxis VTE prophylaxis: mechanical ordered (SCDs) Hospitalist MIPS Advance Care Plan I have confirmed that the patient's Advanced Care Plan is present, code status is documented, or surrogate decision maker is listed in patient medical record.: Yes Medication Reconciliation I have utilized all available resources to obtain, update and review the patients current medications (includes all prescriptions, OTC, herbals, cannabis, and nutritional supplements).: Yes
[2025-02-17] MEDS: ASPIRIN 81 MG ENTERIC TABLET PO (09:52)
[2025-02-17] MEDS: ATORVASTATIN 40 MG TABLET PO (09:52)
[2025-02-17] MEDS: TAMSULOSIN HCL 0.4 MG CAPSULE PO (09:52)
[2025-02-17] MEDS: CLOPIDOGREL BISULFATE 75 MG TABLET PO (09:53)
[2025-02-17] MEDS: buPROPion HCL XL (24 HR) 150 MG TABCR PO (09:53)
[2025-02-17] MEDS: lisinopriL 20 MG TABLET 40 MG PO (09:53)
[2025-02-17 10:41] VITALS: O2SAT 97
--- NOTE | 2025-02-17 10:41 | PM.CNCAR ---
Assessment and Plan Assessment and plan (1) CAD (coronary artery disease): Qualifiers: Coronary Disease-Associated Artery/Lesion type: [place] artery [place] vs. transplanted heart: [place] heart Associated angina: without angina Qualified Code(s): I25.10 - Atherosclerotic heart disease of [place] coronary artery without angina pectoris Code(s): I25.10 - Atherosclerotic heart disease of [place] coronary artery without angina pectoris Status: Chronic (2) HTN (hypertension): Qualifiers: Hypertension type: primary hypertension Qualified Code(s): I10 - Essential (primary) hypertension Code(s): I10 - Essential (primary) hypertension Status: Acute (3) Pre-op evaluation: Code(s): Z01.818 - Encounter for other preprocedural examination Status: Acute Plan 1. CAD. PCI 2013 (OM1)/2019 (pRCA) ; CABG in 2023 2. HTN3. Hyperlipidemia 4. pre-op cardiovascular exam Able to perform > 4 METS of activity without any symptoms No echo done, unsure about his LV function/valvular ds - he will need an echo to assess his pre-operative risk - Further recommendations post echo - Continue cardiovascular risk factor modification - Continue ASA/plavix History of Present Illness History of Present Illness Consult date/time: 02/17/25 10:41 Reason For Visit: Kidney stone, Intractable pain Narrative: This is a 49-year-old male with a history of coronary artery disease s/p PCI in 2013/2019 followed by a 3V CABG in 2023. He is also known to have hyperlipidemia, essential hypertension, psoriasis, Behcet's disease who was admitted with non obstructive renal stone. Cardiology consulted for evaluation prior to lithotripsy whihc will be done as an outpatient. 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 No symptoms at work, can perform >4 METS of activity No chest pain or dyspnea No recent echo to assess LV function EKG shows NSR, Poor R wave progression in ant precordial leads, straightening of inf-lat leads Compliant with his emds Review of Systems Review of Systems: 12 systems were reviewed with pertinent positives and negatives per HPI. Except as documented in the HPI, all other systems were reviewed and are negative. All systems reviewed & are unremarkable except as noted in HPI and below PMFSH Past Medical History Medical History Obstructive sleep apnea Noncompliant with CPAP Alcohol abuse Chronic back pain Behcets syndrome Psoriasis Anxiety Left wrist fracture Gout Arthritis Kidney stone HLD (hyperlipidemia) HTN (hypertension) Myocardial infarction x2, with stent CAD (coronary artery disease) Dental cavities Surgical History Surgical History History of coronary artery bypass graft Status post cystoscopy with ureteral stent placement History of heart artery stent Cardiac catheterization 2019 performed at this facility demonstrated patent obtuse marginal branch stent without stenosis, right coronary artery large vessel and code dominant totally occluded proximally with stent placement with residual stenosis of 30% ejection fraction of 50% with basal and mid inferior wall hypokinesis History of surgery on arm left forearm H/O arthroscopy of left knee Family History Family History Daughter Cancer Father Hypertension Other Family history of malignant neoplasm Family history of psoriasis Social History Social History Social History: He has been since 2019. He has 3 children. 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 He used to smoke up to 3 packs of cigarettes per day. It did previously been documented that the patient had drink up to 28 alcoholic beverages a day. He adamantly denies ever having drink alcohol to excess. He states that he may drink 1 alcoholic on rare occasion. Code status: Full code Surrogate decision maker: Yu (daughter) 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 Smoking cigarettes per day: 40.0 Years smoked: 30 Smoking pack-years: 60.00 Smoking status: Former smoker Tobacco type: cigarettes Second hand tobacco smoke exposure: Yes Smoking end date: 03/03/24 Alcohol intake: former Drinks per week: 28 Substance use: never Substance use type: does not use Do You Feel Safe in your Home?: Yes Lack of Transportation: No Lack of Food: Never True Current Housing: I Have Housing Concerned About Future Housing: No Difficulty Paying Gas/Electric Bills: No Difficulty Paying for Meds: No Currently Unemployed: No Education: High School Diploma/GED Difficulty w/ Childcare or Family Care: No Gender identity (if verbalized by the patient): Male Sexual Orientation (if Verbalized by the Patient): Straight or Heterosexual Spiritual care concerns: No Agree to blood products: Yes Meds Home Medications and Allergies Home Medications ?Medication ?Instructions ?Recorded ?Confirmed ?Type bupropion HCl 150 mg 24 hr tablet, 150 mg PO DAILY 11/09/19 02/16/25 History extended release lisinopril 40 mg tablet 40 mg PO DAILY 11/09/19 02/16/25 History ticagrelor 90 mg tablet (Brilinta) 90 mg PO BID 11/09/19 02/16/25 History aspirin 81 mg tablet,delayed 81 mg PO DAILY #30 tabs 11/10/19 02/16/25 Rx release atorvastatin 40 mg tablet 40 mg PO DAILY #30 tabs 11/10/19 02/16/25 Rx nitroglycerin 0.4 mg sublingual 0.4 mg sublingual DIRECTED PRN 11/10/19 02/16/25 Rx tablet chest pain #25 tabs hydrocodone 7.5 mg-acetaminophen 1 tablet PO QID PRN Pain 04/25/20 02/16/25 History 325 mg tablet ondansetron 4 mg disintegrating 4 mg PO Q8H PRN nausea and 02/09/25 02/16/25 Rx tablet vomiting #10 tabs tamsulosin 0.4 mg capsule (Flomax) 0.4 mg PO DAILY #10 caps 02/09/25 02/16/25 Rx clopidogrel 75 mg tablet 75 mg PO DAILY 02/16/25 02/16/25 History Allergies Allergy/AdvReac Type Severity Reaction Status Date / Time colchicine AdvReac Unknown nausea and Verified 02/09/25 17:02 abdominal pain with one dose Vital Signs Vital Signs - 24 hr 02/16/25 13:55 02/16/25 20:00 02/16/25 22:00 Temperature 36.5 C 36.6 C Pulse Rate 60 65 65 Respiratory Rate 16 18 18 Blood Pressure 126/71 141/74 H Pulse Oximetry 96 98 98 Oxygen Delivery Room Air 02/17/25 06:00 02/17/25 08:00 Temperature 36.8 C Pulse Rate 63 Respiratory Rate 20 Blood Pressure 130/75 Pulse Oximetry 97 Oxygen Delivery Room Air Exam Narrative: Gen - well appearing male in no acute respiratory distress who is nontoxic-appearing lying semi recumbent in bed HEENT - normocephalic. Atraumatic. Pupils equal round and reactive. Extraocular motions intact. Sclera clear and anicteric. Nares patent. Oropharynx was clear. No oral lesions. Moist mucous membranes. Tongue was midline. Palate royer symmetrically. No facial asymmetry. Neck - neck was supple. No dominant adenopathy, thyromegaly or masses. 2+ carotid upstrokes without bruits. Chest - lungs are clear to auscultation bilaterally. No wheezes or crackles. CV - heart was regular rate and rhythm. S1-S2. No murmurs gallops or rubs. Abd -RLQ pain in inguinal region, no protrusion of tissue. Abdomen was soft. Nontender. Nondistended. Positive bowel sounds. No organomegaly or masses. Left CVA tenderness Ext - no clubbing, cyanosis or edema. 2+ DP pulses bilaterally. Neuro - patient is alert and oriented x4. Strength is 5/5 in both upper and lower extremities. Cranial nerves 2-12 are intact. Speech is clear. Psych - normal mood and affect. Patient is pleasant and cooperative. Skin - warm and dry. No rashes noted. Const: General: cooperative Other: Obese, no acute distress HENMT: Other: Mucous membranes are dry, crowded posterior oropharynx, no oral pharyngeal erythema, head is normocephalic atraumatic Eyes: Other: Pupils are equal and reactive, no scleral icterus, no conjunctival pallor Neck: Other: Large neck circumference, no JVD, no lymphadenopathy Resp: Effort & Inspection: normal respiratory effort Other: Clear to auscultation bilaterally, no increased work of breathing Cardio: Rate: regular rate Rhythm: regular rhythm Other: Sinus bradycardia, no murmurs, 2+ bilateral radial pedal pulses GI: Other: Distended, nontender to palpation, normoactive bowel sounds : Male General Exam: Yes normal external exam Penis: Yes normal penis Testes: Testes normal Other: Had tenderness in the inguinal canal area. Back/Spine/Pelvis: Other: No CVA tenderness Skin: Other: No jaundice, no pallor, extensive tattoos to the chest in bilateral upper arms, psoriatic plaques to bilateral elbows in bilateral knees and the undersurface of his chin as well as inside his ears Neuro: Other: Alert oriented, speech is clear, no facial asymmetry, moves all extremities equally, normal tone Extrem: Other: No clubbing, cyanosis or edema Psych: Other: Appropriate mood and affect, pleasant and cooperative, judgment and insight intact Results Labs and Meds 02/15/25 20:36 02/15/25 20:36 Lab results: Intake and Output 02/16/25 02/17/25 02/17/25 23:59 07:59 15:59 Intake Total 1390.4 1000 240 Output Total 600 70 Balance 790.4 930 240 Intake: IV 910.4 1000 Lactated Ringers 1,000 ml @ 125 910.4 1000 mls/hr IV CONT .Q8H [facility] Rx#: [id number] Oral 480 240 Output: Urine 600 Drain 70 Percutaneous Left Lower Abdomen 50 Drain 1 Percutaneous Left Lower Abdomen 20 Drain 2
--- NOTE | 2025-02-17 11:03 | PM.CNGS ---
Assessment and Plan Assessment and plan (1) Umbilical hernia: Code(s): K42.9 - Umbilical hernia without obstruction or gangrene Status: Acute Assessment and Plan: Although he does not have an inguinal hernia, he does have a symptomatic reducible umbilical hernia. CT scan two days ago showed this was containing fat. There is no indication for emergent surgical intervention, but the patient would like to consider surgical repair at some point in the winter. This can be discussed further as an outpatient. He can follow-up with Dr. Bullard in our office after his discharge when he would like to discuss scheduling surgery. (2) Right groin pain: Code(s): R10.31 - Right lower quadrant pain Status: Acute Assessment and Plan: Patient presenting with right groin pain for over a week. Etiology has been unclear. Initially felt this could be related to his kidney stone, but this is located on the left. This does not appear to be related to an inguinal hernia. There is no bulge or palpable inguinal hernia on exam. No surgical indication for his pain. 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 (3) Left nephrolithiasis: Code(s): N20.0 - Calculus of kidney Status: Acute (4) CAD (coronary artery disease): Qualifiers: Associated angina: without angina Coronary Disease-Associated Artery/Lesion type: [place] artery [place] vs. transplanted heart: [place] heart Qualified Code(s): I25.10 - Atherosclerotic heart disease of [place] coronary artery without angina pectoris Code(s): I25.10 - Atherosclerotic heart disease of [place] coronary artery without angina pectoris Status: Chronic (5) Antiplatelet or antithrombotic long-term use: Code(s): Z79.02 - detention (current) use of antithrombotics/antiplatelets Status: Acute (6) HTN (hypertension): Qualifiers: Hypertension type: primary hypertension Qualified Code(s): I10 - Essential (primary) hypertension Code(s): I10 - Essential (primary) hypertension Status: Acute Plan I have discussed the patient's case and plan of care with Dr. Bullard. History of Present Illness Consult details Consult date: 02/17/25 Reason for consult: other (Right groin pain, possible hernia) Requesting physician: Ralph Earl, PAKimC Narrative: This is a 49-year-old man with PMH of coronary artery disease status post stent and CABG, HLD, HTN, psoriasis, and Behcet's disease, who we have been asked to see in surgical consultation for a right groin pain. He presented to the emergency department 2 days ago due to kidney stones. He had been evaluated in the ED about a week prior for right flank pain that radiated down into his right groin and CT scan of the abdomen and pelvis demonstrated an 11 mm stone in the left renal pelvis and bilateral nonobstructing renal calculi. His EMR suggested left flank pain at that time, but patient reports it has been in the right side. He was discharged and recommended to follow-up with urology on the , but required cardiac clearance and stopped taking his Brilinta and Plavix. He had a 3 vessel CABG in February of 2024, but has not been able to get an appointment for cardiology clearance. He presented back to the ED with right groin pain and was admitted for a nephrolithiasis and right groin pain. Urology was consulted and repeat CT scan of the abdomen and pelvis showed the left stone shifted into the lower pole calyces without obstructive uropathy. Radiologist report from the CT scan showed small fat containing uncomplicated umbilical and bilateral inguinal hernias. Our service was then consulted due to his persistent right groin pain and possible inguinal hernia. Review of Systems Review of Systems: All systems reviewed & are unremarkable except as noted in HPI and below PMFSH Past Medical History Medical History Obstructive sleep apnea Noncompliant with CPAP Alcohol abuse Chronic back pain Behcets syndrome Psoriasis Anxiety Left wrist fracture Gout Arthritis Kidney stone HLD (hyperlipidemia) HTN (hypertension) Myocardial infarction x2, with stent CAD (coronary artery disease) Dental cavities Surgical History Surgical History History of coronary artery bypass graft Status post cystoscopy with ureteral stent placement History of heart artery stent Cardiac catheterization 2019 performed at this facility demonstrated patent obtuse marginal branch stent without stenosis, right coronary artery large vessel and code dominant totally occluded proximally with stent placement with residual stenosis of 30% ejection fraction of 50% with basal and mid inferior wall hypokinesis History of surgery on arm left forearm H/O arthroscopy of left knee Family History Family History Daughter Cancer Father Hypertension Other Family history of malignant neoplasm Family history of psoriasis Social History Social History Social History: He has been since 2019. He has 3 children. 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 He used to smoke up to 3 packs of cigarettes per day. It did previously been documented that the patient had drink up to 28 alcoholic beverages a day. He adamantly denies ever having drink alcohol to excess. He states that he may drink 1 alcoholic on rare occasion. Code status: Full code Surrogate decision maker: Yu (daughter) 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 Smoking cigarettes per day: 40.0 Years smoked: 30 Smoking pack-years: 60.00 Smoking status: Former smoker Tobacco type: cigarettes Second hand tobacco smoke exposure: Yes Smoking end date: 03/03/24 Alcohol intake: former Drinks per week: 28 Substance use: never Substance use type: does not use Do You Feel Safe in your Home?: Yes Lack of Transportation: No Lack of Food: Never True Current Housing: I Have Housing Concerned About Future Housing: No Difficulty Paying Gas/Electric Bills: No Difficulty Paying for Meds: No Currently Unemployed: No Education: High School Diploma/GED Difficulty w/ Childcare or Family Care: No Gender identity (if verbalized by the patient): Male Sexual Orientation (if Verbalized by the Patient): Straight or Heterosexual Spiritual care concerns: No Agree to blood products: Yes Meds Home Medications and Allergies Home Medications ?Medication ?Instructions ?Recorded ?Confirmed ?Type bupropion HCl 150 mg 24 hr tablet, 150 mg PO DAILY 11/09/19 02/16/25 History extended release lisinopril 40 mg tablet 40 mg PO DAILY 11/09/19 02/16/25 History ticagrelor 90 mg tablet (Brilinta) 90 mg PO BID 11/09/19 02/16/25 History aspirin 81 mg tablet,delayed 81 mg PO DAILY #30 tabs 11/10/19 02/16/25 Rx release atorvastatin 40 mg tablet 40 mg PO DAILY #30 tabs 11/10/19 02/16/25 Rx nitroglycerin 0.4 mg sublingual 0.4 mg sublingual DIRECTED PRN 11/10/19 02/16/25 Rx tablet chest pain #25 tabs hydrocodone 7.5 mg-acetaminophen 1 tablet PO QID PRN Pain 04/25/20 02/16/25 History 325 mg tablet ondansetron 4 mg disintegrating 4 mg PO Q8H PRN nausea and 02/09/25 02/16/25 Rx tablet vomiting #10 tabs tamsulosin 0.4 mg capsule (Flomax) 0.4 mg PO DAILY #10 caps 02/09/25 02/16/25 Rx clopidogrel 75 mg tablet 75 mg PO DAILY 02/16/25 02/16/25 History Allergies Allergy/AdvReac Type Severity Reaction Status Date / Time colchicine AdvReac Unknown nausea and Verified 02/09/25 17:02 abdominal pain with one dose Vital Signs Vital Signs - 24 hr 02/16/25 13:55 02/16/25 20:00 02/16/25 22:00 Temperature 97.7 F 97.9 F Pulse Rate 60 65 65 Respiratory Rate 16 18 18 Blood Pressure 126/71 141/74 H Pulse Oximetry 96 98 98 Oxygen Delivery Room Air 02/17/25 06:00 02/17/25 08:00 02/17/25 10:41 Temperature 98.3 F Pulse Rate 63 Respiratory Rate 20 Blood Pressure 130/75 Pulse Oximetry 97 97 Oxygen Delivery Room Air Room Air Exam Const: General: comfortable and no acute distress Nutritional Appearance: average body habitus Orientation/consciousness: patient oriented x3 HENMT: Head: normocephalic and atraumatic Ears: hearing grossly normal bilaterally Mouth: Yes moist mucous membranes Eyes: General: appearance normal, both eyes and all related structures Pupils: Equal, round and reactive pupils present Neck: Neck: normal visual inspection and full ROM Resp: Effort & Inspection: no respiratory distress Auscultation: clear to auscultation bilaterally Cardio: Rate: regular rate Rhythm: regular rhythm Peripheral pulses: Peripheral pulses 2+ throughout GI: Inspection: non-distended GI Palp: Yes Soft to palpation, No Tenderness to palpation present (GI), No Guarding due to palpation present (GI), Yes Hernia present (soft, slightly tender when reduced, but reducible) umbilical and No Rebound tenderness present Auscultation: normal bowel sounds : Penis: Yes normal penis Scrotum: scrotum normal and no inguinal hernias Other: right groin with skin appearing normal and no visible abnormalities in the area of his pain Skin: General skin exam: normal color Neuro: General: moves all extremities and no focal motor deficits Speech: normal speech Motor exam (neuro): 5/5 motor strength present throughout Extrem: General: normal to inspection and no edema Psych: Mental Status: mental status grossly normal Attitude: cooperative Insight: Good insight present (Psych) Judgement: Good judgement present (Psych) Results Labs 02/15/25 20:36 02/15/25 20:36 Labs: All other labs normal. Imaging Additional studies: ITS Impressions Abdomen X-Ray 02/15/25 19:15 IMPRESSION: Nonspecific, nonobstructive bowel gas pattern. 10 mm calculus projecting over the left renal pelvis, as detailed above. Abdomen/Pelvis CT 02/15/25 20:50 IMPRESSION: Left nephrolithiasis. The renal pelvic calcifications seen previously have shifted into lower pole calyces on the left. No obstructive uropathy.
[2025-02-17] MEDS: KETOROLAC 15 MG/ML VIAL (*BKC) IV PUSH ×2 (13:05→18:25)
[2025-02-17 14:00] VITALS: BP 146/81; PULSE 64; RESP 18; TEMP 36; O2SAT 99
[2025-02-17 22:00] VITALS: BP 145/72; PULSE 63; RESP 18; TEMP 36.6; O2SAT 98
[2025-02-18] MEDS: HYDROmorphone HCL INJ (*CRX) 2 MG/ML VIAL 1 MG IV PUSH ×3 (00:02→08:22)
[2025-02-18] MEDS: KETOROLAC 15 MG/ML VIAL (*BKC) IV PUSH ×3 (00:53→12:58)
[2025-02-18 06:00] VITALS: BP 148/69; PULSE 66; RESP 18; TEMP 36.4; O2SAT 99
[2025-02-18 08:00] VITALS: O2SAT 99
[2025-02-18] MEDS: LACTATED RINGERS 1,000 ML 125 ML IV CONT (08:30)
[2025-02-18] MEDS: ACETAMINOPHEN 500 MG TABLET 1000 MG PO ×2 (09:01→13:00)
[2025-02-18] MEDS: oxyCODONE HCL (*CRX) 5 MG TAB IR 10 MG PO ×2 (09:01→13:03)
[2025-02-18] MEDS: buPROPion HCL XL (24 HR) 150 MG TABCR PO (09:44)
[2025-02-18] MEDS: lisinopriL 20 MG TABLET 40 MG PO (09:44)
[2025-02-18] MEDS: ATORVASTATIN 40 MG TABLET PO (09:44)
[2025-02-18] MEDS: TAMSULOSIN HCL 0.4 MG CAPSULE PO (09:44)
[2025-02-18] MEDS: ASPIRIN 81 MG ENTERIC TABLET PO (09:44)
--- NOTE | 2025-02-18 10:38 | PC.NURSE ---
Torri Mtz Nursing Unit Manager notified that patient stated that he is still c/o pain after oxycodone given.
[2025-02-18] MEDS: HYDROmorphone HCL INJ (*CRX) 2 MG/ML VIAL 0.5 MG IV PUSH (10:54)
--- NOTE | 2025-02-18 10:57 | PC.NURSE ---
1054 dilaudid dose verified with Paula Lin RN at bedside
[2025-02-18 13:51] VITALS: BP 178/82; PULSE 58; RESP 20; TEMP 35.6; O2SAT 98
--- NOTE | 2025-02-18 14:30 | P.DS_ITS ---
DS: Admitting Diagnosis Discharge Date 02/18/2025 Admitting Diagnosis Calculus of Kidney Left nephrolithiasis DS: Discharge Diagnosis Discharge Diagnosis (1) Left nephrolithiasis: Code(s): N20.0 - Calculus of kidney Status: Acute (2) Kidney stone: Code(s): N20.0 - Calculus of kidney Status: Acute DS: Summary Hospital Course Reason for hospitalization: Copied from [facility]: 49-year-old male with a past medical history of coronary disease status post stent and CABG, hyperlipidemia, essential hypertension, psoriasis, Behcet's disease who presented to the ER via private vehicle due to left lower abdominal pain. He was evaluated in the ER on the due to right flank pain that radiated down into the right groin. (Although all the notes say that the patient was having left flank pain he denies this). He had his CT scan which demonstrated 11 mm stone He reports that he has been straining his urine at home and did get 1 stone but is still having colicky pain. The pain is severe at times. It is been getting worse in intensity and frequency. He denies any associated fevers or chills. He reports that when he was evaluated in the ER they told him to follow-up with Urology on the . He is doom that that he was following up with Urology to have a cystoscopy and stent perform so he quit taking his Brilinta and Plavix. But he when he went to the urologist they stated that they wanted him to have cardiac clearance prior to a procedure. The patient had a 3 vessel CABG March 03, 2024. He reports that since he has had his CABG he quit smoking and he is being compliant with his medications he realized that he needed to make changes in his life and has been compliant with medical therapy. Unfortunately the patient's radiology rn had left the practice at [facility] ([facility]). And it was not yet time for him to have appointment with his new radiology rn. So he was unable to get the form for cardiac clearance signed. The patient denies having any chest pain, shortness of breath, palpitations or lower extremity edema. He denies any dysuria hematuria. He reports that when he does pass the stone pain seems to worsen. He has been taking Flomax and [place] 7.5/325 without relief in symptoms. He reports that he has a fluttering sensation in the right going when the pain is that is worse. He states that he can feel the flutter. He reports that he gets [place] from Dr. Johnson due to 3 bulging discs in his back. He states that he was told he needs to get low back surgery for several years but he is reluctant to do so. Hospital Course: Zander Cain was admitted for acute pain. CT abd/pelvis 02/09 showed mild left sided hydronephrosis. He should follow up with his PCP, Urology and General surgery. Should also follow up with cardiology routinely Left nephrolithiasis: Calculus of kidney IMAGING Abd/Pelvis 02/09: Mild left-sided hydronephrosis secondary to multiple renal calculi spanning a length of 11 mm in the left renal pelvis. Bilateral nonobstructing renal calculi. Abd/Pelvis 02/15: Left nephrolithiasis. The renal pelvic calcifications seen previously have shifted into lower pole calyces on the left. No obstructive uropathy. UA: Trace ketones, otherwise normal He reported burning with urination after passing stone but UA was negative so likely 2/2 local irritation. Discussed monitoring for worsening pain and fevers. Urology consulted and planned lithotripsy 02/19 but patient received plavix 02/17 so procedure was deferred to outpatient. The Urology clinic will call him back to schedule. * Does not require lithotripsy on Saturday * Cardiology consulted, and plan to hold Plavix for 5 days prior to procedure. * Brillinta and Plavix were on his home medication list but patient called family and they do not believe he has been on either recently. Has been over a year since previous cath. * Follow up with urology for lithotripsy, Dr. May, office will call to schedule an appointment Right groin pain: Etiology unclear, started same time as left flank pain but physical exam has been inconsistent throughout this visit and previous ER visit. * At time of admission, patient has right groin/inguinal pain * Physical exam does not indicate any protrusion of tissue, discoloration, or pain upon palpation * CT abdomen/pelvis shows bilateral inguinal hernia can follow-up outpatient * General surgery consulted states rate room pain is nonsurgical issue, unable to palpate hernias. Outpatient follow up Chronic prescription opiate use: residential (current) use of opiate analgesic. - Chronic [place] use due to back pain. Intractable pain in ED despite 200mcg fentanyl q2hrs and [place] - IV dilaudid 1mg q3 prn. Decreased in anticipation of discharge Day of discharge patient did not feel much improvement in pain with 1mg dilaudid and did not think oxycodone was as helpful for him as norco. 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 He was eating and drinking well and able to walk around the room. He also felt that he would be able to work and planned to go on a boat trip with the pain as it was. --Discussed holding NSAIDs for 5 days prior to procedure --Resumed home [place] CAD (coronary artery disease): * Pt reports he has not taken Brilinta or Plavix since 02/12. Later, reviewed with family over the phone and they did not believe he was taking either. Last dose of PLavix was 02/17. Held pending procedure * Continue aspirin * Outpatient follow up with PCP HLD (hyperlipidemia): * Continue Atorvastatin 90mg Hypertension type * Continue Lisinopril Status at Discharge Cognitive/behavioral status at discharge: A&Ox4 Time Spent with Patient Time attestation: Total time spent providing and/or coordinating discharge services: Exam Narrative: General - Awake and alert. No acute distress Eyes - PERRLA, EOM intact ENT - No thrush, No erythema Neck - No noticeable or palpable swelling Lymph Nodes - No lymphadenopathy Cardiovascular - RRR no m/r/g, no JVD Lungs: Clear to auscultation, No wheezing, use of accessory muscles, no crackles Skin - Skin warm and dry, no wounds or rashes Abdomen - Normal bowel sounds, abdomen soft and nontender Extremities - No edema, cyanosis or clubbing Musculoskeletal - 5/5 strength, normal range of motion, no swollen or erythematous joints. Neurological ? Alert and oriented x 3, CN 2-12 grossly intact. Psych: Normal mood and affect Discharge Plan Discharge Attending physician on discharge: Salma Mtz Consulting providers: Mitzi Garduno; Filiberto Bullard; Fredy May Discharging Clinician: Salma Mtz Patient Disposition: Home Activity: no shower and may shower Diet: regular Discharge Instructions: * Call Dr. Bullard is office to schedule an appointment when you would like to discuss scheduling surgery for your umbilical hernia. [phone] * The Urology office is going to call you to schedule a lithotripsy, Tessie from scheduling. Hold Plavix this weekend or until you hear back from them (You should not take Brillinta either). No NSAIDs for 5 days before procedure (ibuprofen, naproxen, aspirin). If the lithotripsy will be Saturday, you should continue to hold Plavix until directed by urology. If unable to schedule the procedure until later, ok to restart plavix and take ibuprofen but hold them for 5 days before the scheduled procedure. Call them on Saturday if you do not receive a call tomorrow. Monitor for signs of a UTI. You have had burning with the kidney stone and your urinalysis was normal, so would monitor for increased burning and a fever >101. Come back to the hospital for fevers or if you are unable to urinate in 8 hours. Stay well hydrated. Drink 2 liters of water a day. Otherwise, your meds did not change and you can continue your regular medications for blood pressure Patient Instructions: Antibiotic Form Patient Language: Estonian Stand Alone Forms: General Discharge Information Follow-up/Referrals: Fredy May MD [Physician] - Call for Appointment Filiberto Bullard MD [Physician] - Call for Appointment Discharge Medications: Continued lisinopril 40 mg tablet 40 mg PO DAILY bupropion HCl 150 mg tablet extended release 24 hr 150 mg PO DAILY aspirin 81 mg tablet,delayed release (DR/EC) 81 mg PO DAILY Qty: 30 11RF atorvastatin 40 mg tablet 40 mg PO DAILY Qty: 30 3RF nitroglycerin 0.4 mg tablet, sublingual 0.4 mg SUBLINGUAL DIRECTED PRN (Reason: chest pain) Qty: 25 3RF Rx Instructions: One tablet sublingual Q 5 minutes x3 doses p.r.n. chest pain If no relief call 911 tamsulosin [Flomax] 0.4 mg capsule 0.4 mg PO DAILY Qty: 10 0RF ondansetron 4 mg tablet,disintegrating 4 mg PO Q8H PRN (Reason: nausea and vomiting) Qty: 10 0RF hydrocodone-acetaminophen 7.5-325 mg tablet 1 tablet PO QID PRN (Reason: Pain) Discontinued Brilinta 90 mg tablet 90 mg PO BID Patient Comments: pt believes there has been a change to this medication-daughter to bring in med list this morning clopidogrel 75 mg tablet 75 mg PO DAILY Date of admission: 02/15/25 22:08 Primary Care Provider: Isauro Johnson Admitting Provider: Selene Botello Attending physician on admission: Salma Mtz Condition: Stable Quality VTE Prophylaxis VTE prophylaxis: pharmacologic ordered Hospitalist MIPS Heart Failure (Exclusion) Patient has history of Heart Transplant or Left Ventricular Assistive Device?: No IF YES, STOP HERE Heart Failure (Qualifier) Patient has current or prior documentation of LVEF less than or equal to 40%, or mod/servere depressed LVSF?: No IF NO, STOP HERE
--- NOTE | 2025-02-18 16:11 | PC.NURSE ---
PATIENT LEFT DISCHARGE PAPERWORK IN ROOM AT DISCHARGE. GRACIELA PENG CNA TAKING HIM OUT IN WHEELCHAIR REMINDED HIM TO TAKE HIS DISCHARGE PAPERWORK WITH HIM AND PATIENT STATED THAT HE DID NOT NEED IT AND WAS LEAVING IT BEHIND.
== END 2025-02-18 15:17 | disposition home or self-care (01) ==
LOC: ANHED 19:36 → ANH3MEDSUR 22:38
PROVIDERS: Physician Assistant; Admitting Provider Internal Medicine; Emergency Provider Student in an Organized Health Care Education/Training Program; PCP Chiropractor; Visit Provider Nurse Practitioner Acute Care
DX: N13.2 Hydronephrosis with renal and ureteral calculous obstruction (principal); R10.31 Right lower quadrant pain; K42.9 Umbilical hernia without obstruction or gangrene; Z79.891 Long term (current) use of opiate analgesic; I25.10 Atherosclerotic heart disease of native coronary artery without angina pectoris; I10 Essential (primary) hypertension; E78.5 Hyperlipidemia, unspecified; I25.2 Old myocardial infarction; F41.9 Anxiety disorder, unspecified; G47.33 Obstructive sleep apnea (adult) (pediatric); L40.9 Psoriasis, unspecified; M35.2 Behcet's disease; Z79.02 Long term (current) use of antithrombotics/antiplatelets; Z79.82 Long term (current) use of aspirin; Z79.899 Other long term (current) drug therapy; Z87.891 Personal history of nicotine dependence; Z95.1 Presence of aortocoronary bypass graft; Z95.5 Presence of coronary angioplasty implant and graft
CPT/HCPCS: 36415; 74018; 74176; 80053; 81001; 83690; 85025; 93005; 93306; 96361; 96374; 96375; 96376; 99285; A9270; G0378; J1171; J1885; J3010; J7120

== ENCOUNTER 2025-06-02 22:54 | Observation (INO) | payer OTHER, MEDICAID, SELFPAY ==
--- NOTE | ~2025-06-02 | CT_ITS ---
EXAMINATION: CTA chest PE protocol DATE: 06/03/2025 7:10 CDT INDICATION: Chest pain. TECHNIQUE: Computed tomographic angiography (CTA) of the chest was performed with 100 mL Omnipaque-35 0 intravenous contrast. The dose-length product was 920.45 mGy-cm. Maximum intensity projection 3D-re constructions of the aorta and other arteries were constructed by the technologist on a separate work station. COMPARISON: CT dated 10/07/2023. FINDINGS: Mild left hydronephrosis partially visualized. Cannot exclude distally obstructing stone. N o significant pleural or pericardial effusion. No thoracic lymphadenopathy. Study is technically adeq uate without evidence for pulmonary embolism. No evidence for aortic aneurysm or dissection. Small hi atal hernia. Gallbladder is present. Status post median sternotomy. Cardiomegaly. There is atheroscle rosis of the aorta and coronary arteries. IMPRESSION: 1. No acute cardiopulmonary disease. No evidence for pulmonary embolism. 2: Partially visualized left hydronephrosis. Cannot exclude distally obstructing left ureteral stone . Consider correlation with CT urogram. Reviewed, dictated and finalized at location A. IMPRESSION: 1. No acute cardiopulmonary disease. No evidence for pulmonary embolism. 2: Partially visualized left hydronephrosis. Cannot exclude distally obstructi ng left ureteral stone. Consider correlation with CT urogram.
--- NOTE | ~2025-06-02 | XR_ITS ---
EXAMINATION: XR chest 2V Exam Date/Time: 06/02/2025 23:10 CDT HISTORY: cp/sob Comparison: 10/07/2023. RESULT: Lines, tubes, and devices: Intact sternotomy wires. Surgical clips and ostial markers over the media stinum. Lungs and pleura: Clear. Cardiomediastinal silhouette: Stable. Other: No acute osseous or upper abdominal finding. IMPRESSION: No acute cardiopulmonary process. Reviewed, dictated and finalized at location K.
[2025-06-02 22:56] VITALS: BP 193/98; PULSE 72; RESP 16; TEMP 36.4; O2SAT 97
--- OUTSIDE RECORDS SUMMARY | 2025-06-02 22:56 | XMS_ITS | Encounter Summary ---
Author Organization [facility] Facility Care Team Providers Care Instructional Technology Coordinator Name Role Phone Isauro Johnson MD Primary Care Provider Cody Andrew MD Unavailable [phone] Miscellaneous, Not In File Unavailable Unava ilable Isauro Johnson MD Primary Care Provider Encounter Details Date Type Department Care Team (Latest Contact Info) Description 08/13/2016 Orders Only [facility] CLINCONV ProviderHilary MD [address] [place] [id number] Social History Tobacco Use Types Packs/Day Years Used Date Smoking Tobacco: Never Assessed Sex and Gender Information Value Date Recorded Sex Assigned at Not on file Legal 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
--- OUTSIDE RECORDS SUMMARY | 2025-06-02 22:56 | XMS_ITS | Encounter Summary ---
Author Organization [facility] Facility Care Team Providers Care Commissioned Fire Officer Name Role Phone Isauro Johnson MD Primary Care Provider Cody Andrew MD Unavailable [phone] Miscellaneous, Not In File Unavailable Unava ilable Isuaro Johnson MD Primary Care Provider Encounter Details Date Type Department Care Team (Latest Contact Info) Description 07/07/2018 Orders Only [facility] CLINCONV ProviderHilary MD [address] [place] [id number] Social History Tobacco Use Types Packs/Day Years Used Date Smoking Tobacco: Former Smokeless Tobacco: Former Alcohol Use Standard Drinks/Week Comments Yes 0 (1 standard drink = 0.6 oz pur e alcohol) rarely Sex and Gender Information Value Date Recorded Sex Assigned at Not on file Legal 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
--- OUTSIDE RECORDS SUMMARY | 2025-06-02 22:56 | XMS_ITS | Encounter Summary ---
Author Organization [facility] Facility Care Team Providers Care Cooling Room Attendant Name Role Phone Isauro Johnson MD Primary Care Provider Cody Andrew MD Unavailable [phone] Miscellaneous, Not In File Unavailable Unava ilable Isauro Johnson MD Primary Care Provider Encounter Details Date Type Department Care Team (Latest Contact Info) Description 08/24/2016 Orders Only [facility] CLINCONV ProviderHilary MD [address] [place] [id number] Social History Tobacco Use Types Packs/Day Years Used Date Smoking Tobacco: Never Assessed Sex and Gender Information Value Date Recorded Sex Assigned at Not on file Legal 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
--- OUTSIDE RECORDS SUMMARY | 2025-06-02 22:56 | XMS_ITS | Clinical Summary ---
Author Organization [facility] [place] [address] Address [address] [place] [address] Care Team Providers Care Corporate Sales Representative Name Role Phone Cody Andrew MD Unavailable [phone] Miscellaneous, Not In File Unavailable Unava ilable Isauro Johnson MD Primary Care Provider Allergies Active Allergy Reactions Criticality Noted Date Comments Ceftriaxone Rash Medium 10/07/2021 Patient had pruritic rash after administration of ceftriaxone x 2 Colchicine Vomiting Low 12/24/2019 Medications escitalopram (LEXAPRO) 10 mg tablet Take 1 tablet (10 mg total) by mouth daily 2 02/11/20 18 Active buPROPion XL (WELLBUTRIN XL) 150 mg 24 hr tablet Take 1 tablet (150 mg total) by mouth daily 08/13/20 16 Active sucralfate (CARAFATE) suspension 1 gram/10 mL 09/23/20 19 Active HYDROcodone-acet aminophen (NORCO) 7.5-325 mg per tablet Take 1 tablet by mouth 3 (three) times a day Active varenicline tartrate (CHANTIX AMY) 0.5 mg (11)- 1 mg (42) tablet Take 1 tablet by mouth as directed Active gabapentin (NEURONTIN) 300 mg capsule Take 1 capsule (300 mg total) by mouth 3 (three) times a day 90 capsule 2 03/17/20 24 Active Additional Information Patient not taking.Reported on 05/18/2025 al & mag hydroxide with simethicone-diph enhydramine-lido home (MAGIC MOUTHWASH) suspension 1-1-1 Swish and swallow 5 mL every 4 (four) hours as needed (Mouth and throat pain) 300 mL 04/14/20 Active Additional Information Patient not taking.Reported on 05/18/2025 predniSONE (DELTASONE) 10 mg tablet Take 5 tablets oral daily for 2 days then 4 tablets daily for 2 days then 3 tablets daily for 2 days then 2 tablets daily for 2 days then 1 tablet daily for 2 days then stop. 32 tablet 04/14/20 Active Additional Information Patient not taking.Reported on 05/18/2025 cetirizine (ZyrTEC) 10 mg tablet Take 1 tablet (10 mg total) by mouth 2 (two) times a day as needed for allergies 60 tablet 04/14/20 Active Additional Information Patient not taking.Reported on 05/18/2025 aspirin 81 mg enteric coated tabletIndication s:Coronary artery disease involving [place] coronary artery of [place] heart without angina pectoris Take 1 tablet (81 mg total) by mouth daily 90 tablet 3 05/18/20 25 026 Active amLODIPine (NORVASC) 10 mg tabletIndication s:Uncontrolled hypertension Take 1 tablet (10 mg total) by mouth daily 90 tablet 3 05/18/20 25 026 Active atorvastatin (LIPITOR) 80 mg tabletIndication s:Coronary artery disease involving [place] coronary artery of [place] heart without angina pectoris,Dyslipi demia Take 1 tablet (80 mg total) by mouth nightly 90 tablet 3 05/18/20 25 026 Active ezetimibe (ZETIA) 10 mg tabletIndication s:Coronary artery disease involving [place] coronary artery of [place] heart without angina pectoris Take 1 tablet (10 mg total) by mouth nightly 90 tablet 3 05/18/20 026 Active lisinopriL (PRINIVIL,ZESTRI L) 20 mg tablet Take 1 tablet (20 mg total) by mouth daily 30 tablet 3 05/18/20 25 Active metoprolol tartrate (LOPRESSOR) 25 mg immediate release tabletIndication s:Coronary artery disease involving [place] coronary artery of [place] heart without angina pectoris,Essenti al hypertension Take 1 tablet (25 mg total) by mouth 2 (two) times a day 180 tablet 3 05/18/20 026 Active atorvastatin (LIPITOR) 80 mg tabletIndication s:Dyslipidemia,C oronary artery disease involving [place] coronary artery of [place] heart without angina pectoris Take 1 tablet (80 mg total) by mouth nightly 90 tablet 3 04/29/20 24 025 Discontin ued(Reord er) amLODIPine (NORVASC) 10 mg tabletIndication s:Uncontrolled hypertension Take 1 tablet (10 mg total) by mouth daily 90 tablet 3 04/29/20 24 025 Discontin ued(Reord er) clopidogreL (PLAVIX) 75 mg tabletIndication s:Coronary artery disease involving [place] coronary artery of [place] heart without angina pectoris Take 1 tablet (75 mg total) by mouth daily 90 tablet 3 04/29/20 24 025 Discontin ued(Thera py completed ) aspirin 81 mg enteric coated tabletIndication s:Coronary artery disease involving [place] coronary artery of [place] heart without angina pectoris Take 1 tablet (81 mg total) by mouth daily 90 tablet 3 04/29/20 24 025 Discontin ued(Reord er) ezetimibe (ZETIA) 10 mg tabletIndication s:Coronary artery disease involving [place] coronary artery of [place] heart without angina pectoris Take 1 tablet (10 mg total) by mouth nightly 90 tablet 3 04/29/20 24 025 Discontin ued(Reord er) metoprolol tartrate (LOPRESSOR) 25 mg immediate release tabletIndication s:Coronary artery disease involving [place] coronary artery of [place] heart without angina pectoris,Essenti al hypertension Take 1 tablet (25 mg total) by mouth 2 (two) times a day 180 tablet 3 04/29/20 025 Discontin ued(Reord er) lisinopriL (PRINIVIL,ZESTRI L) 20 mg tablet Take 1 tablet (20 mg total) by mouth daily 025 Discontin ued(Reord er) Active Problems Problem Noted Date Diagnosed Date [...] wishes to f/u with Dr. Andrew in [place] - chat message sent to him. Assessment [...] 12/24/2019 Assessment & Plan (12/25/2019 1:27 PM CATCHER HELPER): #Spontaneous dental abscess, symptomatic since Saturday (12/21), [...] skin lesions Coronary artery disease invo lving [place]ul coronary artery of [place] heart without angina pectoris 05/02/2019 Assessment & [...] Got one dose 9/30pm Assessment & Plan (07/20/2022 8:53 PM CDT): S/p PCI 2012 and 2016 -continue asa, statin, lisinopril. Pt no longer on brillinta. Got one dose 07/20pm Assessment & Plan (12/25/2019 1:25 PM CATCHER HELPER): #History of NSTEMI in 10/2019. LHC at [place] (10/2019) revealed a totally occluded proximal RCA, [...] statin Assessment & Plan (12/24/2019 8:48 PM CATCHER HELPER): #Chronic with history of CAD. - Continue [...] lisinopril Assessment & Plan (12/24/2019 8:49 PM CATCHER HELPER): #Chronic. - Continue home lisinopril, metoprolol as [...] (03/20/2019): Added automatically from request for surgery [id number] High risk medication use 12/12/2018 Psoriatic arthritis 03/27/2018 Assessment & Plan (12/24/2019 8:40 PM CATCHER HELPER): #Follows with Rheumatology, last seen 06/2019, managed with Enbrel 50 mg weekly. - Continue to monitor. 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 He [...] --Treatment of MAGI as above. Aspiration pneumonia (CMS/HCC) 05/02/2019 10/03/2021 Assessment & Plan (05/04/2019 8:31 [...] empiric treatment given recent procedure with N/V Encounters Date Type Department Care Team Description 05/18/2025 1:30 PM CDT Office Visit [facility] Cardiology [address] [facility] [address] [address] Jeff Miller MD Coronary artery disease involving [place] coronary artery of [place] heart without angina pectoris (Primary Dx); NSTEMI (non-ST elevated myocardial infarction) ([facility]); Uncontrolled hypertension; Dyslipidemia; Essential hypertension; ZAHIRA (obstructive sleep apnea); Psoriasis from Last 3 Months Immunizations Immunization Administration Dates Next Due Influenza, [...] = 0.6 oz pur e alcohol) Rarely [facility] Utilities Answer Date Recorded In the past 12 months has th e electric, gas, oil, or water company threatened to shut off services in your home? Yes 04/09/2024 Social Connection and Isolation Panel Answer Date Recorded In a typical week, how many times do you talk on the phone with family, friends, or neighbors? More than three times a week 04/09/2024 How often do you get togethe r with friends or relatives? More than three times a week 04/09/2024 How often do you attend chur ch or hinduism services? Never 04/09/2024 Do you belong to [...] any time in the past 12 m [facility], were you homeless or living in a [place] health care facility (including now)? No 04/09/2024 Personal Safety Answer Date Recorded Have you ever been in or are you currently in a harmful physical or emotional relationship or is someone making you feel afraid or unsafe? 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 Male 11:32 AM CATCHER HELPER Gender Identity Not on file Sexual Orientation Not on file Occupation Industry Job Start Date Job End Date Q[employer]hi Not on file Not on file Not on file Obstetrics History Last Filed Vital Signs Vital Sign Reading Time Taken Comments Blood Pressure 138/82 05/18/2025 1:50 PM CDT Pulse 81 05/18/2025 1:50 PM CDT Temperature 36.9 C (98.5 F) 07/30/2024 5:36 PM CDT Respiratory Rate 18 05/18/2025 1:50 PM CDT Oxygen Saturation 97% 05/18/2025 1:50 PM CDT Inhaled Oxygen Concentration - - Weight 96 kg (211 lb 11.2 oz) 05/18/2025 1:50 PM CDT Height 167.6 cm (5' 6) 07/30/2024 5:36 PM CDT Body Mass Index 34.17 07/30/2024 5:36 PM CDT Plan of Treatment [...] 09/20, 09/20/2019, Additional history exists Influenza Vaccine (#1) 2025 , 07/21/2019, 08/20/2018, Additional history exists eGFR 07/30/2025 07/30/2024, 03/22, 04/10/2024, Additional history exists Colon Cancer Screening-Colonoscopy 05/01/20292018 Hepatitis C Screening Completed 08/20/2018 Medical Devices Implanted Type Area Carbon Brushes Assembler Device Identifier Shelf Expiration Date Model / Serial / Lot Cardiac Stent Implanted:10/21 (Quantity not on file) Stent Heart Instamour Escobar Distal Marker Radiology Stainless Steel Sterile Amgm-D - [id number] Implanted:Qty: 1 on 03/10/2024 by Yinka Palmer MD at [facility] N/A: Heart [employer] [id number] 09/20/2026 AMGM-D / / [id number] Procedures Procedure Name Priority Date/Time Associated Diagnosis Comments ECG 12-LEAD Routine 05/18/2025 1:59 PM CDT Coronary artery disease involving [place] coronary artery of [place] heart without angina pectoris NSTEMI (non-ST elevated myocardial infarction) (HCC) EGFR STAT 07/30/2024 5:42 PM CDT HEMOGLOBIN A1C Routine 03/07/2024 4:01 AM CDT LIPID PANEL Timed 03/06/2024 6:33 PM CDT COLONOSCOPY 05/01/2019 3:34 PM CDT HEPATITIS PANEL, ACUTE Routine 08/20/2018 6:13 AM CDT from Last 3 Months or Most Recently Relevant to Health Maintenance Results * ECG 12 lead (05/18/2025 1:59 PM CDT) us Jeff Miller MD ECG ORDERABLES Final Result * eGFR (07/30/2024 5:42 PM CDT) eGFR [...] reviewed 2021. Testing performed by: [facility], [address] [place] [address]., [id number] Blood 07/30/2024 5:42 PM CDT 07/30/2024 5:58 PM CDT us Brittaney Coffman MD LAB BLOOD ORDERABLES Fin al Result [facility] [address] [facility] Department [place] [address] * Hemoglobin A1c (03/07/2024 4:01 AM CDT) Hgb A1C 5.5 4.0 - 5.6 % Comment:Testing performed by : [address] [address] Estimated Average Glucose 111 mg/dL TYLER Comment: The ADA recommends reporting an estimated Average Glucose (eAG) with all Hemoglobin A1c results using the equation derived from a study of 507 normal and diabetic adults. Minority populations were underrepresented and children were not included. (Diabetes Care 31:7387-7491, 2008). The eAG is not equivalent to a fasting glucose. Testing performed by: [address] [address] Blood 03/07/2024 4:01 AM CDT 03/07/2024 4:10 AM CDT Ricardo Mendoza MD LAB BLOOD ORDERABLES Final Result [facility] [address] [facility] [place] [address] * (ABNORMAL) Lipid panel (03/06/2024 6:33 PM [...] last revised on 2018. Testing performed by: [address] [address] Triglycerides 146 <=149 mg/dL TYLER LÓPEZ Comment: Interpretive Data Ages < or = [...] last revised on 2018. Testing performed by: [address] [address] HDL 38(L) >=40 mg/dL TYLER Comment: Interpretive [...] last revised on 2018. Testing performed by: [address] [address] LDL, calculated 110 <=129 mg/dL TYLER Comment: [...] last revised on 2018. Testing performed by: [address] [address] Non-HDL Cholesterol 139 mg/dL TYLER Comment: Interpretive [...] last revised on 2018. Testing performed by: [facility], [address] [place] [address]., [address] Chol/HDL ratio 5 TYLER Comment:Testing performed by : [facility], [address] [place] [address]., [address] Blood 03/06/2024 6:33 PM CDT 03/06/2024 6:44 PM CDT Narrative TYLER - 03/06/2024 7:29 PM CDT This lipid panel was automatically ordered due to a significant change in Troponin. The dietary status of the patient at the collection time should be correlated with the lipid results. us Oleg Pierce DO LAB BLOOD ORDERABLES Final Res ult [facility] [address] [facility] [place] [address] * COLONOSCOPY (05/01/2019 3:34 PM CDT) Anatomical Region Laterality Modality Other Narrative Procedure Note Juan Manuel Rick MD - 05/01/2019 3:34 PM CDT [facility] ENDOSCOPY [facility] Patient Name: Zander Cain Procedure Date: 05/01/2019 3:34 PM Date of : 1975 Admit Type: Outpatient Age: 43 Gender: Male Attending MD: Juan Manuel Rick M.D. Room: [facility] ENDOSCOPY ROOM 5 Note Status: Finalized Procedure: [...] The scope was passed under direct vision.The [id number] endoscope was introduced throughthe anus and [...] On: 05/01/2019 3:34 PM Recognized by the [place] [employer] for promoting quality in endoscopy Juan Manuel Rick MD ENDOSCOPY PROCEDURES Final Re sult * Hepatitis panel, acute (08/20/2018 6:13 AM CDT) HepBsAg NONREACT NONREACTIVE Comment: Siemens CentaurXP using NEETA (chemiluminescent immunoassay) technology. NONREACTIVE: IgM antibodies to Hepatitis B Surface antigen not detected. REACTIVE: IgM antibodies to Hepatitis B Surface antigen detected. Reactive results will be confirmed by neutralization testing. HBsAb qn < 3.10 mIU/mL 08/20/2018 12:[address] [facility] HISTORICAL RESULTS Comment: Siemens CentaurXP using NEETA (chemiluminescent immunoassay) technology. 9.99 IU/L or less.....NONREACTIVE: IgM antibodies to Hepatitis B Surface antibody are not detected. 10.00 IU/L or greater..REACTIVE: IgM antibodies to Hepatitis B Surface antibody are detected. Hep B core IgM NONREACT NONREACTIVE 8 12:52 PM T [facility] HISTORICAL RESULTS Comment: Siemens CentaurXP using NEETA (chemiluminescent immunoassay) technology. NONREACTIVE: IgM antibodies to Hepatitis B Core antigen not detected. EQUIVOCAL: IgM antibodies to Hepatitis B Core antigen may or may not be present. Obtain a new specimen and retest. REACTIVE: IgM antibodies to Hepatitis B Core antigen detected. Hep A IgM NONREACT NONREACTIVE 08/20/2018 12:54 PM [facility] HISTORICAL RESULTS Comment: Siemens CentaurXP using NEETA (chemiluminescent immunoassay) technology. NONREACTIVE: IgM antibodies to Hepatitis A not detected. This does not exclude possibility of exposure to Hepatitis A or early acute infection. EQUIVOCAL:IgM antibodies to Hepatitis A may or may not be present. Suggest recollection and retest. REACTIVE: Antibodies to Hepatitis A detected. Hep C Ab NONREACT NONREACTIVE 08/20/2018 12:51 PM [facility] [employer] [facility] HISTORICAL RESULTS Comment: Siemens CentaurXP using NEETA [...] MICROBIOLOGY - GENERAL OR DERABLES Final Result Performing Organization Address City/State/[facility] Co de Phone Number [facility] HISTORICAL RESULTS from Last 3 Months or Most Recently Relevant to Health Maintenance Insurance [facility] Advance Directives For more information, please contact: [phone] Documents on File Type Date Recorded Patient Clothing Patternmaker Expl anation ADVANCE DIRECTIVE 03/09/2024 12:26 PM Chavo [employer] of [employer] Installer-Medical * Full Code (Latest Code Status on [...] 6:32 PM 07/20/2022 6:32 PM Care Teams Corporate Sales Representative Relationship Specialty Start Date End Date Isauro Johnson MD PCP - General Juvenile Counselor 07/26/22 Cody Andrew MD Consulting Physician Infectious Diseases 10/09/21 Miscellaneous, Not In File 10/09/21
--- OUTSIDE RECORDS SUMMARY | 2025-06-02 22:56 | XMS_ITS | Encounter Summary ---
Author Organization [facility] Facility Care Team Providers Care Cutter Grinder Operator Name Role Phone Isauro Johnson MD Primary Care Provider Cody Andrew MD Unavailable [phone] Miscellaneous, Not In File Unavailable Unava ilable Isauro Johnson MD Primary Care Provider Encounter Details Date Type Department Care Team (Latest Contact Info) Description 04/13/2016 Orders Only [facility] CLINCONV ProviderHilary MD [address] [place] [address] Social History Tobacco Use Types Packs/Day Years Used Date Smoking Tobacco: Never Assessed Sex and Gender Information Value Date Recorded Sex Assigned at Not on file Legal Sex Male 11:32 AM CEMENT FINISHER APPRENTICE Gender Identity Not on file Sexual Orientation [...] us Historical Provider [facility] CASSY MORNI Final Result documented in this encounter Visit [...] CDT MRSA 03/08/2024 04/09/2024 10/06/2024 3:05 AM CEMENT FINISHER APPRENTICE documented as of this encounter Care Teams Cutter Grinder Operator Relationship Specialty Start Date End Date Isauro Johnson MD PCP - General Telecommunications Sales Representative 05/21/17 07/25/22 Isauro Johnson MD PCP - General Telecommunications Sales Representative 07/26/22 Cody Andrew MD Consulting Physician Infectious Diseases 10/09/21 Miscellaneous, Not In File 10/09/21 documented as of this encounter
--- OUTSIDE RECORDS SUMMARY | 2025-06-02 22:56 | XMS_ITS | Clinical Summary ---
Author Organization [facility] Address [address] [place] [address] Phone Care Team Providers Care Furniture Assembly Supervisor Name Role Phone Isauro Johnson MD Primary [...] of 3 - 19+ 3-dose series) 1996 Cologuard 2022 Colonoscopy 2022 Colorectal Cancer Screening 2022 Immunochemical Fecal Occult Blood 2022 Influenza Immunization (#1) 2025 Respiratory Syncytial Virus (RSV) Immunization (Adult) (1 - 1-dose 75+ series) 2052 Human Papillomavirus (HPV) Immunization Aged Out No longer eligible b ased on patient's age to complete this topic Meningococcal Immunization (ACWY) Aged Out No longer eligible based on patient's age to complete this topic Pneumococcal Immunization Combined Aged Out No longer eligible based on patient's age to complete this topic Rotavirus Immunization Aged Out No lo nger eligible based on patient's age to complete this topic Care Teams Furniture Assembly Supervisor Relationship Specialty Start Date End Date Isauro Johnson MD [address] [facility] [address] [place] [address] PCP - General Internal Medicine 05/27/20
--- OUTSIDE RECORDS SUMMARY | 2025-06-02 22:56 | XMS_ITS | Clinical Summary ---
Author Organization [facility] Address [address] [place] [address] Care Team Providers Care Hourly Team Members Name Role Phone Unavailable Primary Care Provider Unavailabl e Allergies No known active allergies Medications doxycycline hyclate (VIBRAMYCIN) 100 MG capsule Take 1 capsule (100 mg total) by mouth 2 (two) times daily. 04/06/2024 Active escitalopram (LEXAPRO) 10 MG tablet Take 1 tablet (10 mg total) by mouth daily. Active HYDROcodone-renetta taminophen (NORCO) 7.5-325 MG tablet Take 1 tablet by mouth 4 (four) times daily as needed for Pain. Active lisinopril (PRINIVIL) 20 MG tablet Take 1 tablet (20 mg total) by mouth daily. Active Social History Tobacco Use Types Packs/Day Years Used Date Smoking Tobacco: Never Assessed Sex and Gender Information Value Date Recorded Sex Assigned at Not on file Legal Sex Male 12:35 PM OPERATING ENGINEER APPRENTICE Gender Identity Not on file Sexual [...] 9:07 AM CDT Height 167.6 cm (5' 6) 04/08/2024 9:07 AM CDT Body Mass Index 30.67 04/08/2024 9:07 AM CDT Plan of Treatment Health Maintenance Due Date Last Done Comments Colorectal Cancer Screening Colonoscopy (10 Years) 1975 Annual Physical 1980 Hepatitis C 1995 DTaP, Tdap and Td Vaccines ( 1 - Tdap) 1996 Hepatitis B Vaccines (1 of 3 - 19+ 3-dose series) 1996 COVID-19 Vaccine (1 - 2023-2 5 season) 2024 Meningococcal B [...] Comment:04/08/24 right wrist ([place]) 04/08/2024 04/08/2024 Insurance [place]
--- OUTSIDE RECORDS SUMMARY | 2025-06-02 22:56 | XMS_ITS | Encounter Summary ---
Author Organization [facility] Facility Care Team Providers Care Db2 Developer Name Role Phone Isauro Johnson MD Primary Care Provider Cody Andrew MD Unavailable [phone] Miscellaneous, Not In File Unavailable Unava ilable Isauro Johnson MD Primary Care Provider Encounter Details Date Type Department Care Team (Latest Contact Info) Description 04/12/2016 Orders Only [facility] CLINCONV ProviderHilary MD [address] [place] [address] Social History Tobacco Use Types Packs/Day Years Used Date Smoking Tobacco: Never Assessed Sex and Gender Information Value Date Recorded Sex Assigned at Not on file Legal Sex Male 11:32 AM TRAFFIC ENGINEERING DIRECTOR Gender Identity Not on file Sexual [...] CDT MRSA 03/08/2024 04/09/2024 10/06/2024 3:05 AM TRAFFIC ENGINEERING DIRECTOR documented as of this encounter Care Teams Db2 Developer Relationship Specialty Start Date End Date Isauro Johnson MD PCP - General Aircraft Motor Mechanic 05/21/17 07/25/22 Isauro Johnson MD PCP - General Aircraft Motor Mechanic 07/26/22 Cody Andrew MD Consulting Physician Infectious Diseases 10/09/21 Miscellaneous, Not In File 10/09/21 documented as of this encounter
--- OUTSIDE RECORDS SUMMARY | 2025-06-02 22:56 | XMS_ITS | Continuity of Care Document ---
Author Organization [facility] Address [address] [facility] [address] [facility] [address] [place] [address] Phone Care Team Providers Care Resident Engineer Name Role Phone Nitin Gorman MD Unavailable [...] Providers Copied on Encounter [facility] , [address], [place], [address], [place] tel:[phone] [facility] [place] No Information [address] [facility], [facility], [place], [id number] . tel:[phone] [facility] , [address], [place], [address], [place] tel:[phone] [facility] [place] Carpal tunnel syndrome of left wristCervical spinal stenosis [address] [place], [place], [id number] . tel:[phone] [facility] , [address], [place], [address], [place] tel:[phone] [facility] [place] Pain in left wrist [address] [place], [place], [id number] . tel:[phone] Family History Family Member Type Diagnosis Age [...]
--- OUTSIDE RECORDS SUMMARY | 2025-06-02 22:56 | XMS_ITS | Continuity of Care Document ---
Author Organization [facility] Address [address] [place] [id number] Phone Care Team Providers Care Service Engine Repairer Name Role Phone Katie MS, OTR/L, CHT, [...] Date Provider Providers Copied on Encounter [facility], [address] [facility] [address] [place] [address], [id number], tel:[phone] [place] No Information Roman-1 8-201 6 Hauschild Juana. [address] [place] [address], [address], [place], [address], [place]. tel:[phone], [place], [place], [id number], tel:[phone] [place] No Information May-2 3-201 6 Hauschild Junaa. [address] [place] [address], [address], [place], [address], [place]. tel:[phone] Referring Provider: Yusuf Liang, [address] [facility] [address], [place], [address]. tel:[phone], [id number], tel:[phone] [place] No Information February-1 6-201 6 Hauschild Juana. [address] [place] [address], [address], [place], [address], [place]. tel:[phone] Referring Provider: Yusuf Liang, [address] [facility] [address], [place], [address]. tel:[phone], [id number], tel:[phone] [place] No Information May-0 4-201 6 Hauschild Juana. [address] [place] [address], [address], [place], [address], [place]. tel:[phone] Referring Provider: Yusuf Liang, [address] [facility] [address], [place], [address]. tel:[phone], [id number], tel:[phone] [place] No Information May-0 2-201 6 Hauschild Juana. [address] [place] [address], [address], [place], [place], [facility], [place]. tel:[phone] Referring Provider: Yusuf Liang, [address] [facility] [address], [place], [address]. tel:[phone] [facility] [address] [place] [address] [address], [place], [place], [id number], [place] tel:[phone] [place] No Information 6 Hauschild Juana. [address] [place] [address], [address], [place], [address], [place]. tel:[phone] Referring Provider: Yusuf Liang, [address] [facility] [address], [place], [address]. tel:[phone] [facility] [address] [place] [address], [place], [place], [id number], [place] tel:[phone] [place] Unsp fx the low end left rad, subs for clos fx w routn heal 6 Hauschild Juana. [address] [place] [address], [address], [place], [address], [place]. tel:[phone] Referring Provider: Yusuf Liang, [address] [facility] [address], [place], [address]. tel:[phone], [id number], [place] tel:[phone] [place] No Information 6 Hauschild Juana. [address] [place] [address], [address], [place], [address], [place]. tel:[phone] Referring Provider: Yusuf Liang, [address] [facility] [address], [place], [address]. tel:[phone] [facility] [address] [facility] [address], [place], [place], [id number], tel:[phone] [place] No Information 6 Hauschild Juana. [address] [place] [address], [address], [place], [address], [place]. tel:[phone] Referring Provider: Yusuf Liang, [address] [facility] [address], [place], [address]. tel:[phone] [address], [place], [place], [id number], [place] tel:[phone] [place] No Information Spencer-0 6-201 6 Hauschild Juana. [address] [place] [address], [address], [place], [address], [place]. tel:[phone] Referring Provider: Yusuf Liang, [address] [facility] [address], [place], [address]. tel:[phone] [address] [address], [place], [place], [id number], [place] tel:[phone] [place] Muscle weakness (generalized) Oct-0 4-201 6 Hauschild Juana. [address] [place] [address], [address], [place], [address], [place]. tel:[phone] Referring Provider: Yusuf Liang, [address] [facility] [address], [place], [address]. tel:[phone] [address] [address], [place], [place], [id number], [place] tel:[phone] [place] No Information Dec-3 0-201 5 Hauschild Juana. [address] [place] [address], [address], [place], [address], [place]. tel:[phone] Referring Provider: Yusuf Liang, [address] [facility] [address], [place], [address]. tel:[phone] [address] [address], [place], [place], [id number], [place] tel:[phone] [place] No Information Dec-2 3-201 5 Hauschild Juana. [address] [place] [address], [address], [place], [facility], [place]. tel:[phone] Referring Provider: uYsuf Liang, [address] [facility] [address], [place], [address]. tel:[phone] [facility], [address] [place] [address] [address], [place], [place], [id number], tel:[phone] [place] No Information Dec-2 2-201 5 Hauschild Juana. [address] [place] [address], [address], [place], [address], [place]. tel:[phone] Referring Provider: Yusuf Liang, [address] [facility] [address], [place], [address]. tel:[phone], [id number], tel:[phone] [place] No Information Dec-2 1-201 5 Hauschild Juana. [address] [place] [address], [address], [place], [facility], [place]. tel:[phone] Referring Provider: Yusuf Liang, [address] [facility] [address], [place], [address]. tel:[phone], [id number], tel:[phone] [place] No Information Dec-1 6-201 5 Hauschild Juana. [address] [place] [address], [address], [place], [facility], [place]. tel:[phone] Referring Provider: Yusuf Liang, [address] [facility] [address], [place], [address]. tel:[phone], [id number], tel:[phone] [place] No Information Dec-1 4-201 5 Hauschild Juana. [address] [place] [address], [address], [place], [address], [place]. tel:[phone] Referring Provider: Yusuf Liang, [address] [facility] [address], [place], [address]. tel:[phone] [facility], [address], [id number], tel:[phone] [place] No Information Dec-0 5 Amandastuarternestina Arias. [address] [facility] [address], [place], [address], [place]. tel:[phone] Referring Provider: Yusuf Liang, [address] [facility] [address], [place], [address]. tel:[phone] [facility], [address] [address], [place], [place], [id number], tel:[phone] [place] Pain in left wristStiffness of left wrist, not elsewhere classifiedLocal ized edemaOther specified postprocedural statesPersonal history of (healed) traumatic fracture Dec-0 5 Tessyjonny Field. [address] [facility], [facility] [address], [place], [address], [place]. tel:[phone] Referring Provider: Yusuf Liang, [address] [facility] [address], [place], [address]. tel:[phone] Family History Family Member Type Diagnosis Age At Onset No Information Payers Payer name Insurance type Covered alliance party ID Benedict botello(s) [facility] CI [id number] Social History Type Description Quantity Date Captured [...]
--- OUTSIDE RECORDS SUMMARY | 2025-06-02 22:56 | XMS_ITS | Clinical Summary ---
Author Organization [facility] Address [address] [place] [address] Phone Care Team Providers Care Carpet Binder Name Role Phone Nomfc, External Provider Primary [...] 5:00 AM CDT Height 170.2 cm (5' 7) 07/27/2013 5:40 PM CDT Body Mass Index [...] Q 5 years 2022 INFLUENZA VACCINE (#1) 2025 07/29/2013 Insurance [facility] OPT[employer] PPO [id number] Advance Directives For more information, please contact: [phone] * Full Code (Latest Code Status on File) Date Activated Date Inactivated Comments 07/27/2013 5:37 PM 07/29/2013 11:55 AM Care Teams Carpet Binder Relationship Specialty Start Date End Date Nomfc, External Provider PCP - General 07/27/13
--- OUTSIDE RECORDS SUMMARY | 2025-06-02 22:56 | XMS_ITS | Clinical Summary ---
Author Organization [facility] Address [address] [facility] [place] [address] Care Team Providers Care Prop Cutter Name Role Phone Isauro Johnson MD Primary Care Provider [phone] Source Comments [facility],non-owned Affiliates and Associated Physician Practices is amultiple site organization consisting of ambulatory clinics and hospital sitesin [place], [place], [place] and [place]. This disclosure is being madepursuant to the Care Everywhere program and may not contain all information available regarding this patient. 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 Address: [address] [address] [facility] Advance Directives * Full Code (Latest Code Status on File) Date Activated Date Inactivated Comments 07/10/2020 9:17 PM 07/12/2020 5:20 PM Care Teams Prop Cutter Relationship Specialty Start Date End Date Isauro Johnson MD PCP - General Internal Medicine 09/24/17
--- OUTSIDE RECORDS SUMMARY | 2025-06-02 22:57 | XMS_ITS | Encounter Summary ---
Author Organization [facility] Healthcare Address [address] [place] [address] Care Team Providers Care Industrial Cafeteria Manager Name Role Phone Cody Andrew MD Unavailable [phone] Miscellaneous, Not In File Unavailable Unava ilable Isauro Johnson MD Primary Care Provider Encounter Details Date Type Department Care Team (Late st Contact Info) Description 02/17/2025 Orders Only [facility] [address] [place] [address] Franchesca Katz MD [address] [address] Social History Tobacco Use Types Packs/Day Years Used Date Smoking Tobacco: Former Cigarettes 2 8 Smokeless Tobacco: Former Alcohol Use Standard Drinks/Week Comments Yes 0 (1 standard drink = 0.6 oz pur e alcohol) Rarely [facility] Utilities Answer Date Recorded In the past 12 months has [employer], gas, oil, or water company threatened [...] week 04/09/2024 How often do you attend caro center or buddhism services? Never 04/09/2024 Do you belong to any clubs o r organizations such as evangelical groups, unions, fraternal or athletic groups, or [...] any time in the past 12 m [place], were you homeless or living in a halfway (including now)? No 04/09/2024 Personal Safety Answer Date Recorded Have you ever been in or are you currently in a harmful physical or emotional relationship or is someone making you feel afraid or unsafe? 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 Gender Identity Not on file Sexual Orientation Not on file Occupation Industry Job Start Date Job End Date [employer] Not on file Not on file Not on file documented as of this encounter Plan of Treatment Not on file documented as of this encounter Procedures Procedure Name Priority Date/Time Associated Diagnosis Comments CARDIOLOGY DOCUMENT SCAN 02/17/2025 documented in this encounter Results * Cardiology Document Scan (02/17/2025) Anatomical Region Laterality Modality Other Franchesca Katz MD CV CARDIAC SERVICES PROCEDU RES Final Result documented in this encounter Visit Diagnoses Not on filedocumented in this encounter Care Teams Industrial Cafeteria Manager Relationship Specialty Start Date End Date Isauro Johnson MD PCP - General Lead Pl Sql Developer 07/26/22 Cody Andrew MD Consulting Physician Infectious Diseases 10/09/21 Miscellaneous, Not In File 10/09/21 documented as of this encounter
--- NOTE | 2025-06-02 22:59 | ECG_ITS ---
Test Date: 2025-06-02 23:02:03 Measurements Intervals [place] Rate: 68 P: 31 WV: 149 QRS: -32 QRSD: 106 T: 9 QT: 385 QTc: 411 Interpretive Statements SINUS RHYTHM LEFT AXIS DEVIATION POSSIBLE LEFT ATRIAL ENLARGEMENT BORDERLINE R WAVE PROGRESSION, ANTERIOR LEADS NONSPECIFIC T-WAVE ABNORMALITY- INF/LAT LEADS BASELINE ARTIFACT- II, III, AVR, AVL, AVF BORDERLINE ECG Compared to ECG 02/15/2025 21:15:52 NO SIGNIFICANT CHANGE Electronically Signed On 06-03-2025 06:06:48 CDT by Ethan Gutierrez D.O.
[2025-06-02 23:09] LABS: Hematocrit 45.5 % (42.0-52.0); Hemoglobin 15.2 g/dL (14.0-18.0); Immature Granulocyte Percent A 0.2 % (0-0.5); Lymphocytes Absolute Auto 2.30 K/mm3 (0.9-3.2); Mean Corpuscular HGB Conc 33.4 g/dl (32-36); Mean Corpuscular Hemoglobin 29.7 pg (26-34); Mean Corpuscular Volume 88.9 fl (80-100); Nucleated Red Blood Cells Absolute Auto 0.000 K/mm3 (0.0-0.012); Nucleated Red Blood Cells Perc 0.0 % (0.0-0.2); Platelet Count Result 226 k/mm3 (150-375); Red Blood Count 5.12 M/mm3 (4.6-6.20); White Blood Count 8.4 K/mm3 (4.5-10.0)
[2025-06-02 23:22] LABS: INR 1.0; Prothrombin Time 12.9 Seconds (11.1-14.7)
[2025-06-02 23:23] LABS: Partial Thromboplastin Time 25.0 Seconds (22.3-36.8)
[2025-06-02 23:25] LABS: Alanine Aminotransferase 34 U/L (6-50); Albumin Level 4.3 g/dL (3.5-5.1); Alkaline Phosphatase 51 U/L (38-126); Anion Gap 8 mmol/L (4-12); Aspartate Amino Transferase 39 U/L (17-59); Bilirubin,Total 0.5 mg/dL (0.2-1.3); Blood Urea Nitrogen 20 mg/dL (9-20); Calcium 9.4 mg/dL (8.4-10.2); Carbon Dioxide 26 mmol/L (22-30); Chloride 102 mmol/L (98-107); Estimated CRCL calculation 89 ml/min; Estimated Glomerular Filt Rate > 60; Glucose 106 mg/dL (65-110); Lipase 103 U/L (23-300); Potassium 3.4 mmol/L (3.4-5.0); Sodium 136 mmol/L (137-145); Total Protein 7.0 g/dL (6.3-8.2)
[2025-06-02 23:35] LABS: Troponin I 0.038 ng/mL (0.000-0.034)
[2025-06-02 23:49] VITALS: BP 151/82; PULSE 68; RESP 16; O2SAT 98
[2025-06-03] VITALS (20 sets, daily range): BP systolic 132–170; BP diastolic 64–106; PULSE 62–80; RESP 12–22; TEMP 36.5–37; O2SAT 95–99; BMI 33.7
--- NOTE | 2025-06-03 | ECHO_ITS ---
Patient Info Name: Zander Cain Age: 49 years : 1975 Gender: Male Ht: 66 in Wt: 209 lbs BSA: 2.14 m2 HR: 65 bpm BP: 147 / 85 mmHg Heart Rhythm: Sinus Rhythm Technical Quality: Good Exam Date: 06/03/2025 3:50 PM Patient Status: I Admit Date: 06/03/2025 Exam Type: CA echo doppler color flow Complete two-dimensional, color flow and Doppler transthoracic echocardiogram is performed. Staff Referring Physician: Patricia Abbasi Chip Frier: Renetta Delgadillo Attending Provider: Teofilo Elder MD Summary 1. Complete two-dimensional, color flow and Doppler transthoracic echocardiogram is performed. 2. Mild concentric left ventricular hypertrophy with normal systolic function. 3. Grade 2 diastolic noncompliance. 4. Mildly enlarged left atrium. 5. Very small amount of mitral and pulmonic valve regurgitation. 6. Compared with echocardiogram from January of this year in this laboratory the findings are identical. Left Ventricle Left ventricular chamber dimension is normal. Left ventricular systolic function is normal, estimated at 60-65. There is mild concentric increased left ventricular wall thickness. The left ventricular diastolic function is grade II diastolic dysfunction. Right Ventricle Right ventricular chamber dimension is normal. Left Atria Left atrial chamber dimension is mildly enlarged. Right Atria Right atrial chamber dimension is normal. Aortic Valve The aortic valve is normal. Pulmonic Valve The pulmonic valve is normal. There is trace pulmonic regurgitation. Mitral Valve The mitral valve has normal leaflets. There is trace mitral valve regurgitation. Tricuspid Valve The tricuspid valve leaflets are normal. Pericardium/Pleural The pericardium appears normal. Aorta The aortic root size at the sinus of Valsalva is normal. Left Ventricular Outflow Tract Name Value Normal LVOT 2D LVOT Diameter 2.3 cm LVOT Doppler LVOT Peak Velocity 122 cm/s LVOT Peak Gradient 6 mmHg LVOT Mean Gradient 3 mmHg LVOT VTI 26 cm LVOT Stroke Volume 103 ml LVOT CO 6.7 l/min LVOT CI 3.1 l/min/m2 Pulmonic Valve Name Value Normal RVOT Doppler RVOT Peak Velocity 84 cm/s RVOT Peak Gradient 3 mmHg PV Doppler PV Peak Velocity 103 cm/s PV Peak Gradient 4 mmHg Mitral Valve Name Value Normal MV Diastolic Function MV E Peak Velocity 77 cm/s MV A Peak Velocity 73 cm/s MV E/A 1.1 MV Decel Time (PW) 180 ms MV Annular TDI MV E/e' (Septal) 10.9 MV E/e' (Lateral) 8.2 MV E/e' (Average) 9.6 Aortic Valve Name Value Normal AV Doppler AV Peak Velocity 154 cm/s AV Peak Gradient 9 mmHg AV Area (Cont Eq Ernesto) 3.2 cm2 AV DI (Ernesto) 0.79 AV Regurgitation 2D LVOT Area 4.0 cm2 Ventricles Name Value Normal LV Dimensions 2D/MM IVS Diastolic Thickness (2D) 1.3 cm 0.6-1.0 LVID Diastole (2D) 5.4 cm 4.2-5.8 LVIW Diastolic Thickness (2D) 1.2 cm 0.6-1.0 LVID Systole (2D) 4.1 cm 2.5-4.0 LVOT Diameter 2.3 cm LV Mass (2D Cubed) 285.96 g 88.00-224.00 LV Mass Index (2D Cubed) 134 g/m2 49-115 Relative Wall Thickness (2D) 0.46 <=0.42 LV Fractional Shortening/Ejection Fraction 2D/MM LV Fractional Shortening (2D) 24 % 25-43 LV EF (2D Teichholz) 48 % LV Diastolic Volume (4C MOD) 160 ml LV EF (4C MOD) 59 % LV Diastolic Volume (2C MOD) 135 ml LV EF (2C MOD) 62 % LV Diastolic Volume (BP MOD) 150 ml 62-150 LV Diastolic Volume Index (BP MOD) 70 ml/m2 34-74 LV Systolic Volume (BP MOD) 58 ml 21-61 LV Systolic Volume Index (BP MOD) 27 ml/m2 11-31 LV EF (BP MOD) 62 % 52-72 LV Diastolic Length (4C) 8.7 cm LV Systolic Length (4C) 7.8 cm LV Stroke Volume (4C MOD) 95 ml Atria Name Value Normal LA Dimensions LA Volume (4C A-L) 43 ml LA Volume (BP A-L) 61 ml RA Dimensions RA Systolic Major Hugo Length (4C) 5.5 cm 2.1-2.7 RA Area (4C) 18.3 cm2 <=18.0 Report Signatures
[2025-06-03] MEDS: MORPHINE SULFATE (*CRX) 4 MG/ML INJ IV PUSH ×4 (00:31→20:23)
[2025-06-03] MEDS: ONDANSETRON INJ 4 MG/2 ML VIAL IV PUSH (00:31)
--- OUTSIDE RECORDS SUMMARY | 2025-06-03 00:38 | XMS_ITS | Encounter Summary ---
Author Organization [facility] Care Team Providers Care Recreation Program Specialist Name Role Phone Isauro Johnson MD Primary Care Provider Cody Andrew MD Unavailable [phone] Miscellaneous, Not In File Unavailable Unava ilable Isauro Johnson MD Primary Care Provider Encounter Details Date Type Department Care Team (Latest Contact Info) Description 04/12/2016 Orders Only [facility] ProviderHilary MD [address] [place] [address] Social History Tobacco Use Types Packs/Day Years Used Date Smoking Tobacco: Never Assessed Sex and Gender Information Value Date Recorded Sex Assigned at Not on file Legal 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
--- OUTSIDE RECORDS SUMMARY | 2025-06-03 00:38 | XMS_ITS | Continuity of Care Document ---
Author Organization [facility] Address [address] [facility] [address] [facility] [address] [place] [address] Phone Care Team Providers Care Electro Optical Engineer Name Role Phone Nitin Gorman MD [...] Providers Copied on Encounter [facility] , [address], [place], [address], [place] tel:[phone] [facility] [place] No Information [address]. [address] [facility], [facility], [place], [id number] . tel:[phone] [facility] , [address], [place], [address], [place] tel:[phone] [facility] [place] Carpal tunnel syndrome of left wristCervical spinal stenosis 7 Sherif Taveras. [address] [place], [place], [id number] . tel:[phone] [facility] , [address], [place], [address], [place] tel:[phone] [facility] [place] Pain in left wrist 6 Sherif Nitin. [address] [place], [place], [id number] . tel:[phone] Family History Family Member Type Diagnosis Age At Onset No Information Payers Payer name Insurance type Covered alliance party ID Authorronya titulio(s) No Information Social [...]
--- OUTSIDE RECORDS SUMMARY | 2025-06-03 00:38 | XMS_ITS | Clinical Summary ---
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 pectoris Take 1 tablet (81 mg total) by mouth daily 90 tablet 3 05/18/20 25 026 Active amLODIPine (NORVASC) 10 mg tabletIndication s:Uncontrolled hypertension Take 1 tablet (10 mg total) by mouth daily 90 tablet 3 05/18/20 25 026 Active atorvastatin (LIPITOR) 80 mg tabletIndication s:Coronary artery disease involving circle coronary artery of 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 angina pectoris,Dyslipi demia Take 1 tablet (80 mg total) by mouth nightly 90 tablet 3 05/18/20 25 026 Active ezetimibe (ZETIA) 10 mg tabletIndication s:Coronary artery disease involving circle coronary artery of 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 angina pectoris Take 1 tablet (10 mg total) by mouth nightly 90 tablet 3 05/18/20 026 Active lisinopriL (PRINIVIL,ZESTRI L) 20 mg tablet Take 1 tablet (20 mg total) by mouth daily 30 tablet 3 05/18/20 25 Active metoprolol tartrate (LOPRESSOR) 25 mg immediate release tabletIndication s:Coronary artery disease involving circle coronary artery of 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 angina pectoris,Essenti al hypertension Take 1 tablet (25 mg total) by mouth 2 (two) times a day 180 tablet 3 05/18/20 026 Active atorvastatin (LIPITOR) 80 mg tabletIndication s:Dyslipidemia,C oronary artery disease involving circle coronary artery of 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 angina pectoris Take 1 tablet (80 mg total) by mouth nightly 90 tablet 3 04/29/20 24 025 Discontin ued(Reord er) amLODIPine (NORVASC) 10 mg tabletIndication s:Uncontrolled hypertension Take 1 tablet (10 mg total) by mouth daily 90 tablet 3 04/29/20 24 025 Discontin ued(Reord er) clopidogreL (PLAVIX) 75 mg tabletIndication s:Coronary artery disease involving circle coronary artery of 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 angina pectoris Take 1 tablet (75 mg total) by mouth daily 90 tablet 3 04/29/20 24 025 Discontin ued(Thera py completed ) aspirin 81 mg enteric coated tabletIndication s:Coronary artery disease involving circle coronary artery of 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 angina pectoris Take 1 tablet (81 mg total) by mouth daily 90 tablet 3 04/29/20 24 025 Discontin ued(Reord er) ezetimibe (ZETIA) 10 mg tabletIndication s:Coronary artery disease involving circle coronary artery of 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 angina pectoris Take 1 tablet (10 mg total) by mouth nightly 90 tablet 3 04/29/20 24 025 Discontin ued(Reord er) metoprolol tartrate (LOPRESSOR) 25 mg immediate release tabletIndication s:Coronary artery disease involving circle coronary artery of 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 angina pectoris,Essenti al hypertension Take [...] wishes to f/u with Dr. Andrew in [place] - chat message sent to him. Assessment [...] 12/24/2019 Assessment & Plan (12/25/2019 1:27 PM EQUALIZING SAW OPERATOR): #Spontaneous dental abscess, symptomatic since Saturday (12/21), [...] skin lesions Coronary artery disease invo lving circle coronary artery of 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 angina pectoris 05/02/2019 Assessment & [...] 07/20pm Assessment & Plan (12/25/2019 1:25 PM EQUALIZING SAW OPERATOR): #History of NSTEMI in 10/2019. LHC at [place] (10/2019) revealed a totally occluded proximal RCA, [...] Plan (05/02/2019 8:22 AM CDT): History of [place] in 2013 and 2015 s/p stent placement. --Continue home aspirin, ticagrelor, atorvastatin. Hyperlipidemia 05/02/2019 Assessment & Plan (07/24/2022 5:44 PM CDT): Cont statin Assessment & Plan (07/23/2022 1:55 PM CDT): Cont statin Assessment & Plan (07/22/2022 3:57 PM CDT): Cont statin Assessment & Plan (12/24/2019 8:48 PM EQUALIZING SAW OPERATOR): #Chronic with history of CAD. - Continue [...] lisinopril Assessment & Plan (12/24/2019 8:49 PM EQUALIZING SAW OPERATOR): #Chronic. - Continue home lisinopril, metoprolol as [...] (03/20/2019): Added automatically from request for surgery [id number] High risk medication use 12/12/2018 Psoriatic arthritis 03/27/2018 Assessment & Plan (12/24/2019 8:40 PM EQUALIZING SAW OPERATOR): #Follows with Rheumatology, last seen 06/2019, managed with Enbrel 50 mg weekly. - Continue to monitor. Uveitis 03/27/2018 Behcet's syndrome ([facility]) 03/26/2018 Assessment & Plan (12/24/2019 8:39 PM EQUALIZING SAW OPERATOR): #Follows with Rheumatology, last seen 06/2019. 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 pectoris (Primary Dx); NSTEMI (non-ST elevated myocardial infarction) ([facility]); Uncontrolled hypertension; Dyslipidemia; Essential hypertension; ZAHIRA (obstructive [...] artery disease Hypertension Kidney stones HLD (hyperlipidemia) WA, old Behcet's syndrome (HCC) Psoriasis Anxiety Gout [...] = 0.6 oz pur e alcohol) Rarely [facility] Utilities Answer Date Recorded In [...] any clubs o r organizations such as sabianist groups, unions, fraternal or athletic groups, or [...] any time in the past 12 m [facility], were you homeless or living in a retirement (including now)? No 04/09/2024 Personal Safety Answer Date Recorded Have you ever been in or are you currently in a harmful physical or emotional relationship or is someone making you feel afraid or unsafe? 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 Male 11:32 AM EQUALIZING SAW OPERATOR Gender Identity Not on file Sexual [...] Completed 08/20/2018 Medical Devices Implanted Type Area Media Assistant Device Identifier Shelf Expiration Date Model / Serial / Lot Cardiac Stent Implanted:10/21 (Quantity not on file) Stent Heart [employer] Escobar Distal Marker Radiology Stainless Steel Sterile Amgm-D - [id number] Implanted:Qty: 1 on 03/10/2024 by Yinka Palmer MD at [facility] N/A: Heart [employer] [id number] 09/20/2026 AMGM-D / / [id number] Procedures Procedure Name Priority Date/Time Associated Diagnosis Comments ECG 12-LEAD Routine 05/18/2025 1:59 PM CDT Coronary artery disease involving circle coronary artery of 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 Testing performed by: [facility], [address] [place] [address]., [address] Blood 07/30/2024 5:42 PM CDT 07/30/2024 5:58 PM CDT us Brittaney Coffman MD LAB BLOOD ORDERABLES Fin al Result [facility] [address] Department [place] [address] * Hemoglobin A1c (03/07/2024 4:01 AM CDT) Hgb A1C 5.5 4.0 - 5.6 % Comment:Testing performed by : [address] [address] Estimated Average Glucose 111 mg/dL TYLER Comment: The ADA recommends reporting an estimated Average Glucose (eAG) with all Hemoglobin A1c results using the equation derived from a study of 507 normal and diabetic adults. Minority populations were underrepresented and children were not included. (Diabetes Care 31:8335-1373, 2008). The eAG is not equivalent to a fasting glucose. Testing performed by: [address] [address] Blood 03/07/2024 4:01 AM CDT 03/07/2024 4:10 AM CDT Ricardo Mendoza MD LAB BLOOD ORDERABLES Final Result [facility] [address] [facility] Department [place] [address] * (ABNORMAL) Lipid panel (03/06/2024 [...] last revised on 2018. Testing performed by: [address] [address] Triglycerides 146 <=149 mg/dL TYLER LÓPEZ Comment: [...] last revised on 2018. Testing performed by: [address] [address] HDL 38(L) >=40 mg/dL TYLER Comment: Interpretive [...] last revised on 2018. Testing performed by: [address] [address] LDL, calculated 110 <=129 mg/dL TYLER Comment: [...] last revised on 2018. Testing performed by: [address] [address] Non-HDL Cholesterol 139 mg/dL TYLER Comment: Interpretive [...] 2018. Testing performed by: [facility], [address] [place] [address]., [address] Chol/HDL ratio 5 TYLER Comment:Testing performed by : [facility], [address] [place] [address]., [address] Blood 03/06/2024 6:33 PM CDT 03/06/2024 6:44 PM CDT Narrative TYLER - 03/06/2024 7:29 PM CDT This lipid panel was automatically ordered due to a significant change in Troponin. The dietary status of the patient at the collection time should be correlated with the lipid results. us Oleg Pierce DO LAB BLOOD ORDERABLES Final Res ult TYLER [address] [place] [address] * COLONOSCOPY (05/01/2019 3:34 PM CDT) Anatomical Region Laterality Modality Other Narrative Procedure Note Juan Manuel Rick MD - 05/01/2019 3:34 PM CDT GI ENDOSCOPY [facility] Patient Name: Zander Cain Procedure Date: 05/01/2019 3:34 PM Date of : 1975 Admit Type: Outpatient Age: 43 Gender: Male Attending MD: Juan Manuel Rick M.D. Room: [facility] ENDOSCOPY ROOM 5 Note Status: Finalized [...] The scope was passed under direct vision.The [id number] endoscope was introduced throughthe anus and [...] On: 05/01/2019 3:34 PM Recognized by the [employer] for promoting quality in endoscopy Juan Manuel Rick MD ENDOSCOPY PROCEDURES Final Re sult * Hepatitis panel, acute (08/20/2018 6:13 AM CDT) HepBsAg NONREACT NONREACTIVE 08/20/2018 12:27 PM [facility] HISTORICAL RESULTS Comment: Siemens CentaurXP using NEETA (chemiluminescent immunoassay) technology. NONREACTIVE: IgM antibodies to Hepatitis B Surface antigen not detected. REACTIVE: IgM antibodies to Hepatitis B Surface antigen detected. Reactive results will be confirmed by neutralization testing. HBsAb qn < 3.10 mIU/mL 08/20/2018 12:17 PM [facility] RESULTS Comment: Siemens CentaurXP using NEETA (chemiluminescent immunoassay) technology. 9.99 IU/L or less.....NONREACTIVE: IgM antibodies to Hepatitis B Surface antibody are not detected. 10.00 IU/L or greater..REACTIVE: IgM antibodies to Hepatitis B Surface antibody are detected. Hep B core IgM NONREACT NONREACTIVE 8 12:52 PM T [facility] HISTORICAL RESULTS Comment: Siemens CentaurXP using NEETA [...] C Ab NONREACT NONREACTIVE 08/20/2018 12:51 PM [facility] [email or web address] [facility] HISTORICAL RESULTS Comment: Siemens CentaurXP using NEETA [...] OR DERABLES Final Result Performing Organization Address City/State/[facility] Co de Phone Number [facility] HISTORICAL RESULTS from Last 3 Months or Most Recently Relevant to Health Maintenance Insurance [facility] Advance Directives For more information, please contact: [phone] Documents on File Type Date Recorded Patient Fur Repair Inspector Expl anation ADVANCE DIRECTIVE 03/09/2024 12:26 PM Chavo r of Information Systems Security Officer-Medical * Full Code (Latest Code Status on [...] 6:32 PM 07/20/2022 6:32 PM Care Teams Office Assistance Relationship Specialty Start Date End Date Isauro Johnson MD PCP - General Remelt Furnace Expediter 07/26/22 Cody Andrew MD Consulting Physician Infectious Diseases 10/09/21 Miscellaneous, Not In File 10/09/21
--- OUTSIDE RECORDS SUMMARY | 2025-06-03 00:38 | XMS_ITS | Continuity of Care Document ---
Author Organization [employer] [facility] Address [address] [place] [address] Phone Care Team Providers Care Cloth Shrinking Machine Operator Name Role Phone Katie MS, OTR/L, CHT, [...] Date Provider Providers Copied on Encounter [facility] [place], [address] [facility] [address] [place] [address], [id number], tel:[phone] [place] No Information Roman-1 8-201 6 [place]. [address] [place] [address], [address], [place], [address], [place]. tel:[phone], [place], [place], [id number], tel:[phone] [place] No Information May-2 3-201 6 [place]. [address] [place] [address], [address], [place], [address], [place]. tel:[phone] Referring Provider: Yusuf Liang, [address] [facility] [address], [place], [address]. tel:[phone], [id number], tel:[phone] [place] No Information February-1 6-201 6 [place]. [address] [place] [address], [address], [place], [address], [place]. tel:[phone] Referring Provider: Yusuf Liang, [address] [facility] [address], [place], [address]. tel:[phone], [id number], tel:[phone] [place] No Information May-0 4-201 6 [place]. [address] [place] [address], [address], [place], [address], [place]. tel:[phone] Referring Provider: Yusuf Liang, [address] [facility] [address], [place], [address]. tel:[phone], [id number], tel:[phone] [place] No Information May-0 2-201 6 [place]. [address] [place] [address], [address], [place], [place], [facility], [place]. tel:[phone] Referring Provider: Yusuf Liang, [address] [facility] [address], [place], [address]. tel:[phone] [facility] [address] [place] [address] [address], [place], [place], [id number], [place] tel:[phone] [place] No Information 6 [place]. [address] [place] [address], [address], [place], [address], [place]. tel:[phone] Referring Provider: Yusuf Liang, [address] [facility] [address], [place], [address]. tel:[phone] [facility] [address] [place] [address], [place], [place], [id number], [place] tel:[phone] [place] Unsp fx the low end left rad, subs for clos fx w routn heal 6 [place]. [address] [place] [address], [address], [place], [address], [place]. tel:[phone] Referring Provider: Yusuf Liang, [address] [facility] [address], [place], [address]. tel:[phone], [id number], [place] tel:[phone] [place] No Information 6 [place]. [address] [place] [address], [address], [place], [address], [place]. tel:[phone] Referring Provider: Yusuf Liang, [address] [facility] [address], [place], [address]. tel:[phone] [facility] [address] [facility] [address], [place], [place], [id number], tel:[phone] [place] No Information 6 [place]. [address] [place] [address], [address], [place], [address], [place]. tel:[phone] Referring Provider: Yusuf Liang, [address] [facility] [address], [place], [address]. tel:[phone] [address], [place], [place], [id number], [place] tel:[phone] [place] No Information Spencer-0 6-201 6 [place]. [address] [place] [address], [address], [place], [address], [place]. tel:[phone] Referring Provider: Yusuf Liang, [address] [facility] [address], [place], [address]. tel:[phone] [address] [address], [place], [id number], [place] tel:[phone] [place] Muscle weakness (generalized) Oct-0 4-201 6 [place]. [address] [place] [address], [address], [place], [address], [place]. tel:[phone] Referring Provider: Yusuf Liang, [address] [facility] [address], [place], [address]. tel:[phone] [address] [address], [place], [place], [id number], [place] tel:[phone] [place] No Information Dec-3 0-201 5 [place]. [address] [place] [address], [address], [place], [address], [place]. tel:[phone] Referring Provider: Yusuf Liang, [address] [facility] [address], [place], [address]. tel:[phone] [address] [address], [place], [place], [id number], [place] tel:[phone] [place] No Information Dec-2 3-201 5 [place]. [address] [place] [address], [address], [place], [place], [facility], [place]. tel:[phone] Referring Provider: Yusuf Liang, [address] [facility] [address], [place], [address]. tel:[phone] [facility], [address] [place] [address] [address], [place], [place], [id number], tel:[phone] [place] No Information Dec-2 2-201 5 [place]. [address] [place] [address], [address], [place], [address], [place]. tel:[phone] Referring Provider: Yusuf Liang, [address] [facility] [address], [place], [address]. tel:[phone], [id number], tel:[phone] [place] No Information Dec-2 1-201 5 [place]. [address] [place] [address], [address], [place], [place], [facility], [place]. tel:[phone] Referring Provider: Yusuf Liang, [address] [facility] [address], [place], [address]. tel:[phone], [id number], tel:[phone] [place] No Information Dec-1 6-201 5 [place]. [address] [place] [address], [address], [place], [place], [facility], [place]. tel:[phone] Referring Provider: Yusuf Liang, [address] [facility] [address], [place], [address]. tel:[phone], [id number], tel:[phone] [place] No Information Dec-1 4-201 5 [place]. [address] [place] [address], [address], [place], [address], [place]. tel:[phone] Referring Provider: Yusuf Liang, [address] [facility] [address], [place], [address]. tel:[phone] [facility], [address], [id number], tel:[phone] [place] No Information Dec-0 5 Amandastuarternestina Arias. [address] [facility] [address], [place], [address], [place]. tel:[phone] Referring Provider: Yusuf Liang, [address] [facility] [address], [place], [address]. tel:[phone] [facility], [address] [address], [place], [place], [id number], tel:[phone] [place] Pain in left wristStiffness of left wrist, not elsewhere classifiedLocal ized edemaOther specified postprocedural statesPersonal history of (healed) traumatic fracture Dec-0 5 Tessyjonny Field. [address] [facility], [facility] [address], [place], [address], [place]. tel:[phone] Referring Provider: Yusuf Liang, [address] [facility] [address], [place], [address]. tel:[phone] Family History Family Member Type Diagnosis Age At Onset No Information Payers Payer name Insurance type Covered libertarian ID Benedict botello(s) [facility] CI [id number] Social History Type Description Quantity Date Captured [...]
--- OUTSIDE RECORDS SUMMARY | 2025-06-03 00:38 | XMS_ITS | Encounter Summary ---
Author Organization [facility] Healthcare Address [address] [place] [address] Care Team Providers Care Community Health Nursing Director Name Role Phone Cody Andrew MD Unavailable [phone] Miscellaneous, Not In File Unavailable Unava ilable Isauro Johnson MD Primary Care Provider Encounter Details Date Type Department Care Team (Late st Contact Info) Description 02/17/[address] [facility] Health Information Management [address] [place] [address] Franchesca Katz MD [address] [address] Social History Tobacco Use Types Packs/Day Years Used Date Smoking Tobacco: Former Cigarettes 2 8 Smokeless Tobacco: Former Alcohol Use Standard Drinks/Week Comments Yes 0 (1 standard drink = 0.6 oz pur e alcohol) Rarely [facility] Utilities Answer Date Recorded In the past 12 months has [employer], gas, oil, or water company threatened [...] week 04/09/2024 How often do you attend [facility] [place] or baptism services? Never 04/09/2024 Do you belong to any clubs o r organizations such as anabaptism groups, unions, fraternal or athletic groups, or [...] in the past 12 m [facility], were you homeless or living in a longterm (including now)? No 04/09/2024 Personal Safety Answer Date Recorded Have you ever been in or are you currently in a harmful physical or emotional relationship or is someone making you feel afraid or unsafe? 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 Male 11:32 AM EMERGENCY MEDCL EMT Gender Identity Not on file Sexual Orientation [...] on filedocumented in this encounter Care Teams Community Health Nursing Director Relationship Specialty Start Date End Date Isauro Johnson MD PCP - General Hvac Maintenance Technician 07/26/22 Cody Andrew MD Consulting Physician Infectious Diseases 10/09/21 Miscellaneous, Not In File 10/09/21 documented as of this encounter
--- OUTSIDE RECORDS SUMMARY | 2025-06-03 00:38 | XMS_ITS | Encounter Summary ---
Author Organization [facility] Care Team Providers Care Generator Worker Name Role Phone Isauro Johnson MD Primary Care Provider Cody Andrew MD Unavailable [phone] Miscellaneous, Not In File Unavailable Unava ilable Isauro Johnson MD Primary Care Provider Encounter Details Date Type Department Care Team (Latest Contact Info) Description 07/07/2018 Orders Only [facility] ProviderHilary MD [address] [place] [id number] Social History Tobacco Use Types Packs/Day Years Used Date Smoking Tobacco: Former Smokeless Tobacco: Former Alcohol Use Standard Drinks/Week Comments Yes 0 (1 standard drink = 0.6 oz pur e alcohol) rarely Sex and Gender Information Value Date Recorded Sex Assigned at Not on file Legal Sex Male 11:32 AM BLUEPRINT TRACER Gender Identity Not on file Sexual Orientation [...] CDT MRSA 03/08/2024 04/09/2024 10/06/2024 3:05 AM BLUEPRINT TRACER documented as of this encounter Care Teams Generator Worker Relationship Specialty Start Date End Date Isauro Johnson MD PCP - General On Air Talent 05/21/17 07/25/22 Isauro Johnson MD PCP - General On Air Talent 07/26/22 Cody Andrew MD Consulting Physician Infectious Diseases 10/09/21 Miscellaneous, Not In File 10/09/21 documented as of this encounter
--- OUTSIDE RECORDS SUMMARY | 2025-06-03 00:38 | XMS_ITS | Clinical Summary ---
Author Organization [employer] [facility] Address [address] [place] [address] Care Team Providers Care Naval Architect Name Role Phone Isauro Johnson MD Primary Care Provider [phone] Source Comments [facility],non-owned Affiliates and Associated Physician Practices is amultiple site organization consisting of ambulatory clinics and hospital sitesin [place], [place], [place] and [place]. This disclosure is being madepursuant to the Care Everywhere program and may not contain all information available regarding this patient. Last updated 18.[facility] Allergies No known active allergies Medications * [...] on file Legal Sex Male 6:26 PM COLLECT ON DELIVERY CLERK Gender Identity Not on file Sexual [...] patient's age to complete this topic Insurance [facility] [place] [address] Advance Directives * Full Code (Latest Code Status on File) Date Activated Date Inactivated Comments 07/10/2020 9:17 PM 07/12/2020 5:20 PM Care Teams Naval Architect Relationship Specialty Start Date End Date Isauro Johnson MD PCP - General Internal Medicine 09/24/17
--- OUTSIDE RECORDS SUMMARY | 2025-06-03 00:38 | XMS_ITS | Clinical Summary ---
Author Organization [facility] Address [address] [place] [address] Care Team Providers Care Direct Support Staff Member Name Role Phone Unavailable Primary Care Provider [...] on file Legal Sex Male 12:35 PM LANGUAGE AND LITERATURE DIVISION CHAIR Gender Identity Not on file Sexual Orientation [...] Comment:04/08/24 right wrist ([place]) 04/08/2024 04/08/2024 Insurance [place]
--- OUTSIDE RECORDS SUMMARY | 2025-06-03 00:38 | XMS_ITS | Clinical Summary ---
Author Organization [facility] Address [address] [place] [address] Phone Care Team Providers Care Owner Oral Surgeon Name Role Phone Nomfc, External Provider Primary [...] 2022 INFLUENZA VACCINE (#1) 2025 07/29/2013 Insurance [facility] OPTIONS PPO [id number] Advance Directives For more information, please contact: [phone] * Full Code (Latest Code Status on File) Date Activated Date Inactivated Comments 07/27/2013 5:37 PM 07/29/2013 11:55 AM Care Teams Owner Oral Surgeon Relationship Specialty Start Date End Date Nomfc, External Provider PCP - General 07/27/13
--- OUTSIDE RECORDS SUMMARY | 2025-06-03 00:38 | XMS_ITS | Encounter Summary ---
Author Organization [facility] Care Team Providers Care Operations Consultant Name Role Phone Isauro Johnson MD Primary Care Provider Cody Andrew MD Unavailable [phone] Miscellaneous, Not In File Unavailable Unava ilable Isauro Johnson MD Primary Care Provider Encounter Details Date Type Department Care Team (Latest Contact Info) Description 08/24/2016 Orders Only [facility] CLINCON[facility] ProviderHilary MD [address] [place] [id number] Social History Tobacco Use Types Packs/Day Years Used Date Smoking Tobacco: Never Assessed Sex and Gender Information Value Date Recorded Sex Assigned at Not on file Legal 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
--- OUTSIDE RECORDS SUMMARY | 2025-06-03 00:38 | XMS_ITS | Encounter Summary ---
Author Organization [facility] Facility Care Team Providers Care City Councilman Name Role Phone Isauro Johnson MD Primary Care Provider Cody Andrew MD Unavailable [phone] Miscellaneous, Not In File Unavailable Unava ilable Isauro Johnson MD Primary Care Provider Encounter Details Date Type Department Care Team (Latest Contact Info) Description 08/13/2016 Orders Only [facility] CLINCONV ProviderHilary MD [address] [place] [id number] Social History Tobacco Use Types Packs/Day Years Used Date Smoking Tobacco: Never Assessed Sex and Gender Information Value Date Recorded Sex Assigned at Not on file 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
--- OUTSIDE RECORDS SUMMARY | 2025-06-03 00:38 | XMS_ITS | Clinical Summary ---
Author Organization [facility] Address [address] [place] [address] Phone Care Team Providers Care Division Field Inspector Name Role Phone Isauro Johnson MD Primary [...] age to complete this topic Care Teams Division Field Inspector Relationship Specialty Start Date End Date Isauro Johnson MD [address] [facility] [address] [place] [address] PCP - General Internal Medicine 05/27/20
--- OUTSIDE RECORDS SUMMARY | 2025-06-03 00:38 | XMS_ITS | Encounter Summary ---
Author Organization [facility] Facility Care Team Providers Care Generator Switchboard Operator Name Role Phone Isauro Johnson MD Primary Care Provider Cody Andrew MD Unavailable Miscellaneous, Not In File Unavailable Unava ilable Isauro Johnson MD Primary Care Provider Encounter Details Date Type Department Care Team (Latest Contact Info) Description 04/13/2016 Orders Only [facility] CLINCONV ProviderHilary MD [address] [place] [id number] Social History Tobacco Use Types Packs/Day Years Used Date Smoking Tobacco: Never Assessed Sex and Gender Information Value Date Recorded Sex Assigned at Not on file Legal 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
--- NOTE | 2025-06-03 01:11 | ED_ITS ---
HPI - Chest Pain General Chief Complaint: Chest Pain <MARCUS Greene Last Filed: 06/03/25 03:52> Stated Complaint: chest pain <MARCUS Greene Last Filed: 06/03/25 03:52> Time Seen by Provider: 06/02/25 23:54 <MARCUS Greene Last Filed: 06/03/25 03:52> Source: patient <MARCUS Greene Last Filed: 06/03/25 03:52> Mode of arrival: ambulatory <MARCUS Greene Last Filed: 06/03/25 03:52> Limitations: no limitations <MARCUS Greene Last Filed: 06/03/25 03:52> History of Present Illness HPI narrative: Patient is a 49-year-old male, with PMH of CAD s/p CABG February 2024, who presents the ED with report of chest pain. Patient reports he has not been feeling well over the past couple of weeks with increased fatigue, shortness of breath, worse with exertion. He was at work today and began having some tightness/discomfort in his chest. Took a nap after work and workup with worsening pain throughout his midsternal chest, radiating through to his back and into his left arm. States this felt similar to his previous cardiac events. Prompted here for further evaluation. Patient sees cardiology at [facility]. Denies recent cough or cold symptoms, fevers, pain or swelling in his legs. <MARCUS Greene Last Filed: 06/03/25 03:52> Related Data Home Medications: Home Medications ?Medication ?Instructions ?Recorded ?Confirmed ?Last Taken ?Type bupropion HCl 150 mg 24 hr tablet, 150 mg PO DAILY 11/09/19 02/16/25 02/15/25 09:00 History extended release lisinopril 40 mg tablet 40 mg PO DAILY 11/09/19 02/16/25 02/15/25 09:00 History hydrocodone 7.5 mg-acetaminophen 1 tablet PO QID PRN Pain 04/25/20 02/16/25 02/15/25 14:00 History 325 mg tablet <Patricia Abbasi PA-C - Last Filed: 06/03/25 03:52> Allergies/Adverse Reactions: Allergies Allergy/AdvReac Type Severity Reaction Status Date / Time colchicine AdvReac Unknown nausea and Verified 06/03/25 06:12 abdominal pain with one dose <Patricia Abbasi PA-C - Last Filed: 06/03/25 03:52> Review of Systems 2 Review of Systems: All systems reviewed & are unremarkable except as noted in HPI. <Patricia Abbasi PA-C - Last Filed: 06/03/25 03:52> All systems reviewed & are unremarkable except as noted in HPI and below < Patricia Abbasi PA-C - Last Filed: 06/03/25 03:52> [facility] Past Medical History Medical History: Medical History Obstructive sleep apnea Noncompliant with CPAP Alcohol abuse Chronic back pain Behcets syndrome Psoriasis Anxiety Left wrist fracture Gout Arthritis Kidney stone HLD (hyperlipidemia) HTN (hypertension) Myocardial infarction x2, with stent CAD (coronary artery disease) Dental cavities <Patricia Abbasi PA-C - Last Filed: 06/03/25 03:52> Surgical History Surgical History: Surgical History History of coronary artery bypass graft Status post cystoscopy with ureteral stent placement History of heart artery stent Cardiac catheterization 2020 performed at this facility demonstrated patent obtuse marginal branch stent without stenosis, right coronary artery large vessel and code dominant totally occluded proximally with stent placement with residual stenosis of 30% ejection fraction of 50% with basal and mid inferior wall hypokinesis History of surgery on arm left forearm H/O arthroscopy of left knee <Patricia Abbasi PA-C - Last Filed: 06/03/25 03:52> Family History Family History: Family History Daughter Cancer Father Hypertension Other Family history of malignant neoplasm Family history of psoriasis <Patricia Abbasi PA-C - Last Filed: 06/03/25 03:52> Social History Social History: Social History Social History: He has been since 2019. He has 3 children. 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 He used to smoke up to 3 packs of cigarettes per day. It did previously been documented that the patient had drink up to 28 alcoholic beverages a day. He adamantly denies ever having drink alcohol to excess. He states that he may drink 1 alcoholic on rare occasion. Code status: Full code Surrogate decision maker: Yu (daughter) Smoking packs per day: 3 Smoking cigarettes per day: 60.0 Years smoked: 6 Smoking pack-years: 18.00 Smoking status: Former smoker Tobacco type: cigarettes Second hand tobacco smoke exposure: Yes Smoking end date: 03/03/24 Alcohol intake: never Drinks per week: 28 Substance use: never Substance use type: does not use Do You Feel Safe in your Home?: Yes Lack of Transportation: No Lack of Food: Never True Current Housing: I Have Housing Concerned About Future Housing: No Difficulty Paying Gas/Electric Bills: No Difficulty Paying for Meds: No Currently Unemployed: No Education: High School Diploma/GED Difficulty w/ Childcare or Family Care: No Gender identity (if verbalized by the patient): Male Sexual Orientation (if Verbalized by the Patient): Straight or Heterosexual Spiritual care concerns: No Agree to blood products: Yes <Patricia Abbasi PA-C - Last Filed: 06/03/25 03:52> Exam 2 Narrative: GENERAL: Appears older than stated age, obese with BMI of 34.4, non-toxic, in no acute distress. HEAD: Normocephalic, atraumatic. RESPIRATORY: Airway patent, respirations nonlabored. Clear to auscultation bilaterally, no rales, rhonchi, wheezing. CARDIOVASCULAR: Regular rate and rhythm without murmurs, rubs, or gallops. ABDOMINAL: Soft, nontender, nondistended. Normoactive BS. MUSCULOSKELETAL: Moves all extremities. No gross deformities. No peripheral edema. No calf tenderness. No chest wall tenderness to palpation. SKIN: Warm, dry, normal color. NEURO: A&O X3. Speech clear. Cranial nerves II-XII grossly intact. Steady gait. No ataxic movements. PSYCHIATRIC: Appropriate mood and affect. Normal interaction. <Patricia Abbasi PA-C - Last Filed: 06/03/25 03:52> Course SPONGE FISHERMAN/PA Physician Supervision This visit was performed by both a physician and an APC. I performed all aspects of the MDM as documented. <Celso Mercer MD - Last Filed: 06/03/25 06:31> Vital Signs Vital signs: Vital Signs Temperature 36.4 C 06/02/25 22:56 Pulse Rate 72 06/02/25 22:56 Respiratory Rate 16 06/02/25 22:56 Blood Pressure 193/98 H 06/02/25 22:56 Pulse Oximetry 97 06/02/25 22:56 Temperature 36.5 C 06/03/25 06:02 Pulse Rate 62 06/03/25 06:02 Respiratory Rate 15 06/03/25 06:02 Blood Pressure 154/82 H 06/03/25 06:02 Pulse Oximetry 97 06/03/25 06:02 Oxygen Delivery Room Air 06/03/25 00:21 <Patricia Abbasi PA-C - Last Filed: 06/03/25 03:52> Vital Signs Temperature 36.4 C 06/02/25 22:56 Pulse Rate 72 06/02/25 22:56 Respiratory Rate 16 06/02/25 22:56 Blood Pressure 193/98 H 06/02/25 22:56 Pulse Oximetry 97 06/02/25 22:56 Temperature 36.5 C 06/03/25 06:02 Pulse Rate 62 06/03/25 06:02 Respiratory Rate 15 06/03/25 06:02 Blood Pressure 154/82 H 06/03/25 06:02 Pulse Oximetry 97 06/03/25 06:02 Oxygen Delivery Room Air 06/03/25 00:21 <Celso Mercer MD - Last Filed: 06/03/25 06:31> MDM - Chest Pain MDM Narrative Medical decision making narrative: Patient presented to ED with chest pain, radiating through to his back and into left arm. Feels similar to previous cardiac events. History of CABG last year. Sees cardiology with [facility]. VSS upon arrival. Patient is still reporting CP. Refused NTG d/t hx of severe HAs with this. Given morphine. EKG with T-wave inversions in V5 and V6. This does appear chronic per previous EKGs. No acute ST elevation or depression. Baseline troponin did result elevated at 0.038. Chest x-ray is clear. CTA of chest was obtained and without evidence of PE or other acute cardiopulmonary abnormality. Patient did report some persistent pain after morphine administration. He was agreeable to nitroglycerin paste. He had this applied for may be around 30 minutes before asking for to be removed due to having a headache. He does report his chest pain is improved. Patient will be admitted for further cardiac eval. Discussed case with Yuri GRIMM Hospitalist, accepted patient for admission. Patient and family in agreement with plan. Cardiology consulted. <Patricia Abbasi PA-C - Last Filed: 06/03/25 03:52> Medical Records Data Attestation: I reviewed the patient's medical records. <Patricia Abbasi PA-C - Last Filed: 06/03/25 03:52> Lab Data Attestation: I reviewed the patient's lab results. <Patricia Abbasi PA-C - Last Filed: 06/03/25 03:52> Result diagrams: 06/02/25 23:05 06/02/25 23:05 <Patricia Abbasi PA-C - Last Filed: 06/03/25 03:52> Labs: Lab Results 06/02/25 06/03/25 Range/Units 23:05 02:18 WBC 8.4 (4.5-10.0) K/mm3 RBC 5.12 (4.6-6.20) M/mm3 Hgb 15.2 (14.0-18.0) g/dL Hct 45.5 (42.0-52.0) % MCV 88.9 (80-100) fl MCH 29.7 (26-34) pg MCHC 33.4 (32-36) g/dl RDW 12.7 (11.5-14.5) % Plt Count 226 (150-375) k/mm3 MPV 9.2 (7.4-10.4) fl Immature Gran % (Auto) 0.2 (0-0.5) % Neut % (Auto) 59.0 (45.5-73.1) % Lymph % (Auto) 27.3 (18.3-44.2) % [place] % (Auto) 9.3 H (2.6-8.5) % Eos % (Auto) 3.8 (0-4.4) % Baso % (Auto) 0.4 (0.2-1.2) % Lymph # (Auto) 2.30 (0.9-3.2) K/mm3 [place] # (Auto) 0.8 H (0.1-0.6) K/mm3 Eos # (Auto) 0.3 (0-0.3) K/mm3 Baso # (Auto) 0.0 (0.0-0.1) K/mm3 Abs Immat Gran (auto) 0.02 (0.00-0.031) K/mm3 Absolute Neuts (auto) 5.0 (1.3-6.7) K/mm3 Absolute Nucleated RBC 0.000 (0.0-0.012) K/mm3 Nucleated RBC % 0.0 (0.0-0.2) % PT 12.9 (11.1-14.7) Seconds INR 1.0 APTT 25.0 (22.3-36.8) Seconds Sodium 136 L (137-145) mmol/L Potassium 3.4 (3.4-5.0) mmol/L Chloride 102 (98-107) mmol/L Carbon Dioxide 26 (22-30) mmol/L Anion Gap 8 (4-12) mmol/L BUN 20 (9-20) mg/dL Creatinine 0.99 (0.7-1.3) mg/dL Estim Creat Clear Calc 89 ml/min Estimated GFR > 60 (59 - ) Glucose 106 (65-110) mg/dL Calcium 9.4 (8.4-10.2) mg/dL Total Bilirubin 0.5 (0.2-1.3) mg/dL AST 39 (17-59) U/L ALT 34 (6-50) U/L Alkaline Phosphatase 51 (38-126) U/L Troponin I 0.038 H* 0.041 H* (0.000-0.034) ng/mL Total Protein 7.0 (6.3-8.2) g/dL Albumin 4.3 (3.5-5.1) g/dL Lipase 103 (23-300) U/L <Patricia Abbasi PA-C - Last Filed: 06/03/25 03:52> Lab Results 06/02/25 06/03/25 Range/Units 23:05 02:18 WBC 8.4 (4.5-10.0) K/mm3 RBC 5.12 (4.6-6.20) M/mm3 Hgb 15.2 (14.0-18.0) g/dL Hct 45.5 (42.0-52.0) % MCV 88.9 (80-100) fl MCH 29.7 (26-34) pg MCHC 33.4 (32-36) g/dl RDW 12.7 (11.5-14.5) % Plt Count 226 (150-375) k/mm3 MPV 9.2 (7.4-10.4) fl Immature Gran % (Auto) 0.2 (0-0.5) % Neut % (Auto) 59.0 (45.5-73.1) % Lymph % (Auto) 27.3 (18.3-44.2) % [place] % (Auto) 9.3 H (2.6-8.5) % Eos % (Auto) 3.8 (0-4.4) % Baso % (Auto) 0.4 (0.2-1.2) % Lymph # (Auto) 2.30 (0.9-3.2) K/mm3 [place] # (Auto) 0.8 H (0.1-0.6) K/mm3 Eos # (Auto) 0.3 (0-0.3) K/mm3 Baso # (Auto) 0.0 (0.0-0.1) K/mm3 Abs Immat Gran (auto) 0.02 (0.00-0.031) K/mm3 Absolute Neuts (auto) 5.0 (1.3-6.7) K/mm3 Absolute Nucleated RBC 0.000 (0.0-0.012) K/mm3 Nucleated RBC % 0.0 (0.0-0.2) % PT 12.9 (11.1-14.7) Seconds INR 1.0 APTT 25.0 (22.3-36.8) Seconds Sodium 136 L (137-145) mmol/L Potassium 3.4 (3.4-5.0) mmol/L Chloride 102 (98-107) mmol/L Carbon Dioxide 26 (22-30) mmol/L Anion Gap 8 (4-12) mmol/L BUN 20 (9-20) mg/dL Creatinine 0.99 (0.7-1.3) mg/dL Estim Creat Clear Calc 89 ml/min Estimated GFR > 60 (59 - ) Glucose 106 (65-110) mg/dL Calcium 9.4 (8.4-10.2) mg/dL Total Bilirubin 0.5 (0.2-1.3) mg/dL AST 39 (17-59) U/L ALT 34 (6-50) U/L Alkaline Phosphatase 51 (38-126) U/L Troponin I 0.038 H* 0.041 H* (0.000-0.034) ng/mL Total Protein 7.0 (6.3-8.2) g/dL Albumin 4.3 (3.5-5.1) g/dL Lipase 103 (23-300) U/L <Celso Mercer MD - Last Filed: 06/03/25 06:31> Imaging Data Attestation: I personally reviewed and interpreted this imaging study as follows: < Patricia Abbasi PA-C - Last Filed: 06/03/25 03:52> Radiologist's impression: STAT RAD CTA chest: Impression: Artifact degrades image quality somewhat limiting the exam. No definite pulmonary embolism is seen. No evidence of thoracic aortic aneurysm or dissection. The patient is status post midline sternotomy. The heart is enlarged and contains coronary artery calcifications. No incidental findings. <Patricia Abbasi PA-C - Last Filed: 06/03/25 03:52> ECG Data EKG #1: Attestation: I personally reviewed and interpreted this ECG as follows: <Patricia Abbasi PA-C - Last Filed: 06/03/25 03:52> ECG completion date: 06/03/25 <Patricia Abbasi PA-C - Last Filed: 06/03/25 03:52> ECG completion time: 23:02 <Patricia Abbasi PA-C - Last Filed: 06/03/25 03:52> EKG Interpretation: normal rate (68), sinus rhythm and non-specific ST changes (Some inverted T-waves in lead V5 and V6) <Patricia Abbasi PA-C - Last Filed: 06/03/25 03:52> Discharge Plan Discharge Clinical Impression: Chest pain, Elevated troponin <Patricia Abbasi PA-C - Last Filed: 06/03/25 03:52> Patient Disposition: Still a Patient <Patricia Abbasi PA-C - Last Filed: 06/03/25 03:52> Condition: Stable <MARCUS Greene Last Filed: 06/03/25 03:52> Quality HEART score for chest pain patients History: highly suspicioius <Patricia Abbasi PA-C - Last Filed: 06/03/25 03:52> ECG: non specific repolarization disturbance/LBTB/PM <KARMEN Greene - Last Filed: 06/03/25 03:52> Age: > 45 and < 65 years <MARCUS Greene Last Filed: 06/03/25 03:52> Risk factors: > or = to 3 risk factors of atherosclerotic disease <Patricia Abbasi PA-C - Last Filed: 06/03/25 03:52> Troponin: > 1 and < 3x normal limit <Patricia Abbasi PA-C - Last Filed: 06/03/25 03:52> Heart score: 7 <Patricia Abbasi PA-C - Last Filed: 06/03/25 03:52> 7 <Celso Mercer MD - Last Filed: 06/03/25 06:31>
--- NOTE | 2025-06-03 01:48 | ECG_ITS ---
Test Date: 2025-06-03 02:11:58 Measurements Intervals [place] Rate: 53 P: 34 [place]: 135 QRS: -22 QRSD: 112 T: 260 QT: 432 QTc: 409 Interpretive Statements SINUS BRADYCARDIA INCOMPLETE RIGHT BUNDLE BRANCH BLOCK DELAYED PRECORDIAL R/S TRANSITION NONSPECIFIC T-WAVE ABNORMALITY- DIFFUSE LEADS BORDERLINE ECG Compared to ECG 06/02/2025 23:02:03 HEART RATE HAS DECREASED Electronically Signed On 06-03-2025 06:10:21 CDT by Ethan Gutierrez D.O.
[2025-06-03] MEDS: NITROGLYCERIN OINTMENT 1 INCH DOSE TRANSDERM (02:13)
[2025-06-03 02:52] LABS: Troponin I 0.041 ng/mL (0.000-0.034)
[2025-06-03 04:47] LABS: Troponin I 0.039 ng/mL (0.000-0.034)
--- NOTE | 2025-06-03 06:08 | ADMGEN ---
This patient, Zander Cain, was admitted to IMU Room 232-01 at 0602. Patient/family oriented to hospital policies and general routines including ID bracelet, bed and alarms, visiting hours, pain management, procedures, bathroom and other care routines, personal items, smoking policy, room service/diet, and visiting hours. Information on how to activate the Rapid Response Team has been discussed. Patient/Family are encouraged to report perceived risks to care and to ask questions if they do not understand what they are told or what they should do.
--- NOTE | 2025-06-03 09:41 | PM.CNCAR ---
Assessment and Plan Assessment and plan (1) CAD (coronary artery disease): Qualifiers: Associated angina: without angina Coronary Disease-Associated Artery/Lesion type: [place] artery [place] vs. transplanted heart: [place] heart Qualified Code(s): I25.10 - Atherosclerotic heart disease of [place] coronary artery without angina pectoris Code(s): I25.10 - Atherosclerotic heart disease of [place] coronary artery without angina pectoris Status: Chronic Assessment and Plan: History of coronary artery disease is detailed in the HPI. He presents with a chief complaint of chest pain. Characteristics of his chest pain are somewhat atypical. He does have mildly elevated troponin levels: 0.038, 0.041, and 0.039. Mildly elevated and flat, not consistent with acute coronary syndrome. His EKG this admission is unchanged from previous tracings and does not have any evidence of acute ischemic changes. Will order 2D echocardiogram with Doppler to evaluate his LV systolic function. If ejection fraction remains stable and he does not have any new wall motion abnormalities, will not plan on any additional inpatient cardiac workup unless his clinical picture changes. If he does have a new LV dysfunction or regional wall motion abnormalities, will plan for ischemic evaluation with coronary angiogram. (2) HTN (hypertension): Qualifiers: Hypertension type: primary hypertension Qualified Code(s): I10 - Essential (primary) hypertension Code(s): I10 - Essential (primary) hypertension Status: Acute Assessment and Plan: Generally above goal. Will increase lisinopril to 40 mg daily. (3) HLD (hyperlipidemia): Qualifiers: Hyperlipidemia type: unspecified Qualified Code(s): E78.5 - Hyperlipidemia, unspecified Code(s): E78.5 - Hyperlipidemia, unspecified Status: Chronic Assessment and Plan: Continue high-intensity statin and aggressive lifestyle modification. (4) Elevated troponin: Code(s): R79.89 - Other specified abnormal findings of blood chemistry Status: Acute Assessment and Plan: As above. (5) Chest pain: Code(s): R07.9 - Chest pain, unspecified Status: Acute Assessment and Plan: As above. History of Present Illness History of Present Illness Consult date/time: 06/03/25 09:41 Requesting physician: Patricia Abbasi PA-C Consult reason: chest pain Reason For Visit: Cp, Elev trop Narrative: Zander Cain is a 49-year-old male with coronary artery disease status post three-vessel CABG in February of 2024 (fall to LAD, CARIDAD to RCA, radial to diagonal), former tobacco use, hypertension, and hyperlipidemia. This is a patient who comes to the hospital with a chief complaint of chest pain. He also describes recent increasing fatigue and some shortness of breath with exertion. Chest pain is substernal pressure that began yesterday afternoon and woke patient from taking a nap. Chest pain was a 7/10 in intensity, it is now less intense but has been constant since yesterday. He also describes some left arm numbness. Pain did improve with administration sublingual nitroglycerin. 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 He does report intermittent ankle swelling. He is comfortable and not in any acute distress at the time of my evaluation. Review of Systems Review of Systems: All systems reviewed & are unremarkable except as noted in HPI and below PMFSH Past Medical History Medical History Obstructive sleep apnea Noncompliant with CPAP Alcohol abuse Chronic back pain Behcets syndrome Psoriasis Anxiety Left wrist fracture Gout Arthritis Kidney stone HLD (hyperlipidemia) HTN (hypertension) Myocardial infarction x2, with stent CAD (coronary artery disease) Dental cavities Surgical History Surgical History History of coronary artery bypass graft Status post cystoscopy with ureteral stent placement History of heart artery stent Cardiac catheterization 2019 performed at this facility demonstrated patent obtuse marginal branch stent without stenosis, right coronary artery large vessel and code dominant totally occluded proximally with stent placement with residual stenosis of 30% ejection fraction of 50% with basal and mid inferior wall hypokinesis History of surgery on arm left forearm H/O arthroscopy of left knee Family History Family History Daughter Cancer Father Hypertension Other Family history of malignant neoplasm Family history of psoriasis Social History Social History Social History: He has been since 2019. He has 3 children. 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 He used to smoke up to 3 packs of cigarettes per day. It did previously been documented that the patient had drink up to 28 alcoholic beverages a day. He adamantly denies ever having drink alcohol to excess. He states that he may drink 1 alcoholic on rare occasion. Code status: Full code Surrogate decision maker: Yu (daughter) Smoking packs per day: 3 Smoking cigarettes per day: 60.0 Years smoked: 6 Smoking pack-years: 18.00 Smoking status: Former smoker Tobacco type: cigarettes Second hand tobacco smoke exposure: Yes Smoking end date: 03/03/24 Alcohol intake: never Drinks per week: 28 Substance use: never Substance use type: does not use Do You Feel Safe in your Home?: Yes Lack of Transportation: No Lack of Food: Never True Current Housing: I Have Housing Concerned About Future Housing: No Difficulty Paying Gas/Electric Bills: No Difficulty Paying for Meds: No Currently Unemployed: No Education: High School Diploma/GED Difficulty w/ Childcare or Family Care: No Gender identity (if verbalized by the patient): Male Sexual Orientation (if Verbalized by the Patient): Straight or Heterosexual Spiritual care concerns: No Agree to blood products: Yes Meds Home Medications and Allergies Home Medications ?Medication ?Instructions ?Recorded ?Confirmed ?Type aspirin 81 mg tablet,delayed 81 mg PO DAILY #30 tabs 11/10/19 06/03/25 Rx release nitroglycerin 0.4 mg sublingual 0.4 mg sublingual DIRECTED PRN 11/10/19 06/03/25 Rx tablet chest pain #25 tabs hydrocodone 7.5 mg-acetaminophen 1 tablet PO QID PRN Pain 04/25/20 06/03/25 History 325 mg tablet amlodipine 10 mg tablet 10 mg PO DAILY 06/03/25 06/03/25 History atorvastatin 80 mg tablet 80 mg PO DAILY 06/03/25 06/03/25 History clopidogrel 75 mg tablet 75 mg PO DAILY 06/03/25 06/03/25 History doxycycline hyclate 100 mg capsule 100 mg PO Q12H 06/03/25 06/03/25 History ezetimibe 10 mg tablet 10 mg PO DAILY 06/03/25 06/03/25 History lisinopril 20 mg tablet 20 mg PO DAILY 06/03/25 06/03/25 History metoprolol tartrate 25 mg tablet 25 mg PO Q12H 06/03/25 06/03/25 History metronidazole 500 mg tablet 500 mg PO Q12H 06/03/25 06/03/25 History tamsulosin 0.4 mg capsule (Flomax) 0.4 mg PO DAILY PRN retention 06/03/25 06/03/25 History Allergies Allergy/AdvReac Type Severity Reaction Status Date / Time colchicine AdvReac Unknown nausea and Verified 06/03/25 06:12 abdominal pain with one dose Vital Signs Vital Signs - 24 hr 06/02/25 22:56 06/02/25 23:49 06/03/25 00:02 Temperature 36.4 C Pulse Rate 72 68 65 Respiratory Rate 16 16 17 Blood Pressure 193/98 H 151/82 H 150/82 H Pulse Oximetry 97 98 95 Oxygen Delivery 06/03/25 00:17 06/03/25 00:21 06/03/25 00:35 Temperature Pulse Rate 63 67 Respiratory Rate 19 16 Blood Pressure 170/106 H 159/90 H Pulse Oximetry 96 98 Oxygen Delivery Room Air 06/03/25 01:17 06/03/25 01:32 06/03/25 02:17 Temperature Pulse Rate 64 62 63 Respiratory Rate 17 15 18 Blood Pressure 134/64 132/66 137/82 Pulse Oximetry 96 96 97 Oxygen Delivery 06/03/25 02:56 06/03/25 03:46 06/03/25 06:02 Temperature 36.5 C Pulse Rate 65 71 62 Respiratory Rate 22 H 12 15 Blood Pressure 150/90 H 162/90 H 154/82 H Pulse Oximetry 96 99 97 Oxygen Delivery 06/03/25 08:00 Temperature 36.7 C Pulse Rate 76 Respiratory Rate 20 Blood Pressure 152/76 H Pulse Oximetry 96 Oxygen Delivery Exam Const: General: comfortable, no acute distress, alert and awake Orientation/consciousness: patient oriented x3 HENMT: Head: normal to inspection Eyes: General: appearance normal, both eyes and all related structures Pupils: Equal, round and reactive pupils present Neck: Neck: normal visual inspection, supple and no JVD Carotids: normal carotid upstroke Resp: Effort & Inspection: normal respiratory effort Auscultation: clear to auscultation bilaterally Cardio: Rate: regular rate Rhythm: regular rhythm Heart sounds: S1 normal heart sound present, S2 normal heart sound present and no murmurs GI: Auscultation: normal bowel sounds Skin: General skin exam: normal color Lesions: lesion noted (psoriasis lesions ) Neuro: General: patient oriented x3 Cranial nerves: Yes Equal, round and reactive pupils present Extrem: General: normal to inspection Psych: Appearance: grossly normal Mental Status: mental status grossly normal Results Labs and Meds 06/02/25 23:05 06/02/25 23:05 Lab results: Cardiac Enzymes 06/02/25 06/03/25 06/03/25 Range/Units 23:05 02:18 04:14 AST 39 (17-59) U/L Troponin I 0.038 H* 0.041 H* 0.039 H* (0.000-0.034) ng/mL Coagulation 06/02/25 Range/Units 23:05 PT 12.9 (11.1-14.7) Seconds APTT 25.0 (22.3-36.8) Seconds CBC 06/02/25 Range/Units 23:05 WBC 8.4 (4.5-10.0) K/mm3 RBC 5.12 (4.6-6.20) M/mm3 Hgb 15.2 (14.0-18.0) g/dL Hct 45.5 (42.0-52.0) % Plt Count 226 (150-375) k/mm3 Lymph # (Auto) 2.30 (0.9-3.2) K/mm3 [place] # (Auto) 0.8 H (0.1-0.6) K/mm3 Eos # (Auto) 0.3 (0-0.3) K/mm3 Baso # (Auto) 0.0 (0.0-0.1) K/mm3 Comprehensive Metabolic Panel 06/02/25 Range/Units 23:05 Sodium 136 L (137-145) mmol/L Potassium 3.4 (3.4-5.0) mmol/L Chloride 102 (98-107) mmol/L Carbon Dioxide 26 (22-30) mmol/L BUN 20 (9-20) mg/dL Creatinine 0.99 (0.7-1.3) mg/dL Glucose 106 (65-110) mg/dL Calcium 9.4 (8.4-10.2) mg/dL AST 39 (17-59) U/L ALT 34 (6-50) U/L Alkaline Phosphatase 51 (38-126) U/L Total Protein 7.0 (6.3-8.2) g/dL Albumin 4.3 (3.5-5.1) g/dL Intake and Output 06/02/25 06/03/25 06/03/25 23:59 07:59 15:59 Intake Total 320 Balance 320 Intake: Oral 320 Other: # Unmeasured Voids 1 Patient Weight 06/03/25 23:59 Weight 95 kg
[2025-06-03] MEDS: ASPIRIN 81 MG ENTERIC TABLET PO (10:48)
[2025-06-03] MEDS: ATORVASTATIN 40 MG TABLET 80 MG PO (10:48)
[2025-06-03] MEDS: CLOPIDOGREL BISULFATE 75 MG TABLET PO (10:48)
[2025-06-03] MEDS: DOXYCYCLINE HYCLATE 100 MG TABLET PO ×2 (10:49→20:22)
[2025-06-03] MEDS: METOPROLOL TARTRATE 25 MG TABLET PO ×2 (10:49→20:23)
[2025-06-03] MEDS: EZETIMIBE 10 MG TABLET PO (10:49)
[2025-06-03] MEDS: HYDROcodone/acetaminophen (*CRX) 7.5-325 MG TABLET 1 TAB PO ×2 (14:47→18:23)
--- NOTE | 2025-06-03 16:28 | P.HP_ITS ---
H&P: HPI History of Present Illness Date/Time: 06/03/25 16:28 Chief Complaint: Chest Pain Narrative: ER-HPI narrative: Patient is a 49-year-old male, with PMH of CAD s/p CABG February 2024, who pres ents the ED with report of chest pain. Patient reports he has not been feeling well over the past couple of weeks with increased fatigue, shortness of breath, worse with exertion. He was at work today and began having some tightness/discomfort in his chest. Took a nap after work and workup with worsening pain throughout his midsternal chest, radiating through to his back and into his left arm. States this felt similar to his previous cardiac events. Prompted here for further evaluation. Patient sees cardiology at [facility]. Denies recent cough or cold symptoms, fevers, pain or swelling in his legs. patient was unable to tolerate NTG due to FIELDS, was given morphine which did help, patient stats pain is persisting but improves with morphine, patient tropes are mildly elevated and flat patient is seen by director database recommended to order cardiac ECHO, will follow up on the ECHO and further recommendation to follow. will monitor. Review of Systems Review of Systems: All systems reviewed & are unremarkable except as noted in HPI and below PMFSH Past Medical History Medical History Obstructive sleep apnea Noncompliant with CPAP Alcohol abuse Chronic back pain Behcets syndrome Psoriasis Anxiety Left wrist fracture Gout Arthritis Kidney stone HLD (hyperlipidemia) HTN (hypertension) Myocardial infarction x2, with stent CAD (coronary artery disease) Dental cavities Surgical History Surgical History History of coronary artery bypass graft Status post cystoscopy with ureteral stent placement History of heart artery stent Cardiac catheterization 2019 performed at this facility demonstrated patent obtuse marginal branch stent without stenosis, right coronary artery large vessel and code dominant totally occluded proximally with stent placement with residual stenosis of 30% ejection fraction of 50% with basal and mid inferior wall hypokinesis History of surgery on arm left forearm H/O arthroscopy of left knee Family History Family History Daughter Cancer Father Hypertension Other Family history of malignant neoplasm Family history of psoriasis Social History Social History Social History: He has been since 2019. He has 3 children. 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 He used to smoke up to 3 packs of cigarettes per day. It did previously been documented that the patient had drink up to 28 alcoholic beverages a day. He adamantly denies ever having drink alcohol to excess. He states that he may drink 1 alcoholic on rare occasion. Code status: Full code Surrogate decision maker: Yu (daughter) Smoking packs per day: 3 Smoking cigarettes per day: 60.0 Years smoked: 6 Smoking pack-years: 18.00 Smoking status: Former smoker Tobacco type: cigarettes Second hand tobacco smoke exposure: Yes Smoking end date: 03/03/24 Alcohol intake: never Drinks per week: 28 Substance use: never Substance use type: does not use Do You Feel Safe in your Home?: Yes Lack of Transportation: No Lack of Food: Never True Current Housing: I Have Housing Concerned About Future Housing: No Difficulty Paying Gas/Electric Bills: No Difficulty Paying for Meds: No Currently Unemployed: No Education: High School Diploma/GED Difficulty w/ Childcare or Family Care: No Gender identity (if verbalized by the patient): Male Sexual Orientation (if Verbalized by the Patient): Straight or Heterosexual Spiritual care concerns: No Agree to blood products: Yes Meds Home Medications and Allergies Home Medications ?Medication ?Instructions ?Recorded ?Confirmed ?Type aspirin 81 mg tablet,delayed 81 mg PO DAILY #30 tabs 11/10/19 06/03/25 Rx release nitroglycerin 0.4 mg sublingual 0.4 mg sublingual DIRECTED PRN 11/10/19 06/03/25 Rx tablet chest pain #25 tabs hydrocodone 7.5 mg-acetaminophen 1 tablet PO QID PRN Pain 04/25/20 06/03/25 History 325 mg tablet amlodipine 10 mg tablet 10 mg PO DAILY 06/03/25 06/03/25 History atorvastatin 80 mg tablet 80 mg PO DAILY 06/03/25 06/03/25 History clopidogrel 75 mg tablet 75 mg PO DAILY 06/03/25 06/03/25 History doxycycline hyclate 100 mg capsule 100 mg PO Q12H 06/03/25 06/03/25 History ezetimibe 10 mg tablet 10 mg PO DAILY 06/03/25 06/03/25 History lisinopril 20 mg tablet 20 mg PO DAILY 06/03/25 06/03/25 History metoprolol tartrate 25 mg tablet 25 mg PO Q12H 06/03/25 06/03/25 History metronidazole 500 mg tablet 500 mg PO Q12H 06/03/25 06/03/25 History tamsulosin 0.4 mg capsule (Flomax) 0.4 mg PO DAILY PRN retention 06/03/25 06/03/25 History Allergies Allergy/AdvReac Type Severity Reaction Status Date / Time colchicine AdvReac Unknown nausea and Verified 06/03/25 06:12 abdominal pain with one dose Vital Signs Vital Signs - 24 hr 06/02/25 22:56 06/02/25 23:49 06/03/25 00:02 Temperature 36.4 C Pulse Rate 72 68 65 Respiratory Rate 16 16 17 Blood Pressure 193/98 H 151/82 H 150/82 H Pulse Oximetry 97 98 95 Oxygen Delivery 06/03/25 00:17 06/03/25 00:21 06/03/25 00:35 Temperature Pulse Rate 63 67 Respiratory Rate 19 16 Blood Pressure 170/106 H 159/90 H Pulse Oximetry 96 98 Oxygen Delivery Room Air 06/03/25 01:17 06/03/25 01:32 06/03/25 02:17 Temperature Pulse Rate 64 62 63 Respiratory Rate 17 15 18 Blood Pressure 134/64 132/66 137/82 Pulse Oximetry 96 96 97 Oxygen Delivery 06/03/25 02:56 06/03/25 03:46 06/03/25 06:02 Temperature 36.5 C Pulse Rate 65 71 62 Respiratory Rate 22 H 12 15 Blood Pressure 150/90 H 162/90 H 154/82 H Pulse Oximetry 96 99 97 Oxygen Delivery 06/03/25 08:00 06/03/25 08:00 06/03/25 08:00 Temperature 36.7 C Pulse Rate 76 73 Respiratory Rate 20 Blood Pressure 152/76 H Pulse Oximetry 96 Oxygen Delivery Room Air 06/03/25 10:00 06/03/25 10:49 06/03/25 12:00 Temperature 36.8 C Pulse Rate 75 70 64 Respiratory Rate 18 Blood Pressure 147/85 H Pulse Oximetry 95 Oxygen Delivery 06/03/25 12:00 06/03/25 12:30 Temperature Pulse Rate 64 Respiratory Rate Blood Pressure Pulse Oximetry Oxygen Delivery Room Air Exam Narrative: Patient is comfortable, NAD HEENT: eyes are clear and none icteric LUNGS:CTA HEART: RR S1S2 ABD: BS+, Soft and nontender Lower extremities: no edema SKIN: nonjaundiced Neuro: grossly intact. H&P: Results Labs Labs: Short CBC 06/02/25 Range/Units 23:05 WBC 8.4 (4.5-10.0) K/mm3 Hgb 15.2 (14.0-18.0) g/dL Hct 45.5 (42.0-52.0) % Plt Count 226 (150-375) k/mm3 BMP 06/02/25 23:05 Sodium 136 L Potassium 3.4 Chloride 102 Carbon Dioxide 26 BUN 20 Creatinine 0.99 Glucose 106 Calcium 9.4 Cardiac Enzymes 06/02/25 06/03/25 06/03/25 Range/Units 23:05 02:18 04:14 Troponin I 0.038 H* 0.041 H* 0.039 H* (0.000-0.034) ng/mL Liver Function 06/02/25 Range/Units 23:05 Total Bilirubin 0.5 (0.2-1.3) mg/dL AST 39 (17-59) U/L ALT 34 (6-50) U/L Alkaline Phosphatase 51 (38-126) U/L Albumin 4.3 (3.5-5.1) g/dL Assessment and Plan Assessment and plan (1) HTN (hypertension): Qualifiers: Hypertension type: primary hypertension Qualified Code(s): I10 - Essential (primary) hypertension Code(s): I10 - Essential (primary) hypertension Status: Acute (2) CAD (coronary artery disease): Qualifiers: Coronary Disease-Associated Artery/Lesion type: [place] artery [place] vs. transplanted heart: [place] heart Associated angina: without angina Qualified Code(s): I25.10 - Atherosclerotic heart disease of [place] coronary artery without angina pectoris Code(s): I25.10 - Atherosclerotic heart disease of [place] coronary artery without angina pectoris Status: Chronic (3) Chest pain: Code(s): R07.9 - Chest pain, unspecified Status: Acute (4) Elevated troponin: Code(s): R79.89 - Other specified abnormal findings of blood chemistry Status: Acute (5) HLD (hyperlipidemia): Qualifiers: Hyperlipidemia type: unspecified Qualified Code(s): E78.5 - Hyperlipidemia, unspecified Code(s): E78.5 - Hyperlipidemia, unspecified Status: Chronic Plan patient was unable to tolerate NTG due to FIELDS, was given morphine which did help, patient stats pain is persisting but improves with morphine, patient tropes are mildly elevated and flat patient is seen by director database recommended to order cardiac ECHO, will follow up on the ECHO and further recommendation to follow. will monitor. Quality VTE Prophylaxis VTE prophylaxis: pharmacologic ordered Hospitalist MIPS Advance Care Plan The patient's Advanced Care plan is not present because:: Patient doesn't want to name surrogate or provider advance care plan Medication Reconciliation The patient is not eligible for med reconciliation; the patient is in a emergent medical situation where delaying treatment would jeopardize the patients health.: Yes
[2025-06-03] MEDS: ENOXAPARIN 40 MG/0.4 ML SYRINGE SUB-Q (18:24)
[2025-06-04] VITALS (15 sets, daily range): BP systolic 113–150; BP diastolic 57–91; PULSE 55–70; RESP 16–20; TEMP 36.4–37; O2SAT 96–99
[2025-06-04] MEDS: MORPHINE SULFATE (*CRX) 4 MG/ML INJ IV PUSH (04:28)
[2025-06-04 05:50] LABS: Hematocrit 45.0 % (42.0-52.0); Hemoglobin 14.8 g/dL (14.0-18.0); Mean Corpuscular HGB Conc 32.9 g/dl (32-36); Mean Corpuscular Hemoglobin 30.1 pg (26-34); Mean Corpuscular Volume 91.5 fl (80-100); Platelet Count Result 230 k/mm3 (150-375); Red Blood Count 4.92 M/mm3 (4.6-6.20); White Blood Count 7.4 K/mm3 (4.5-10.0)
[2025-06-04 05:56] LABS: Anion Gap 6 mmol/L (4-12); Blood Urea Nitrogen 16 mg/dL (9-20); Calcium 8.9 mg/dL (8.4-10.2); Carbon Dioxide 27 mmol/L (22-30); Chloride 105 mmol/L (98-107); Estimated CRCL calculation 91 ml/min; Estimated Glomerular Filt Rate > 60; Glucose 90 mg/dL (65-110); Magnesium 1.9 mg/dL (1.6-2.3); Potassium 3.9 mmol/L (3.4-5.0); Sodium 138 mmol/L (137-145)
[2025-06-04] MEDS: ATORVASTATIN 40 MG TABLET 80 MG PO (08:15)
[2025-06-04] MEDS: DOXYCYCLINE HYCLATE 100 MG TABLET PO (08:15)
[2025-06-04] MEDS: ASPIRIN 81 MG ENTERIC TABLET PO (08:15)
[2025-06-04] MEDS: CLOPIDOGREL BISULFATE 75 MG TABLET PO (08:16)
[2025-06-04] MEDS: EZETIMIBE 10 MG TABLET PO (08:16)
[2025-06-04] MEDS: METOPROLOL TARTRATE 25 MG TABLET PO (08:16)
[2025-06-04] MEDS: HYDROcodone/acetaminophen (*CRX) 7.5-325 MG TABLET 1 TAB PO ×3 (08:24→17:44)
--- NOTE | 2025-06-04 09:49 | ECG_ITS ---
Test Date: 2025-06-04 10:18:47 Measurements Intervals [place] Rate: 53 P: 135 AL: 154 QRS: 193 QRSD: 104 T: 180 QT: 428 QTc: 404 Interpretive Statements SINUS BRADYCARDIA ARM LEADS REVERSED INCOMPLETE RIGHT BUNDLE BRANCH BLOCK BORDERLINE T WAVE ABNORMALITY- INF/LAT LEADS BORDERLINE ECG Compared to ECG 06/03/2025 02:11:58 NO SIGNIFICANT CHANGE Electronically Signed On 06-04-2025 10:46:36 CDT by tEhan Gutierrez D.O.
--- NOTE | 2025-06-04 15:30 | P.PNCA_ITS ---
Progress Note: A&P Assessment and Plan (1) CAD (coronary artery disease): Qualifiers: Coronary Disease-Associated Artery/Lesion type: [place] artery [place] vs. transplanted heart: [place] heart Associated angina: without angina Qualified Code(s): I25.10 - Atherosclerotic heart disease of [place] coronary artery without angina pectoris Code(s): I25.10 - Atherosclerotic heart disease of [place] coronary artery without angina pectoris Status: Chronic Assessment and Plan: History of coronary artery disease is detailed in the HPI. He presents with a chief complaint of chest pain. Characteristics of his chest pain are somewhat atypical. He does have mildly elevated troponin levels: 0.038, 0.041, and 0.039. Mildly elevated and flat, not consistent with acute coronary syndrome. His EKG this admission is unchanged from previous tracings and does not have any evidence of acute ischemic changes. Description of chest pain today sounds more consistent with GI etiology-states after he eats he feels like his food is stuck in his esophagus and he has a burning sensation in his chest if he lays down after he eats. 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 Will arrange for outpatient follow-up with us * For his epigastric discomfort, will start famotidine 20 mg b.i.d * He can be discharged from a cardiac standpoint. (2) HTN (hypertension): Qualifiers: Hypertension type: primary hypertension Qualified Code(s): I10 - Essential (primary) hypertension Code(s): I10 - Essential (primary) hypertension Status: Acute Assessment and Plan: Improving. Continue current medical regimen without change. Will adjust antihypertensive regimen as an outpatient if he remains above goal. (3) HLD (hyperlipidemia): Qualifiers: Hyperlipidemia type: unspecified Qualified Code(s): E78.5 - Hyperlipidemia, unspecified Code(s): E78.5 - Hyperlipidemia, unspecified Status: Chronic Assessment and Plan: Continue high-intensity statin and aggressive lifestyle modification. (4) Elevated troponin: Code(s): R79.89 - Other specified abnormal findings of blood chemistry Status: Acute Assessment and Plan: As above. (5) Chest pain: Code(s): R07.9 - Chest pain, unspecified Status: Acute Assessment and Plan: As above. Subjective Date/time seen: 06/04/25 15:30 Interval history: Cardiology follow-up visit Date of service 06/04/2025: Patient states that he had an episode of chest pain while eating worsened with laying down after eating. Does not have any chest pain or any now. He does not have any shortness of breath, palpitations, swelling. Review of Systems Review of Systems: All systems reviewed & are unremarkable except as noted in HPI and below Exam Const: General: comfortable, no acute distress, alert and awake Orientation/consciousness: patient oriented x3 HENMT: Head: normal to inspection Eyes: General: appearance normal, both eyes and all related structures Pupils: Equal, round and reactive pupils present Neck: Neck: normal visual inspection, supple and no JVD Carotids: normal carotid upstroke Resp: Effort & Inspection: normal respiratory effort Auscultation: clear to auscultation bilaterally Cardio: Rate: regular rate Rhythm: regular rhythm Heart sounds: S1 normal heart sound present, S2 normal heart sound present and no murmurs GI: Auscultation: normal bowel sounds Skin: General skin exam: normal color and lesion (psoriasis lesions ) Lesions: lesion noted (psoriasis lesions ) Neuro: General: patient oriented x3 Cranial nerves: Yes Equal, round and r eactive pupils present Extrem: General: normal to inspection Psych: Appearance: grossly normal Mental Status: mental status grossly normal Objective Data Vital Signs Vital Signs: Vital Signs - 24 hr 06/03/25 16:00 06/03/25 16:00 06/03/25 16:00 Temperature 36.9 C Pulse Rate 63 68 Respiratory Rate 18 Blood Pressure 137/72 Pulse Oximetry 97 Oxygen Delivery Room Air 06/03/25 18:00 06/03/25 20:00 06/03/25 20:00 Temperature Pulse Rate 80 69 Respiratory Rate Blood Pressure Pulse Oximetry Oxygen Delivery Room Air 06/03/25 20:23 06/03/25 20:41 06/03/25 22:00 Temperature 37.0 C Pulse Rate 62 74 64 Respiratory Rate 18 Blood Pressure 159/84 H Pulse Oximetry 97 Oxygen Delivery 06/04/25 00:00 06/04/25 00:00 06/04/25 00:19 Temperature 37.0 C Pulse Rate 70 66 Respiratory Rate 16 Blood Pressure 133/75 Pulse Oximetry 97 Oxygen Delivery Room Air 06/04/25 02:00 06/04/25 04:00 06/04/25 04:00 Temperature Pulse Rate 65 62 Respiratory Rate Blood Pressure Pulse Oximetry Oxygen Delivery Room Air 06/04/25 05:00 06/04/25 07:54 06/04/25 08:00 Temperature 36.4 C 36.7 C Pulse Rate 59 L 55 L 60 Respiratory Rate 20 20 Blood Pressure 147/86 H 138/79 Pulse Oximetry 97 99 Oxygen Delivery 06/04/25 08:00 06/04/25 08:16 06/04/25 11:27 Temperature 36.4 C Pulse Rate 60 66 Respiratory Rate 20 Blood Pressure 150/91 H Pulse Oximetry 99 98 Oxygen Delivery Room Air 06/04/25 12:00 Temperature Pulse Rate Respiratory Rate Blood Pressure Pulse Oximetry 98 Oxygen Delivery Room Air Intake/Output Intake/Output: Intake & Output 06/01/25 06/02/25 06/03/25 06/04/25 23:59 23:59 23:59 23:59 Intake Total 1480 1222 Balance 1480 1222 Meds/Results Medications: Active Medications Generic Name Dose Route Start Last Admin Trade Name Freq PRN Reason Stop Dose Admin Acetaminophen 650 mg 06/03/25 03:35 Acetaminophen 325 Mg Tablet PO Q4H PRN Mild Pain (1-3) or Fever Hydrocodone Bitart/Acetaminophen 1 tab 06/03/25 09:47 06/04/25 13:47 Hydrocodone/Acetaminophen (*Crx) 7.5-325 Mg Tablet PO 1 tab QID PRN Administration Pain Amlodipine Besylate 10 mg 06/03/25 11:00 06/04/25 08:16 Amlodipine Besylate 10 Mg Tablet PO 10 mg DAILY JUSTUS Administration Aspirin 81 mg 06/03/25 11:00 06/04/25 08:15 Aspirin 81 Mg Enteric Tablet PO 81 mg DAILY JUSTUS Administration Atorvastatin Calcium 80 mg 06/03/25 11:00 06/04/25 08:15 Atorvastatin 40 Mg Tablet PO 80 mg DAILY JUSTUS Administration Clopidogrel Bisulfate 75 mg 06/03/25 11:00 06/04/25 08:16 Clopidogrel Bisulfate 75 Mg Tablet PO 75 mg DAILY JUSTUS Administration Doxycycline Hyclate 100 mg 06/03/25 11:00 06/04/25 08:15 Doxycycline Hyclate 100 Mg Tablet PO 06/07/25 22:00 100 mg Q12HR JUSTUS Administration Ezetimibe 10 mg 06/03/25 11:00 06/04/25 08:16 Ezetimibe 10 Mg Tablet PO 10 mg DAILY JUSTUS Administration Enoxaparin Sodium 40 mg 06/03/25 16:50 06/04/25 08:16 Enoxaparin 40 Mg/0.4 Ml Syringe SUB-Q Not Given DAILY JUSTUS Lisinopril 40 mg 06/04/25 09:00 06/04/25 08:16 Lisinopril 20 Mg Tablet PO 40 mg DAILY JUSTUS Administration Metoprolol Tartrate 25 mg 06/03/25 11:00 06/04/25 08:16 Metoprolol Tartrate 25 Mg Tablet PO 25 mg Q12HR JUSTUS Administration Morphine Sulfate 4 mg 06/03/25 03:35 06/04/25 04:28 Morphine Sulfate (*Crx) 4 Mg/Ml Inj IV PUSH 4 mg Q2H PRN Administration Pain Rated 7-10 Nitroglycerin 0.4 mg 06/03/25 09:47 Nitroglycerin Sl 0.4 Mg Tablet SUBLINGUAL Q5MIN PRN chest pain Ondansetron HCl 4 mg 06/03/25 03:35 Ondansetron Inj 4 Mg/2 Ml Vial IV PUSH Q4H PRN Nausea Perflutren Lipid Microsphere 0 ml 06/03/25 09:50 Perflutren Lipid Microspheres 1.5 Ml Vial Diluted To 10 Ml Total Volume IV PUSH 06/06/25 09:50 ONCE PRN adequate visualization Protocol Tamsulosin HCl 0.4 mg 06/03/25 09:47 Tamsulosin Hcl 0.4 Mg Capsule PO DAILY PRN retention Radiology Results: ITS Impressions Chest X-Ray 06/02/25 23:25 IMPRESSION: No acute cardiopulmonary process. Chest CTA 06/03/25 07:09 IMPRESSION: 1. No acute cardiopulmonary disease. No evidence for pulmonary embolism. 2: Partially visualized left hydronephrosis. Cannot exclude distally obstructing left ureteral stone. Consider correlation with CT urogram. Labs Labs: Laboratory Results - last 24 hr 06/04/25 04:27 WBC 7.4 RBC 4.92 Hgb 14.8 Hct 45.0 MCV 91.5 MCH 30.1 MCHC 32.9 RDW 12.6 Plt Count 230 MPV 9.9 Sodium 138 Potassium 3.9 Chloride 105 Carbon Dioxide 27 Anion Gap 6 BUN 16 Creatinine 0.95 Estim Creat Clear Calc 91 Estimated GFR > 60 Glucose 90 Calcium 8.9 Magnesium 1.9
--- NOTE | 2025-06-04 17:29 | PM.DS ---
DS: Admitting Diagnosis Discharge Date 06/04/25 Admitting Diagnosis Chest pain DS: Discharge Diagnosis Discharge Diagnosis (1) HTN (hypertension): Qualifiers: Hypertension type: primary hypertension Qualified Code(s): I10 - Essential (primary) hypertension Code(s): I10 - Essential (primary) hypertension Status: Acute (2) CAD (coronary artery disease): Qualifiers: Coronary Disease-Associated Artery/Lesion type: [place] artery [place] vs. transplanted heart: [place] heart Associated angina: without angina Qualified Code(s): I25.10 - Atherosclerotic heart disease of [place] coronary artery without angina pectoris Code(s): I25.10 - Atherosclerotic heart disease of [place] coronary artery without angina pectoris Status: Chronic (3) Chest pain: Code(s): R07.9 - Chest pain, unspecified Status: Acute (4) Elevated troponin: Code(s): R79.89 - Other specified abnormal findings of blood chemistry Status: Acute (5) HLD (hyperlipidemia): Qualifiers: Hyperlipidemia type: unspecified Qualified Code(s): E78.5 - Hyperlipidemia, unspecified Code(s): E78.5 - Hyperlipidemia, unspecified Status: Chronic Plan patient was unable to tolerate NTG due to FIELDS, was given morphine which did help, patient stats pain is persisting but improves with morphine, patient tropes are mildly elevated and flat patient is seen by human resources benefits specialist recommended to order cardiac ECHO, will follow up on the ECHO and further recommendation to follow. will monitor. DS: Summary Hospital Course Hospital Course: patient was unable to tolerate NTG due to FIELDS, was given morphine which did help, patient stats pain is persisting but improves with morphine, patient tropes are mildly elevated and flat patient is seen by human resources benefits specialist recommended to order cardiac ECHO, will follow up on the ECHO and further recommendation to follow. will monitor. patient cardiac echo is normal, her tropes elevated mild and flat, seen by human resources benefits specialist, decided to do stress test as an outpatient, patient is clinically stable, will discharge patient today, will follow up her human resources benefits specialist and primary care provider. Time Spent with Patient Time attestation: Total time spent providing and/or coordinating discharge services: Exam Narrative: Patient is comfortable, NAD HEENT: eyes are clear and none icteric LUNGS:CTA HEART: RR S1S2 ABD: BS+, Soft and nontender Lower extremities: no edema SKIN: nonjaundiced Neuro: grossly intact. DS: Data Data Completed and Pending Labs on day of discharge: Labs from last 24 hours 06/04/25 04:27 WBC 7.4 RBC 4.92 Hgb 14.8 Hct 45.0 MCV 91.5 MCH 30.1 MCHC 32.9 RDW 12.6 Plt Count 230 MPV 9.9 Sodium 138 Potassium 3.9 Chloride 105 Carbon Dioxide 27 Anion Gap 6 BUN 16 Creatinine 0.95 Estim Creat Clear Calc 91 Estimated GFR > 60 Glucose 90 Calcium 8.9 Magnesium 1.9 Discharge Plan Discharge Attending physician on discharge: Teofilo Elder Consulting providers: Celso Mercer; Mitzi Garduno; Isauro Villalobos; Ethan Gutierrez; Gaudencio Colin; David Cole Discharging Clinician: Teofilo Elder Patient Disposition: Home Activity: as tolerated Diet: heart healthy Discharge Instructions: patient to follow up with his human resources benefits specialist and primary care provider as scheduled, patient is instructed if any symptoms worsen to go to nearest ER. Patient Instructions: Antibiotic Form, Clopidogrel (By mouth) Patient Language: [place]i Stand Alone Forms: General Discharge Information Follow-up/Referrals: Isauro Johnson MD [Primary Care Provider, Hospitalist] Mitzi Garduno, JEFFERSONC [Advanced Practice Nurse, Cardiology] - 2 Weeks Discharge Medications: New famotidine 20 mg Tablet 20 mg PO Q12HR Qty: 60 0RF Continued aspirin 81 mg tablet,delayed release (DR/EC) 81 mg PO DAILY Qty: 30 11RF nitroglycerin 0.4 mg tablet, sublingual 0.4 mg SUBLINGUAL DIRECTED PRN (Reason: chest pain) Qty: 25 3RF Rx Instructions: One tablet sublingual Q 5 minutes x3 doses p.r.n. chest pain If no relief call 911 amlodipine 10 mg tablet 10 mg PO DAILY metoprolol tartrate 25 mg tablet 25 mg PO Q12H lisinopril 20 mg tablet 20 mg PO DAILY ezetimibe 10 mg tablet 10 mg PO DAILY atorvastatin 80 mg tablet 80 mg PO DAILY clopidogrel 75 mg tablet 75 mg PO DAILY doxycycline hyclate 100 mg capsule 100 mg PO Q12H tamsulosin [Flomax] 0.4 mg capsule 0.4 mg PO DAILY PRN (Reason: retention) metronidazole 500 mg tablet 500 mg PO Q12H hydrocodone-acetaminophen 7.5-325 mg tablet 1 tablet PO QID PRN (Reason: Pain) Date of admission: 06/03/25 03:36 Primary Care Provider: Isauro Johnson Admitting Provider: Teofilo Elder Attending physician on admission: Teofilo Elder Condition: Stable
== END 2025-06-04 18:03 | disposition home or self-care (01) ==
LOC: ANHED 06-03 01:21 → ANHIMU 06-03 05:09
PROVIDERS: Student in an Organized Health Care Education/Training Program; Admitting Provider Family Medicine; Emergency Provider Physician Assistant; PCP Chiropractor; Visit Provider Family Medicine
DX: R07.9 Chest pain, unspecified (principal); R79.89 Other specified abnormal findings of blood chemistry; I25.10 Atherosclerotic heart disease of native coronary artery without angina pectoris; Z95.1 Presence of aortocoronary bypass graft; G47.33 Obstructive sleep apnea (adult) (pediatric); E78.5 Hyperlipidemia, unspecified; I10 Essential (primary) hypertension; I25.2 Old myocardial infarction; Z87.891 Personal history of nicotine dependence; Z79.82 Long term (current) use of aspirin
CPT/HCPCS: 36415; 71046; 71275; 80048; 80053; 83690; 83735; 84484; 85025; 85027; 85610; 85730; 93005; 93306; 96372; 96374; 96375; 96376; 99285; A9270; G0378; J1650; J2270; J2405; Q9967

== ENCOUNTER 2025-07-13 14:27 | Emergency (ER) | payer OTHER, MEDICAID, SELFPAY ==
[2025-07-13 14:30] VITALS: BP 167/113; PULSE 79; RESP 16; TEMP 36.4; O2SAT 99
--- OUTSIDE RECORDS SUMMARY | 2025-07-13 14:38 | XMS_ITS | Encounter Summary ---
Author Organization [facility] Facility Care Team Providers Care Admissions Manager Rn Name Role Phone Isauro Johnson MD Primary Care Provider Cody Andrew MD Unavailable [phone] Miscellaneous, Not In File Unavailable Unava ilable Isauro Johnson MD Primary Care Provider Encounter Details Date Type Department Care Team (Latest Contact Info) Description 07/07/2018 Orders Only [facility]INCON[facility] ProviderHilary MD [address] [place] [id number] Social History Tobacco Use Types Packs/Day Years Used Date Smoking Tobacco: Former Smokeless Tobacco: Former Alcohol Use Standard Drinks/Week Comments Yes 0 (1 standard drink = 0.6 oz pur e alcohol) rarely Sex and Gender Information Value Date Recorded Sex Assigned at Not on file 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
--- OUTSIDE RECORDS SUMMARY | 2025-07-13 14:39 | XMS_ITS | Clinical Summary ---
Author Organization [facility] Address [address] [place] [address] Phone Care Team Providers Care Cleaning Porter Name Role Phone Isauro Johnson MD Primary [...] age to complete this topic Care Teams Cleaning Porter Relationship Specialty Start Date End Date Isauro Johnson MD [address] [place] [address] PCP - General Internal Medicine 05/27/20
--- OUTSIDE RECORDS SUMMARY | 2025-07-13 14:39 | XMS_ITS | Encounter Summary ---
Author Organization [facility] Facility Care Team Providers Care Coating Engineer Name Role Phone Isauro Johnson MD Primary Care Provider Cody Andrew MD Unavailable [phone] Miscellaneous, Not In File Unavailable Unava ilable Isauro Johnson MD Primary Care Provider Encounter Details Date Type Department Care Team (Latest Contact Info) Description 08/13/2016 Orders Only [facility] CLINCONV ProviderHilary MD [address] [place] [id number] Social History Tobacco Use Types Packs/Day Years Used Date Smoking Tobacco: Never Assessed Sex and Gender Information Value Date Recorded Sex Assigned at Not on file 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
--- OUTSIDE RECORDS SUMMARY | 2025-07-13 14:39 | XMS_ITS | Encounter Summary ---
Author Organization [facility] Facility Care Team Providers Care Freelance Court Reporter Name Role Phone Isauro Johnson MD Primary Care Provider Cody Andrew MD Unavailable [phone] Miscellaneous, Not In File Unavailable Unava ilable Isauro Johnson MD Primary Care Provider Encounter Details Date Type Department Care Team (Latest Contact Info) Description 04/13/2016 Orders Only [facility] CLINCONV ProviderHilary MD [address] [place] [address] Social History Tobacco Use Types Packs/Day Years Used Date Smoking Tobacco: Never Assessed Sex and Gender Information Value Date Recorded Sex Assigned at Not on file 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
--- OUTSIDE RECORDS SUMMARY | 2025-07-13 14:39 | XMS_ITS | Encounter Summary ---
Author Organization [facility] Address [address] [place] [address] Care Team Providers Care Reel Repairer Name Role Phone Cody Andrew MD Unavailable [phone] Miscellaneous, Not In File Unavailable Unava ilable Isauro Johnson MD Primary Care Provider Encounter Details Date Type Department Care Team (Late st Contact Info) Description 02/17/2025 Orders Only [facility] Health Information Management [address] [place] [address] Franchesca Katz MD [address] [address] Social History Tobacco Use Types Packs/Day Years Used Date Smoking Tobacco: Former Cigarettes 2 8 Smokeless Tobacco: Former Alcohol Use Standard Drinks/Week Comments Yes 0 (1 standard drink = 0.6 oz pur e alcohol) Rarely [facility] Utilities Answer Date Recorded In the past 12 months has [employer] electric, gas, oil, or water company threatened [...] week 04/09/2024 How often do you attend [facility] or congregation services? Never 04/09/2024 Do you belong to any clubs o r organizations such as gnosticism groups, unions, fraternal or athletic groups, or [...] any time in the past 12 m [facility], were you homeless or living in a assisted (including now)? No 04/09/2024 Personal Safety Answer Date Recorded Have you ever been in or are you currently in a harmful physical or emotional relationship or is someone making you feel afraid or unsafe? 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
--- OUTSIDE RECORDS SUMMARY | 2025-07-13 14:39 | XMS_ITS | Clinical Summary ---
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
--- OUTSIDE RECORDS SUMMARY | 2025-07-13 14:39 | XMS_ITS | Clinical Summary ---
Author Organization [facility] Address [address] [place] [address] Care Team Providers Care Long Term Care Phlebotomist Name Role Phone Isauro Johnson MD Primary Care Provider [phone] Source Comments [facility],non-owned Affiliates and Associated Physician Practices is amultiple site organization consisting of ambulatory clinics and hospital sitesin [place], [place], [place] and [place]. This disclosure is being madepursuant to the Care Everywhere program and may not contain all information available regarding this patient. 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
--- OUTSIDE RECORDS SUMMARY | 2025-07-13 14:39 | XMS_ITS | Clinical Summary ---
Author Organization [facility] Address [address] [place] [address] Phone Care Team Providers Care Airborne And Air Delivery Specialist Name Role Phone Nom[employer], External Provider Primary [...] 2022 INFLUENZA VACCINE (#1) 2025 07/29/2013 Insurance [facility] OPTIONS PPO [id number] Advance Directives For more information, please contact: [phone] * Full Code (Latest Code Status on File) Date Activated Date Inactivated Comments 07/27/2013 5:37 PM 07/29/2013 11:55 AM Care Teams Airborne And Air Delivery Specialist Relationship Specialty Start Date End Date Nomfc, External Provider PCP - General 07/27/13
--- OUTSIDE RECORDS SUMMARY | 2025-07-13 14:39 | XMS_ITS | Clinical Summary ---
Author Organization [facility] [address] Address [address] [place] [address] Care Team Providers Care Manager Global Name Role Phone Cody Andrew MD Unavailable [phone] Miscellaneous, Not In File Unavailable Unava ilable [...] (CARAFATE) suspension 1 gram/10 mL 9 Active HYDROcodone-acet aminophen (NORCO) 7.5-325 mg per tablet Take 1 tablet by mouth 3 (three) times a day Active varenicline tartrate (CHANTIX AMY) 0.5 mg (11)- 1 mg (42) tablet Take 1 tablet by mouth as directed Active gabapentin (NEURONTIN) 300 mg capsule Take 1 capsule (300 mg total) by mouth 3 (three) times a day 90 capsule 2 4 Active Additional Information Patient not taking.Reported on 05/18/2025 al & mag hydroxide with simethicone-diph enhydramine-lido home (MAGIC MOUTHWASH) suspension 1-1-1 Swish and swallow 5 mL every 4 (four) hours as needed (Mouth and throat pain) 300 mL 4 Active Additional Information Patient not taking.Reported on 05/18/2025 predniSONE (DELTASONE) 10 mg tablet Take 5 tablets oral daily for 2 days then 4 tablets daily for 2 days then 3 tablets daily for 2 days then 2 tablets daily for 2 days then 1 tablet daily for 2 days then stop. 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 Take 1 tablet (81 mg total) by mouth daily 90 tablet 3 5 05/18/20 26 Active amLODIPine (NORVASC) 10 mg tabletIndication s:Uncontrolled hypertension Take 1 tablet (10 mg total) by mouth daily 90 tablet 3 5 05/18/20 26 Active atorvastatin (LIPITOR) 80 mg tabletIndication s: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,Dyslipi demia Take 1 tablet (80 mg total) by mouth nightly 90 tablet 3 5 05/18/20 26 Active ezetimibe (ZETIA) 10 mg tabletIndication s: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 Andrew in [place] - chat message sent to him. Assessment [...] 12/24/2019 Assessment & Plan (12/25/2019 1:27 PM QUALITY IMPROVEMENT ENGINEER): #Spontaneous dental abscess, symptomatic since Saturday (12/21), [...] skin lesions Coronary artery disease invo lving venetie coronary artery of venetie heart without angina pectoris 05/02/2019 Assessment & Plan (07/24/2022 5:44 PM CDT): S/p PCI 2012 and 2016 -continue asa, statin, lisinopril. Pt no longer on brillinta. Got one dose 9/30pm Assessment & Plan (07/23/2022 1:54 PM CDT): S/p PCI 2012 and 2016 -continue asa, statin, lisinopril. Pt no longer on brillinta. Got one dose 930pm Assessment & Plan (07/22/2022 3:57 PM CDT): S/p PCI 2012 and 2016 -continue asa, statin, lisinopril. Pt no longer on brillinta. Got one dose 9/30pm Assessment & Plan (07/20/2022 8:53 PM CDT): S/p PCI 2012 and 2016 -continue asa, statin, lisinopril. Pt no longer on brillinta. Got one dose 30pm Assessment & Plan (12/25/2019 1:25 PM QUALITY IMPROVEMENT ENGINEER): #History of NSTEMI in 10/2019. LHC at [place] (10/2019) revealed a totally occluded proximal RCA, [...] Plan (05/02/2019 8:22 AM CDT): History of MT in 2013 and 2015 s/p stent placement. --Continue home aspirin, ticagrelor, atorvastatin. Hyperlipidemia 05/02/2019 Assessment & Plan (07/24/2022 5:44 PM CDT): Cont statin Assessment & Plan (07/23/2022 1:55 PM CDT): Cont statin Assessment & Plan (07/22/2022 3:57 PM CDT): Cont statin Assessment & Plan (12/24/2019 8:48 PM QUALITY IMPROVEMENT ENGINEER): #Chronic with history of CAD. - Continue [...] lisinopril Assessment & Plan (12/24/2019 8:49 PM QUALITY IMPROVEMENT ENGINEER): #Chronic. - Continue home lisinopril, metoprolol as [...] (03/20/2019): Added automatically from request for surgery [id number] High risk medication use 12/12/2018 Psoriatic arthritis 03/27/2018 Assessment & Plan (12/24/2019 8:40 PM QUALITY IMPROVEMENT ENGINEER): #Follows with Rheumatology, last seen 06/2019, managed with Enbrel 50 mg weekly. - Continue to monitor. 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 He [...] --Treatment of MAGI as above. Aspiration pneumonia ([facility]) 05/02/2019 10/03/2021 Assessment & Plan [...] Encounters Date Type Department Care Team Description 06/23/2025 Orders Only [facility] Medical Group Cardiology [address] [place] [address] Mitzi Garudno NP 06/08/2025 Telephone 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 Never 04/09/2024 Do you belong to any clubs o r organizations such as druze groups, unions, fraternal or athletic groups, or [...] any time in the past 12 [facility], were you homeless or living in a prison (including now)? No 04/09/2024 Personal Safety Answer Date Recorded Have you ever been in or are you currently in a harmful physical or emotional relationship or is someone making you feel afraid or unsafe? 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 Male 11:32 AM QUALITY IMPROVEMENT ENGINEER Gender Identity Not on file Sexual [...] Completed 08/20/2018 Medical Devices Implanted Type Area Auto Emissions Technician Device Identifier Shelf Expiration Date Model / Serial / Lot Cardiac Stent Implanted:10/21 (Quantity not on file) Stent Heart [email or web address] Escobar Distal Marker Radiology Stainless Steel Sterile Amgm-D - [id number] Implanted:Qty: 1 on 03/10/2024 by Yinka Palmer MD at [facility] N/A: Heart [employer] Biomedical [id number] 09/20/2026 AMGM-D / / [id number] Procedures Procedure Name Priority Date/Time Associated Diagnosis Comments CARDIOLOGY DOCUMENT SCAN Routine 06/03/2025 2:47 PM CDT CARDIOLOGY DOCUMENT SCAN 06/03/2025 ECG 12-LEAD Routine 05/18/2025 1:59 PM CDT 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 NSTEMI (non-ST elevated myocardial infarction) (HCC) EGFR STAT 07/30/2024 5:42 PM CDT HEMOGLOBIN A1C Routine 03/07/2024 4:01 AM CDT LIPID PANEL Timed 03/06/2024 6:33 PM CDT COLONOSCOPY 05/01/2019 3:34 PM CDT HEPATITIS PANEL, ACUTE Routine 08/20/2018 6:13 AM CDT from Last 3 Months or Most Recently Relevant to Health Maintenance Results * Cardiology Document Scan (06/03/2025 2:47 PM CDT) Anatomical Region Laterality Modality Other Mitzi Garduno NP CV CARDIAC SERVICES PROCEDUR ES Final Result * Cardiology Document Scan (06/03/2025) Anatomical Region Laterality Modality Other Mitzi Garduno NP CV CARDIAC SERVICES PROCEDUR ES Final Result * ECG 12 lead (05/18/2025 1:59 PM CDT) Jeff Miller MD ECG ORDERABLES Final Result [...] was last reviewed 2021. Testing performed by: [address] [address] Blood 07/30/2024 5:42 PM CDT 07/30/2024 5:58 PM CDT us Brittaney Coffman MD LAB BLOOD ORDERABLES Fin al Result Performing Organization Address [facility] [[email or web address]] Co de Phone Number [place] [phone] [facility] [place] [address] * Hemoglobin A1c (03/07/2024 4:01 AM CDT) [facility] Hgb A1C 5.5 4.0 - 5.6 % Comment:Testing performed by : [address] [address] Estimated Average Glucose 111 mg/dL TYLER Comment: The ADA recommends reporting an estimated Average Glucose (eAG) with all Hemoglobin A1c results using the equation derived from a study of 507 normal and diabetic adults. Minority populations were underrepresented and children were not included. (Diabetes Care 31:8536-5052, 2008). The eAG is not equivalent to a fasting glucose. Testing performed by: [address] [address] Blood 03/07/2024 4:01 AM CDT 03/07/2024 4:10 AM CDT us Ricardo Mendoza MD LAB BLOOD ORDERABLES Final Result Performing Organization Address [facility] [[email or web address]] Co de Phone Number [facility] [address] [facility] [place] [address] * (ABNORMAL) Lipid panel (03/06/2024 6:33 PM CDT) [facility] Signature Cholesterol 177 30 - 199 mg/dL Comment: [...] last revised on 2018. Testing performed by: [address] [address] Triglycerides 146 <=149 mg/dL TYLER Comment: Interpretive [...] last revised on 2018. Testing performed by: [address] [address] HDL 38(L) >=40 mg/dL TYLER Comment: Interpretive [...] last revised on 2018. Testing performed by: [address] [address] LDL, calculated 110 <=129 mg/dL TYLER Comment: [...] last revised on 2018. Testing performed by: [address] [address] Non-HDL Cholesterol 139 mg/dL TYLER Comment: Interpretive [...] last revised on 2018. Testing performed by: [address] [address] Chol/HDL ratio 5 TYLER Comment:Testing performed by : [address] [address] Blood 03/06/2024 6:33 PM CDT 03/06/2024 6:44 PM CDT Jake LÓPEZ - 03/06/2024 7:29 PM CDT This lipid panel was automatically ordered due to a significant change in Troponin. The dietary status of the patient at the collection time should be correlated with the lipid results. us Oleg Pierce DO LAB BLOOD ORDERABLES Final Res ult [facility] [address] [facility] Department [place] [address] * COLONOSCOPY (05/01/2019 3:34 PM CDT) Anatomical Region Laterality Modality Other Narrative Procedure Note Juan Manuel Rick MD - 05/01/2019 3:34 PM CDT [facility] ENDOS[facility] Patient Name: Zander Cain Procedure Date: 05/01/2019 3:34 PM Date of : 1975 Admit Type: Outpatient Age: 43 Gender: Male Attending MD: Juan Manuel Rick M.D. Room: [facility] ENDOSCOPY ROOM 5 Note Status: Finalized [...] scope was passed under direct vision.The CF [id number] endoscope was introduced throughthe anus and [...] On: 05/01/2019 3:34 PM Recognized by the [place] for promoting quality in endoscopy us Juan Manuel Rick MD ENDOSCOPY PROCEDURES Final Re sult * Hepatitis panel, acute (08/20/2018 6:13 AM CDT) HepBsAg NONREACT NONREACTIVE 08/20/2018 12:27 PM CDT [facility] HISTORICAL RESULTS Comment: Siemens SavoraurXP using NEETA (chemiluminescent immunoassay) technology. NONREACTIVE: IgM antibodies to Hepatitis B Surface antigen not detected. REACTIVE: IgM antibodies to Hepatitis B Surface antigen detected. Reactive results will be confirmed by neutralization testing. HBsAb qn < 3.10 mIU/mL 08/20/2018 12:17 PM CDT [facility] HISTORICAL RESULTS Comment: Siemens CentaurXP using NEETA (chemiluminescent immunoassay) technology. 9.99 IU/L or less.....NONREACTIVE: IgM antibodies to Hepatitis B Surface antibody are not detected. 10.00 IU/L or greater..REACTIVE: IgM antibodies to Hepatitis B Surface antibody are detected. Hep B core IgM NONREACT NONREACTIVE 8 12:52 PM CDT [facility] HISTORICAL RESULTS Comment: Siemens CentaurXP using NEETA (chemiluminescent immunoassay) technology. NONREACTIVE: IgM antibodies to Hepatitis B Core antigen not detected. EQUIVOCAL: IgM antibodies to Hepatitis B Core antigen may or may not be present. Obtain a new specimen and retest. REACTIVE: IgM antibodies to Hepatitis B Core antigen detected. Hep A IgM NONREACT NONREACTIVE 08/20/2018 12:54 PM CDT [facility] HISTORICAL RESULTS Comment: Siemens CentaurXP using NEETA (chemiluminescent immunoassay) technology. NONREACTIVE: IgM antibodies to Hepatitis A not detected. This does not exclude possibility of exposure to Hepatitis A or early acute infection. EQUIVOCAL:IgM antibodies to Hepatitis A may or may not be present. Suggest recollection and retest. REACTIVE: Antibodies to Hepatitis A detected. Hep C Ab NONREACT NONREACTIVE 08/20/2018 12:51 PM CDT [facility] HISTORICAL RESULTS Comment: Siemens CentaurXP using NEETA [...] MICROBIOLOGY - GENERAL OR DERABLES Final Result [facility] HISTORICAL RESULTS from Last 3 Months or Most Recently Relevant to Health Maintenance Insurance [facility] Advance Directives For more information, please contact: [phone] Documents on File Type Date Recorded Patient Diving Board Assembler Expl anation ADVANCE DIRECTIVE 03/09/2024 12:26 PM Chavo r of Technical Operations Manager-Medical * Full Code (Latest Code Status on [...] 6:32 PM 07/20/2022 6:32 PM Care Teams Manager Global Relationship Specialty Start Date End Date Isauro Johnson MD PCP - General Leak Detection Engineer 07/26/22 Cody Andrew MD Consulting Physician Infectious Diseases 10/09/21 Miscellaneous, Not In File 10/09/21
--- OUTSIDE RECORDS SUMMARY | 2025-07-13 14:39 | XMS_ITS | Encounter Summary ---
Author Organization [facility] Facility Care Team Providers Care Supervisor Tumbling And Rolling Name Role Phone Isauro Johnson MD Primary Care Provider Cody Andrew MD Unavailable [phone] Miscellaneous, Not In File Unavailable Unava ilable Isauro Johnson MD Primary Care Provider Encounter Details Date Type Department Care Team (Latest Contact Info) Description 04/12/2016 Orders Only [facility] CLINCON[facility] ProviderHilary MD [address] [place] [address] Social History Tobacco Use Types Packs/Day Years Used Date Smoking Tobacco: Never Assessed Sex and Gender Information Value Date Recorded Sex Assigned at Not on file Legal Sex Male 11:32 AM 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
--- OUTSIDE RECORDS SUMMARY | 2025-07-13 14:39 | XMS_ITS | Encounter Summary ---
Author Organization [facility] Facility Care Team Providers Care Circular Tank Cooper Name Role Phone Isauro Johnson MD Primary Care Provider Cody Andrew MD Unavailable [phone] Miscellaneous, Not In File Unavailable Unava ilable Isauro Johnson MD Primary Care Provider Encounter Details Date Type Department Care Team (Latest Contact Info) Description 08/24/2016 Orders Only [facility] CLINCONV ProviderHilary MD [address] [place] [address] Social History Tobacco Use Types Packs/Day Years Used Date Smoking Tobacco: Never Assessed Sex and Gender Information Value Date Recorded Sex Assigned at Not on file Legal Sex Male 11:32 AM RETAIL SELLING FLOOR 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
--- NOTE | 2025-07-13 15:18 | ED.GENADULT ---
HPI - General Adult General Chief complaint: Unspecified <Jacey Gallo February, [employer] - Last Filed: 07/14/25 19:40> Stated complaint: bechet's flare up <Jacey Gallo February, [employer] - Last Filed: 07/14/25 19:40> Time Seen by Provider: 07/13/25 15:18 <Jacey Gallo February, [employer] - Last Filed: 07/14/25 19:40> Focused HPI: Zander Quinteros is a 49 y/o male with PMHx of Behcet's syndrome and presents with complaints of having a flair up started a couple days ago that started in his mouth and he feels it going down his throat and feels that it is getting hard to swallow. Hx of ID x4 open heart surgery about a year ago and is currently on Clopidogrel Denies chest pain today. GENERAL:in no acute distress. HEAD: Normocephalic, atraumatic. CHEST: Clear to auscultation. ?No respiratory distress. HEART: Regular rate and rhythm.? NEURO: ?Alert and oriented x3. Patient screened in triage and initial orders placed.? ?Additional care and disposition to be based upon?diagnostic testing and treatment. <Jacey Gallo February, [employer] - Last Filed: 07/14/25 19:40> History of Present Illness HPI narrative: As reviewed above in HPI. Patient does have severe but chest disease and states that this flare-up started about 5 days ago. Isolated to the mouth and posterior oropharynx. Endorses multiple ulcerations on his tongue and mouth. Has had previous ocular involvement. No other symptoms such as fever, chills, chest pain, shortness a breath. Has not tried anything for symptom control at home. He states he did have some leftover magic mouthwash leftover that he took a swish of an did have some mild relief but does not have anymore at home. He called his primary care provider who was not able to see him today to evaluate him and referred him to the ER for evaluation treatment. Patient endorses that he will have a close outpatient follow up after ER visit. <Celso Mercer MD - Last Filed: 07/14/25 06:45> Related Data Home medications: Home Medications ?Medication ?Instructions ?Recorded ?Confirmed ?Last Taken ?Type hydrocodone 7.5 mg-acetaminophen 1 tablet PO QID PRN Pain 04/25/20 06/03/25 06/02/25 History 325 mg tablet amlodipine 10 mg tablet 10 mg PO DAILY 06/03/25 06/03/25 06/02/25 History atorvastatin 80 mg tablet 80 mg PO DAILY 06/03/25 06/03/25 06/02/25 History clopidogrel 75 mg tablet 75 mg PO DAILY 06/03/25 06/03/25 06/02/25 History doxycycline hyclate 100 mg capsule 100 mg PO Q12H 06/03/25 06/03/25 06/02/25 History ezetimibe 10 mg tablet 10 mg PO DAILY 06/03/25 06/03/25 06/02/25 History lisinopril 20 mg tablet 20 mg PO DAILY 06/03/25 06/03/25 06/02/25 History metoprolol tartrate 25 mg tablet 25 mg PO Q12H 06/03/25 06/03/25 06/02/25 History metronidazole 500 mg tablet 500 mg PO Q12H 06/03/25 06/03/25 06/02/25 History tamsulosin 0.4 mg capsule (Flomax) 0.4 mg PO DAILY PRN retention 06/03/25 06/03/25 Unknown History <Jacey Mcdonough, [employer] - Last Filed: 07/14/25 19:40> Allergies/adverse reactions: Allergies Allergy/AdvReac Type Severity Reaction Status Date / Time colchicine AdvReac Unknown nausea and Verified 07/13/25 14:30 abdominal pain with one dose <Jacey Mcdonuogh, [employer] - Last Filed: 07/14/25 19:40> [facility] Past Medical History Medical History: Medical History Obstructive sleep apnea Noncompliant with CPAP Alcohol abuse Chronic back pain Behcets syndrome Psoriasis Anxiety Left wrist fracture Gout Arthritis Kidney stone HLD (hyperlipidemia) HTN (hypertension) Myocardial infarction x2, with stent CAD (coronary artery disease) Dental cavities <Jacey Mcdonough, [employer] - Last Filed: 07/14/25 19:40> Surgical History Surgical History: Surgical History History of coronary artery bypass graft Status post cystoscopy with ureteral stent placement History of heart artery stent Cardiac catheterization 2019 performed at this facility demonstrated patent obtuse marginal branch stent without stenosis, right coronary artery large vessel and code dominant totally occluded proximally with stent placement with residual stenosis of 30% ejection fraction of 50% with basal and mid inferior wall hypokinesis History of surgery on arm left forearm H/O arthroscopy of left knee <Jacey Mcdonough, [employer] - Last Filed: 07/14/25 19:40> Family History Family History: Family History Daughter Cancer Father Hypertension Other Family history of malignant neoplasm Family history of psoriasis <Jacey Mcdonough, - Last Filed: 07/14/25 19:40> Social History Social History: Social History Social History: He has been since 2019. He has 3 children. 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 He used to smoke up to 3 packs of cigarettes per day. It did previously been documented that the patient had drink up to 28 alcoholic beverages a day. He adamantly denies ever having drink alcohol to excess. He states that he may drink 1 alcoholic on rare occasion. Code status: Full code Surrogate decision maker: Yu (daughter) Smoking packs per day: 3 Smoking cigarettes per day: 60.0 Years smoked: 6 Smoking pack-years: 18.00 Smoking status: Former smoker Tobacco type: cigarettes Second hand tobacco smoke exposure: Yes Smoking end date: 03/03/24 Alcohol intake: never Drinks per week: 28 Substance use: never Substance use type: does not use Do You Feel Safe in your Home?: Yes Lack of Transportation: No Lack of Food: Never True Current Housing: I Have Housing Concerned About Future Housing: No Difficulty Paying Gas/Electric Bills: No Difficulty Paying for Meds: No Currently Unemployed: No Education: High School Diploma/GED Difficulty w/ Childcare or Family Care: No Gender identity (if verbalized by the patient): Male Sexual Orientation (if Verbalized by the Patient): Straight or Heterosexual Spiritual care concerns: No Agree to blood products: Yes <Jacey Mcdonough, [employer] - Last Filed: 07/14/25 19:40> Exam Narrative: GENERAL: [Well-appearing, well-nourished, and in no acute distress.] HEAD: [Normocephalic, atraumatic.] EYES: [PERRLA and EOMI.] ENT: Multiple shallow based ulcerations over the mucosa membranes of the mouth including base of tongue bilaterally, inner cheeks, gum line. Poor dentition noted. No posterior oropharyngeal erythema or exudates. No tonsillar erythema or exudates. No difficulty phonating or swallowing secretions. No pain with not palpation or any lymphadenopathy. NECK: Supple. CHEST: Symmetric chest rise, no respiratory distress HEART: [Regular rate and rhythm]. No murmur heard. [Normal peripheral pulses.] ABDOMEN: [Soft, nondistended], [nontender], [No rigidity or guarding] EXTREMITIES: Normal range of motion. [No edema.] SKIN: Warm, dry, no rash. Plaque psoriasis over the extensor surfaces of the upper extremity NEURO: [No focal deficits]. Alert and oriented [x3.] PSYCH: [Normal mood and affect.] <Celso Mercer MD - Last Filed: 07/14/25 06:45> Course Vital Signs Vital signs: Vital Signs Temperature 36.4 C L 07/13/25 14:30 Pulse Rate 79 07/13/25 14:30 Respiratory Rate 16 07/13/25 14:30 Blood Pressure 167/113 H 07/13/25 14:30 Pulse Oximetry 99 07/13/25 14:30 Oxygen Delivery Room Air 07/13/25 14:30 Temperature 36.4 C L 07/13/25 14:30 Pulse Rate 85 07/13/25 22:49 Respiratory Rate 16 07/13/25 22:49 Blood Pressure 150/62 H 07/13/25 22:49 Pulse Oximetry 95 07/13/25 22:49 Oxygen Delivery Room Air 07/13/25 14:30 <Jacey Mcdonough APRN - Last Filed: 07/14/25 19:40> Vital Signs Temperature 36.4 C L 07/13/25 14:30 Pulse Rate 79 07/13/25 14:30 Respiratory Rate 16 07/13/25 14:30 Blood Pressure 167/113 H 07/13/25 14:30 Pulse Oximetry 99 07/13/25 14:30 Oxygen Delivery Room Air 07/13/25 14:30 Temperature 36.4 C L 07/13/25 14:30 Pulse Rate 85 07/13/25 22:49 Respiratory Rate 16 07/13/25 22:49 Blood Pressure 150/62 H 07/13/25 22:49 Pulse Oximetry 95 07/13/25 22:49 Oxygen Delivery Room Air 07/13/25 14:30 <Celso Mercer MD - Last Filed: 07/14/25 06:45> Medical Decision Making MDM Narrative Medical decision making narrative: 49-year-old male with history of longstanding but should syndrome. Also has a history of hypertension and coronary disease status post CABG. Presents to the emergency department today for flare up of multiple ulcers in his oral cavity. He states he has had previous but shots flares that have had ocular and GI involvement but denies any other symptoms today. No chest pain shortness a breath. Hemodynamically has some stable hypertension but no tachycardia, tachypnea or fever. Examination reveals multiple shallow based ulcerations over the mucosa membranes of the mouth including base of tongue bilaterally, inner cheeks, gum line. Poor dentition noted. No posterior oropharyngeal erythema or exudates. No tonsillar erythema or exudates. No difficulty phonating or swallowing secretions. No pain with not palpation or any lymphadenopathy. Patient's symptomatology is consistent with his known but she has disease which is a chronic inflammatory illness. No signs of systemic disease at this time, isolated to the mucous membranes. He is afebrile. IV was established and basic laboratories sent off including CBC and CMP. He was given IV and oral steroids for anti inflammation controlling given oral magic mouthwash for pain relief of his ulcers as well as some dilaudid for analgesia given his discomfort. Discussed with him follow-up instructions with his PCP and will send him home with oral prednisone for several days. Patient instructed to follow-up with his PCP and if he has recurrent flares or worsening disease he might benefit from a Rheumatology evaluation on outpatient basis. We did discuss return precautions to the ER as well. Patient comfortable with this plan Labs are unremarkable. Patient was given pain control medications here and discharged home with steroids and PCP follow-up instructions with return precautions. <Celso Mercer MD - Last Filed: 07/14/25 06:45> Medical Records Medical records reviewed: Yes I reviewed the external patient's medical records. <Celso Mercer MD - Last Filed: 07/14/25 06:45> Vital Signs Vital Signs: Vital Signs Temperature 36.4 C L 07/13/25 14:30 Pulse Rate 79 07/13/25 14:30 Respiratory Rate 16 07/13/25 14:30 Blood Pressure 167/113 H 07/13/25 14:30 Pulse Oximetry 99 07/13/25 14:30 Oxygen Delivery Room Air 07/13/25 14:30 Temperature 36.4 C L 07/13/25 14:30 Pulse Rate 85 07/13/25 22:49 Respiratory Rate 16 07/13/25 22:49 Blood Pressure 150/62 H 07/13/25 22:49 Pulse Oximetry 95 07/13/25 22:49 Oxygen Delivery Room Air 07/13/25 14:30 <Jacey Mcdonough, [employer] - Last Filed: 07/14/25 19:40> Vital Signs Temperature 36.4 C L 07/13/25 14:30 Pulse Rate 79 07/13/25 14:30 Respiratory Rate 16 07/13/25 14:30 Blood Pressure 167/113 H 07/13/25 14:30 Pulse Oximetry 99 07/13/25 14:30 Oxygen Delivery Room Air 07/13/25 14:30 Temperature 36.4 C L 07/13/25 14:30 Pulse Rate 85 07/13/25 22:49 Respiratory Rate 16 07/13/25 22:49 Blood Pressure 150/62 H 07/13/25 22:49 Pulse Oximetry 95 07/13/25 22:49 Oxygen Delivery Room Air 07/13/25 14:30 <Celso Mercer MD - Last Filed: 07/14/25 06:45> Lab Data Lab results reviewed: Yes I reviewed the patient's lab results. <Celso Mercer MD - Last Filed: 07/14/25 06:45> Result diagrams: 07/13/25 15:26 07/13/25 15:26 <Jacey Mcdonough, [employer] - Last Filed: 07/14/25 19:40> Labs: Lab Results 07/13/25 Range/Units 15:26 WBC 7.4 (4.5-10.0) K/mm3 RBC 5.35 (4.6-6.20) M/mm3 Hgb 15.7 (14.0-18.0) g/dL Hct 46.5 (42.0-52.0) % MCV 86.9 (80-100) fl MCH 29.3 (26-34) pg MCHC 33.8 (32-36) g/dl RDW 11.9 (11.5-14.5) % Plt Count 236 (150-375) k/mm3 MPV 8.9 (7.4-10.4) fl Immature Gran % (Auto) 0.4 (0-0.5) % Neut % (Auto) 66.4 (45.5-73.1) % Lymph % (Auto) 21.8 (18.3-44.2) % [place] % (Auto) 8.0 (2.6-8.5) % Eos % (Auto) 3.0 (0-4.4) % Baso % (Auto) 0.4 (0.2-1.2) % Lymph # (Auto) 1.61 (0.9-3.2) K/mm3 [place] # (Auto) 0.6 (0.1-0.6) K/mm3 Eos # (Auto) 0.2 (0-0.3) K/mm3 Baso # (Auto) 0.0 (0.0-0.1) K/mm3 Abs Immat Gran (auto) 0.03 (0.00-0.031) K/mm3 Absolute Neuts (auto) 4.9 (1.3-6.7) K/mm3 Absolute Nucleated RBC 0.000 (0.0-0.012) K/mm3 Nucleated RBC % 0.0 (0.0-0.2) % Sodium 139 (137-145) mmol/L Potassium 4.2 (3.4-5.0) mmol/L Chloride 105 (98-107) mmol/L Carbon Dioxide 24 (22-30) mmol/L Anion Gap 10 (4-12) mmol/L BUN 16 (9-20) mg/dL Creatinine 0.89 (0.7-1.3) mg/dL Estim Creat Clear Calc 93 ml/min Estimated GFR > 60 (59 - ) Glucose 101 (65-110) mg/dL Calcium 9.3 (8.4-10.2) mg/dL Total Bilirubin 0.6 (0.2-1.3) mg/dL AST 44 (17-59) U/L ALT 56 H (6-50) U/L Alkaline Phosphatase 57 (38-126) U/L Total Protein 7.8 (6.3-8.2) g/dL Albumin 4.7 (3.5-5.1) g/dL <Jacey Mcdonough, [employer] - Last Filed: 07/14/25 19:40> Lab Results 07/13/25 Range/Units 15:26 WBC 7.4 (4.5-10.0) K/mm3 RBC 5.35 (4.6-6.20) M/mm3 Hgb 15.7 (14.0-18.0) g/dL Hct 46.5 (42.0-52.0) % MCV 86.9 (80-100) fl MCH 29.3 (26-34) pg MCHC 33.8 (32-36) g/dl RDW 11.9 (11.5-14.5) % Plt Count 236 (150-375) k/mm3 MPV 8.9 (7.4-10.4) fl Immature Gran % (Auto) 0.4 (0-0.5) % Neut % (Auto) 66.4 (45.5-73.1) % Lymph % (Auto) 21.8 (18.3-44.2) % [place] % (Auto) 8.0 (2.6-8.5) % Eos % (Auto) 3.0 (0-4.4) % Baso % (Auto) 0.4 (0.2-1.2) % Lymph # (Auto) 1.61 (0.9-3.2) K/mm3 [place] # (Auto) 0.6 (0.1-0.6) K/mm3 Eos # (Auto) 0.2 (0-0.3) K/mm3 Baso # (Auto) 0.0 (0.0-0.1) K/mm3 Abs Immat Gran (auto) 0.03 (0.00-0.031) K/mm3 Absolute Neuts (auto) 4.9 (1.3-6.7) K/mm3 Absolute Nucleated RBC 0.000 (0.0-0.012) K/mm3 Nucleated RBC % 0.0 (0.0-0.2) % Sodium 139 (137-145) mmol/L Potassium 4.2 (3.4-5.0) mmol/L Chloride 105 (98-107) mmol/L Carbon Dioxide 24 (22-30) mmol/L Anion Gap 10 (4-12) mmol/L BUN 16 (9-20) mg/dL Creatinine 0.89 (0.7-1.3) mg/dL Estim Creat Clear Calc 93 ml/min Estimated GFR > 60 (59 - ) Glucose 101 (65-110) mg/dL Calcium 9.3 (8.4-10.2) mg/dL Total Bilirubin 0.6 (0.2-1.3) mg/dL AST 44 (17-59) U/L ALT 56 H (6-50) U/L Alkaline Phosphatase 57 (38-126) U/L Total Protein 7.8 (6.3-8.2) g/dL Albumin 4.7 (3.5-5.1) g/dL <Celso Mercer MD - Last Filed: 07/14/25 06:45> Discharge Plan Discharge Clinical Impression: Behcet syndrome involving oral mucosa <Jacey Mcdonough APRN - Last Filed: 07/14/25 19:40> Patient Disposition: Home <Jacey Mcdonough APRN - Last Filed: 07/14/25 19:40> Condition: Stable <Jacey Mcdonough APRN - Last Filed: 07/14/25 19:40> Instructions: Antibiotic Form, Behcet Syndrome (ED) <Jacey Mcdonough APRN - Last Filed: 07/14/25 19:40> Additional Instructions: We have treated your inflammatory disease with anti-inflammatories and steroids here. We will send you home with steroids for next 5 days in addition to mouthwash for the oral ulcers. Return with any emergent concerns but please follow-up with your regular primary care provider as you might need a rheumatology referral for definitive care or further interventions. <Jaecy Mcdonough APRN - Last Filed: 07/14/25 19:40> Patient Language: Qatari <Jacey Mcdonough APRN - Last Filed: 07/14/25 19:40> Prescriptions: New Magic Mouthwash (Dr. Ricci) 120 mL suspension See Rx Instructions .ROUTE .COMPLEX Qty: 120 0RF Rx Instructions: diphenhydramine 12.5 mg/5 mL oral elixir 40 mL; Lidocaine Viscous 2 % mucosal solution 40 mL; Maalox 200 mg-200 mg-20 mg/5 mL oral suspension 40 mL; Per 120 mL prednisone 50 mg tablet 50 mg PO DAILY 5 Days Qty: 5 0RF No Action aspirin 81 mg tablet,delayed release (DR/EC) 81 mg PO DAILY Qty: 30 11RF nitroglycerin 0.4 mg tablet, sublingual 0.4 mg SUBLINGUAL DIRECTED PRN (Reason: chest pain) Qty: 25 3RF Rx Instructions: One tablet sublingual Q 5 minutes x3 doses p.r.n. chest pain If no relief call 911 amlodipine 10 mg tablet 10 mg PO DAILY metoprolol tartrate 25 mg tablet 25 mg PO Q12H lisinopril 20 mg tablet 20 mg PO DAILY ezetimibe 10 mg tablet 10 mg PO DAILY atorvastatin 80 mg tablet 80 mg PO DAILY clopidogrel 75 mg tablet 75 mg PO DAILY doxycycline hyclate 100 mg capsule 100 mg PO Q12H tamsulosin [Flomax] 0.4 mg capsule 0.4 mg PO DAILY PRN (Reason: retention) metronidazole 500 mg tablet 500 mg PO Q12H famotidine 20 mg Tablet 20 mg PO Q12HR Qty: 60 0RF hydrocodone-acetaminophen 7.5-325 mg tablet 1 tablet PO QID PRN (Reason: Pain) <Jacey Mcdonough APRN - Last Filed: 07/14/25 19:40> Follow-up/Referrals: Isauro Johnson MD [Primary Care Provider, Hospitalist] <Jacey Mcdonough APRN - Last Filed: 07/14/25 19:40> Time of Disposition: 21:49 <Jacey Mcdonough APRN - Last Filed: 07/14/25 19:40> 21:49 <Celso Mercer MD - Last Filed: 07/14/25 06:45>
[2025-07-13 15:30] LABS: Hematocrit 46.5 % (42.0-52.0); Hemoglobin 15.7 g/dL (14.0-18.0); Immature Granulocyte Percent A 0.4 % (0-0.5); Lymphocytes Absolute Auto 1.61 K/mm3 (0.9-3.2); Mean Corpuscular HGB Conc 33.8 g/dl (32-36); Mean Corpuscular Hemoglobin 29.3 pg (26-34); Mean Corpuscular Volume 86.9 fl (80-100); Nucleated Red Blood Cells Absolute Auto 0.000 K/mm3 (0.0-0.012); Nucleated Red Blood Cells Perc 0.0 % (0.0-0.2); Platelet Count Result 236 k/mm3 (150-375); Red Blood Count 5.35 M/mm3 (4.6-6.20); White Blood Count 7.4 K/mm3 (4.5-10.0)
[2025-07-13 15:45] LABS: Alanine Aminotransferase 56 U/L (6-50); Albumin Level 4.7 g/dL (3.5-5.1); Alkaline Phosphatase 57 U/L (38-126); Anion Gap 10 mmol/L (4-12); Aspartate Amino Transferase 44 U/L (17-59); Bilirubin,Total 0.6 mg/dL (0.2-1.3); Blood Urea Nitrogen 16 mg/dL (9-20); Calcium 9.3 mg/dL (8.4-10.2); Carbon Dioxide 24 mmol/L (22-30); Chloride 105 mmol/L (98-107); Estimated CRCL calculation 93 ml/min; Estimated Glomerular Filt Rate > 60; Glucose 101 mg/dL (65-110); Potassium 4.2 mmol/L (3.4-5.0); Sodium 139 mmol/L (137-145); Total Protein 7.8 g/dL (6.3-8.2)
--- OUTSIDE RECORDS SUMMARY | 2025-07-13 20:36 | XMS_ITS | Clinical Summary ---
Author Organization [employer] [facility] Address [address] [place] [address] Care Team Providers Care Air Crew Member Name Role Phone Isauro Johnson MD Primary Care Provider [phone] Source Comments [facility],non-owned Affiliates and Associated Physician Practices is amultiple site organization consisting of ambulatory clinics and hospital sitesin [place], [place], [place] and [place]. This disclosure is being madepursuant to the Care Everywhere program and may not contain all information available regarding this patient. 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
--- OUTSIDE RECORDS SUMMARY | 2025-07-13 20:36 | XMS_ITS | Encounter Summary ---
Author Organization [facility] Healthcare Address [address] [place] [address] Care Team Providers Care Personal Property Appraiser Name Role Phone Cody Andrew MD Unavailable [phone] Miscellaneous, Not In File Unavailable Unava ilable Isauro Johnson MD Primary Care Provider Encounter Details Date Type Department Care Team (Late st Contact Info) Description 02/17/2025 Orders Only [facility] Health Information Management [address] [place] [address] Franchesca Katz MD [address] [address] Social History Tobacco Use Types Packs/Day Years Used Date Smoking Tobacco: Former Cigarettes 2 8 Smokeless Tobacco: Former Alcohol Use Standard Drinks/Week Comments Yes 0 (1 standard drink = 0.6 oz pur e alcohol) Rarely [facility] Utilities Answer Date Recorded In the past 12 months has [employer] electric, gas, oil, or water company threatened [...] week 04/09/2024 How often do you attend [facility] or sikhism services? Never 04/09/2024 Do you belong to any clubs o r organizations such as latter-day groups, unions, fraternal or athletic groups, or [...] any time in the past 12 m 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
--- OUTSIDE RECORDS SUMMARY | 2025-07-13 20:36 | XMS_ITS | Clinical Summary ---
Author Organization [facility] [address] Address [address] [place] [address] Care Team Providers Care Wine Bottle Inspector Name Role Phone Cody Andrew MD Unavailable [phone] Miscellaneous, Not In File Unavailable Unava ilable [...] enteric coated tabletIndication s:Coronary artery disease involving tununak coronary artery of tun[place] heart without angina pectoris Take 1 tablet (81 mg total) by mouth daily 90 tablet 3 5 05/18/20 26 Active amLODIPine (NORVASC) 10 mg tabletIndication s:Uncontrolled hypertension Take 1 tablet (10 mg total) by mouth daily 90 tablet 3 5 05/18/20 26 Active atorvastatin (LIPITOR) 80 mg tabletIndication s:Coronary artery disease involving tununak coronary artery of tunun[place] heart without angina pectoris,Dyslipi demia Take 1 tablet (80 mg total) by mouth nightly 90 tablet 3 5 05/18/20 26 Active ezetimibe (ZETIA) 10 mg tabletIndication s:Coronary artery disease involving tun[place]ak coronary artery of tunun[place] heart without angina pectoris Take 1 tablet (10 mg total) by mouth nightly 90 tablet 3 5 05/18/20 26 Active lisinopriL (PRINIVIL,ZESTRI L) 20 mg tablet Take 1 tablet (20 mg total) by mouth daily 30 tablet 3 5 Active metoprolol tartrate (LOPRESSOR) 25 mg immediate release tabletIndication s:Coronary artery disease involving tununak coronary artery of tununak heart without angina pectoris,Essenti al hypertension Take [...] wishes to f/u with Dr. Andrew in [place] - chat message sent to him. Assessment [...] Assessment & Plan (12/25/2019 1:27 PM SENIOR JAVA UI DEVELOPER): #Spontaneous dental abscess, symptomatic since Saturday (12/21), [...] skin lesions Coronary artery disease invo lving tununak coronary artery of tununak heart without angina pectoris 05/02/2019 Assessment & [...] 30pm Assessment & Plan (12/25/2019 1:25 PM SENIOR JAVA UI DEVELOPER): #History of NSTEMI in 10/2019. 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 --Continue home aspirin, ticagrelor, atorvastatin. Hyperlipidemia 05/02/2019 Assessment & Plan (07/24/2022 5:44 PM CDT): Cont statin Assessment & Plan (07/23/2022 1:55 PM CDT): Cont statin Assessment & Plan (07/22/2022 3:57 PM CDT): Cont statin Assessment & Plan (12/24/2019 8:48 PM SENIOR JAVA UI DEVELOPER): #Chronic with history of CAD. - Continue [...] Assessment & Plan (12/24/2019 8:49 PM SENIOR JAVA UI DEVELOPER): #Chronic. - Continue home lisinopril, metoprolol as [...] (03/20/2019): Added automatically from request for surgery [id number] High risk medication use 12/12/2018 Psoriatic arthritis 03/27/2018 Assessment & Plan (12/24/2019 8:40 PM SENIOR JAVA UI DEVELOPER): #Follows with Rheumatology, last seen 06/2019, managed with Enbrel 50 mg weekly. - Continue to monitor. 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 He [...] --Treatment of MAGI as above. Aspiration pneumonia ([facility]) 05/02/2019 10/03/2021 Assessment & Plan (05/04/2019 8:31 [...] Department Care Team Description 06/23/[address] [facility] Cardiology [address] [place] [address] Mitzi Garduno NP 06/08/2025 Telephone [facility] Cardiology [address] [place] [address] Mitzi Garduno NP 06/03/2025 Orders Only [facility] Health Information Management [address] [place] [address] Mitzi Garduno NP 05/18/2025 1:30 PM CDT Office Visit [facility] Cardiology [address] [place] [address] Jeff Miller MD Coronary artery disease involving tununak coronary artery of tununak heart without angina pectoris (Primary Dx); NSTEMI [...] artery disease Hypertension Kidney stones HLD (hyperlipidemia) ID, old Behcet's syndrome (HCC) Psoriasis Anxiety Gout [...] = 0.6 oz pur e alcohol) Rarely [employer] Utilities Answer Date Recorded In the past 12 months has [employer], gas, oil, or water [employer] threatened to shut off services in your [...] often do you attend chur ch or gnosticist services? Never 04/09/2024 Do you belong to any clubs o r organizations such as holiness groups, unions, fraternal or athletic groups, or [...] any time in the past 12 [facility], were you homeless or living in a alf (including now)? No 04/09/2024 Personal Safety Answer Date Recorded Have you ever been in or are you currently in a harmful physical or emotional relationship or is someone making you feel afraid or unsafe? 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 Male 11:32 AM SENIOR JAVA UI DEVELOPER Gender Identity Not on file Sexual Orientation [...] Completed 08/20/2018 Medical Devices Implanted Type Area Cast Shell Grinder Device Identifier Shelf Expiration Date Model / Serial / Lot Cardiac Stent Implanted:10/21 (Quantity not on file) Stent Heart [employer] Escobar Distal Marker Radiology Stainless Steel Sterile Amgm-D - [id number] Implanted:Qty: 1 on 03/10/2024 by Yinka Palmer MD at [facility] N/A: Heart [employer] [id number] 09/20/2026 AMGM-D / / [id number] Procedures Procedure Name Priority Date/Time Associated Diagnosis Comments CARDIOLOGY DOCUMENT SCAN Routine 06/03/2025 2:47 PM CDT CARDIOLOGY DOCUMENT SCAN 06/03/2025 ECG 12-LEAD Routine 05/18/2025 1:59 PM CDT Coronary artery disease involving tununak coronary artery of tununak heart without angina pectoris NSTEMI (non-ST elevated [...] was last reviewed 2021. Testing performed by: [address] [address] Blood 07/30/2024 5:42 PM CDT 07/30/2024 5:58 PM CDT us Brittaney Coffman MD LAB BLOOD ORDERABLES Fin al Result Performing Organization Address [facility] Co de Phone Number [place] [id number] [place] [address] * Hemoglobin A1c (03/07/2024 4:01 AM CDT) [facility] Hgb A1C 5.5 4.0 - 5.6 % Comment:Testing performed by : [address] [address] Estimated Average Glucose 111 mg/dL T[place]ER Comment: The ADA recommends reporting an estimated Average Glucose (eAG) with all Hemoglobin A1c results using the equation derived from a study of 507 normal and diabetic adults. Minority populations were underrepresented and children were not included. (Diabetes Care 31:5846-3174, 2008). The eAG is not equivalent to a fasting glucose. Testing performed by: [address] [address] Blood 03/07/2024 4:01 AM CDT 03/07/2024 4:10 AM CDT us Ricardo Mendoza MD LAB BLOOD ORDERABLES Final Result Performing Organization Address [facility] Co de Phone Number [facility] [address] [place] [address] * (ABNORMAL) Lipid panel (03/06/2024 6:33 PM CDT) [facility] Signature Cholesterol 177 30 - 199 [...] last revised on 2018. Testing performed by: [address] [address] Triglycerides 146 <=149 mg/dL TYLER Comment: Interpretive [...] last revised on 2018. Testing performed by: [address] [address] HDL 38(L) >=40 mg/dL TYLER Comment: Interpretive [...] last revised on 2018. Testing performed by: [address] [address] LDL, calculated 110 <=129 mg/dL TYLER Comment: [...] last revised on 2018. Testing performed by: [address] [address] Non-HDL Cholesterol 139 mg/dL TYLER Comment: Interpretive [...] last revised on 2018. Testing performed by: [address] [address] Chol/HDL ratio 5 TYLER Comment:Testing performed by : [address] [address] Blood 03/06/2024 6:33 PM CDT 03/06/2024 6:44 PM CDT Jake LÓPEZ - 03/06/2024 7:29 PM CDT This lipid panel was automatically ordered due to a significant change in Troponin. The dietary status of the patient at the collection time should be correlated with the lipid results. us Oleg Pierce DO LAB BLOOD ORDERABLES Final Res ult [id number] [address] Department [place] [address] * COLONOSCOPY (05/01/2019 3:34 PM CDT) Anatomical Region Laterality Modality Other Narrative Procedure Note Juan Manuel Rick MD - 05/01/2019 3:34 PM CDT [facility] Patient Name: Zander Cain Procedure Date: 05/01/2019 3:34 PM Date of : 1975 Admit Type: Outpatient Age: 43 Gender: Male Attending MD: Juan Manuel Rick M.D. Room: [facility] ENDOSCOPY ROOM 5 Note Status: [...] scope was passed under direct vision.The [id number] endoscope was introduced throughthe anus and [...] On: 05/01/2019 3:34 PM Recognized by the [employer] for promoting quality in endoscopy us Juan Manuel Rick MD ENDOSCOPY PROCEDURES Final Re sult * Hepatitis panel, acute (08/20/2018 6:13 AM CDT) HepBsAg NONREACT NONREACTIVE 08/20/2018 12:27 PM CDT [facility] [place] Comment: Siemens [employer] using NEETA (chemiluminescent immunoassay) technology. NONREACTIVE: IgM antibodies to Hepatitis B Surface antigen not detected. REACTIVE: IgM antibodies to Hepatitis B Surface antigen detected. Reactive results will be confirmed by neutralization testing. HBsAb qn < 3.10 mIU/mL 08/20/2018 12:17 PM CDT [facility] [place] [facility] Comment: Siemens [employer] using NEETA (chemiluminescent immunoassay) technology. 9.99 IU/L or less.....NONREACTIVE: IgM antibodies to Hepatitis B Surface antibody are not detected. 10.00 IU/L or greater..REACTIVE: IgM antibodies to Hepatitis B Surface antibody are detected. Hep B core IgM NONREACT NONREACTIVE 8 12:52 PM CDT [facility] [place] [facility] Comment: Siemens CentaurXP using NEETA (chemiluminescent immunoassay) technology. NONREACTIVE: IgM antibodies to Hepatitis B Core antigen not detected. EQUIVOCAL: IgM antibodies to Hepatitis B Core antigen may or may not be present. Obtain a new specimen and retest. REACTIVE: IgM antibodies to Hepatitis B Core antigen detected. Hep A IgM NONREACT NONREACTIVE 08/20/2018 12:54 PM CDT [facility] [place] [facility] Comment: Siemens CentaurXP using NEETA (chemiluminescent immunoassay) technology. NONREACTIVE: IgM antibodies to Hepatitis A not detected. This does not exclude possibility of exposure to Hepatitis A or early acute infection. EQUIVOCAL:IgM antibodies to Hepatitis A may or may not be present. Suggest recollection and retest. REACTIVE: Antibodies to Hepatitis A detected. Hep C Ab NONREACT NONREACTIVE 08/20/2018 12:51 PM CDT [facility] [place] [facility] Comment: Siemens CentaurXP using NEETA [...] MICROBIOLOGY - GENERAL OR DERABLES Final Result [facility] [place] [facility] [place] from Last 3 Months or Most Recently Relevant to Health Maintenance Insurance [facility] Advance Directives For more information, please contact: [phone] Documents on File Type Date Recorded Patient National Service Officer Expl anation ADVANCE DIRECTIVE 03/09/2024 12:26 PM Chavo r of [employer] * Full Code (Latest Code Status on [...] 6:32 PM 07/20/2022 6:32 PM Care Teams Wine Bottle Inspector Relationship Specialty Start Date End Date Isauro Johnson MD PCP - General Entry Level Business Analyst 07/26/22 Cody Andrew MD Consulting Physician Infectious Diseases 10/09/21 Miscellaneous, Not In File 10/09/21
--- OUTSIDE RECORDS SUMMARY | 2025-07-13 20:36 | XMS_ITS | Encounter Summary ---
Author Organization [facility] Facility Care Team Providers Care Certified Rehabilitation Counselor Name Role Phone Isauro Johnson MD Primary Care Provider Cody Andrew MD Unavailable [phone] Miscellaneous, Not In File Unavailable Unava ilable Isauro Johnson MD Primary Care Provider Encounter Details Date Type Department Care Team (Latest Contact Info) Description 04/13/2016 Orders Only [facility]IN[facility] ProviderHilary MD [address] [place] [address] Social History Tobacco Use Types Packs/Day Years Used Date Smoking Tobacco: Never Assessed Sex and Gender Information Value Date Recorded Sex Assigned at Not on file Legal Sex Male 11:32 AM EAP SPECIALIST Gender Identity Not on file Sexual [...] CDT MRSA 03/08/2024 04/09/2024 10/06/2024 3:05 AM EAP SPECIALIST documented as of this encounter Care Teams Certified Rehabilitation Counselor Relationship Specialty Start Date End Date Isauro Johnson MD PCP - General Liquid Sugar Melter 05/21/17 07/25/22 Isauro Johnson MD PCP - General Liquid Sugar Melter 07/26/22 Cody Andrew MD Consulting Physician Infectious Diseases 10/09/21 Miscellaneous, Not In File 10/09/21 documented as of this encounter
--- OUTSIDE RECORDS SUMMARY | 2025-07-13 20:36 | XMS_ITS | Clinical Summary ---
Author Organization [facility] Address [address] [place] [address] Phone Care Team Providers Care Gi Asst Name Role Phone Nomfc, External Provider Primary [...] 2022 INFLUENZA VACCINE (#1) 2025 07/29/2013 Insurance [facility] OPTIONS PPO [id number] Advance Directives For more information, please contact: [phone] * Full Code (Latest Code Status on File) Date Activated Date Inactivated Comments 07/27/2013 5:37 PM 07/29/2013 11:55 AM Care Teams Gi Asst Relationship Specialty Start Date End Date Nomfc, External Provider PCP - General 07/27/13
--- OUTSIDE RECORDS SUMMARY | 2025-07-13 20:36 | XMS_ITS | Clinical Summary ---
Author Organization [facility] Address [address] [place] [address] Care Team Providers Care Aesthetician Name Role Phone Unavailable Primary Care Provider [...] on file Legal Sex Male 12:35 PM STERILE TECH Gender Identity Not on file Sexual Orientation [...] Comment:04/08/24 right wrist ([place]) 04/08/2024 04/08/2024 Insurance [employer]
--- OUTSIDE RECORDS SUMMARY | 2025-07-13 20:36 | XMS_ITS | Encounter Summary ---
Author Organization [facility] Facility Care Team Providers Care Supervisor Mapping Name Role Phone Isauro Johnson MD Primary Care Provider Cody Andrew MD Unavailable [phone] Miscellaneous, Not In File Unavailable Unava ilable Isauro Johnson MD Primary Care Provider Encounter Details Date Type Department Care Team (Latest Contact Info) Description 08/24/2016 Orders Only [facility] ProviderHilary MD [address] [place] [address] Social History Tobacco Use Types Packs/Day Years Used Date Smoking Tobacco: Never Assessed Sex and Gender Information Value Date Recorded Sex Assigned at Not on file Legal Sex Male 11:32 AM DECK SPECIALIST Gender Identity Not on file Sexual [...] CDT MRSA 03/08/2024 04/09/2024 10/06/2024 3:05 AM DECK SPECIALIST documented as of this encounter Care Teams Supervisor Mapping Relationship Specialty Start Date End Date Isauro Johnson MD PCP - General Assault Amphibious Vehicle Crewman 05/21/17 07/25/22 Isauro Johnson MD PCP - General Assault Amphibious Vehicle Crewman 07/26/22 Cody Andrew MD Consulting Physician Infectious Diseases 10/09/21 Miscellaneous, Not In File 10/09/21 documented as of this encounter
--- OUTSIDE RECORDS SUMMARY | 2025-07-13 20:36 | XMS_ITS | Encounter Summary ---
Author Organization [facility] Facility Care Team Providers Care Drying Supervisor Name Role Phone Isauro Johnson MD Primary Care Provider Cody Andrew MD Unavailable [phone] Miscellaneous, Not In File Unavailable Unava ilable Isauro Johnson MD Primary Care Provider Encounter Details Date Type Department Care Team (Latest Contact Info) Description 04/12/2016 Orders Only [facility]INCON[facility] ProviderHilary MD [address] [place] [address] Social History Tobacco Use Types Packs/Day Years Used Date Smoking Tobacco: Never Assessed Sex and Gender Information Value Date Recorded Sex Assigned at Not on file Legal Sex Male 11:32 AM HEALTHCARE RECRUITER Gender Identity Not on file Sexual Orientation [...] CDT MRSA 03/08/2024 04/09/2024 10/06/2024 3:05 AM HEALTHCARE RECRUITER documented as of this encounter Care Teams Drying Supervisor Relationship Specialty Start Date End Date Isauro Johnson MD PCP - General Aerospace Engineer Officer Armament 05/21/17 07/25/22 Isauro Johnson MD PCP - General Aerospace Engineer Officer Armament 07/26/22 Cody Andrew MD Consulting Physician Infectious Diseases 10/09/21 Miscellaneous, Not In File 10/09/21 documented as of this encounter
--- OUTSIDE RECORDS SUMMARY | 2025-07-13 20:36 | XMS_ITS | Encounter Summary ---
Author Organization [facility] Facility Care Team Providers Care Brake Specialist Name Role Phone Isauro Johnson MD Primary Care Provider Cody Andrew MD Unavailable [phone] Miscellaneous, Not In File Unavailable Unava ilable Isauro Jhonson MD Primary Care Provider Encounter Details Date Type Department Care Team (Latest Contact Info) Description 08/13/2016 Orders Only [facility] ProviderHilary MD [address] [place] [address] Social History Tobacco Use Types Packs/Day Years Used Date Smoking Tobacco: Never Assessed Sex and Gender Information Value Date Recorded Sex Assigned at Not on file Legal Sex Male 11:[address]INEER Gender Identity Not on file Sexual [...] CDT MRSA 03/08/2024 04/09/2024 10/06/2024 3:[address] ENGINEER documented as of this encounter Care Teams Brake Specialist Relationship Specialty Start Date End Date Isauro Johnson MD PCP - General Paper Rewinder 05/21/17 07/25/22 Isauro Johnson MD PCP - General Paper Rewinder 07/26/22 Cody Andrew MD Consulting Physician Infectious Diseases 10/09/21 Miscellaneous, Not In File 10/09/21 documented as of this encounter
--- OUTSIDE RECORDS SUMMARY | 2025-07-13 20:36 | XMS_ITS | Encounter Summary ---
Author Organization [facility] Facility Care Team Providers Care Motor Vehicle Operator Road Supervisor Name Role Phone Isauro Johnson MD Primary Care Provider Cody Andrew MD Unavailable [phone] Miscellaneous, Not In File Unavailable Unava ilable Isauro Johnson MD Primary Care Provider Encounter Details Date Type Department Care Team (Latest Contact Info) Description 07/07/2018 Orders Only [facility]INCON[facility] ProviderHilary MD [address] [place] [address] Social History Tobacco Use Types Packs/Day Years Used Date Smoking Tobacco: Former Smokeless Tobacco: Former Alcohol Use Standard Drinks/Week Comments Yes 0 (1 standard drink = 0.6 oz pur e alcohol) rarely Sex and Gender Information Value Date Recorded Sex Assigned at Not on file Legal Sex Male 11:32 AM STITCH CLEANER Gender Identity Not on file Sexual [...] CDT MRSA 03/08/2024 04/09/2024 10/06/2024 3:05 AM STITCH CLEANER documented as of this encounter Care Teams Motor Vehicle Operator Road Supervisor Relationship Specialty Start Date End Date Isauro Johnson MD PCP - General Market Development Specialist 05/21/17 07/25/22 Isauro Johnson MD PCP - General Market Development Specialist 07/26/22 Cody Andrew MD Consulting Physician Infectious Diseases 10/09/21 Miscellaneous, Not In File 10/09/21 documented as of this encounter
--- OUTSIDE RECORDS SUMMARY | 2025-07-13 20:36 | XMS_ITS | Clinical Summary ---
Author Organization [facility] Address [address] [place] [address] Phone Care Team Providers Care Pipe Coverer And Insulator Name Role Phone Isauro Johnson MD Primary [...] age to complete this topic Care Teams Pipe Coverer And Insulator Relationship Specialty Start Date End Date Isauro Johnson MD [address] [place] [address] PCP - General Internal Medicine 05/27/20
[2025-07-13 21:06] VITALS: BP 168/95; PULSE 62; RESP 16; O2SAT 98
[2025-07-13] MEDS: SODIUM CHLORIDE 0.9% IV 1,000 ML 999 ML IV CONT (21:08)
[2025-07-13] MEDS: HYDROmorphone HCL INJ (*CRX) 1 MG/ML SYR IV PUSH (21:08)
[2025-07-13] MEDS: dexAMETHasone SOD PHOS INJ 10 MG/ML 1 ML VIAL 12 MG IV PUSH (21:09)
[2025-07-13] MEDS: prednisoLONE ORAL SOLN 30 MG/10 ML SOLUTION PO (21:22)
--- NOTE | 2025-07-13 21:22 | PC.NURSE ---
Pharmacy called and are still preparing the oral compound order and will send it up when finished.
[2025-07-13] MEDS: LIDOCAINE 2% VISC SOLN 30 ML, ALUMINUM/MAGNESIUM/SIMETH SUSP 30 ML, diphenhydrAMINE HCl... PO (22:17)
[2025-07-13 22:18] VITALS: BP 183/95; PULSE 66; RESP 16; O2SAT 98
--- NOTE | 2025-07-13 22:20 | PC.NURSE ---
Pt. requesting additional pain medication prior to d/c. Dr. Mercer notified.
[2025-07-13] MEDS: oxyCODONE HCL (*CRX) 5 MG TAB IR PO (22:44)
[2025-07-13 22:49] VITALS: BP 150/62; PULSE 85; RESP 16; O2SAT 95
== END 2025-07-13 22:56 | disposition home or self-care (01) ==
PROVIDERS: Nurse Practitioner Family; Emergency Provider Student in an Organized Health Care Education/Training Program; PCP Chiropractor
DX: M35.2 Behcet's disease (principal); I25.10 Atherosclerotic heart disease of native coronary artery without angina pectoris; I25.2 Old myocardial infarction; I10 Essential (primary) hypertension; E78.5 Hyperlipidemia, unspecified; G47.33 Obstructive sleep apnea (adult) (pediatric); L40.9 Psoriasis, unspecified; M10.9 Gout, unspecified; M19.90 Unspecified osteoarthritis, unspecified site; Z95.5 Presence of coronary angioplasty implant and graft; Z87.891 Personal history of nicotine dependence; Z79.02 Long term (current) use of antithrombotics/antiplatelets; Z79.82 Long term (current) use of aspirin; Z79.899 Other long term (current) drug therapy
CPT/HCPCS: 36415; 80053; 85025; 96361; 96374; 96375; 99284; A9270; J1100; J1171; J7030

== ENCOUNTER 2025-08-08 09:49 | Emergency (ER) | payer OTHER, SELFPAY ==
--- NOTE | 2025-08-08 09:51 | ED_ITS ---
HPI - URI/Sore Throat General Chief Complaint: Upper Respiratory Infection Stated Complaint: Sore throat, tired, may have strep Time Seen by Provider: 08/08/25 09:51 Source: patient Mode of arrival: ambulatory Limitations: no limitations History of Present Illness HPI Narrative: Patient is a 49-year-old male that presents with 4 days of sore throat, fatigue. Reports her throat is worse in the morning. Has not taken anything for symptoms. Denies any fever, chills, nausea, vomiting, diarrhea, cough Related Data Home Medications ?Medication ?Instructions ?Recorded ?Confirmed ?Last Taken ?Type hydrocodone 7.5 mg-acetaminophen 1 tablet PO QID PRN P ain 04/25/20 08/08/25 06/02/25 History 325 mg tablet amlodipine 10 mg tablet 10 mg PO DAILY 06/03/2507/2106/02/25 History atorvastatin 80 mg tablet 80 mg PO DAILY 06/03/2505/2106/02/25 History clopidogrel 75 mg tablet 75 mg PO DAILY 06/03/2505/2106/02/25 History doxycycline hyclate 100 mg capsule 100 mg PO Q12H 05/2106/03/25 06/02/25 History ezetimibe 10 mg tablet 10 mg PO DAILY 06/03/2505/2106/02/25 History lisinopril 20 mg tablet 20 mg PO DAILY 06/03/2507/2106/02/25 History metoprolol tartrate 25 mg tablet 25 mg PO Q12H 5 06/03/25 06/02/25 History metronidazole 500 mg tablet 500 mg PO Q12H 06/03/2506/02/25 History Allergies Allergy/AdvReac Type Severity Reaction Status Date / Time colchicine AdvReac Unknown nausea and Verified 08/08/25 10:00 abdominal pain with one dose Review of Systems Review of Systems: All systems reviewed & are unremarkable except as noted in HPI and below Constitutional: Constitutional: Denies chills, Reports fatigue, Denies fever(s), Denies headache(s), Denies malaise and Denies weakness Eyes: Eyes: Denies blurry vision, Denies itchy eyes and Denies loss of vision ENT: Denies otalgia, Denies headache(s), Denies nasal congestion, Denies sinus pain and Reports sore throat Cardiovascular: Cardiovascular: Denies chest pain, Denies irregular heart rhy thm and Denies dyspnea Respiratory: Respiratory: Denies cough and Denies dyspnea Gastrointestinal: Gastrointestinal: Denies abdominal pain, Denies diarrhea, Denies nausea and Denies vomiting Musculoskeletal: Musculoskeletal: Denies back pain, Denies myalgias and Denies arthralgias Integumentary/Breasts: Skin/Breast: Denies pruritus and Denies rash Neurologic: Denies headache(s), Denies loss of vision and Denies weakness Psychiatric: Psychiatric: Reports no additional psychiatric complaints Endocrine: Endocrine: Denies fatigue Allergic/Immunologic: Allergic/Immunologic: Denies itchy eyes PMFSH Past Medical History Medical History Obstructive sleep apnea Noncompliant with CPAP Alcohol abuse Chronic back pain Behcets syndrome Psoriasis Anxiety Left wrist fracture Gout Arthritis Kidney stone HLD (hyperlipidemia) HTN (hypertension) Myocardial infarction x2, with stent CAD (coronary artery disease) Dental cavities Surgical History Surgical History History of coronary artery bypass graft Status post cystoscopy with ureteral stent placement History of heart artery stent Cardiac catheterization 2019 performed at this facility demonstrated patent obtuse marginal branch stent without stenosis, right coronary artery large vessel and code dominant totally occluded proximally with stent placement with residual stenosis of 30% ejection fraction of 50% with basal and mid inferior wall hypokinesis History of surgery on arm left forearm H/O arthroscopy of left knee Family History Family History Daughter Cancer Father Hypertension Other Family history of malignant neoplasm Family history of psoriasis Social History Social History Social History: He has been since 2019. He has 3 children. 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 He used to smoke up to 3 packs of cigarettes per day. It did previously been documented that the patient had drink up to 28 alcoholic beverages a day. He adamantly denies ever having drink alcohol to excess. He states that he may drink 1 alcoholic on rare occasion. Code status: Full code Surrogate decision maker: Yu (daughter) Smoking packs per day: 3 Smoking cigarettes per day: 60.0 Years smoked: 6 Smoking pack-years: 18.00 Smoking status: Former smoker Tobacco type: cigarettes Second hand tobacco smoke exposure: Yes Smoking end date: 03/03/24 Alcohol intake: never Drinks per week: 28 Substance use: never Substance use type: does not use Do You Feel Safe in your Home?: Yes Lack of Transportation: No Lack of Food: Never True Current Housing: I Have Housing Concerned About Future Housing: No Difficulty Paying Gas/Electric Bills: No Difficulty Paying for Meds: No Currently Unemployed: No Education: High School Diploma/GED Difficulty w/ Childcare or Family Care: No Gender identity (if verbalized by the patient): Male Sexual Orientation (if Verbalized by the Patient): Straight or Heterosexual Spiritual care concerns: No Agree to blood products: Yes Comments At time of signature, agree with nursing past medical, surgical, social and family history. There is no relevant family history pertinent to the presenting complaint. Exam Const: General: cooperative, healthy appearing, comfortable, no acute distress and well nourished Nutritional Appearance: well nourished Orientation/consciousness: patient oriented x3 Limitations: no limitations HENMT: Head: normal to inspection, normocephalic and atraumatic Ears: hearing grossly normal bilaterally, external ears normal, TM's normal bilaterally, EAC's normal and no periauricular adenopathy Face/Nose/Sinus: Normal external nose present, Abnormal mucous membranes and turbinates present erythematous bilateral and diffuse, normal facial exam, sinuses nontender and face symmetric Face and sinus: normal facial exam, sinuses nontender and face symmetric Mouth: Yes Normal oral and palatal mucosa present, Yes lip normal, Yes tongue normal, Yes Normal salivary glands and ducts present, Yes oropharynx normal and Yes moist mucous membranes Teeth and gingiva: dentition normal Throat: posterior oropharynx normal, tonsils normal and uvula midline Eyes: General: appearance normal, both eyes and all related structures Alignment and Position: alignment normal and position normal Periorbital: periorbital findings normal Eyelids: eyelids normal Pupils: Equal, round and reactive pupils present Neck: Neck: normal visual inspection, full ROM, no lymphadenopathy and supple Chest: Chest palpation & inspection: normal inspection of the chest and normal palpation of entire chest wall Resp: Effort & Inspection: normal respiratory effort and able to speak in complete sentences Auscultation: clear to auscultation bilaterally, no crackles, no rales, no rhonchi and no wheezes Cardio: Rate: regular rate Rhythm: regular rhythm Heart sounds: S1 normal heart sound present and S2 normal heart sound present GI: Inspection: normal to inspection Skin: General skin exam: normal color and no rashes or lesions noted Neuro: General: patient oriented x3 and moves all extremities Cranial nerves: Yes Equal, round and reactive pupils present Speech: normal speech Gait exam (Neuro): Normal gait present Extrem: General: normal to inspection, full ROM and no edema Psych: Appearance: grossly normal and well kempt Mental Status: mental status grossly normal Speech and movement: Normal speech and movement present Affect: normal affect Attitude: cooperative Thought process: Normal thought process present Course Course Emergency Course: Discharge instructions reviewed with patient, as well as provided in writing per nursing staff. The instructions also include specific and strict return/GO TO THE ER as well as f/u information. All questions have been answered, and the patient deny any further questions with discharge and discharge plan. Portions of this record may have been created with voice recognition software Level of Care: Express Care Visit Vital Signs Vital signs: Vital Signs Temperature 36.6 C 08/08/25 10:06 Pulse Rate 76 08/08/25 10:06 Respiratory Rate 16 08/08/25 10:06 Blood Pressure 175/99 H 08/08/25 10:06 Pulse Oximetry 95 08/08/25 10:06 Oxygen Delivery Room Air 08/08/25 10:06 Temperature 36.6 C 08/08/25 10:06 Pulse Rate 76 08/08/25 10:06 Respiratory Rate 16 08/08/25 10:06 Blood Pressure 175/99 H 08/08/25 10:06 Pulse Oximetry 95 08/08/25 10:06 Oxygen Delivery Room Air 08/08/25 10:06 Reviewed MDM - URI/Sore Throat MDM Narrative Medical decision making narrative: Pt well hydrated appearing, in no respiratory distress, hemodynamically stable. Recommend supportive care. The patient is stable at time of discharge the clinical impression was discussed and the patient was given the opportunity to ask questions, which were addressed as completely as possible given the information available at present. Anticipatory guidance and return to care precautions were discussed and the importance of primary care follow-up was stressed and encouraged. The patient voiced understanding of the plan, indications to return, and the need for follow-up. Exam findings show no acute concerns or changes Patient is appropriate for outpatient treatment and follow-up. Differential diagnosis considered: Alonso virus, strep pharyngitis, allergic rhinitis, upper respiratory tract infection, sinusitis, rhinosinusitis, nasopharyngitis. viral pharyngitis, otitis media, otitis externa, otitis effusion, foreign body, cerumen impaction, viral syndrome, and influenza.? Medical Records Attestation: I reviewed the patient's medical records. Lab Data Attestation: I reviewed the patient's lab results. Labs: Lab Results 08/08/25 08/08/25 Range/Units 10:01 10:41 POC Influenza A Ag Negative (Negative) POC Influenza B Ag Negative (Negative) POC SARS CoV-2 Ag Negative (Negative) POC Grp A Strep Screen Negative (Negative) Discharge Plan Discharge Clinical Impression: Upper respiratory infection Qualifiers: URI type: unspecified viral URI Qualified Code(s): J06.9 - Acute upper respiratory infection, unspecified Patient Disposition: Home Condition: Stable Instructions: Upper Respiratory Infection (ED) Additional Instructions: Your rapid strep swab was negative today at [facility]. A throat culture will be sent to the laboratory for further testing. If the test is positive, you will receive a phone call within 48 hours and an appropriate antibiotic will be initiated at that time. Your Covid and flu are both negative Your symptoms are likely due to a viral illness, which is not treated with antibiotics. Viral symptoms can be present for up to a few weeks. -For pain/fever, you may take: Tylenol 650-1000mg by mouth every 4-6 hours. Do not exceed 4000mg in 24 hours. -Antihistamine medication such as Benadryl/Zyrtec at night and Claritin/Ankita during the day can help improve symptoms. -Use Flonase twice a day for 5 days then daily to help reduce the inflammation and dry up your sinuses. -You can also use Sudafed behind the pharmacy counter(12 or 24 hour). Be sure to drink plenty of water with these medications at least 8 ounces with every dose and it is important to drink 8 to 10 glasses of water per day. Water is a natural decongestant -Eat and drink things that are easy to swallow, like tea or soup, or popsicles. -Oral rinses such as: Salt water gargles and/or may use topical anesthetic (eg. Chloraseptic spray) or lozenges to relieve dryness or throat pain). -Frequent hand washing or hand funeral home director is one of the best ways to prevent spread of infection. -Using a vaporizer or humidifier at night will also help thin secretions and help with coughing up phlegm. Call your Primary Care Doctor and make a follow-up appointment in 3 days. If your cough worsens, you develop a fever greater than 103, you develop shaking chills, a fast heartbeat, trouble breathing and/or feel you are are breathing much faster than usual, call your Primary Care Doctor or go to the ER. Your blood pressure was elevated above 120/80 today at Urgent Care. This puts you above the threshold for follow up visit with a primary care provider. High blood pressure does not usually cause any symptoms, however it may lead to k idney failure, stroke, heart disease just to name a few if untreated . Many people are anxious when seeing a provider or nurse. As a result, you are not diagnosed with hypertension at this time unless your blood pressure is persistently high at two office visits at least one week apart. Some things that can help lower blood pressure are lifestyle modifications, such as light exercise, decreased salt in diet, and weight loss. It is important to follow up with a PCP about this within 1 week. Patient Language: Yakut Prescriptions: New fluticasone propionate [Flonase Allergy Relief] 50 mcg/actuation spray,suspension 1 spray intranasal DAILY Qty: 16 0RF Rx Instructions: administer into each nostril No Action aspirin 81 mg tablet,delayed release (DR/EC) 81 mg PO DAILY Qty: 30 11RF amlodipine 10 mg tablet 10 mg PO DAILY metoprolol tartrate 25 mg tablet 25 mg PO Q12H lisinopril 20 mg tablet 20 mg PO DAILY ezetimibe 10 mg tablet 10 mg PO DAILY atorvastatin 80 mg tablet 80 mg PO DAILY clopidogrel 75 mg tablet 75 mg PO DAILY doxycycline hyclate 100 mg capsule 100 mg PO Q12H metronidazole 500 mg tablet 500 mg PO Q12H famotidine 20 mg Tablet 20 mg PO Q12HR Qty: 60 0RF hydrocodone-acetaminophen 7.5-325 mg tablet 1 tablet PO QID PRN (Reason: Pain) Magic Mouthwash (Dr. Ricci) 120 mL suspension See Rx Instructions .ROUTE .COMPLEX Qty: 120 0RF Rx Instructions: diphenhydramine 12.5 mg/5 mL oral elixir 40 mL; Lidocaine Viscous 2 % mucosal solution 40 mL; Maalox 200 mg-200 mg-20 mg/5 mL oral suspension 40 mL; Per 120 mL Follow-up/Referrals: Isauro Johnson MD [Primary Care Provider, Hospitalist] - 3 Days Stand Alone Forms: Work/School Release IP Time of Disposition: 11:00
[2025-08-08 10:06] VITALS: BP 175/99; PULSE 76; RESP 16; TEMP 36.6; O2SAT 95
[2025-08-08 10:17] LABS: EDSTREPNEGPOS1 Negative (Negative)
[2025-08-08 10:56] LABS: EDCOVIDSCREEN Negative (Negative); EDINFLUASCREEN Negative (Negative); EDINFLUBSCREEN Negative (Negative)
== END 2025-08-08 11:05 | disposition home or self-care (01) ==
PROVIDERS: Emergency Provider Nurse Practitioner Family; PCP Chiropractor
DX: J06.9 Acute upper respiratory infection, unspecified (principal); Z20.822 Contact with and (suspected) exposure to COVID-19; I10 Essential (primary) hypertension; I25.2 Old myocardial infarction; I25.10 Atherosclerotic heart disease of native coronary artery without angina pectoris; E78.5 Hyperlipidemia, unspecified; M19.90 Unspecified osteoarthritis, unspecified site; M10.9 Gout, unspecified; L40.9 Psoriasis, unspecified; G47.33 Obstructive sleep apnea (adult) (pediatric); Z91.199 Patient's noncompliance with other medical treatment and regimen due to unspecified reason; Z95.5 Presence of coronary angioplasty implant and graft; Z87.891 Personal history of nicotine dependence; Z79.82 Long term (current) use of aspirin
CPT/HCPCS: 87081; 87426; 87804; 87880; 99213; G0463